=== PATIENT | female | born 1945 | race African-American/Black ===

== ENCOUNTER → 2016-10-11 | Outpatient (CLI) | payer MEDICARE, OTHER ==
[~2016-10-11] MED LIST: ADVA250A INH; ALBU17I INH; AMLO10TA2 PO; AMLO5TAB96 PO; ASPI1TAB91 PO; BENZ100 PO; BUME1TAB25 PO; BUPR150T3 PO; CEPH500C3 PO; DUONI; GLIP5TAB8 PO; IPRASOL INH; KLOR20TA6 PO; LASI20TA PO; LEVEMIR SC; LEVEMIR SQ; LISI30TA4 PO; MOBI15TA PO; MONT10TA2 PO; POTA10TA2 PO; PRAM0.5T PO; PRED10 PO; PRED20 PO; PRED5TAB PO; ROBA750T3 PO; ROSU10 PO; THEO300T11 PO; TYLE3 PO; VENTAER INH; WELLTAB39 PO; Z.0.OXYGEN INH; ZOCO40TA PO
[2016-10-11 11:59] LABS: HEMATOCRIT 39.6 % (35.0-46.0); MEAN CELL VOLUME 89.5 FL (80.0-100.0); MEAN CORPUSCULAR HEMOGLOBIN 29.7 PG (27.0-34.0); MEAN CORPUSCULAR HGB CONC 33.2 % (32.0-36.0); PLATELET COUNT 211 TH/MM3 (150-450); RED BLOOD COUNT 4.43 MIL/MM3 (4.00-5.30); RED CELL DISTRIBUTION WIDTH 14.8 % (11.6-17.2); REVIEW FLAG FINAL; WHITE BLOOD COUNT 7.9 TH/MM3 (4.0-11.0)
[2016-10-11 12:31] LABS: ALT (GPT) 17 U/L (10-53); ANION GAP 4 MEQ/L (5-15); AST (GOT) 6 U/L (15-37); BICARBONATE 35.5 MEQ/L (21.0-32.0); BLOOD UREA NITROGEN 24 MG/DL (7-18); CHLORIDE 104 MEQ/L (98-107); GLOMERULAR FILTRATION RATE 58 ML/MIN (>89); GLUCOSE,FASTING 127 MG/DL (74-99); POTASSIUM 4.1 MEQ/L (3.5-5.1); SODIUM (NA) 143 MEQ/L (136-145)
[2016-10-11 12:33] LABS: ALKALINE PHOSPHATASE 69 U/L (45-117); HDL CHOLESTEROL 107.1 MG/DL (40.0-60.0); LDL CHOLESTEROL 150 MG/DL (0-99); TOTAL BILIRUBIN ADULT 0.4 MG/DL (0.2-1.0)
[2016-10-11 17:42] LABS: HEMOGLOBIN A1a 1.2 %; HEMOGLOBIN A1b 0.9 %; HEMOGLOBIN F 0.8 %; HEMOGLOBIN LA1C 1.4 %; HEMOGLOBIN P3 2.8 %
== END ==
LOC: ELAB 09:35
PROVIDERS: ATTEND Specialist
DX: I10 Essential (primary) hypertension (principal); E11.9 Type 2 diabetes mellitus without complications; E78.1 Pure hyperglyceridemia
CPT/HCPCS: 36415; 80053; 80061; 83036; 85027

== ENCOUNTER 2016-11-08 17:09 | Inpatient (IN) | payer MEDICARE, OTHER ==
[2016-11-08] VITALS (12 sets, daily range): BP systolic 141–234; BP diastolic 93–133; PULSE 102–129; RESP 23–34; TEMP 99.2; O2SAT 48–100
[~2016-11-08] VITALS: Ht 160 cm; Wt 119.6 kg
[~2016-11-08 17:09] MED LIST changes: -AMLO10TA2 PO; -ASPI1TAB91 PO; -BUME1TAB25 PO; -GLIP5TAB8 PO; -IPRASOL INH; -LEVEMIR SQ; -LISI30TA4 PO; -MOBI15TA PO; -POTA10TA2 PO; -PRAM0.5T PO; -PRED10 PO; -PRED20 PO; -PRED5TAB PO; -VENTAER INH; -WELLTAB39 PO; -ZOCO40TA PO
[2016-11-08] MEDS ORDERED: methylPREDNISolone SOD SUCC 125 MG/2 ML VIAL IVP ONE (17:30)
[2016-11-08] MEDS: SODIUM CHLORIDE 0.9% FLUSH 10 ML FLUSH IVF PRN (17:38)
[2016-11-08] MEDS: RESP: ALBUTEROL 2.5 MG/IPRATROPIUM 0.5 MG NEB (SCH) INH (17:38)
--- NOTE | 2016-11-08 17:52 | RADRPT ---
EXAM DATE/TIME: 11/08/2016 17:17 [place] COMPARISON: No previous studies available for comparison. INDICATIONS : Shortness of breath MEDICAL HISTORY : Hypertension. Chronic obstructive pulmonary disease. Diabetes mellitus type II. GERD. Asthma. SURGICAL HISTORY : None. ENCOUNTER: Initial ACUITY: 1 day PAIN SCORE: 0/10 LOCATION: Bilateral chest FINDINGS: The heart is enlarged. There is moderate central vascular congestion and mild interstitial prominence . CONCLUSION: Mild cardiac decompensation Jose Nash MD on November 08, 2016 at 17:49 Board Certified Radiologist. This report was verified electronically.
[2016-11-08 17:54] LABS: BASOPHIL % 0.3 % (0.0-2.0); EOSINOPHIL % 0.1 % (0.0-4.0); HEMATOCRIT 43.4 % (35.0-46.0); HEMO FLAGS DIFF FINAL; LYMPHOCYTE # 1.9 TH/MM3 (1.0-4.8); MEAN CELL VOLUME 91.7 FL (80.0-100.0); MEAN CORPUSCULAR HEMOGLOBIN 29.1 PG (27.0-34.0); MEAN CORPUSCULAR HGB CONC 31.8 % (32.0-36.0); MONO % 10.8 % (0.0-8.0); NEUT % 69.8 % (16.0-70.0); PLATELET COUNT 245 TH/MM3 (150-450); RED BLOOD COUNT 4.74 MIL/MM3 (4.00-5.30); RED CELL DISTRIBUTION WIDTH 15.6 % (11.6-17.2)
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
[2016-11-08] MEDS ORDERED: FUROSEMIDE 100 MG/10 ML VIAL IV PUSH ONE (18:15)
[2016-11-08] MEDS ORDERED: NITROGLYCERIN 2% OINT 1 GM PACKET TOPICAL ONE (18:15)
[2016-11-08] MEDS ORDERED: ASPIRIN 81 MG CHEW TAB CHEW ONE (18:15)
[2016-11-08 18:17] LABS: ANION GAP 7 MEQ/L (5-15); AST (GOT) 26 U/L (15-37); BICARBONATE 35.2 MEQ/L (21.0-32.0); BLOOD UREA NITROGEN 28 MG/DL (7-18); CHLORIDE 101 MEQ/L (98-107); GLOMERULAR FILTRATION RATE 44 ML/MIN (>89); MAGNESIUM 2.4 MG/DL (1.5-2.5); SODIUM (NA) 143 MEQ/L (136-145)
[2016-11-08 18:20] LABS: POTASSIUM 4.7 MEQ/L (3.5-5.1)
[2016-11-08 18:22] LABS: ALKALINE PHOSPHATASE 84 U/L (45-117); ALT (GPT) 30 U/L (10-53); CREATINE KINASE 164 U/L (26-192); TOTAL BILIRUBIN ADULT 0.5 MG/DL (0.2-1.0)
[2016-11-08 18:35] LABS: CKMB 2.6 NG/ML (0.5-3.6)
[2016-11-08] MEDS ORDERED: BENZ100 PO (19:07)
[2016-11-08] MEDS ORDERED: WELLTAB39 PO (19:07)
[2016-11-08] MEDS ORDERED: BUME1TAB25 PO (19:07)
[2016-11-08] MEDS ORDERED: AMLO10TA2 PO (19:07)
[2016-11-08] MEDS ORDERED: ADVA250A INH (19:07)
[2016-11-08] MEDS ORDERED: POTA10TA2 PO (19:07)
[2016-11-08] MEDS ORDERED: IPRASOL INH (19:07)
[2016-11-08] MEDS ORDERED: VENTAER INH (19:07)
[2016-11-08] MEDS ORDERED: LISI30TA4 PO (19:07)
[2016-11-08] MEDS ORDERED: ZOCO40TA PO (19:07)
[2016-11-08] MEDS ORDERED: PRAM0.5T PO (19:07)
[2016-11-08] MEDS ORDERED: ASPI1TAB91 PO (19:07)
[2016-11-08] MEDS ORDERED: PRED5TAB PO (19:07)
[2016-11-08] MEDS ORDERED: MOBI15TA PO (19:07)
[2016-11-08] MEDS: BUDESONIDE-FORMOTEROL 160/4.5 MCG INHALER INH SCH (21:00)
[2016-11-08] MEDS: RESP: ALBUTEROL 2.5 MG/IPRATROPIUM 0.5 MG NEB (SCH) NEB (21:09)
--- NOTE | 2016-11-08 21:26 | HHI.HP ---
HPI Service [facility] Primary Care Physician Tin Ledesma MD Admission Diagnosis pulm edema Diagnoses: (1) Diastolic congestive heart failure (2) COPD exacerbation (3) Acute hypercapnic respiratory failure (4) Encephalopathy Chief Complaint: Progressively worsening shortness of breath Travel History International Travel<30 Days: No Contact w/Intl Traveler <30 Da: No Traveled to Known Affected Are: No History of Present Illness Unable to obtain history from patient due to lethargy/somnolence, therefore obtained from review of electronic medical record: Mrs. Turner is a 71-year-old female with a history of hypertension, hyperlipidemia, atrial fibrillation not on anticoagulation, COPD/asthma, obstructive sleep apnea, GERD, arthritis, and diabetes mellitus who presented to the emergency room for progressively worsening shortness of breath on 2016. According to her [id number] who is at the bedside, the patient has had difficulty breathing over the past 3-4 years but over the past few days has gotten significantly worse. Yesterday she was so concerned about her mother-in- law that she wanted to call an ambulance while she was visiting her because she was so short of breath. The patient refused. This morning, the patient's jyiywhgj-[id number] again went to see her and reported that she was significantly short of breath as well as experiencing generalized weakness without fever or complaint of chest pain.. The patient again refused to have EMS activated and the patient's [id number] brought her to the hospital. The patient has been having productive cough with phlegm. She is on home oxygen intermittently. The patient briefly wakes up but does not open her eyes during visit and states she's feeling like she is breathing better and not having any pain. Given her lethargy and somnolence, she is an unreliable historian. . Review of Systems Except as stated in HPI: all other systems reviewed are Neg Past Family Social History Past Medical History Unable to obtain from patient due to lethargy/somnolence, therefore obtained from review of electronic medical record: Hypertension Hyperlipidemia Atrial fibrillation COPD/asthma - on intermittent home oxygen Obstructive sleep apnea Gastroesophageal reflux Hiatal hernia Arthritis Diabetes mellitus Depression Anxiety . Past Surgical History Unable to obtain from patient due to lethargy/somnolence, therefore obtained from review of electronic medical record: Right foot surgery 1983- bunionectomy Hysterectomy . Reported Medications Reported Meds & Active Scripts Active Reported Tessalon Perles (Benzonatate) 100 Mg Cap 100 Mg PO TID PRN Duoneb (Ipratropium-Albuterol Neb) 0.5-2.5 Mg/3 Ml Neb 1 Nebule INH Q6HR PRN Ventolin Hfa 18 GM Inh (Albuterol Sulfate) 90 Mcg/Act Aer 1 Puff INH Q4H PRN Advair Diskus Inh (Fluticasone-Salmeterol Inh) 250-50 Mcg/Blist Aer 1 Puff INH BID Rinse mouth after use. Prednisone 5 Mg Tab 5 Mg PO BID Zocor (Simvastatin) 40 Mg Tab 40 Mg PO HS Pramipexole (Pramipexole Dihydrochloride) 0.5 Mg Tab 0.5 Mg PO HS Mobic (Meloxicam) 15 Mg Tab 15 Mg PO DAILY Wellbutrin Xl 24 HR (Bupropion HCl) 300 Mg Tab 300 Mg PO DAILY Potassium Chloride ER (Potassium Chloride) 10 Meq Tab 10 Meq PO BID Lisinopril 30 Mg Tab 30 Mg PO DAILY Bumex (Bumetanide) 0.5 Mg Tab 0.5 Mg PO DAILY Amlodipine (Amlodipine Besylate) 10 Mg Tab 10 Mg PO DAILY Aspirin Adult Low Strength (Aspirin) 81 Mg Tabdr 81 Mg PO DAILY . Allergies: Coded Allergies: Lactose (Verified Allergy, Intermediate, 11/08/16) Percodan (Verified Allergy, Intermediate, HALLICINATIONS, 11/08/16) Active Ordered Medications Current Medications Sodium Chloride (NS Flush) 2 ml UNSCH PRN IVF FLUSH AFTER USING IV ACCESS Last administered on 11/08/16 17:38; Start 11/08/16 at 17:30 Methylprednisolone Sodium Succinate (SoluMEDROL INJ) 125 mg ONCE ONCE IVP Last administered on 11/08/16 17:37; Start 11/08/16 at 17:30; Stop 11/08/16 at 17: 34; Status DC Albuterol/ Ipratropium (Duoneb Neb) 1 ampule Q15M INH Last administered on 17:38; Start 11/08/16 at 17:30; Stop 11/08/16 at 18:01; Status DC Furosemide (Lasix Inj) 100 mg ONCE ONCE IV PUSH Last administered on 11/08/16 18:40; Start 11/08/16 at 18:15; Stop 11/08/16 at 18:16; Status DC Nitroglycerin (Nitroglycerin 2% Oint) 1 inch ONCE ONCE TOPICAL Last administered on 11/08/16 18:40; Start 11/08/16 at 18:15; Stop 11/08/16 at 18:16; Status DC Aspirin (Aspirin Chew) 81 mg ONCE ONCE CHEW Last administered on 11/08/16 18: 39; Start 11/08/16 at 18:15; Stop 11/08/16 at 18:16; Status DC Furosemide (Lasix Inj) 20 mg DAILY IV PUSH ; Start 11/09/16 at 09:00 Methylprednisolone Sodium Succinate (SoluMEDROL INJ) 40 mg Q8HR IV PUSH ; Start 11/08/16 at 22:00 Albuterol/ Ipratropium (Duoneb Neb) 1 ampule Q4HR WHILE AWAKE NEB NEB Last administered on 11/08/16 21:09; Start 11/08/16 at 20:00 Budesonide/ Formoterol Fumarate (Symbicort 160-4.5 Inh) 2 puff Q12HR INH ; Start 11/08/16 at 21:00 Enoxaparin Sodium 40 mg 40 mg Q24H SQ ; Start 11/08/16 at 21:00 Ceftriaxone Sodium/Sodium Chloride (Rocephin Inj/NS Inj) 100 ml @ 200 mls/hr Q24H IV ; Start 11/08/16 at 21:00 Albuterol Sulfate (Albuterol Neb) 1.25 mg Q2HR NEB PRN NEB SHORTNESS OF BREATH ; Start 11/08/16 at 21:30; Status UNV Bupropion HCl (Wellbutrin Xl 24 Hr) 300 mg DAILY PO ; Start 11/09/16 at 09:00; Status UNV Non-Formulary Medication 30 mg DAILY PO BPM; Start 11/09/16 at 09:00; Status UNV Non-Formulary Medication 0.5 mg HS PO ; Start 11/09/16 at 21:00; Status UNV Non-Formulary Medication 40 mg HS PO CM; Start 11/09/16 at 21:00; Status UNV . Family History Unable to obtain due to patient's somnolence . Social History Per patient's [id number] at the bedside Tobacco: never Alcohol: does not drink . Physical Exam Vital Signs Vital Signs Date Time Temp Pulse Resp B/P Pulse Ox O2 Delivery O2 Flow Rate FiO2 11/08/16 21:09 96 Nasal Cannula 2.00 11/08/16 19:55 108 24 163/109 96 Nasal Cannula 2 11/08/16 18:30 112 23 141/93 93 Nasal Cannula 2.00 100 11/08/16 17:45 95 Nasal Cannula 2.00 11/08/16 17:40 121 188/104 91 Nasal Cannula 2 11/08/16 17:38 95 Nasal Cannula 2 11/08/16 17:29 129 234/133 100 Aerosol Mask 11/08/16 17:20 100 Aerosol Mask 100 11/08/16 17:16 115 218/115 11/08/16 17:13 92 Non-Rebreather 100 11/08/16 17:12 99.2 129 34 219/111 48 Room Air 11/08/16 17:12 48 Room Air 11/08/16 17:12 99.2 129 34 219/111 48 11/08/16 17:12 99.2 129 34 219/111 48 Room Air Physical Exam GENERAL: This is a lethargic, somnolent elderly female. SKIN: No rashes or lesions. Cool and dry. HEAD: Atraumatic. Normocephalic. EYES: No scleral icterus. No injection or drainage. ENT: Nose without bleeding, purulent drainage. NECK: Trachea midline. No lymphadenopathy. CARDIOVASCULAR: Regular rate and rhythm without murmurs, gallops, or rubs. 2+ to 3+ lower extremity pitting edema RESPIRATORY: Bilateral exp. wheezing; prolonged expiratory phase. Breath sounds equal bilaterally. No rales or rhonchi. GASTROINTESTINAL: Abdomen soft, non-tender, nondistended. No guarding. MUSCULOSKELETAL: Extremities without clubbing, cyanosis, or edema. No calf tenderness. NEUROLOGICAL: Lethargic/Somnolent, does not follow commands. Briefly opens eyes for respiratory therapist. . Laboratory Laboratory Tests Test 11/08/16 17:15 White Blood Count 10.0 Red Blood Count 4.74 Hemoglobin 13.8 Hematocrit 43.4 Mean Corpuscular Volume 91.7 Mean Corpuscular Hemoglobin 29.1 Mean Corpuscular Hemoglobin 31.8 Concent Red Cell Distribution Width 15.6 Platelet Count 245 Mean Platelet Volume 9.2 Neutrophils (%) (Auto) 69.8 Lymphocytes (%) (Auto) 19.0 Monocytes (%) (Auto) 10.8 Eosinophils (%) (Auto) 0.1 Basophils (%) (Auto) 0.3 Neutrophils # (Auto) 7.0 Lymphocytes # (Auto) 1.9 Monocytes # (Auto) 1.1 Eosinophils # (Auto) 0.0 Basophils # (Auto) 0.0 CBC Comment DIFF FINAL Differential Comment Sodium Level 143 Potassium Level 4.7 Chloride Level 101 Carbon Dioxide Level 35.2 Anion Gap 7 Blood Urea Nitrogen 28 Creatinine 1.43 Estimat Glomerular Filtration 44 Rate Random Glucose 133 Lactic Acid Level 1.6 Calcium Level 9.2 Magnesium Level 2.4 Total Bilirubin 0.5 Aspartate Amino Transf 26 (AST/SGOT) Alanine Aminotransferase 30 (ALT/SGPT) Alkaline Phosphatase 84 Total Creatine Kinase 164 Creatine Kinase MB 2.6 Troponin I 0.08 B-Type Natriuretic Peptide 440 Total Protein 7.8 Albumin 3.3 Theophylline Level LESS THAN 2.0 Result Diagram: 11/08/16 1715 11/08/161714 Imaging Last Impressions Chest X-Ray 11/08/161716 Signed Impressions: Service Date/Time: Tuesday, November 08, 2016 17:17 - CONCLUSION: Mild cardiac decompensation Jose Nash MD . Assessment and Plan Problem List: (1) Diastolic congestive heart failure ICD Code: I50.30 Status: Acute (2) Acute hypercapnic respiratory failure ICD Code: J96.02 Status: Acute (3) COPD exacerbation ICD Code: J44.1 Status: Acute (4) Encephalopathy ICD Code: G93.40 Status: Acute Assessment and Plan Acute on chronic diastolic congestive heart failure - Diuresed with Lasix in the ER - 2-D echocardiogram - Monitor I&O Acute hypercapnic respiratory failure COPD exacerbation Encephalopathy - Seen in consultation by Dr. Ledesma in ER - ordered duo nebs, Solu-Medrol, Lasix, and antibiotics - Stat ABG due to patient's lethargy/somnolence indicates acute hypercapnic respiratory failure - [facility] php mysql developer consult to assume care - discussed case with Dr. Sue - discussed with patient's son via telephone DVT prophylaxis - Lovenox 40 mg subq q24h Written by Jennifer Barth, acting as scribe for Dr. Sloan on 11/08/16 at 21:35. patient was seen and examined today. 71 y/o female with history of COPD-oxygen dependent and CHF was brought to ER with worsening sob. at the time of my evaluation she was very lethargic. ABG was ordered and reviewed; patient with respiratory acidosis/ hypercapnic respiratory failure. d/w the ER physician and ( php mysql developer inspection supervisor); patient will be upgraded to ICU with php mysql developer inspection supervisor. of note d/w the patient's son and the patient is a full code per my discussion with him. will ry BiPaP for now. critical care time 35 min. Code Status FULL CODE - per discussion via telephone with patient's son . Discussed Condition With ER physician, RN, respiratory therapist, Smoke Room Operator, patient's son, patient's [id number] Physician Certification 2 Midnight Certification Type: Admission for Inpatient Services Order for Inpatient Services The services are ordered in accordance with Medicare regulations or non- Medicare payer requirements, as applicable. In the case of services not specified as inpatient-only, they are appropriately provided as inpatient services in accordance with the 2-midnight benchmark. Estimated LOS (days): 5 days is the estimated time the patient will need to remain in the hospital, assuming treatment plan goals are met and no additional complications. Post-Hospital Plan: Not yet determined Jennifer Barth Nov 08, 2016 21:26 Evelia Sloan MD Nov 08, 2016 22:37
[2016-11-08] MEDS ORDERED: BENZONATATE 100 MG CAP PO PRN (21:30)
[2016-11-08 21:49] LABS: BLOOD GAS BASE EXCESS 10.3 mmol/L (-2-2); BLOOD GAS HCO3 40 mmol/L (22-26); BLOOD GAS METHEMOGLOBIN 0.9 % (0-2); BLOOD GAS O2 HGB SATURATION 91 % (90-100); BLOOD GAS PCO2 125 mmHg (38-42); BLOOD GAS PO2 80 mmHG (61-120); BLOOD GAS TOTAL HGB 14.1 G/DL (12.0-16.0); TEMP CORR TO 98.6
[2016-11-08 21:50] LABS: CRITICAL VALUE YES; FIO2 93 %; LITER FLOW 2 L/M; OXYGEN DEVICE NASAL CANNULA
[2016-11-08 21:51] LABS: DRAW SITE RT RADIAL; NUMBER OF ARTERIAL PUNCTURES 1; STAT YES; ULNAR PULSE PRESENT
--- NOTE | 2016-11-08 22:02 | PD ---
Data Data Last Documented VS Vital Signs Date Time Temp Pulse Resp B/P Pulse Ox O2 Delivery O2 Flow Rate FiO2 11/08/16 18:30 112 23 141/93 93 Nasal Cannula 2.00 100 11/08/16 17:12 99.2 Orders Complete Blood Count With Diff (11/08/16 17:17) Comprehensive Metabolic Panel (11/08/16 17:17) B-Type Natriuretic Peptide (11/08/16 17:17) Magnesium (Mg) (11/08/16 17:17) Ckmb (Isoenzyme) Profile (11/08/16 17:17) Troponin I (11/08/16 17:17) Iv Access Insert/Monitor (11/08/16 17:17) Electrocardiogram (11/08/16 17:17) Ecg Monitoring (11/08/16 17:17) Oximetry (11/08/16 17:17) Oxygen Administration (11/08/16 17:17) Chest, Single Ap (11/08/16 17:17) Sodium Chloride 0.9% Flush (Ns Flush) (11/08/16 17:30) Methylprednisolone So Succ Inj (Solumedr (11/08/16 17:30) Albuterol-Ipratropium Neb (Duoneb Neb) (11/08/16 17:30) Lactic Acid (11/08/16 17:26) Theophylline (Aminophylline) (11/08/16 17:54) Furosemide Inj (Lasix Inj) (11/08/16 18:15) Nitroglycerin 2% Oint (Nitroglycerin 2% (11/08/16 18:15) Aspirin Chew (Aspirin Chew) (11/08/16 18:15) CKMB (11/08/16 17:15) CKMB% (11/08/16 17:15) Admit Order (Ed Use Only) (11/08/16 18:55) Labs Laboratory Tests Test 11/08/16 17:15 White Blood Count 10.0 TH/MM3 Red Blood Count 4.74 MIL/MM3 Hemoglobin 13.8 GM/DL Hematocrit 43.4 % Mean Corpuscular Volume 91.7 FL Mean Corpuscular Hemoglobin 29.1 PG Mean Corpuscular Hemoglobin 31.8 % Concent Red Cell Distribution Width 15.6 % Platelet Count 245 TH/MM3 Mean Platelet Volume 9.2 FL Neutrophils (%) (Auto) 69.8 % Lymphocytes (%) (Auto) 19.0 % Monocytes (%) (Auto) 10.8 % Eosinophils (%) (Auto) 0.1 % Basophils (%) (Auto) 0.3 % Neutrophils # (Auto) 7.0 TH/MM3 Lymphocytes # (Auto) 1.9 TH/MM3 Monocytes # (Auto) 1.1 TH/MM3 Eosinophils # (Auto) 0.0 TH/MM3 Basophils # (Auto) 0.0 TH/MM3 CBC Comment DIFF FINAL Differential Comment Sodium Level 143 MEQ/L Potassium Level 4.7 MEQ/L Chloride Level 101 MEQ/L Carbon Dioxide Level 35.2 MEQ/L Anion Gap 7 MEQ/L Blood Urea Nitrogen 28 MG/DL Creatinine 1.43 MG/DL Estimat Glomerular Filtration 44 ML/MIN Rate Random Glucose 133 MG/DL Lactic Acid Level 1.6 mmol/L Calcium Level 9.2 MG/DL Magnesium Level 2.4 MG/DL Total Bilirubin 0.5 MG/DL Aspartate Amino Transf 26 U/L (AST/SGOT) Alanine Aminotransferase 30 U/L (ALT/SGPT) Alkaline Phosphatase 84 U/L Total Creatine Kinase 164 U/L Creatine Kinase MB 2.6 NG/ML Troponin I 0.08 NG/ML B-Type Natriuretic Peptide 440 PG/ML Total Protein 7.8 GM/DL Albumin 3.3 GM/DL Theophylline Level LESS THAN 2.0 MCG/ML MDM Supervised Visit with [facility]: No Narrative Course I was approached for respiratory therapy Dr. Sloan has ordered an ABG on this patient. Patient's ABG shows fairly severe respiratory acidosis acute on chronic. Her pH is 7.12 PCO2 of 125 and a bicarbonate of 39.5. Dr. Plascencia was paged and he is aware of the ABG results and he is calling ICU to upgrade the patient. Respiratory therapy is coming with a BiPAP machine to start. Patient is on my exam a GCS of 13 ([id number]) appears to be protecting her airway. Lung auscultation is limited by body habitus. Patient after starting on BiPAP is doing quite well and tolerating it very well. Dr. Sue arrives at bedside and I have discussed the patient with him and we are both quite impressed with her mental status given her level of hypercapnia. He will assume care at this point. Diagnosis Primary Impression: Acute hypercapnic respiratory failure Additional Impressions: Altered mental status Asthma Pulmonary edema Qualified Code: J81.0 - Acute pulmonary edema Admitting Information Admitting Physician Requests: Admit Condition: Stable Theodore Ashraf MD Nov 08, 2016 22:02
--- NOTE | 2016-11-08 22:35 | MB ---
cc: LinneaCARMENARTEIMO DATE OF CONSULTATION 11/08/16 REASON FOR CONSULTATION Respiratory distress and pneumonia. PRESENT ILLNESS This is a 71-year-old lady who has had a history for chronic bronchitis and asthma, has been treated with bronchodilators and oral prednisone on a regular basis. The patient over the past 2 months has had recurrent episodes of bronchitis and exacerbation of COPD and asthma and has been on three courses of antibiotics as well as tapered dose of steroids over a period of 6 weeks. This week she was getting worse and became more dyspneic, orthopneic, was coughing severely and also noticed some increased leg swelling and thus came to the emergency room. She was then on O2 at 2 liters. She denied chest pains. No hemoptysis and denies any abdominal pains, nausea, vomiting. PAST HISTORY The past history has included history for atrial fibrillation and ASHD. History of hypertension and history of hyperlipidemia. She has had a history of sleep apnea syndrome and she had a hysterectomy remotely. The surgery includes total hysterectomy and foot surgery. HABITS The patient does not smoke. No alcohol use. ALLERGIES PERCODAN, LACTULOSE. MEDICATIONS 1. Advair disk 250/50 one puff twice a day. 2. Nebulized DuoNeb solution t.i.d. 3. Prednisone 10 milligrams a day. 4. Recently completed a course of Levaquin 500 milligrams. FAMILY HISTORY Noncontributory. REVIEW OF SYSTEMS The patient is overweight. She has postnasal drip, sinus drainage, cough with hoarseness. She has wheezing, epigastric distress with urinary frequency and abdominal pains. Denies skin lesions. She has no anxiety or depression. PHYSICAL EXAMINATION GENERAL: This elderly -L[place] female who is alert and anxious. VITAL SIGNS: Blood pressure 140/95, pulse is 105, respirations 22, temperature 99.2. HEENT: Head normocephalic. Pupils reactive and equal. Throat clear. Tongue was moist. Ears no inflammation. NECK: Supple. No bruits or thyroid enlargement or lymphadenopathy. CHEST: Equal movements with expiratory wheezes throughout both lung vasquez. Prolonged expirations. ABDOMEN: Abdomen is soft, protuberant without masses or organomegaly. EXTREMITIES: 1+ edema with diminished peripheral pulses. There is no calf tenderness. Reflexes 1+ with no gross motor deficits. NEURO: Cranial nerves grossly intact. RECTAL: Exam is deferred. IMPRESSION 1. COPD with acute exacerbation. 2. Asthmatic bronchitis. 3. Hypertension. 4. Pulmonary edema with cardiomyopathy. 5. Obstructive sleep apnea syndrome. PLAN The patient has been started on IV antibiotic coverage including doxycycline 100 milligrams IV b.i.d. She will be placed on Solu-Medrol 40 milligrams IV q.8 hours, nebulized DuoNeb solution q. 4 hours, O2 at 2 liters nasal cannula, Lasix 20 milligrams IV daily and repeat chest x-ray and basic metabolic profile in a.m. Sputum sent for Gram stain and culture. Bedside PFT to be done. I will follow the case with you, Dr. Cartwright, thank you for this consultation. Artemio Ledesma MD JVD/OSMIN /8:02 PM /10:13 PM
[2016-11-08] MEDS: cefTRIAXone INJ 1,000 MG in SODIUM CHLORIDE 0.9% INJ 100 ML IV SCH (22:48)
--- NOTE | 2016-11-08 23:04 | PD.CONS ---
HPI Service Critical Care Medicine Consult Requested By Primary Care Physician Tin Ledesma MD History of Present Illness 71-year-old morbidly obese female with a history of hypertension, hyperlipidemia , atrial fibrillation not on anticoagulation, COPD/asthma, obstructive sleep apnea, GERD, arthritis, and diabetes mellitus who presented to the emergency room for progressively worsening shortness of breath on 11/08/2016. Per chart, the patient has had difficulty breathing over the past 3-4 years but over the past few days has gotten significantly worse. This morning, she was significantly short of breath as well as experiencing generalized weakness without fever or complaint of chest pain. She has been having productive cough with phlegm. She is on home oxygen intermittently. The patient responds to voice and opens her eyes briefly. She is on face mask BiPAP. Review of Systems ROS Unable to obtain patient face mask BiPAP Past Family Social History Allergies: Coded Allergies: Lactose (Verified Allergy, Intermediate, 11/08/16) Percodan (Verified Allergy, Intermediate, HALLICINATIONS, 11/08/16) Past Medical History Hypertension Hyperlipidemia Atrial fibrillation COPD/asthma - on intermittent home oxygen Obstructive sleep apnea Gastroesophageal reflux Hiatal hernia Arthritis Diabetes mellitus Depression Anxiety Past Surgical History Right foot surgery 1983- bunionectomy Hysterectomy Reported Medications Reported Meds & Active Scripts Active Reported Tessalon Perles (Benzonatate) 100 Mg Cap 100 Mg PO TID PRN Duoneb (Ipratropium-Albuterol Neb) 0.5-2.5 Mg/3 Ml Neb 1 Nebule INH Q6HR PRN Ventolin Hfa 18 GM Inh (Albuterol Sulfate) 90 Mcg/Act Aer 1 Puff INH Q4H PRN Advair Diskus Inh (Fluticasone-Salmeterol Inh) 250-50 Mcg/Blist Aer 1 Puff INH BID Rinse mouth after use. Prednisone 5 Mg Tab 5 Mg PO BID Zocor (Simvastatin) 40 Mg Tab 40 Mg PO HS Pramipexole (Pramipexole Dihydrochloride) 0.5 Mg Tab 0.5 Mg PO HS Mobic (Meloxicam) 15 Mg Tab 15 Mg PO DAILY Wellbutrin Xl 24 HR (Bupropion HCl) 300 Mg Tab 300 Mg PO DAILY Potassium Chloride ER (Potassium Chloride) 10 Meq Tab 10 Meq PO BID Lisinopril 30 Mg Tab 30 Mg PO DAILY Bumex (Bumetanide) 0.5 Mg Tab 0.5 Mg PO DAILY Amlodipine (Amlodipine Besylate) 10 Mg Tab 10 Mg PO DAILY Aspirin Adult Low Strength (Aspirin) 81 Mg Tabdr 81 Mg PO DAILY Active Ordered Medications Current Medications Medications (Trade) Dose Ordered Sig/[place] Route PRN Reason Start Time Stop Time Status Last Admin Dose Admin Sodium Chloride (NS Flush) 2 ml UNSCH PRN IVF FLUSH AFTER USING IV ACCESS 11/08/16 17:30 11/08/16 17:38 Furosemide (Lasix Inj) 20 mg DAILY IV PUSH 11/09/16 09:00 Methylprednisolone Sodium Succinate (SoluMEDROL INJ) 40 mg Q8HR IV PUSH 11/08/16 22:00 11/08/16 23:56 Budesonide/ Formoterol Fumarate (Symbicort 160-4.5 Inh) 2 puff Q12HR INH 11/08/16 21:00 Enoxaparin Sodium 40 mg 40 mg Q24H SQ 11/08/16 21:00 11/08/16 23:56 Ceftriaxone Sodium/Sodium Chloride (Rocephin Inj/NS Inj) 100 ml @ 200 mls/hr Q24H IV 11/08/16 21:00 11/08/16 22:48 Amlodipine Besylate (Norvasc) 10 mg DAILY PO 11/09/16 09:00 Aspirin (Ecotrin Ec) 81 mg DAILY PO 11/09/16 09:00 Benzonatate (Tessalon) 100 mg TID PRN PO COUGH 11/08/16 21:30 Bupropion HCl (Wellbutrin Sr) 150 mg BID PO 11/09/16 09:00 Potassium Chloride (KCl) 10 meq BID PO 11/09/16 09:00 Lisinopril (Prinivil) 30 mg DAILY PO 11/09/16 09:00 Pramipexole Dihydrochloride (Mirapex) 0.5 mg HS PO 11/09/16 21:00 Pravastatin Sodium (Pravachol) 80 mg HS PO 11/09/16 21:00 Family History Noncontributory Social History Negative 3 Physical Exam Vital Signs Vital Signs Date Time Temp Pulse Resp B/P Pulse Ox O2 Delivery O2 Flow Rate FiO2 11/08/16 22:15 95 40 11/08/16 22:14 102 165/101 95 BiPAP 11/08/16 22:11 96 BiPAP 11/08/16 21:09 96 Nasal Cannula 2.00 11/08/16 19:55 108 24 163/109 96 Nasal Cannula 2 11/08/16 18:30 112 23 141/93 93 Nasal Cannula 2.00 100 11/08/16 17:45 95 Nasal Cannula 2.00 11/08/16 17:40 121 188/104 91 Nasal Cannula 2 11/08/16 17:38 95 Nasal Cannula 2 11/08/16 17:29 129 234/133 100 Aerosol Mask 11/08/16 17:20 100 Aerosol Mask 100 11/08/16 17:16 115 218/115 11/08/16 17:13 92 Non-Rebreather 100 11/08/16 17:12 99.2 129 34 219/111 48 Room Air 11/08/16 17:12 48 Room Air 11/08/16 17:12 99.2 129 34 219/111 48 11/08/16 17:12 99.2 129 34 219/111 48 Room Air Physical Exam GENERAL: Morbidly obese female on the face mask my BiPAP, lethargic. SKIN: Warm and dry. HEAD: Normocephalic. EYES: No scleral icterus. No injection or drainage. NECK: Supple, trachea midline. No JVD or lymphadenopathy. CARDIOVASCULAR: Regular rate and rhythm without murmurs, gallops, or rubs. RESPIRATORY: Breath sounds equal bilaterally. No accessory muscle use. GASTROINTESTINAL: Abdomen soft, non-tender, nondistended. MUSCULOSKELETAL: No cyanosis, or edema. BACK: Nontender without obvious deformity. No CVA tenderness. EXTREMITIES: No clubbing cyanosis or edema Laboratory Laboratory Tests Test 11/08/16 11/08/16 17:15 21:38 White Blood Count 10.0 Red Blood Count 4.74 Hemoglobin 13.8 Hematocrit 43.4 Mean Corpuscular Volume 91.7 Mean Corpuscular Hemoglobin 29.1 Mean Corpuscular Hemoglobin 31.8 Concent Red Cell Distribution Width 15.6 Platelet Count 245 Mean Platelet Volume 9.2 Neutrophils (%) (Auto) 69.8 Lymphocytes (%) (Auto) 19.0 Monocytes (%) (Auto) 10.8 Eosinophils (%) (Auto) 0.1 Basophils (%) (Auto) 0.3 Neutrophils # (Auto) 7.0 Lymphocytes # (Auto) 1.9 Monocytes # (Auto) 1.1 Eosinophils # (Auto) 0.0 Basophils # (Auto) 0.0 CBC Comment DIFF FINAL Differential Comment Sodium Level 143 Potassium Level 4.7 Chloride Level 101 Carbon Dioxide Level 35.2 Anion Gap 7 Blood Urea Nitrogen 28 Creatinine 1.43 Estimat Glomerular Filtration 44 Rate Random Glucose 133 Lactic Acid Level 1.6 Calcium Level 9.2 Magnesium Level 2.4 Total Bilirubin 0.5 Aspartate Amino Transf 26 (AST/SGOT) Alanine Aminotransferase 30 (ALT/SGPT) Alkaline Phosphatase 84 Total Creatine Kinase 164 Creatine Kinase MB 2.6 Troponin I 0.08 B-Type Natriuretic Peptide 440 Total Protein 7.8 Albumin 3.3 Theophylline Level LESS THAN 2.0 Blood Gas Puncture Site RT RADIAL Blood Gas Patient Temperature 98.6 Blood Gas HCO3 40 Blood Gas Base Excess 10.3 Blood Gas Oxygen Saturation 91 Arterial Blood pH 7.13 Arterial Blood Partial 125 Pressure CO2 Arterial Blood Partial 80 Pressure O2 Arterial Blood Oxygen Content 18.0 Arterial Blood 1.0 Carboxyhemoglobin Arterial Blood Methemoglobin 0.9 Blood Gas Hemoglobin 14.1 Oxygen Delivery Device NASAL CANNULA Blood Gas Liter Flow 2 Blood Gas Inspired Oxygen 93 Result Diagram: 11/08/16 1715 11/08/161714 Imaging Last 24 hours Impressions Chest X-Ray 11/08/161716 Signed Impressions: Service Date/Time: Tuesday, November 08, 2016 17:17 - CONCLUSION: Mild cardiac decompensation Jose Nash MD Assessment and Plan Problem List: (1) Altered mental status ICD Code: R41.82 Status: Acute (2) Encephalopathy ICD Code: G93.40 Status: Acute (3) COPD exacerbation ICD Code: J44.1 Status: Acute (4) Acute hypercapnic respiratory failure ICD Code: J96.02 Status: Acute Assessment and Plan Respiratory failure - Severe hypercapnic respiratory acidosis - Untreated GLO - COPD exacerbation - Pulmonary consult appreciated - Continue BiPAP - Continue steroids antibiotics and DuoNeb Encephalopathy - Severe hypercapnic respiratory acidosis - Improving with treatment of underlying condition Obstructive sleep apnea - Continue BiPAP Diastolic congestive heart failure - No exacerbation - Lisinopril Norvasc and Lasix - Strict blood pressure control DVT GI prophylaxis - Lovenox and Pepcid Critical Care: The total critical care time was 35 minutes. Time to perform other separately billable procedures was not included in the critical care time. Problem Qualifiers (1) Altered mental status: Vo,Aug MD Nov 08, 2016 23:04
[2016-11-08] MEDS: ENOXAPARIN SODIUM 40 MG/0.4 ML SYRINGE SQ SCH (23:56)
[2016-11-08] MEDS: methylPREDNISolone SOD SUCC 40 MG/1 ML VIAL IV PUSH SCH (23:56)
[2016-11-09] VITALS (21 sets, daily range): BP systolic 104–150; BP diastolic 56–91; PULSE 86–106; RESP 19–40; TEMP 97.6–99; O2SAT 89–100
[2016-11-09 01:43] LABS: BLOOD GAS CARBOXYHEMOGLOBIN 1.2 % (0-4); BLOOD GAS HCO3 38 mmol/L (22-26); BLOOD GAS O2 HGB SATURATION 90 % (90-100); BLOOD GAS OXYGEN CONTENT 17.8 Vol % (12.0-20.0); BLOOD GAS PCO2 117 mmHg (38-42); BLOOD GAS PO2 78 mmHg (61-120); TEMP CORR TO 98.6
[2016-11-09 01:44] LABS: CRITICAL VALUE YES; DRAW SITE RT RADIAL; FIO2 40 %; NUMBER OF ARTERIAL PUNCTURES 1; OXYGEN DEVICE BiPAP; STAT NO; ULNAR PULSE PRESENT
[2016-11-09 04:51] LABS: BICARBONATE 39.4 MEQ/L (21.0-32.0); POTASSIUM 4.6 MEQ/L (3.5-5.1)
[2016-11-09] MEDS: methylPREDNISolone SOD SUCC 40 MG/1 ML VIAL IV PUSH SCH ×3 (06:13→21:27)
[2016-11-09] MEDS: RESP: ALBUTEROL 2.5 MG/IPRATROPIUM 0.5 MG NEB (SCH) NEB ×4 (07:56→20:41)
[2016-11-09 08:54] LABS: BLOOD GAS BASE EXCESS 11.3 mmol/L (-2-2); BLOOD GAS CARBOXYHEMOGLOBIN 1.4 % (0-4); BLOOD GAS HCO3 38 mmol/L (22-26); BLOOD GAS O2 HGB SATURATION 86 % (90-100); BLOOD GAS OXYGEN CONTENT 15.9 Vol % (12.0-20.0); BLOOD GAS PCO2 84 mmHg (38-42); BLOOD GAS PO2 56 mmHg (61-120); BLOOD GAS TOTAL HGB 13.2 G/DL (12.0-16.0); TEMP CORR TO 98.6
[2016-11-09 08:55] LABS: CRITICAL VALUE YES; DRAW SITE RT RADIAL; NUMBER OF ARTERIAL PUNCTURES 1; OXYGEN DEVICE BiPAP; STAT NO; ULNAR PULSE PRESENT; VENT SETTINGS IPAP18/EPAP8
[2016-11-09 08:56] LABS: FIO2 30 %
[2016-11-09] MEDS: POTASSIUM CHLORIDE 10 MEQ CONTROLLED RELEASE TAB PO SCH ×2 (09:00→21:26)
[2016-11-09] MEDS: LISINOPRIL 10 MG TAB PO SCH (09:00)
[2016-11-09] MEDS ORDERED: FUROSEMIDE 20 MG/2 ML VIAL IV PUSH SCH (09:00)
[2016-11-09] MEDS: ASPIRIN EC 81 MG TABEC PO SCH (09:00)
[2016-11-09] MEDS: buPROPion HCL 150 MG SUSTAINED RELEASE TAB PO SCH ×2 (09:00→21:25)
[2016-11-09] MEDS: BUDESONIDE-FORMOTEROL 160/4.5 MCG INHALER INH SCH ×2 (09:00→21:00)
--- NOTE | 2016-11-09 13:06 | EKG ---
Date Performed: 11/08/2016 Time Performed: 17:23:58 PTAGE: 71 years EKG: SINUS TACHYCARDIA WITH FREQUENT VENTRICULAR PREMATURE COMPLEXES WITH OCCASIONAL SUPRAVENTRI CULAR PREMATURE COMPLEXES POSSIBLE LEFT ATRIAL ENLARGEMENT LEFT VENTRICULAR HYPERTROPHY AND ST-T MERINO GE ABNORMAL ECG INTERPRETATION BASED ON A DEFAULT AGE OF 40 YEARS PREVIOUS TRACING : 04/03/2012 19.59 Compared to the previous tracing sinus tachycardia wi th pvc are new DOCTOR: Gabriel Shaikh Interpretating Date/Time 11/09/2016 13:06:21
--- NOTE | 2016-11-09 13:10 | HHI.PR ---
Subjective Remarks On Bipap and 30 % FIo2. Was hypercapnic. Output was good. Objective Vital Signs Date Time Temp Pulse Resp B/P Pulse Ox O2 Delivery O2 Flow Rate FiO2 11/09/16 12:00 94 11/09/16 11:00 98.0 100 40 150/91 89 11/09/16 10:00 86 11/09/16 09:10 92 30 11/09/16 08:00 86 11/09/16 07:59 92 BiPAP 11/09/16 07:00 97.7 86 25 137/84 98 11/09/16 07:00 98 Bi-Pap 40 11/09/16 06:00 88 11/09/16 04:00 90 11/09/16 04:00 97.6 90 24 128/69 97 11/09/16 03:27 94 40 11/09/16 02:00 96 Bi-Pap 40 11/09/16 02:00 92 11/09/16 01:50 99 40 11/09/16 00:48 100 40 11/09/16 00:45 98 11/09/16 00:45 98.2 98 19 147/80 96 11/09/16 00:45 96 Bi-Pap 40 11/08/16 22:15 95 40 11/08/16 22:14 102 165/101 95 BiPAP 11/08/16 22:11 96 BiPAP 11/08/16 21:09 96 Nasal Cannula 2.00 11/08/16 19:55 108 24 163/109 96 Nasal Cannula 2 11/08/16 18:30 112 23 141/93 93 Nasal Cannula 2.00 100 11/08/16 17:45 95 Nasal Cannula 2.00 11/08/16 17:40 121 188/104 91 Nasal Cannula 2 11/08/16 17:38 95 Nasal Cannula 2 11/08/16 17:29 129 234/133 100 Aerosol Mask 11/08/16 17:20 100 Aerosol Mask 100 11/08/16 17:16 115 218/115 11/08/16 17:13 92 Non-Rebreather 100 11/08/16 17:12 99.2 129 34 219/111 48 Room Air 11/08/16 17:12 48 Room Air 11/08/16 17:12 99.2 129 34 219/111 48 11/08/16 17:12 99.2 129 34 219/111 48 Room Air I/O 11/08/16 11/08/16 11/08/16 11/09/16 11/09/16 11/09/16 07:00 15:00 23:00 07:00 15:00 23:00 Output Total 600 ml Balance -600 ml Output Urine Total 600 ml # Voids 2 Result Diagram: 11/08/16 1715 11/09/16 0306 Objective Remarks PHYSICAL EXAMINATION GENERAL: This elderly -Y[place]i female who is alert and on bipap HEENT: Head normocephalic. Pupils reactive and equal. Throat clear. Tongue was moist. Ears no inflammation. NECK: Supple. No bruits or thyroid enlargement or lymphadenopathy. CHEST: Equal movements with expiratory wheezes throughout both lung vasquez. Prolonged expirations. ABDOMEN: Abdomen is soft, protuberant without masses or organomegaly. EXTREMITIES: 1+ edema with diminished peripheral pulses. There is no calf tenderness. Reflexes 1+ with no gross motor deficits. NEURO: Cranial nerves grossly intact. RECTAL: Exam is deferred. Assessment and Plan Assessment and Plan IMPRESSION 1. COPD with acute exacerbation. 2. Asthmatic bronchitis. 3. Hypertension. 4. Pulmonary edema with cardiomyopathy. 5. Obstructive sleep apnea syndrome. Plan : 1. Wean to N/C 4 L. 2. Bipap15/6 at HS, 30 % FIo2 3. Continue IV lasix 20 mg 4. CXR ,BMP in am 5. Solumedrol 40 mg IV q8h. Tin Ledesma MD Nov 09, 2016 13:10
[2016-11-09] MEDS ORDERED: INSULIN ASPART SUPPLEMENTAL SCALE SQ SCH ×2 (13:15→16:00)
[2016-11-09] MEDS ORDERED: GLUCAGON 1 MG/ML VIAL OTHER PRN ×2 (13:15→21:15)
[2016-11-09] MEDS ORDERED: DEXTROSE 50% IN WATER 50 ML VIAL(D50) IV PUSH PRN ×2 (13:15→21:15)
--- NOTE | 2016-11-09 13:25 | HHI.CCPN ---
Subjective Remarks/Hospital Course 71-year-old morbidly obese female with a history of hypertension, hyperlipidemia , atrial fibrillation not on anticoagulation, COPD/asthma, obstructive sleep apnea, GERD, arthritis, and diabetes mellitus who presented to the emergency room for progressively worsening shortness of breath on 11/08/2016. Per chart, the patient has had difficulty breathing over the past 3-4 years but over the past few days has gotten significantly worse. This morning, she was significantly short of breath as well as experiencing generalized weakness without fever or complaint of chest pain. She has been having productive cough with phlegm. She is on home oxygen intermittently. The patient responds to voice and opens her eyes briefly. She is on face mask BiPAP. 11/09: Clearly some element of fluid overload, but body habitus has a profound effect on air movement and airway. Appreciate input of Pulmonary Service. Objective Vital Signs Date Time Temp Pulse Resp B/P Pulse Ox O2 Delivery O2 Flow Rate FiO2 11/09/16 12:00 94 11/09/16 11:00 98.0 40 150/91 89 11/09/16 09:10 30 11/09/16 07:59 BiPAP 11/08/16 21:09 2.00 Result Diagram: 11/08/16 1715 11/09/16 0306 Other Results Laboratory Tests Test 11/08/16 11/09/16 11/09/16 21:38 01:33 08:40 Blood Gas Puncture Site RT RADIAL RT RADIAL RT RADIAL Blood Gas Patient Temperature 98.6 98.6 98.6 Blood Gas HCO3 40 mmol/L 38 mmol/L 38 mmol/L (22-26) (22-26) (22-26) Blood Gas Base Excess 10.3 mmol/L 9.0 mmol/L 11.3 mmol/L (-2-2) (-2-2) (-2-2) Blood Gas Oxygen Saturation 91 % (90-100) 90 % (90-100) 86 % (90-100) Arterial Blood pH 7.13 7.14 7.28 (7.380-7.420) (7.380-7.420) (7.380-7.420) Arterial Blood Partial 125 mmHg 117 mmHg 84 mmHg (38-42) Pressure CO2 (38-42) (38-42) Arterial Blood Partial 80 mmHG 78 mmHg 56 mmHg Pressure O2 (61-120) (61-120) (61-120) Arterial Blood Oxygen Content 18.0 Vol % 17.8 Vol % 15.9 Vol % (12.0-20.0) (12.0-20.0) (12.0-20.0) Arterial Blood 1.0 % (0-4) 1.2 % (0-4) 1.4 % (0-4) Carboxyhemoglobin Arterial Blood Methemoglobin 0.9 % (0-2) 1.0 % (0-2) 1.0 % (0-2) Blood Gas Hemoglobin 14.1 G/DL 14.0 G/DL 13.2 G/DL (12.0-16.0) (12.0-16.0) (12.0-16.0) Oxygen Delivery Device NASAL CANNULA BiPAP BiPAP Blood Gas Liter Flow 2 L/M Blood Gas Inspired Oxygen 93 % 40 % 30 % Blood Gas Ventilator Setting [id number] Imaging Last 24 hours Impressions Chest X-Ray 11/08/16 6571 Signed Impressions: Service Date/Time: Tuesday, November 08, 2016 17:17 - CONCLUSION: Mild cardiac decompensation Jose Nash MD Objective Remarks GENERAL: Morbidly obese female on the face mask my BiPAP, lethargic. SKIN: Warm and dry. HEAD: Normocephalic. EYES: No scleral icterus. No injection or drainage. NECK: Supple, trachea midline.No stridor. CARDIOVASCULAR: Regular rate and rhythm without murmurs, gallops, or rubs. No JVD. RESPIRATORY: Breath sounds equal bilaterally. Decreased in bases. GASTROINTESTINAL: Abdomen soft, non-tender, nondistended. BS active. MUSCULOSKELETAL: No cyanosis, or edema. BACK: Nontender without obvious deformity. No CVA tenderness. EXTREMITIES: No clubbing cyanosis or edema NEURO: Moves 4 limbs spontaneously. Interactive. A/P Problem List: (1) Altered mental status ICD Code: R41.82 Status: Acute (2) Encephalopathy ICD Code: G93.40 Status: Acute (3) COPD exacerbation ICD Code: J44.1 Status: Acute (4) Acute hypercapnic respiratory failure ICD Code: J96.02 Status: Acute Assessment and Plan Respiratory failure - Severe hypercapnic respiratory acidosis - Untreated GLO - COPD exacerbation - Pulmonary consult appreciated - Continue BiPAP - Continue steroids antibiotics and DuoNeb Encephalopathy - Severe hypercapnic respiratory acidosis - Improving with treatment of underlying condition Obstructive sleep apnea - Continue BiPAP Diastolic congestive heart failure - No exacerbation - Lisinopril Norvasc and Lasix - Strict blood pressure control - Additional diuretics today. DVT GI prophylaxis - Lovenox and Pepcid Overall impression: Critically ill with multifactorial respiratory failure. She may well need mechanical ventilation to correct. Critical care 36 mins Problem Qualifiers (1) Altered mental status: Mulugeta Hemphill MD Nov 09, 2016 13:25
[2016-11-09] MEDS: FUROSEMIDE 40 MG/4 ML VIAL IV PUSH SCH ×2 (14:22→18:09)
--- NOTE | 2016-11-09 16:56 | EC ---
Study Study Date:11/09/2016 STUDY CONCLUSIONS SUMMARY - Left ventricle: The cavity size was normal. Wall thickness was normal. Systolic function was normal. The estimated ejection fraction was in the range of 50% to 55%. Wall motion was normal; there were no regional wall motion abnormalities. - Mitral valve: Mild regurgitation. If LV function is below 40, please consider prescribing an ACEI or ARB or document rationale for non-use. PROCEDURE DATA STUDY STATUS: Elective. Procedure: Transthoracic echocardiography. Image quality was good. Scanning was performed from the parasternal, apical, and subcostal acoustic windows. Study completion: The patient tolerated the procedure well. Transthoracic echocardiography. M-mode, complete 2D, complete spectral Doppler, and color Doppler. Patient status: Inpatient. CARDIAC ANATOMY LEFT VENTRICLE: The cavity size was normal. Wall thickness was normal. Systolic function was normal. The estimated ejection fraction was in the range of 50% to 55%. Wall motion was normal; there were no regional wall motion abnormalities. AORTIC VALVE: Trileaflet; normal thickness leaflets. Doppler: Transvalvular velocity was within the normal range. There was no stenosis. No regurgitation. AORTA: Aortic root: The aortic root was normal in size. MITRAL VALVE: Structurally normal valve. Doppler: Transvalvular velocity was within the normal range. There was no evidence for stenosis. Mild regurgitation. LEFT ATRIUM: The atrium was normal in size. RIGHT VENTRICLE: The cavity size was normal. Wall thickness was normal. PULMONIC VALVE: Doppler: Transvalvular velocity was within the normal range. There was no evidence for stenosis. No regurgitation. TRICUSPID VALVE: Structurally normal valve. Doppler: Transvalvular velocity was within the normal range. No regurgitation. PULMONARY ARTERY: The main pulmonary artery was normal-sized. Systolic pressure was within the normal range. RIGHT ATRIUM: The atrium was normal in size. PERICARDIUM: There was no pericardial effusion. SYSTEMIC VEINS: Inferior vena cava: The vessel was normal in size. Prepared and signed by Camilo Velez [id number]
[2016-11-09] MEDS: PRAMIPEXOLE DIHYDROCHLORIDE 0.25 MG TAB PO SCH (21:26)
[2016-11-09] MEDS: PRAVASTATIN SOD 80 MG TAB PO SCH (21:26)
[2016-11-09] MEDS: ENOXAPARIN SODIUM 40 MG/0.4 ML SYRINGE SQ SCH (21:26)
[2016-11-09] MEDS: cefTRIAXone INJ 1,000 MG in SODIUM CHLORIDE 0.9% INJ 100 ML IV SCH (21:27)
[2016-11-09] MEDS: INSULIN ASPART SUPPLEMENTAL SCALE SQ SCH (21:28)
[2016-11-09] MEDS: RESP: ALBUTEROL 1.25 MG/3 ML NEB (PRN) NEB (23:38)
[2016-11-10] VITALS (18 sets, daily range): BP systolic 98–158; BP diastolic 56–93; PULSE 77–100; RESP 19–35; TEMP 96.4–98.1; O2SAT 91–96
--- NOTE | 2016-11-10 04:13 | RADRPT ---
EXAM DATE/TIME: 11/10/2016 03:25 [facility] COMPARISON: CHEST SINGLE AP, November 08, 2016, 17:17. INDICATIONS : Evaluate for infiltrate. MEDICAL HISTORY : Hypertension. Chronic obstructive pulmonary disease. Diabetes mellitus type II. GERD. Asthma. SURGICAL HISTORY : None. ENCOUNTER: Subsequent ACUITY: 3 days PAIN SCORE: 0/10 LOCATION: chest FINDINGS: Mild left lung base atelectasis and/or infiltrate is seen. Heart and mediastinum are unremarkable for technique. There are atherosclerotic calcifications of the aorta due to chronic atherosclerotic dise ase. CONCLUSION: Mild left lung base atelectasis and/or infiltrate is seen. Nikki Bailey MD on November 10, 2016 at 4:11 Board Certified Radiologist. This report was verified electronically.
[2016-11-10] MEDS: RESP: ALBUTEROL 1.25 MG/3 ML NEB (PRN) NEB ×2 (04:50→23:47)
[2016-11-10 04:57] LABS: POTASSIUM 5.1 MEQ/L (3.5-5.1)
[2016-11-10] MEDS: methylPREDNISolone SOD SUCC 40 MG/1 ML VIAL IV PUSH SCH ×2 (05:31→13:43)
[2016-11-10] MEDS: LISINOPRIL 10 MG TAB PO SCH (08:06)
[2016-11-10] MEDS: POTASSIUM CHLORIDE 10 MEQ CONTROLLED RELEASE TAB PO SCH ×2 (08:08→20:41)
[2016-11-10] MEDS: ASPIRIN EC 81 MG TABEC PO SCH (08:12)
[2016-11-10] MEDS: AZITHROMYCIN 250 MG TAB PO SCH (08:13)
[2016-11-10] MEDS: buPROPion HCL 150 MG SUSTAINED RELEASE TAB PO SCH ×2 (08:13→20:11)
[2016-11-10] MEDS: FUROSEMIDE 40 MG/4 ML VIAL IV PUSH SCH ×2 (08:13→18:14)
[2016-11-10] MEDS: RESP: ALBUTEROL 2.5 MG/IPRATROPIUM 0.5 MG NEB (SCH) NEB ×4 (08:19→20:39)
[2016-11-10] MEDS: BUDESONIDE-FORMOTEROL 160/4.5 MCG INHALER INH SCH ×2 (09:50→20:12)
[2016-11-10] MEDS: INSULIN ASPART SUPPLEMENTAL SCALE SQ SCH ×3 (11:00→20:41)
--- NOTE | 2016-11-10 19:19 | HHI.PR ---
Subjective Remarks denies cp/sob c/o insomnia stable vital signs - still slight tachycardia good o2 sat on 4 liters nasal canula - 94% Objective Vitals Vital Signs Date Time Temp Pulse Resp B/P Pulse Ox O2 Delivery O2 Flow Rate FiO2 11/10/16 18:00 100 11/10/16 16:00 97.7 90 22 127/90 11/10/16 16:00 90 11/10/16 14:00 90 11/10/16 12:00 98 11/10/16 12:00 98.1 98 23 130/63 96 11/10/16 10:00 96 11/10/16 08:19 94 Nasal Cannula 4.00 11/10/16 08:00 87 11/10/16 08:00 97.7 88 35 98/56 94 11/10/16 07:00 94 Nasal Cannula 4.00 11/10/16 06:00 86 11/10/16 04:00 97.8 92 19 158/83 94 11/10/16 04:00 92 11/10/16 02:00 87 11/10/16 00:00 92 11/10/16 00:00 98.1 92 24 142/93 94 11/09/16 22:00 93 Nasal Cannula 4.00 11/09/16 22:00 102 11/09/16 20:41 93 Nasal Cannula 4.00 11/09/16 20:00 104 11/09/16 20:00 98.1 104 30 104/56 92 I/O 11/09/16 11/09/16 11/09/16 11/10/16 11/10/16 11/10/16 07:00 15:00 23:00 07:00 15:00 23:00 Intake Total 343 ml 200 ml 310 ml Output Total 600 ml 300 ml Balance -600 ml -300 ml 343 ml 200 ml 310 ml Intake Oral 240 ml 200 ml 200 ml IV Total 103 ml 0 ml 110 ml Output Urine Total 600 ml 300 ml # Voids 2 1 2 3 4 # Bowel Movements 0 0 0 Result Diagram: 11/08/16 1715 11/10/16 0355 Imaging Last Impressions Chest X-Ray 11/10/16 0600 Signed Impressions: Service Date/Time: Thursday, November 10, 2016 03:25 - CONCLUSION: Mild left lung base atelectasis and/or infiltrate is seen. Nikki Bailey MD Objective Remarks GENERAL: AAOx3, NAD - morbidly obese SKIN: Warm and dry. HEAD: Atraumatic. Normocephalic. EYES: Pupils equal and round. No scleral icterus. No injection or drainage. ENT: No nasal bleeding or discharge. Mucous membranes pink and moist. NECK: Trachea midline. No JVD. CARDIOVASCULAR: Regular rate and rhythm. RESPIRATORY: Diffuse bilateral expiratory wheezing with decreased breath sounds. No crackles or rhonchi auscultated. GASTROINTESTINAL: Abdomen soft, non-tender, nondistended. Hepatic and splenic margins not palpable. MUSCULOSKELETAL: Extremities without clubbing, cyanosis, or edema. No obvious deformities. NEUROLOGICAL: Awake and alert. No obvious cranial nerve deficits. Motor grossly within normal limits. Five out of 5 muscle strength in the arms and legs. Normal speech. PSYCHIATRIC: Appropriate mood and affect; insight and judgment normal. Medications and IVs Current Medications Medications (Trade) Dose Ordered Sig/[place] Route Start Time Stop Time Status Last Admin (NS Flush) 2 ml UNSCH PRN IVF 11/08/16 17:30 11/08/16 17:38 (SoluMEDROL INJ) 40 mg Q8HR IV PUSH 11/08/16 22:00 11/10/16 13:43 (Symbicort 160-4.5 Inh) 2 puff Q12HR INH 11/08/16 21:00 11/10/16 09:50 Enoxaparin Sodium 40 mg 40 mg Q24H SQ 11/08/16 21:00 11/09/16 21:26 (Rocephin Inj/NS Inj) 100 ml @ 200 mls/hr Q24H IV 11/08/16 21:00 11/09/16 21:27 (Norvasc) 10 mg DAILY PO 11/09/16 09:00 (Ecotrin Ec) 81 mg DAILY PO 11/09/16 09:00 11/10/16 08:12 (Tessalon) 100 mg TID PRN PO 11/08/16 21:30 (Wellbutrin Sr) 150 mg BID PO 11/09/16 09:00 11/10/16 08:13 (KCl) 10 meq BID PO 11/09/16 09:00 11/09/16 21:26 (Prinivil) 30 mg DAILY PO 11/09/16 09:00 (Mirapex) 0.5 mg HS PO 11/09/16 21:00 11/09/16 21:26 (Pravachol) 80 mg HS PO 11/09/16 21:00 11/09/16 21:26 (Lasix Inj) 40 mg BID@,18 IV PUSH 11/09/16 14:00 11/10/16 18:14 (Zithromax) 500 mg DAILY PO 11/10/16 09:00 11/13/16 08:59 11/10/16 08:13 (D50w (Vial) Inj) 25 ml UNSCH PRN IV PUSH 11/09/16 21:15 (Glucagon Inj) 1 mg UNSCH PRN OTHER 11/09/16 21:15 A/P Problem List: (1) Acute hypercapnic respiratory failure ICD Code: J96.02 Status: Resolved Plan: Likely secondary to COPD exacerbation as well as pulmonary edema. Status post treatment with BiPAP. Patient also did well on nasal cannula. Now off BiPAP. CPAP at night. Continue supplemental oxygen to keep oxygen saturation between 88 and 92%. (2) COPD exacerbation ICD Code: J44.1 Status: Acute Plan: Continue IV steroids; bronchodilators. Pulmonary following. (3) Diastolic congestive heart failure ICD Code: I50.30 Status: Acute Plan: Chest x-ray on admission reviewed personally by me showed pulmonary vascular congestion. Continue furosemide foramina grams IV twice a day. (4) Encephalopathy ICD Code: G93.40 Status: Resolved Plan: Due to hypercapnic respiratory failure. Resolved after BiPAP treatment. Continue to monitor neurological status. (5) GLO (obstructive sleep apnea) ICD Code: G47.33 Status: Acute Plan: Morbid obesity likely is contributing to problem. BiPAP at night. (6) Insomnia ICD Code: G47.00 Status: Acute Plan: Will Rx Restoril 50 minutes by mouth at bedtime as needed for insomnia. Assessment and Plan GI prophylaxis: I will continue PPI. DVT prophylaxis: SCDs, continue Lovenox subcutaneous. Discharge Planning TRANSFERRED to the medical floor. DC in 1-2 days pending clinical improvement. We'll order PT eval. Lowell Herring MD Nov 10, 2016 19:19
--- NOTE | 2016-11-10 20:07 | HHI.PR ---
Subjective Remarks Off Bipap and on O2 3 L. On Solumedrol and Rocephin. Feels better Output was good. Objective Vital Signs Date Time Temp Pulse Resp B/P Pulse Ox O2 Delivery O2 Flow Rate FiO2 11/10/16 18:00 100 11/10/16 16:00 97.7 90 22 127/90 11/10/16 16:00 90 11/10/16 14:00 90 11/10/16 12:00 98 11/10/16 12:00 98.1 98 23 130/63 96 11/10/16 10:00 96 11/10/16 08:19 94 Nasal Cannula 4.00 11/10/16 08:00 87 11/10/16 08:00 97.7 88 35 98/56 94 11/10/16 07:00 94 Nasal Cannula 4.00 11/10/16 06:00 86 11/10/16 04:00 97.8 92 19 158/83 94 11/10/16 04:00 92 11/10/16 02:00 87 11/10/16 00:00 92 11/10/16 00:00 98.1 92 24 142/93 94 11/09/16 22:00 93 Nasal Cannula 4.00 11/09/16 22:00 102 11/09/16 20:41 93 Nasal Cannula 4.00 I/O 11/09/16 11/09/16 11/09/16 11/10/16 11/10/16 11/10/16 07:00 15:00 23:00 07:00 15:00 23:00 Intake Total 343 ml 200 ml 310 ml Output Total 600 ml 300 ml Balance -600 ml -300 ml 343 ml 200 ml 310 ml Intake Oral 240 ml 200 ml 200 ml IV Total 103 ml 0 ml 110 ml Output Urine Total 600 ml 300 ml # Voids 2 1 2 3 4 # Bowel Movements 0 0 0 Result Diagram: 11/08/16 1715 11/10/16 0355 Objective Remarks PHYSICAL EXAMINATION GENERAL: This elderly -[place] female who is alert and on O2 HEENT: Head normocephalic. Pupils reactive and equal. Throat clear. Tongue was moist. Ears no inflammation. NECK: Supple. No bruits or thyroid enlargement or lymphadenopathy. CHEST: Equal movements with expiratory wheezes throughout both lung vasquez. Prolonged expirations.Occ Basal crackles ABDOMEN: Abdomen is soft, protuberant without masses or organomegaly. EXTREMITIES: 1+ edema with diminished peripheral pulses. There is no calf tenderness. Reflexes 1+ with no gross motor deficits. NEURO: Cranial nerves grossly intact. RECTAL: Exam is deferred. Assessment and Plan Assessment and Plan IMPRESSION 1. COPD with acute exacerbation. 2. Asthmatic bronchitis. 3. Hypertension. 4. Pulmonary edema with cardiomyopathy. 5. Obstructive sleep apnea syndrome. Plan : 1. Wean O2 N/C 4 L. 2. Bipap12/6 at HS, 30 % FIo2 3. Continue IV lasix 20 mg 4. CBC ,BMP in am 5. Solumedrol 40 mg IV BID 6. Transfer to [facility] Tin Ledesma MD Nov 10, 2016 20:07
[2016-11-10] MEDS: PRAMIPEXOLE DIHYDROCHLORIDE 0.25 MG TAB PO SCH (20:11)
[2016-11-10] MEDS: PRAVASTATIN SOD 80 MG TAB PO SCH (20:11)
[2016-11-10] MEDS: ENOXAPARIN SODIUM 40 MG/0.4 ML SYRINGE SQ SCH (20:11)
[2016-11-10] MEDS: cefTRIAXone INJ 1,000 MG in SODIUM CHLORIDE 0.9% INJ 100 ML IV SCH (20:12)
[2016-11-10] MEDS: PANTOPRAZOLE SOD 40 MG DELAYED RELEASE TAB PO SCH (21:27)
[2016-11-11] VITALS (15 sets, daily range): BP systolic 101–144; BP diastolic 62–80; PULSE 77–93; RESP 19–26; TEMP 96.5–98.5; O2SAT 90–97
[2016-11-11] MEDS: TEMAZEPAM 15 MG CAP PO PRN (01:45)
[2016-11-11] MEDS: INSULIN ASPART SUPPLEMENTAL SCALE SQ SCH ×4 (06:32→21:00)
[2016-11-11] MEDS: RESP: ALBUTEROL 2.5 MG/IPRATROPIUM 0.5 MG NEB (SCH) NEB ×5 (08:22→23:15)
[2016-11-11] MEDS: LISINOPRIL 10 MG TAB PO SCH (09:00)
[2016-11-11] MEDS: BUDESONIDE-FORMOTEROL 160/4.5 MCG INHALER INH SCH ×2 (09:00→21:58)
[2016-11-11] MEDS: FUROSEMIDE 40 MG/4 ML VIAL IV PUSH SCH ×2 (09:32→18:05)
[2016-11-11] MEDS: PANTOPRAZOLE SOD 40 MG DELAYED RELEASE TAB PO SCH (09:33)
[2016-11-11] MEDS: methylPREDNISolone SOD SUCC 40 MG/1 ML VIAL IV PUSH SCH ×3 (09:33→21:04)
[2016-11-11] MEDS: AZITHROMYCIN 250 MG TAB PO SCH (09:34)
[2016-11-11] MEDS: buPROPion HCL 150 MG SUSTAINED RELEASE TAB PO SCH ×2 (09:34→21:05)
[2016-11-11] MEDS: ASPIRIN EC 81 MG TABEC PO SCH (09:34)
[2016-11-11] MEDS: POTASSIUM CHLORIDE 10 MEQ CONTROLLED RELEASE TAB PO SCH ×2 (09:34→21:05)
--- NOTE | 2016-11-11 09:40 | HHI.PR ---
Subjective Remarks 11/11 Patient was transferred from [facility] yesterday she is on 3-4L oxygen appears lethargic and drowsy. Afebrile. Objective Vital Signs Vital Signs Date Time Temp Pulse Resp B/P Pulse Ox O2 Delivery O2 Flow Rate FiO2 11/11/16 08:22 92 Nasal Cannula 4.00 11/11/16 07:42 96.6 83 19 101/62 93 11/11/16 05:20 92 Nasal Cannula 4.00 11/11/16 03:40 96.5 77 26 117/73 90 11/11/16 02:15 92 40 11/10/16 23:54 91 11/10/16 23:50 91 Nasal Cannula 3.00 11/10/16 23:00 94 Nasal Cannula 4.00 11/10/16 23:00 77 11/10/16 22:57 96.4 77 28 133/71 94 11/10/16 22:00 92 11/10/16 20:41 95 Nasal Cannula 4.00 11/10/16 20:00 99 11/10/16 20:00 97.9 99 24 157/88 94 11/10/16 19:00 92 Nasal Cannula 4.00 11/10/16 18:00 100 11/10/16 16:00 97.7 90 22 127/90 11/10/16 16:00 90 11/10/16 14:00 90 11/10/16 12:00 98 11/10/16 12:00 98.1 98 23 130/63 96 11/10/16 10:00 96 I/O 11/10/16 11/10/16 11/10/16 11/11/16 11/11/16 11/11/16 07:00 15:00 23:00 07:00 15:00 23:00 Intake Total 200 ml 310 ml 352 ml 240 ml Balance 200 ml 310 ml 352 ml 240 ml Intake Oral 200 ml 200 ml 240 ml 240 ml IV Total 0 ml 110 ml 112 ml # Voids 3 4 4 3 # Bowel Movements 0 0 0 0 Result Diagram: 11/08/16 1715 11/10/16 0355 Other Results Last Impressions Chest X-Ray 11/10/16 0600 Signed Impressions: Service Date/Time: Thursday, November 10, 2016 03:25 - CONCLUSION: Mild left lung base atelectasis and/or infiltrate is seen. Nikki Bailey MD Objective Remarks GENERAL: Patient is 71 yo lethargic and drowsy SKIN: Warm and dry. HEAD: Normocephalic. EYES: No scleral icterus. No injection or drainage. NECK: Supple, trachea midline. No JVD or lymphadenopathy. CARDIOVASCULAR: Regular rate and rhythm without murmurs, gallops, or rubs. RESPIRATORY: Breath sounds equal bilaterally. Coarse BS GASTROINTESTINAL: Abdomen soft, non-tender, nondistended. MUSCULOSKELETAL: No cyanosis, or edema. BACK: Nontender without obvious deformity. No CVA tenderness. Neuro: Awake but falls back to sleep, lethargic and drowsy A/P Assessment and Plan OS1)Acute hypercapnic and hypoxemic resp failure 2)COPD exac 3) GLO 4)Morbid obesity 5)Mild MAGALIE 6)HTN Plan -Continue with oxygen keep sat >92% Bronchodilators ( Duoneb), Symbicort. Check ABG and CXR STAT NIPPV PRN for resp distress if there is any worsening in clinical status and resp acidosis patient will likely need intubation and mechanical ventilation. Transfer to ICU Continue with diuretics- On Lasix 40mg BID Continue with abx ( Rocephin, Zithromax) monitor for signs of infections ( Fever, WBC) GI/DVT prophylaxis- on Lovenox 40mg daily Continue treatment plan. Discussed with patient's son and nursing staff Level 3 Jose Miguel Maddox MD Nov 11, 2016 09:40
[2016-11-11 09:47] LABS: BLOOD GAS CARBOXYHEMOGLOBIN 1.1 % (0-4); BLOOD GAS HCO3 41 mmol/L (22-26); BLOOD GAS O2 HGB SATURATION 93 % (90-100); BLOOD GAS OXYGEN CONTENT 17.6 Vol % (12.0-20.0); BLOOD GAS PCO2 100 mmHg (38-42); BLOOD GAS PO2 88 mmHg (61-120); BLOOD GAS TOTAL HGB 13.3 G/DL (12.0-16.0); TEMP CORR TO 98.6
[2016-11-11 09:49] LABS: OXYGEN DEVICE NASAL CANNULA
[2016-11-11 09:50] LABS: DRAW SITE RT RADIAL; LITER FLOW 4 L/M; NUMBER OF ARTERIAL PUNCTURES 1; STAT YES; ULNAR PULSE PRESENT
--- NOTE | 2016-11-11 10:02 | RADRPT ---
EXAM DATE/TIME: 11/11/2016 09:44 [facility] COMPARISON: CHEST SINGLE AP, November 10, 2016, 3:25. INDICATIONS : Cough, difficulty breathing. MEDICAL HISTORY : Hypertension. Chronic obstructive pulmonary disease. Diabetes mellitus II. GERD. Asthma SURGICAL HISTORY : None. ENCOUNTER: Subsequent ACUITY: 3 days PAIN SCORE: 4/10 LOCATION: Chest. FINDINGS: Single semiupright portable view of the chest demonstrates stable cardiomegaly, stable cephalization of pulmonary vasculature. The lungs are otherwise grossly clear. CONCLUSION: Stable radiographic findings consistent with congestive heart failure and pulmonary edema. Marcela Clark MD on November 11, 2016 at 9:59 Board Certified Radiologist. This report was verified electronically.
[2016-11-11] MEDS ORDERED: methylPREDNISolone SOD SUCC 125 MG/2 ML VIAL IV PUSH ONE (11:00)
[2016-11-11] MEDS ORDERED: BUMETANIDE INJ 1 MG/4 ML VIAL IV PUSH ONE (11:00)
[2016-11-11 11:08] LABS: AUTOMATED NEUTROPHIL # 5.4 TH/MM3 (1.8-7.7); BASOPHIL % 0.2 % (0.0-2.0); EOSINOPHIL % 0.1 % (0.0-4.0); HEMATOCRIT 45.6 % (35.0-46.0); HEMO FLAGS DIFF FINAL; LYMPHOCYTE # 2.5 TH/MM3 (1.0-4.8); MEAN CELL VOLUME 91.5 FL (80.0-100.0); MEAN CORPUSCULAR HEMOGLOBIN 29.5 PG (27.0-34.0); MEAN CORPUSCULAR HGB CONC 32.2 % (32.0-36.0); MONO % 9.7 % (0.0-8.0); PLATELET COUNT 198 TH/MM3 (150-450); RED BLOOD COUNT 4.99 MIL/MM3 (4.00-5.30); RED CELL DISTRIBUTION WIDTH 15.8 % (11.6-17.2); WHITE BLOOD COUNT 8.8 TH/MM3 (4.0-11.0)
[2016-11-11 11:23] LABS: ANION GAP 4 MEQ/L (5-15); AST (GOT) 7 U/L (15-37); BICARBONATE 40.1 MEQ/L (21.0-32.0); BLOOD UREA NITROGEN 38 MG/DL (7-18); CHLORIDE 96 MEQ/L (98-107); GLOMERULAR FILTRATION RATE 52 ML/MIN (>89); MAGNESIUM 2.8 MG/DL (1.5-2.5); SODIUM (NA) 140 MEQ/L (136-145)
[2016-11-11 11:29] LABS: ALKALINE PHOSPHATASE 79 U/L (45-117); ALT (GPT) 22 U/L (10-53); TOTAL BILIRUBIN ADULT 0.3 MG/DL (0.2-1.0)
[2016-11-11] MEDS ORDERED: methylPREDNISolone SOD SUCC 40 MG/1 ML VIAL IV PUSH ONE (11:30)
--- NOTE | 2016-11-11 11:42 | HHI.CCPN ---
Subjective Remarks/Hospital Course 71-year-old morbidly obese female with a history of hypertension, hyperlipidemia , atrial fibrillation not on anticoagulation, COPD/asthma, obstructive sleep apnea, GERD, arthritis, and diabetes mellitus who presented to the emergency room for progressively worsening shortness of breath on 11/08/2016. Per chart, the patient has had difficulty breathing over the past 3-4 years but over the past few days has gotten significantly worse. This morning, she was significantly short of breath as well as experiencing generalized weakness without fever or complaint of chest pain. She has been having productive cough with phlegm. She is on home oxygen intermittently. The patient responds to voice and opens her eyes briefly. She is on face mask BiPAP. 11/09: Clearly some element of fluid overload, but body habitus has a profound effect on air movement and airway. Appreciate input of Pulmonary Service. 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 Maddox noted today that patient was lethargic. A stat ABG showed 7.23/100/88. Patient was transferred to the ICU immediately and placed on BiPAP. Critical care medicine was consulted and I evaluated the patient. Currently on BiPAP1/, I reduce EPAP to 5 to improve ventilation. Repeat ABG pending. Chest x-ray shows evidence of fluid overload 1 mg of Bumex given. IV Solu-Medrol and DuoNeb started by Dr. Maddox Objective Vital Signs Date Time Temp Pulse Resp B/P Pulse Ox O2 Delivery O2 Flow Rate FiO2 11/11/16 09:30 4.00 11/11/16 08:22 92 Nasal Cannula 11/11/16 07:42 96.6 83 19 101/62 11/11/16 02:15 40 Intake and Output 11/10/16 11/10/16 11/11/16 08:00 16:00 00:00 Intake Total 200 ml 310 ml 352 ml Balance 200 ml 310 ml 352 ml Result Diagram: 11/11/16 1045 11/11/16 1045 Other Results Laboratory Tests Test 11/11/16 09:40 Blood Gas Puncture Site RT RADIAL Blood Gas Patient Temperature 98.6 Blood Gas HCO3 41 mmol/L (22-26) Blood Gas Base Excess 13.0 mmol/L (-2-2) Blood Gas Oxygen Saturation 93 % (90-100) Arterial Blood pH 7.23 (7.380-7.420) Arterial Blood Partial 100 mmHg Pressure CO2 (38-42) Arterial Blood Partial 88 mmHg Pressure O2 (61-120) Arterial Blood Oxygen Content 17.6 Vol % (12.0-20.0) Arterial Blood 1.1 % (0-4) Carboxyhemoglobin Arterial Blood Methemoglobin 1.0 % (0-2) Blood Gas Hemoglobin 13.3 G/DL (12.0-16.0) Oxygen Delivery Device NASAL CANNULA Blood Gas Liter Flow 4 L/M Imaging Last 24 hours Impressions Chest X-Ray 11/08/16 1717 Signed Impressions: Service Date/Time: Tuesday, November 08, 2016 17:17 - CONCLUSION: Mild cardiac decompensation Jose Nash MD Objective Remarks GENERAL: Morbidly obese female on BiPAP, lethargic. SKIN: Warm and dry. HEAD: Normocephalic. EYES: No scleral icterus. No injection or drainage. NECK: Supple, trachea midline.No stridor. CARDIOVASCULAR: Regular rate and rhythm without murmurs, gallops, or rubs. No JVD. RESPIRATORY: Breath sounds equal bilaterally. Bilateral expiratory wheezes heard. GASTROINTESTINAL: Abdomen soft, non-tender, nondistended. BS active. MUSCULOSKELETAL: No cyanosis, or edema. BACK: Nontender without obvious deformity. No CVA tenderness. EXTREMITIES: No clubbing cyanosis or edema NEURO: Lethargic but wakes up follows commands Urinary Catheter: Yes Assessment to: Continue A/P Problem List: (1) Altered mental status ICD Code: R41.82 Status: Acute (2) Encephalopathy ICD Code: G93.40 Status: Resolved (3) COPD exacerbation ICD Code: J44.1 Status: Acute (4) Acute hypercapnic respiratory failure ICD Code: J96.02 Status: Resolved Assessment and Plan Assessment/Plan: RESP: Severe hypercapnic respiratory acidosis Untreated GLO COPD exacerbation - BIPAP 15/5 with repeat ABG in 1 hour - Pulmonary followin - Restart Solu-Medrol 40 mg IV twice a day - DuoNeb every 4 hours scheduled and when necessary. Continue Pulmicort - Discontinue Rocephin. Start Zosyn 4.5 g every 6 hours, continue azithromycin NEURO: Encephalopathy/CO2 narcosis - Continue BiPAP and repeat ABG in 1 hour -Should improve with treatment of underlying condition CVS: Diastolic congestive heart failure - Chest x-ray shows evidence of CHF exacerbation - Continue Lisinopril Norvasc and IV Lasix. Bumex 1 mg IV x 1 given - Strict blood pressure control GI: -Nothing by mouth until mental status improves. Can take meds -Protonix for GI prophylaxis ID -Cannot rule out healthcare associated pneumonia -Discontinue Rocephin start Zosyn 4.5 g IV every 6 hours, continue azithromycin ENDO -electrolyte replacement per protocol DVT GI prophylaxis - Lovenox and Protonix Overall impression: Critically ill with multifactorial respiratory failure. She may well need mechanical ventilation to correct acidosis. Critical care 40 mins Problem Qualifiers (1) Altered mental status: Rosalino Garcia MD Nov 11, 2016 11:42
[2016-11-11 11:56] LABS: BLOOD GAS CARBOXYHEMOGLOBIN 1.7 % (0-4); BLOOD GAS HCO3 41 mmol/L (22-26); BLOOD GAS METHEMOGLOBIN 1.3 % (0-2); BLOOD GAS O2 HGB SATURATION 91 % (90-100); BLOOD GAS OXYGEN CONTENT 17.9 Vol % (12.0-20.0); BLOOD GAS PCO2 84 mmHg (38-42); BLOOD GAS PO2 74 mmHg (61-120); BLOOD GAS TOTAL HGB 13.9 G/DL (12.0-16.0); TEMP CORR TO 98.6
[2016-11-11 11:57] LABS: CRITICAL VALUE YES; DRAW SITE LT RADIAL; FIO2 40 %; NUMBER OF ARTERIAL PUNCTURES 1; OXYGEN DEVICE BiPAP; STAT NO; ULNAR PULSE PRESENT; VENT SETTINGS 15/5
[2016-11-11] MEDS: PIPERACIL-TAZO 4.5 GM PREMIX 100 ML IV SCH ×2 (12:36→18:05)
[2016-11-11] MEDS ORDERED: CHLORHEXIDINE GLUCONATE 2 % 1 PACK (2 CLOTHS)(extra cloths) TOPICAL PRN (12:45)
[2016-11-11 16:07] LABS: BLOOD GAS BASE EXCESS 13.8 mmol/L (-2-2); BLOOD GAS CARBOXYHEMOGLOBIN 1.8 % (0-4); BLOOD GAS HCO3 40 mmol/L (22-26); BLOOD GAS METHEMOGLOBIN 1.4 % (0-2); BLOOD GAS O2 HGB SATURATION 88 % (90-100); BLOOD GAS OXYGEN CONTENT 17.2 Vol % (12.0-20.0); BLOOD GAS PCO2 69 mmHg (38-42); BLOOD GAS PO2 61 mmHg (61-120); BLOOD GAS TOTAL HGB 13.9 G/DL (12.0-16.0); TEMP CORR TO 98.6
[2016-11-11 16:08] LABS: CRITICAL VALUE YES; FIO2 40 %; OXYGEN DEVICE BiPAP; VENT SETTINGS IPAP 15/EPAP 5
[2016-11-11 16:09] LABS: DRAW SITE LT RADIAL; NUMBER OF ARTERIAL PUNCTURES 1; STAT YES; ULNAR PULSE PRESENT
[2016-11-11] MEDS: PRAVASTATIN SOD 80 MG TAB PO SCH (21:04)
[2016-11-11] MEDS: ENOXAPARIN SODIUM 40 MG/0.4 ML SYRINGE SQ SCH (21:05)
[2016-11-11] MEDS: PRAMIPEXOLE DIHYDROCHLORIDE 0.25 MG TAB PO SCH (21:37)
[2016-11-12] VITALS (16 sets, daily range): BP systolic 90–131; BP diastolic 51–78; PULSE 79–96; RESP 18–24; TEMP 97.6–98.4; O2SAT 89–96
[2016-11-12] MEDS: PIPERACIL-TAZO 4.5 GM PREMIX 100 ML IV SCH ×4 (01:00→23:09)
[2016-11-12] MEDS: CHLORHEXIDINE GLUCONATE 2 % 1 PACK (2 CLOTHS)(taper/protocol) TOPICAL SCH (03:30)
[2016-11-12] MEDS: RESP: ALBUTEROL 2.5 MG/IPRATROPIUM 0.5 MG NEB (SCH) NEB ×5 (03:33→21:06)
[2016-11-12 05:19] LABS: AUTOMATED NEUTROPHIL # 6.7 TH/MM3 (1.8-7.7); BASOPHIL % 0.1 % (0.0-2.0); HEMATOCRIT 42.4 % (35.0-46.0); HEMO FLAGS DIFF FINAL; LYMPH % 11.5 % (9.0-44.0); LYMPHOCYTE # 0.9 TH/MM3 (1.0-4.8); MEAN CELL VOLUME 90.1 FL (80.0-100.0); MEAN CORPUSCULAR HEMOGLOBIN 29.4 PG (27.0-34.0); MEAN CORPUSCULAR HGB CONC 32.7 % (32.0-36.0); NEUT % 83.4 % (16.0-70.0); PLATELET COUNT 222 TH/MM3 (150-450); RED BLOOD COUNT 4.71 MIL/MM3 (4.00-5.30); RED CELL DISTRIBUTION WIDTH 15.3 % (11.6-17.2)
[2016-11-12 05:26] LABS: ALT (GPT) 21 U/L (10-53); ANION GAP 4 MEQ/L (5-15); AST (GOT) 8 U/L (15-37); BLOOD UREA NITROGEN 43 MG/DL (7-18); CHLORIDE 94 MEQ/L (98-107); GLOMERULAR FILTRATION RATE 47 ML/MIN (>89); MAGNESIUM 2.7 MG/DL (1.5-2.5); POTASSIUM 4.3 MEQ/L (3.5-5.1); SODIUM (NA) 140 MEQ/L (136-145)
[2016-11-12 05:28] LABS: ALKALINE PHOSPHATASE 67 U/L (45-117); TOTAL BILIRUBIN ADULT 0.5 MG/DL (0.2-1.0)
[2016-11-12] MEDS: INSULIN ASPART SUPPLEMENTAL SCALE SQ SCH ×4 (06:07→20:21)
--- NOTE | 2016-11-12 06:36 | RADRPT ---
EXAM DATE/TIME: 11/12/2016 05:20 [facility] COMPARISON: CHEST SINGLE AP, November 11, 2016, 9:44. INDICATIONS : Shortness of breath, possible pulmonary disease. MEDICAL HISTORY : Hypertension. Chronic obstructive pulmonary disease. Diabetes mellitus type II. GERD SURGICAL HISTORY : None. ENCOUNTER: Subsequent ACUITY: 4 - 6 days PAIN SCORE: Non-responsive. LOCATION: Bilateral chest FINDINGS: The heart size is mildly enlarged. There some linear suspected atelectasis or scarring in the left mi dlung. Lungs appear otherwise clear. CONCLUSION: Borderline cartilage. Jose Pucrell MD on November 12, 2016 at 6:34 Board Certified Radiologist. This report was verified electronically.
[2016-11-12] MEDS: FUROSEMIDE 40 MG/4 ML VIAL IV PUSH SCH (07:56)
[2016-11-12] MEDS: methylPREDNISolone SOD SUCC 40 MG/1 ML VIAL IV PUSH SCH ×2 (07:56→20:12)
[2016-11-12] MEDS: PANTOPRAZOLE SOD 40 MG DELAYED RELEASE TAB PO SCH (07:57)
[2016-11-12] MEDS: LISINOPRIL 10 MG TAB PO SCH (07:57)
[2016-11-12] MEDS: buPROPion HCL 150 MG SUSTAINED RELEASE TAB PO SCH ×2 (07:57→20:12)
[2016-11-12] MEDS: ASPIRIN EC 81 MG TABEC PO SCH (07:57)
[2016-11-12] MEDS: BUDESONIDE-FORMOTEROL 160/4.5 MCG INHALER INH SCH ×2 (07:58→20:13)
[2016-11-12] MEDS: POTASSIUM CHLORIDE 10 MEQ CONTROLLED RELEASE TAB PO SCH ×2 (07:58→20:12)
[2016-11-12] MEDS: AZITHROMYCIN 250 MG TAB PO SCH (07:58)
--- NOTE | 2016-11-12 09:44 | PD.TRANSFR ---
Transfer Summary Admission Date Nov 08, 2016 at 18:57 Admitting Diagnosis pulm edema Diagnoses: (1) Acute hypercapnic respiratory failure Diagnosis: Principal (2) Asthma exacerbation Diagnosis: Principal (3) Diastolic congestive heart failure Diagnosis: Principal (4) Encephalopathy Diagnosis: Principal (5) Pulmonary edema Diagnosis: Principal (6) Altered mental status Diagnosis: Principal (7) GLO (obstructive sleep apnea) Diagnosis: Secondary (8) Insomnia Diagnosis: Secondary Transfer Summary/Subjective 71-year-old morbidly obese female with a history of hypertension, hyperlipidemia , atrial fibrillation not on anticoagulation, COPD/asthma, obstructive sleep apnea, GERD, arthritis, and diabetes mellitus who presented to the emergency room for progressively worsening shortness of breath on 11/08/2016. Per chart, the patient has had difficulty breathing over the past 3-4 years but over the past few days has gotten significantly worse. This morning, she was significantly short of breath as well as experiencing generalized weakness without fever or complaint of chest pain. She has been having productive cough with phlegm. She is on home oxygen intermittently. The patient responds to voice and opens her eyes briefly. She is on face mask BiPAP. 11/09: Clearly some element of fluid overload, but body habitus has a profound effect on air movement and airway. 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 Maddox noted 11/11/16 that patient was lethargic. A stat ABG showed 7.23/100/88. Patient was transferred to the ICU immediately and placed on BiPAP. Critical care medicine was consulted and I evaluated the patient. Currently on BiPAP15/10, I reduce EPAP to 5 to improve ventilation. Repeat ABG pending. Chest x-ray shows evidence of fluid overload 1 mg of Bumex given. IV Solu-Medrol and DuoNeb started by Dr. Maddox 11/12: Significant clinical improvement. Alert awake oriented. Still has bilateral wheezing. Objective Vital Signs Date Time Temp Pulse Resp B/P Pulse Ox O2 Delivery O2 Flow Rate FiO2 11/12/16 07:34 93 Nasal Cannula 5.00 11/12/16 06:00 96 11/12/16 04:00 97.6 20 129/71 11/12/16 01:09 45 Intake and Output 11/11/16 11/11/16 11/12/16 08:00 16:00 00:00 Intake Total 240 ml 87 ml 380 ml Output Total 1100 ml 1800 ml Balance 240 ml -1013 ml -1420 ml Result Diagram: 11/12/16 0417 11/12/16 0417 Other Results Laboratory Tests Test 11/11/16 11/11/16 11:45 15:53 Blood Gas Puncture Site LT RADIAL LT RADIAL Blood Gas Patient Temperature 98.6 98.6 Blood Gas HCO3 41 mmol/L 40 mmol/L (22-26) (22-26) Blood Gas Base Excess 14.0 mmol/L 13.8 mmol/L (-2-2) (-2-2) Blood Gas Oxygen Saturation 91 % (90-100) 88 % (90-100) Arterial Blood pH 7.31 7.38 (7.380-7.420) (7.380-7.420) Arterial Blood Partial 84 mmHg (38-42) 69 mmHg (38-42) Pressure CO2 Arterial Blood Partial 74 mmHg 61 mmHg Pressure O2 (61-120) (61-120) Arterial Blood Oxygen Content 17.9 Vol % 17.2 Vol % (12.0-20.0) (12.0-20.0) Arterial Blood 1.7 % (0-4) 1.8 % (0-4) Carboxyhemoglobin Arterial Blood Methemoglobin 1.3 % (0-2) 1.4 % (0-2) Blood Gas Hemoglobin 13.9 G/DL 13.9 G/DL (12.0-16.0) (12.0-16.0) Oxygen Delivery Device BiPAP BiPAP Blood Gas Ventilator Setting 15/5 IPAP 15/EPAP 5 Blood Gas Inspired Oxygen 40 % 40 % Imaging Last 24 hours Impressions Chest X-Ray 11/08/16 1591 Signed Impressions: Service Date/Time: Tuesday, November 08, 2016 17:17 - CONCLUSION: Mild cardiac decompensation Jose Nash MD Objective Remarks GENERAL: Morbidly obese female on NC, AO x3 SKIN: Warm and dry. HEAD: Normocephalic. EYES: No scleral icterus. No injection or drainage. NECK: Supple, trachea midline.No stridor. CARDIOVASCULAR: Regular rate and rhythm without murmurs, gallops, or rubs. No JVD. RESPIRATORY: Breath sounds equal bilaterally. Bilateral expiratory wheezes heard. GASTROINTESTINAL: Abdomen soft, non-tender, nondistended. BS active. MUSCULOSKELETAL: No cyanosis, or edema. BACK: Nontender without obvious deformity. No CVA tenderness. EXTREMITIES: No clubbing cyanosis or edema NEURO: Alert awake oriented. No focal deficits A/P Problem List: (1) Altered mental status ICD Code: R41.82 Status: Acute (2) Encephalopathy ICD Code: G93.40 Status: Resolved (3) COPD exacerbation ICD Code: J44.1 Status: Acute (4) Acute hypercapnic respiratory failure ICD Code: J96.02 Status: Resolved Assessment and Plan Assessment/Plan: NEURO: Encephalopathy/CO2 narcosis -Significant improvement in mental status -Continue BiPAP PRN and strictly at night RESP: Severe hypercapnic respiratory acidosis Untreated GLO COPD exacerbation - BIPAP 15/5 PRN and strictly at night - Pulmonary following - Solu-Medrol 40 mg IV twice a day - DuoNeb every 4 hours scheduled and when necessary. Continue Pulmicort - EzPAP, Acapella, IS - Zosyn 4.5 g every 8 hours, continue azithromycin CVS: Diastolic congestive heart failure - Chest x-ray shows improvement in pulmonary edema today - Continue Lisinopril Norvasc and IV Lasix, but reduce lasix to 20 mg IV BID. Bumex 1 mg IV x 1 given yesterday - Strict blood pressure control GI: -Regular diet -Protonix for GI prophylaxis ID -Cannot rule out healthcare associated pneumonia -Continue Zosyn 4.5 g IV every 8 hours, continue azithromycin ENDO -electrolyte replacement per protocol DVT GI prophylaxis - Lovenox and Protonix Level2 [facility] consulted to assume care. If stable transfer to med surg in 24 hours Problem Qualifiers (1) Altered mental status: Rosalino Garcia MD Nov 12, 2016 09:44
[2016-11-12] MEDS: FUROSEMIDE 20 MG/2 ML VIAL IV PUSH SCH (18:04)
[2016-11-12] MEDS: ENOXAPARIN SODIUM 40 MG/0.4 ML SYRINGE SQ SCH (20:11)
[2016-11-12] MEDS: PRAMIPEXOLE DIHYDROCHLORIDE 0.25 MG TAB PO SCH (20:12)
[2016-11-12] MEDS: PRAVASTATIN SOD 80 MG TAB PO SCH (20:12)
[2016-11-13] VITALS (16 sets, daily range): BP systolic 90–119; BP diastolic 56–80; PULSE 78–90; RESP 20–29; TEMP 97.7–98.2; O2SAT 92–99
[2016-11-13] MEDS: RESP: ALBUTEROL 2.5 MG/IPRATROPIUM 0.5 MG NEB (SCH) NEB ×6 (00:47→22:54)
[2016-11-13] MEDS: TEMAZEPAM 15 MG CAP PO PRN (01:40)
[2016-11-13] MEDS: CHLORHEXIDINE GLUCONATE 2 % 1 PACK (2 CLOTHS)(taper/protocol) TOPICAL SCH (04:00)
[2016-11-13] MEDS: INSULIN ASPART SUPPLEMENTAL SCALE SQ SCH ×4 (06:19→21:00)
[2016-11-13] MEDS: PIPERACIL-TAZO 4.5 GM PREMIX 100 ML IV SCH ×3 (06:19→22:45)
[2016-11-13] MEDS: FUROSEMIDE 20 MG/2 ML VIAL IV PUSH SCH ×2 (08:36→17:16)
[2016-11-13] MEDS: methylPREDNISolone SOD SUCC 40 MG/1 ML VIAL IV PUSH SCH ×2 (08:38→22:44)
[2016-11-13] MEDS: ASPIRIN EC 81 MG TABEC PO SCH (08:39)
[2016-11-13] MEDS: POTASSIUM CHLORIDE 10 MEQ CONTROLLED RELEASE TAB PO SCH ×2 (08:39→22:44)
[2016-11-13] MEDS: LISINOPRIL 10 MG TAB PO SCH (08:40)
[2016-11-13] MEDS: PANTOPRAZOLE SOD 40 MG DELAYED RELEASE TAB PO SCH (08:41)
[2016-11-13] MEDS: buPROPion HCL 150 MG SUSTAINED RELEASE TAB PO SCH ×2 (08:41→22:45)
[2016-11-13] MEDS: BUDESONIDE-FORMOTEROL 160/4.5 MCG INHALER INH SCH ×2 (08:49→21:00)
--- NOTE | 2016-11-13 14:47 | HHI.PR ---
Subjective Remarks f/u for respiratory failure. patient found sleeping on cough during dialysis. I woke her up and she has no complaints. She stated her breathing has improved drastically but afraid move because SOB. + cough. Denied any CP or palpitations. Objective Vitals Vital Signs Date Time Temp Pulse Resp B/P Pulse Ox O2 Delivery O2 Flow Rate FiO2 11/13/16 12:00 97.7 80 23 111/66 97 11/13/16 12:00 80 11/13/16 10:00 90 11/13/16 08:24 96 Nasal Cannula 5.00 11/13/16 08:00 88 11/13/16 08:00 98.0 88 24 119/80 95 11/13/16 07:00 98 Nasal Cannula 6.00 11/13/16 06:00 86 11/13/16 04:00 98.2 81 23 110/70 94 11/13/16 04:00 81 11/13/16 02:00 84 11/13/16 00:47 93 45 11/13/16 00:00 98.0 78 23 90/56 93 11/13/16 00:00 78 11/12/16 22:26 95 45 11/12/16 22:00 79 11/12/16 21:07 94 Nasal Cannula 4.00 11/12/16 20:00 97.6 91 23 113/68 92 11/12/16 20:00 91 11/12/16 19:00 96 Nasal Cannula 6.00 11/12/16 18:00 91 11/12/16 16:00 79 11/12/16 16:00 98.3 79 24 90/51 94 I/O 11/12/16 11/12/16 11/12/16 11/13/16 11/13/16 11/13/16 07:00 15:00 23:00 07:00 15:00 23:00 Intake Total 200 ml 880 ml 720 ml 580 ml Output Total 700 ml 800 ml 1200 ml 400 ml Balance -500 ml 80 ml -480 ml 180 ml Intake Oral 200 ml 780 ml 720 ml 480 ml IV Total 100 ml 0 ml 100 ml Output Urine Total 700 ml 800 ml 1200 ml 400 ml # Bowel Movements 0 1 2 0 Result Diagram: 11/12/16 0417 11/12/16416 Objective Remarks GENERAL: in NAD CARDIOVASCULAR: Regular rate and rhythm without murmurs, gallops, or rubs. RESPIRATORY: diffuse rhonchi and wheezing. No accessory muscle use. GASTROINTESTINAL: Abdomen soft, non-tender, nondistended. MUSCULOSKELETAL: No cyanosis, or edema. BACK: Nontender without obvious deformity. No CVA tenderness. Medications and IVs Current Medications Sodium Chloride (NS Flush) 2 ml UNSCH PRN IVF FLUSH AFTER USING IV ACCESS Last administered on 11/08/16 17:38; Start 11/08/16 at 17:30 Methylprednisolone Sodium Succinate (SoluMEDROL INJ) 125 mg ONCE ONCE IVP Last administered on 11/08/16 17:37; Start 11/08/16 at 17:30; Stop 11/08/16 at 17: 34; Status DC Albuterol/ Ipratropium (Duoneb Neb) 1 ampule Q15M INH Last administered on 17:38; Start 11/08/16 at 17:30; Stop 11/08/16 at 18:01; Status DC Furosemide (Lasix Inj) 100 mg ONCE ONCE IV PUSH Last administered on 11/08/16 18:40; Start 11/08/16 at 18:15; Stop 11/08/16 at 18:16; Status DC Nitroglycerin (Nitroglycerin 2% Oint) 1 inch ONCE ONCE TOPICAL Last administered on 11/08/16 18:40; Start 11/08/16 at 18:15; Stop 11/08/16 at 18:16; Status DC Aspirin (Aspirin Chew) 81 mg ONCE ONCE CHEW Last administered on 11/08/16 18: 39; Start 11/08/16 at 18:15; Stop 11/08/16 at 18:16; Status DC Furosemide (Lasix Inj) 20 mg DAILY IV PUSH Last administered on 11/09/16 08:35 ; Start 11/09/16 at 09:00; Stop 11/09/16 at 13:27; Status DC Methylprednisolone Sodium Succinate (SoluMEDROL INJ) 40 mg Q8HR IV PUSH Last administered on 11/10/16 13:43; Start 11/08/16 at 22:00; Stop 11/10/16 at 20:05; Status DC Albuterol/ Ipratropium (Duoneb Neb) 1 ampule Q4HR WHILE AWAKE NEB NEB Last administered on 11/11/16 08:22; Start 11/08/16 at 20:00; Stop 11/11/16 at 10:05; Status DC Budesonide/ Formoterol Fumarate (Symbicort 160-4.5 Inh) 2 puff Q12HR INH Last administered on 11/13/16 08:49; Start 11/08/16 at 21:00 Enoxaparin Sodium 40 mg 40 mg Q24H SQ Last administered on 11/12/16 20:11; Start 11/08/16 at 21:00 Ceftriaxone Sodium/Sodium Chloride (Rocephin Inj/NS Inj) 100 ml @ 200 mls/hr Q24H IV Last administered on 11/10/16 20:12; Start 11/08/16 at 21:00; Stop at 11:34; Status DC Albuterol Sulfate (Albuterol Neb) 1.25 mg Q2HR NEB PRN NEB SHORTNESS OF BREATH Last administered on 11/10/16 23:47; Start 11/08/16 at 21:30; Stop 11/11/16 at 10: 10; Status DC Amlodipine Besylate (Norvasc) 10 mg DAILY PO Last administered on 11/13/16 08: 39; Start 11/09/16 at 09:00 Aspirin (Ecotrin Ec) 81 mg DAILY PO Last administered on 11/13/16 08:39; Start 11/09/16 at 09:00 Benzonatate (Tessalon) 100 mg TID PRN PO COUGH; Start 11/08/16 at 21:30 Bupropion HCl (Wellbutrin Sr) 150 mg BID PO Last administered on 11/13/16 08: 41; Start 11/09/16 at 09:00 Potassium Chloride (KCl) 10 meq BID PO Last administered on 11/13/16 08:39; Start 11/09/16 at 09:00 Lisinopril (Prinivil) 30 mg DAILY PO Last administered on 11/13/16 08:40; Start 11/09/16 at 09:00 Pramipexole Dihydrochloride (Mirapex) 0.5 mg HS PO Last administered on 20:12; Start 11/09/16 at 21:00 Pravastatin Sodium (Pravachol) 80 mg HS PO Last administered on 11/12/16 20:12 ; Start 11/09/16 at 21:00 Dextrose (D50w (Vial) Inj) 25 ml UNSCH PRN IV PUSH HYPOGLYCEMIA-SEE COMMENTS; Start 11/09/16 at 13:15; Stop 11/09/16 at 21:10; Status DC Glucagon (Glucagon Inj) 1 mg UNSCH PRN OTHER HYPOGLYCEMIA-SEE COMMENTS; Start 11/09/16 at 13:15; Stop 11/09/16 at 21:10; Status DC Insulin Aspart (NovoLOG SUPPLEMENTAL SCALE) 1 Q6HR SQ ; Start 11/09/16 at 13:15; Stop 11/09/16 at 14:03; Status DC Insulin Aspart (NovoLOG SUPPLEMENTAL SCALE) 1 ACHS SLIDING SCALE SQ ; Start 11/09/16 at 16:00; Stop 11/09/16 at 21:10; Status DC Furosemide (Lasix Inj) 40 mg BID@,18 IV PUSH Last administered on 11/12/16 07 :56; Start 11/09/16 at 14:00; Stop 11/12/16 at 09:43; Status DC Azithromycin (Zithromax) 500 mg DAILY PO Last administered on 11/12/16 07:58; Start 11/10/16 at 09:00; Stop 11/13/16 at 08:59; Status DC Dextrose (D50w (Vial) Inj) 25 ml UNSCH PRN IV PUSH HYPOGLYCEMIA-SEE COMMENTS; Start 11/09/16 at 21:15 Glucagon (Glucagon Inj) 1 mg UNSCH PRN OTHER HYPOGLYCEMIA-SEE COMMENTS; Start 11/09/16 at 21:15 Insulin Aspart (NovoLOG SUPPLEMENTAL SCALE) 1 ACHS SLIDING SCALE SQ Last administered on 11/13/16 11:10; Start 11/10/16 at 07:00 Acetazolamide Sodium (Diamox Inj) 500 mg ONCE ONCE IV PUSH Last administered on 11/10/16 09:49; Start 11/10/16 at 09:15; Stop 11/10/16 at 09:16; Status DC Pantoprazole Sodium (Protonix) 40 mg DAILY PO Last administered on 11/13/16 08 :41; Start 11/10/16 at 20:00 Temazepam (Restoril) 15 mg HS PRN PO INSOMNIA Last administered on 11/13/16 01 :40; Start 11/10/16 at 19:45 Methylprednisolone Sodium Succinate (SoluMEDROL INJ) 40 mg BID IV PUSH Last administered on 11/13/16 08:38; Start 11/11/16 at 09:00 Albuterol/ Ipratropium (Duoneb Neb) 1 ampule Q4HR NEB NEB Last administered on 11/13/16 13:12; Start 11/11/16 at 12:00 Albuterol/ Ipratropium (Duoneb Neb) 1 ampule Q2HR NEB PRN NEB SHORTNESS OF BREATH; Start 11/11/16 at 09:45 Methylprednisolone Sodium Succinate (SoluMEDROL INJ) 60 mg ONCE ONCE IV PUSH ; Start 11/11/16 at 11:00; Stop 11/11/16 at 11:00; Status DC Bumetanide (Bumex Inj) 1 mg ONCE ONCE IV PUSH Last administered on 11/11/16 10 :54; Start 11/11/16 at 11:00; Stop 11/11/16 at 11:01; Status DC Methylprednisolone Sodium Succinate 40 mg 40 mg ONCE ONCE IV PUSH ; Start at 11:30; Stop 11/11/16 at 11:31; Status DC Piperacillin Sod/ Tazobactam Sod (Zosyn 4.5 Gm Premix) 100 ml @ 200 mls/hr Q6H IV Last administered on 11/12/16 06:07; Start 11/11/16 at 12:00; Stop 11/12/16 at 09:43; Status DC Miscellaneous Information Patient in critical care unit? Ass... Q361D .XX ; Start 11/11/16 at 13:00 Chlorhexidine Gluconate (Chlorhexidine 2% Cloth) 3 pack DAILY@04 TOPICAL Last administered on 11/13/16 04:00; Start 11/12/16 at 04:00; Stop 11/16/16 at 04:01 Chlorhexidine Gluconate 3 pack 3 pack UNSCH PRN TOPICAL HYGIENIC CARE; Start at 12:45; Stop 11/16/16 at 12:40 Piperacillin Sod/ Tazobactam Sod (Zosyn 4.5 Gm Premix) 100 ml @ 200 mls/hr Q8H IV Last administered on 11/13/16 13:06; Start 11/12/16 at 14:00 Furosemide (Lasix Inj) 20 mg BID@09,18 IV PUSH Last administered on 11/13/16t 08:36; Start 11/12/16 at 18:00 A/P Problem List: (1) Acute hypercapnic respiratory failure ICD Code: J96.02 Status: Resolved (2) Asthma exacerbation ICD Code: J45.901 Status: Acute (3) Diastolic congestive heart failure ICD Code: I50.30 Status: Acute (4) Encephalopathy ICD Code: G93.40 Status: Resolved (5) Pulmonary edema ICD Code: J81.1 Status: Acute (6) Altered mental status ICD Code: R41.82 Status: Acute (7) GLO (obstructive sleep apnea) ICD Code: G47.33 Status: Acute (8) Insomnia ICD Code: G47.00 Status: Acute Assessment and Plan Encephalopathy/CO2 narcosis -Significant improvement in mental status -Continue BiPAP PRN and strictly at night -due to respiratory failure. Acute Respiratory Failure Untreated GLO COPD exacerbation - BIPAP 15/5 PRN and strictly at night - Pulmonary following - Solu-Medrol 40 mg IV twice a day - DuoNeb every 4 hours scheduled and when necessary. Continue Pulmicort - EzPAP, Acapella, IS - Zosyn 4.5 g every 8 hours, continue azithromycin being treated empirically for HCAP Diastolic congestive heart failure - Chest x-ray shows improvement in pulmonary edema - Continue Lisinopril Norvasc and IV Lasix, but reduce lasix to 20 mg IV BID. Bumex 1 mg IV x 1 given yesterday - Strict blood pressure control -breathing improving. DVT GI prophylaxis - Lovenox and Protonix Problem Qualifiers (1) Pulmonary edema: Qualified Code: J81.0 - Acute pulmonary edema (2) Altered mental status: Lorena Maher MD Nov 13, 2016 14:47
[2016-11-13] MEDS: SODIUM CHLORIDE 0.9% FLUSH 10 ML FLUSH IVF PRN (17:16)
[2016-11-13 20:48] LABS: BICARBONATE 40.1 MEQ/L (21.0-32.0); POTASSIUM 3.9 MEQ/L (3.5-5.1)
[2016-11-13] MEDS: ENOXAPARIN SODIUM 40 MG/0.4 ML SYRINGE SQ SCH (22:45)
[2016-11-13] MEDS: PRAMIPEXOLE DIHYDROCHLORIDE 0.25 MG TAB PO SCH (22:45)
[2016-11-13] MEDS: PRAVASTATIN SOD 80 MG TAB PO SCH (22:46)
[2016-11-14] VITALS (11 sets, daily range): BP systolic 82–100; BP diastolic 52–68; PULSE 63–102; RESP 18–20; TEMP 96.3–98.3; O2SAT 91–98
[2016-11-14] MEDS: CHLORHEXIDINE GLUCONATE 2 % 1 PACK (2 CLOTHS)(taper/protocol) TOPICAL SCH (03:37)
[2016-11-14] MEDS: RESP: ALBUTEROL 2.5 MG/IPRATROPIUM 0.5 MG NEB (SCH) NEB ×5 (04:42→20:00)
[2016-11-14] MEDS: PIPERACIL-TAZO 4.5 GM PREMIX 100 ML IV SCH ×3 (05:54→21:39)
[2016-11-14] MEDS: INSULIN ASPART SUPPLEMENTAL SCALE SQ SCH ×4 (06:07→21:00)
[2016-11-14] MEDS: LISINOPRIL 10 MG TAB PO SCH (09:00)
[2016-11-14] MEDS: FUROSEMIDE 20 MG/2 ML VIAL IV PUSH SCH ×2 (09:00→17:14)
[2016-11-14] MEDS: SODIUM CHLORIDE 0.9% FLUSH 10 ML FLUSH IVF PRN ×2 (09:28→21:39)
[2016-11-14] MEDS: methylPREDNISolone SOD SUCC 40 MG/1 ML VIAL IV PUSH SCH ×2 (09:29→21:40)
[2016-11-14] MEDS: ASPIRIN EC 81 MG TABEC PO SCH (09:29)
[2016-11-14] MEDS: PANTOPRAZOLE SOD 40 MG DELAYED RELEASE TAB PO SCH (09:30)
[2016-11-14] MEDS: buPROPion HCL 150 MG SUSTAINED RELEASE TAB PO SCH ×2 (09:30→21:40)
[2016-11-14] MEDS: POTASSIUM CHLORIDE 10 MEQ CONTROLLED RELEASE TAB PO SCH ×2 (09:30→21:40)
[2016-11-14] MEDS: BUDESONIDE-FORMOTEROL 160/4.5 MCG INHALER INH SCH ×2 (09:34→21:00)
[2016-11-14 09:55] LABS: HEMATOCRIT 39.9 % (35.0-46.0); MEAN CELL VOLUME 90.3 FL (80.0-100.0); MEAN CORPUSCULAR HEMOGLOBIN 29.5 PG (27.0-34.0); MEAN CORPUSCULAR HGB CONC 32.7 % (32.0-36.0); PLATELET COUNT 196 TH/MM3 (150-450); RED BLOOD COUNT 4.42 MIL/MM3 (4.00-5.30); RED CELL DISTRIBUTION WIDTH 15.4 % (11.6-17.2); REVIEW FLAG FINAL; WHITE BLOOD COUNT 9.5 TH/MM3 (4.0-11.0)
--- NOTE | 2016-11-14 10:58 | HHI.PR ---
Subjective Remarks Follow-up for respiratory failure secondary COPD exacerbation and pulmonary edema. Patient stated that she feels short of breath but she said that has improved. Positive productive sputum described greenish in color. Patient asking to be on a solid diet. Patient also complaining about sinus congestion. Objective Vitals Vital Signs Date Time Temp Pulse Resp B/P Pulse Ox O2 Delivery O2 Flow Rate FiO2 11/14/16 10:30 Nasal Cannula 3.00 11/14/16 10:30 79 11/14/16 08:25 97.0 63 20 82/53 98 11/14/16 07:43 92 Nasal Cannula 3.00 11/14/16 07:10 Bi-Pap 11/14/16 06:15 99 Bi-Pap 11/14/16 05:14 96.9 78 20 96/53 97 11/14/16 04:52 93 40 11/14/16 03:07 99 Bi-Pap 11/14/16 00:47 97.7 86 18 100/58 93 11/14/16 00:40 94 35 11/14/16 00:40 94 BiPAP 35 11/13/16 22:50 98 35 11/13/16 22:00 85 11/13/16 20:00 90 11/13/16 20:00 97.7 90 20 118/74 99 11/13/16 19:45 92 Nasal Cannula 3.00 11/13/16 19:00 99 Nasal Cannula 6.00 11/13/16 18:00 86 11/13/16 16:00 97.9 85 29 95/60 95 11/13/16 16:00 85 11/13/16 14:00 85 11/13/16 12:00 97.7 80 23 111/66 97 11/13/16 12:00 80 I/O 11/13/16 11/13/16 11/13/16 11/14/16 11/14/16 11/14/16 07:00 15:00 23:00 07:00 15:00 23:00 Intake Total 580 ml 820 ml 100 ml Output Total 400 ml 450 ml 400 ml 200 ml Balance 180 ml 370 ml -300 ml -200 ml Intake Oral 480 ml 720 ml IV Total 100 ml 100 ml 100 ml Output Urine Total 400 ml 450 ml 400 ml 200 ml # Bowel Movements 0 1 0 2 Result Diagram: 11/14/16 0853 11/13/162000 Objective Remarks GENERAL: in NAD CARDIOVASCULAR: Regular rate and rhythm without murmurs, gallops, or rubs. RESPIRATORY: diffuse rhonchi and wheezing that wheezing has improved. No accessory muscle use. GASTROINTESTINAL: Abdomen soft, non-tender, nondistended. MUSCULOSKELETAL: No cyanosis, or edema. BACK: Nontender without obvious deformity. No CVA tenderness. Medications and IVs Current Medications Sodium Chloride (NS Flush) 2 ml UNSCH PRN IVF FLUSH AFTER USING IV ACCESS Last administered on 11/14/16 09:28; Start 11/08/16 at 17:30 Methylprednisolone Sodium Succinate (SoluMEDROL INJ) 125 mg ONCE ONCE IVP Last administered on 11/08/16 17:37; Start 11/08/16 at 17:30; Stop 11/08/16 at 17: 34; Status DC Albuterol/ Ipratropium (Duoneb Neb) 1 ampule Q15M INH Last administered on 17:38; Start 11/08/16 at 17:30; Stop 11/08/16 at 18:01; Status DC Furosemide (Lasix Inj) 100 mg ONCE ONCE IV PUSH Last administered on 11/08/16 18:40; Start 11/08/16 at 18:15; Stop 11/08/16 at 18:16; Status DC Nitroglycerin (Nitroglycerin 2% Oint) 1 inch ONCE ONCE TOPICAL Last administered on 11/08/16 18:40; Start 11/08/16 at 18:15; Stop 11/08/16 at 18:16; Status DC Aspirin (Aspirin Chew) 81 mg ONCE ONCE CHEW Last administered on 11/08/16 18: 39; Start 11/08/16 at 18:15; Stop 11/08/16 at 18:16; Status DC Furosemide (Lasix Inj) 20 mg DAILY IV PUSH Last administered on 11/09/16 08:35 ; Start 11/09/16 at 09:00; Stop 11/09/16 at 13:27; Status DC Methylprednisolone Sodium Succinate (SoluMEDROL INJ) 40 mg Q8HR IV PUSH Last administered on 11/10/16 13:43; Start 11/08/16 at 22:00; Stop 11/10/16 at 20:05; Status DC Albuterol/ Ipratropium (Duoneb Neb) 1 ampule Q4HR WHILE AWAKE NEB NEB Last administered on 11/11/16 08:22; Start 11/08/16 at 20:00; Stop 11/11/16 at 10:05; Status DC Budesonide/ Formoterol Fumarate (Symbicort 160-4.5 Inh) 2 puff Q12HR INH Last administered on 11/14/16 09:34; Start 11/08/16 at 21:00 Enoxaparin Sodium 40 mg 40 mg Q24H SQ Last administered on 11/13/16 22:45; Start 11/08/16 at 21:00 Ceftriaxone Sodium/Sodium Chloride (Rocephin Inj/NS Inj) 100 ml @ 200 mls/hr Q24H IV Last administered on 11/10/16 20:12; Start 11/08/16 at 21:00; Stop at 11:34; Status DC Albuterol Sulfate (Albuterol Neb) 1.25 mg Q2HR NEB PRN NEB SHORTNESS OF BREATH Last administered on 11/10/16 23:47; Start 11/08/16 at 21:30; Stop 11/11/16 at 10: 10; Status DC Amlodipine Besylate (Norvasc) 10 mg DAILY PO Last administered on 11/13/16 08: 39; Start 11/09/16 at 09:00 Aspirin (Ecotrin Ec) 81 mg DAILY PO Last administered on 11/14/16 09:29; Start 11/09/16 at 09:00 Benzonatate (Tessalon) 100 mg TID PRN PO COUGH; Start 11/08/16 at 21:30 Bupropion HCl (Wellbutrin Sr) 150 mg BID PO Last administered on 11/14/16 09: 30; Start 11/09/16 at 09:00 Potassium Chloride (KCl) 10 meq BID PO Last administered on 11/14/16 09:30; Start 11/09/16 at 09:00 Lisinopril (Prinivil) 30 mg DAILY PO Last administered on 11/13/16 08:40; Start 11/09/16 at 09:00 Pramipexole Dihydrochloride (Mirapex) 0.5 mg HS PO Last administered on 22:45; Start 11/09/16 at 21:00 Pravastatin Sodium (Pravachol) 80 mg HS PO Last administered on 11/13/16 22:46 ; Start 11/09/16 at 21:00 Dextrose (D50w (Vial) Inj) 25 ml UNSCH PRN IV PUSH HYPOGLYCEMIA-SEE COMMENTS; Start 11/09/16 at 13:15; Stop 11/09/16 at 21:10; Status DC Glucagon (Glucagon Inj) 1 mg UNSCH PRN OTHER HYPOGLYCEMIA-SEE COMMENTS; Start 11/09/16 at 13:15; Stop 11/09/16 at 21:10; Status DC Insulin Aspart (NovoLOG SUPPLEMENTAL SCALE) 1 Q6HR SQ ; Start 11/09/16 at 13:15; Stop 11/09/16 at 14:03; Status DC Insulin Aspart (NovoLOG SUPPLEMENTAL SCALE) 1 ACHS SLIDING SCALE SQ ; Start 11/09/16 at 16:00; Stop 11/09/16 at 21:10; Status DC Furosemide (Lasix Inj) 40 mg BID@,18 IV PUSH Last administered on 11/12/16 07 :56; Start 11/09/16 at 14:00; Stop 11/12/16 at 09:43; Status DC Azithromycin (Zithromax) 500 mg DAILY PO Last administered on 11/12/16 07:58; Start 11/10/16 at 09:00; Stop 11/13/16 at 08:59; Status DC Dextrose (D50w (Vial) Inj) 25 ml UNSCH PRN IV PUSH HYPOGLYCEMIA-SEE COMMENTS; Start 11/09/16 at 21:15 Glucagon (Glucagon Inj) 1 mg UNSCH PRN OTHER HYPOGLYCEMIA-SEE COMMENTS; Start 11/09/16 at 21:15 Insulin Aspart (NovoLOG SUPPLEMENTAL SCALE) 1 ACHS SLIDING SCALE SQ Last administered on 11/13/16 15:54; Start 11/10/16 at 07:00 Acetazolamide Sodium (Diamox Inj) 500 mg ONCE ONCE IV PUSH Last administered on 11/10/16 09:49; Start 11/10/16 at 09:15; Stop 11/10/16 at 09:16; Status DC Pantoprazole Sodium (Protonix) 40 mg DAILY PO Last administered on 11/14/16 09 :30; Start 11/10/16 at 20:00 Temazepam (Restoril) 15 mg HS PRN PO INSOMNIA Last administered on 11/13/16 01 :40; Start 11/10/16 at 19:45 Methylprednisolone Sodium Succinate (SoluMEDROL INJ) 40 mg BID IV PUSH Last administered on 11/14/16 09:29; Start 11/11/16 at 09:00 Albuterol/ Ipratropium (Duoneb Neb) 1 ampule Q4HR NEB NEB Last administered on 11/14/16 07:36; Start 11/11/16 at 12:00 Albuterol/ Ipratropium (Duoneb Neb) 1 ampule Q2HR NEB PRN NEB SHORTNESS OF BREATH; Start 11/11/16 at 09:45 Methylprednisolone Sodium Succinate (SoluMEDROL INJ) 60 mg ONCE ONCE IV PUSH ; Start 11/11/16 at 11:00; Stop 11/11/16 at 11:00; Status DC Bumetanide (Bumex Inj) 1 mg ONCE ONCE IV PUSH Last administered on 11/11/16 10 :54; Start 11/11/16 at 11:00; Stop 11/11/16 at 11:01; Status DC Methylprednisolone Sodium Succinate 40 mg 40 mg ONCE ONCE IV PUSH ; Start at 11:30; Stop 11/11/16 at 11:31; Status DC Piperacillin Sod/ Tazobactam Sod (Zosyn 4.5 Gm Premix) 100 ml @ 200 mls/hr Q6H IV Last administered on 11/12/16 06:07; Start 11/11/16 at 12:00; Stop 11/12/16 at 09:43; Status DC Miscellaneous Information Patient in critical care unit? Ass... Q361D .XX ; Start 11/11/16 at 13:00 Chlorhexidine Gluconate (Chlorhexidine 2% Cloth) 3 pack DAILY@04 TOPICAL Last administered on 11/13/16 04:00; Start 11/12/16 at 04:00; Stop 11/16/16 at 04:01 Chlorhexidine Gluconate 3 pack 3 pack UNSCH PRN TOPICAL HYGIENIC CARE; Start at 12:45; Stop 11/16/16 at 12:40 Piperacillin Sod/ Tazobactam Sod (Zosyn 4.5 Gm Premix) 100 ml @ 200 mls/hr Q8H IV Last administered on 11/14/16 05:54; Start 11/12/16 at 14:00 Furosemide (Lasix Inj) 20 mg BID@09,18 IV PUSH Last administered on 11/13/16 17:16; Start 11/12/16 at 18:00 A/P Problem List: (1) Acute hypercapnic respiratory failure ICD Code: J96.02 Status: Resolved (2) Asthma exacerbation ICD Code: J45.901 Status: Acute (3) Diastolic congestive heart failure ICD Code: I50.30 Status: Acute (4) Encephalopathy ICD Code: G93.40 Status: Resolved (5) Pulmonary edema ICD Code: J81.1 Status: Acute (6) Altered mental status ICD Code: R41.82 Status: Acute (7) GLO (obstructive sleep apnea) ICD Code: G47.33 Status: Acute (8) Insomnia ICD Code: G47.00 Status: Acute Assessment and Plan Encephalopathy/CO2 narcosis -Significant improvement in mental status -Continue BiPAP PRN and strictly at night -due to respiratory failure. Acute Respiratory Failure Untreated GLO COPD exacerbation - BIPAP 15/5 PRN and strictly at night - Pulmonary following - Solu-Medrol 40 mg IV twice a day - DuoNeb every 4 hours scheduled and when necessary. Continue Pulmicort - EzPAP, Acapella, IS - Zosyn 4.5 g every 8 hours, continue azithromycin being treated empirically for HCAP Allergic rhinitis -Will start Flonase nasal spray and Claritin. -Patient is on the nasal saline rinses. Continue with nasal saline rinses. Diastolic congestive heart failure - Chest x-ray shows improvement in pulmonary edema - Continue Lisinopril Norvasc and IV Lasix, but reduce lasix to 20 mg IV BID. Bumex 1 mg IV x 1 given yesterday - Strict blood pressure control -breathing improving. DVT GI prophylaxis - Lovenox and Protonix Discharge Planning Patient COPD exacerbation with severe most likely will need a few more days of hospitalization. Problem Qualifiers (1) Pulmonary edema: Qualified Code: J81.0 - Acute pulmonary edema (2) Altered mental status: Lorena Maher MD Nov 14, 2016 10:58
[2016-11-14] MEDS: FLUTICASONE PROPIONATE 50 MCG/ACT 16 GM NASAL SPRAY NASAL SCH ×2 (11:00→21:40)
[2016-11-14] MEDS: LORATADINE 10 MG TAB PO SCH (12:04)
[2016-11-14] MEDS: ENOXAPARIN SODIUM 40 MG/0.4 ML SYRINGE SQ SCH (21:39)
[2016-11-14] MEDS: PRAMIPEXOLE DIHYDROCHLORIDE 0.25 MG TAB PO SCH (21:40)
[2016-11-14] MEDS: PRAVASTATIN SOD 80 MG TAB PO SCH (21:40)
[2016-11-15] VITALS (9 sets, daily range): BP systolic 99–130; BP diastolic 58–74; PULSE 76–92; RESP 19–22; TEMP 96.9–97.7; O2SAT 91–94
[2016-11-15] MEDS: RESP: ALBUTEROL 2.5 MG/IPRATROPIUM 0.5 MG NEB (SCH) NEB ×4 (00:23→11:46)
[2016-11-15] MEDS: CHLORHEXIDINE GLUCONATE 2 % 1 PACK (2 CLOTHS)(taper/protocol) TOPICAL SCH (04:00)
[2016-11-15] MEDS: PIPERACIL-TAZO 4.5 GM PREMIX 100 ML IV SCH (06:18)
[2016-11-15] MEDS: INSULIN ASPART SUPPLEMENTAL SCALE SQ SCH ×4 (06:23→21:36)
[2016-11-15] MEDS: PANTOPRAZOLE SOD 40 MG DELAYED RELEASE TAB PO SCH (09:21)
[2016-11-15] MEDS: LORATADINE 10 MG TAB PO SCH (09:21)
[2016-11-15] MEDS: LISINOPRIL 10 MG TAB PO SCH (09:21)
[2016-11-15] MEDS: methylPREDNISolone SOD SUCC 40 MG/1 ML VIAL IV PUSH SCH ×2 (09:21→21:28)
[2016-11-15] MEDS: POTASSIUM CHLORIDE 10 MEQ CONTROLLED RELEASE TAB PO SCH ×2 (09:21→21:26)
[2016-11-15] MEDS: FUROSEMIDE 20 MG/2 ML VIAL IV PUSH SCH ×2 (09:21→17:36)
[2016-11-15] MEDS: ASPIRIN EC 81 MG TABEC PO SCH (09:21)
[2016-11-15] MEDS: buPROPion HCL 150 MG SUSTAINED RELEASE TAB PO SCH ×2 (09:22→21:45)
[2016-11-15] MEDS: FLUTICASONE PROPIONATE 50 MCG/ACT 16 GM NASAL SPRAY NASAL SCH ×2 (09:22→21:30)
[2016-11-15] MEDS: BUDESONIDE-FORMOTEROL 160/4.5 MCG INHALER INH SCH ×2 (09:22→21:00)
[2016-11-15 10:07] LABS: HEMATOCRIT 41.3 % (35.0-46.0); MEAN CELL VOLUME 90.4 FL (80.0-100.0); MEAN CORPUSCULAR HEMOGLOBIN 28.4 PG (27.0-34.0); MEAN CORPUSCULAR HGB CONC 31.4 % (32.0-36.0); PLATELET COUNT 181 TH/MM3 (150-450); RED BLOOD COUNT 4.57 MIL/MM3 (4.00-5.30); RED CELL DISTRIBUTION WIDTH 15.7 % (11.6-17.2); REVIEW FLAG FINAL; WHITE BLOOD COUNT 10.7 TH/MM3 (4.0-11.0)
[2016-11-15 10:31] LABS: BICARBONATE 37.4 MEQ/L (21.0-32.0); POTASSIUM 4.4 MEQ/L (3.5-5.1)
--- NOTE | 2016-11-15 10:42 | HHI.PR ---
Subjective Remarks Follow-up for respiratory failure secondary to COPD exacerbation and pulmonary edema Patient stated that breathing is sustained. Per physical therapist patient able to walk about 5 steps before feeling short of breath. Otherwise she has no complaints. Acute events since she was last seen. Objective Vitals Vital Signs Date Time Temp Pulse Resp B/P Pulse Ox O2 Delivery O2 Flow Rate FiO2 11/15/16 07:40 96.9 84 22 112/60 92 11/15/16 07:30 94 Nasal Cannula 3.00 11/15/16 04:27 97.5 82 20 99/61 92 11/15/16 04:04 91 40 11/15/16 04:04 91 BiPAP 40 11/15/16 00:38 91 40 11/15/16 00:38 91 BiPAP 40 11/15/16 00:09 Bi-Pap 11/14/16 23:47 98.3 93 18 99/68 91 11/14/16 23:00 102 11/14/16 20:44 97.5 93 18 100/58 95 11/14/16 16:05 97.7 94 18 89/52 I/O 11/14/16 11/14/16 11/14/16 11/15/16 11/15/16 11/15/16 07:00 15:00 23:00 07:00 15:00 23:00 Intake Total 98 ml Output Total 200 ml 1600 ml Balance -200 ml 98 ml -1600 ml Intake Oral 98 ml Output Urine Total 200 ml 1600 ml # Bowel Movements 2 1 1 Result Diagram: 11/15/1604 11/15/16 0904 Objective Remarks GENERAL: in NAD CARDIOVASCULAR: Regular rate and rhythm without murmurs, gallops, or rubs. RESPIRATORY: diffuse rhonchi and expiratory wheezing that has improved. No accessory muscle use. GASTROINTESTINAL: Abdomen soft, non-tender, nondistended. MUSCULOSKELETAL: No cyanosis, or edema. BACK: Nontender without obvious deformity. No CVA tenderness. Medications and IVs Current Medications Sodium Chloride (NS Flush) 2 ml UNSCH PRN IVF FLUSH AFTER USING IV ACCESS Last administered on 11/14/16 21:39; Start 11/08/16 at 17:30 Methylprednisolone Sodium Succinate (SoluMEDROL INJ) 125 mg ONCE ONCE IVP Last administered on 11/08/16 17:37; Start 11/08/16 at 17:30; Stop 11/08/16 at 17: 34; Status DC Albuterol/ Ipratropium (Duoneb Neb) 1 ampule Q15M INH Last administered on 17:38; Start 11/08/16 at 17:30; Stop 11/08/16 at 18:01; Status DC Furosemide (Lasix Inj) 100 mg ONCE ONCE IV PUSH Last administered on 11/08/16 18:40; Start 11/08/16 at 18:15; Stop 11/08/16 at 18:16; Status DC Nitroglycerin (Nitroglycerin 2% Oint) 1 inch ONCE ONCE TOPICAL Last administered on 11/08/16 18:40; Start 11/08/16 at 18:15; Stop 11/08/16 at 18:16; Status DC Aspirin (Aspirin Chew) 81 mg ONCE ONCE CHEW Last administered on 11/08/16 18: 39; Start 11/08/16 at 18:15; Stop 11/08/16 at 18:16; Status DC Furosemide (Lasix Inj) 20 mg DAILY IV PUSH Last administered on 11/09/16 08:35 ; Start 11/09/16 at 09:00; Stop 11/09/16 at 13:27; Status DC Methylprednisolone Sodium Succinate (SoluMEDROL INJ) 40 mg Q8HR IV PUSH Last administered on 11/10/16 13:43; Start 11/08/16 at 22:00; Stop 11/10/16 at 20:05; Status DC Albuterol/ Ipratropium (Duoneb Neb) 1 ampule Q4HR WHILE AWAKE NEB NEB Last administered on 11/11/16 08:22; Start 11/08/16 at 20:00; Stop 11/11/16 at 10:05; Status DC Budesonide/ Formoterol Fumarate (Symbicort 160-4.5 Inh) 2 puff Q12HR INH Last administered on 11/15/16 09:22; Start 11/08/16 at 21:00 Enoxaparin Sodium 40 mg 40 mg Q24H SQ Last administered on 11/14/16 21:39; Start 11/08/16 at 21:00 Ceftriaxone Sodium/Sodium Chloride (Rocephin Inj/NS Inj) 100 ml @ 200 mls/hr Q24H IV Last administered on 11/10/16 20:12; Start 11/08/16 at 21:00; Stop at 11:34; Status DC Albuterol Sulfate (Albuterol Neb) 1.25 mg Q2HR NEB PRN NEB SHORTNESS OF BREATH Last administered on 11/10/16 23:47; Start 11/08/16 at 21:30; Stop 11/11/16 at 10: 10; Status DC Amlodipine Besylate (Norvasc) 10 mg DAILY PO Last administered on 11/15/16 09: 21; Start 11/09/16 at 09:00 Aspirin (Ecotrin Ec) 81 mg DAILY PO Last administered on 11/15/16 09:21; Start 11/09/16 at 09:00 Benzonatate (Tessalon) 100 mg TID PRN PO COUGH; Start 11/08/16 at 21:30 Bupropion HCl (Wellbutrin Sr) 150 mg BID PO Last administered on 11/15/16 09: 22; Start 11/09/16 at 09:00 Potassium Chloride (KCl) 10 meq BID PO Last administered on 11/15/16 09:21; Start 11/09/16 at 09:00 Lisinopril (Prinivil) 30 mg DAILY PO Last administered on 11/15/16 09:21; Start 11/09/16 at 09:00 Pramipexole Dihydrochloride (Mirapex) 0.5 mg HS PO Last administered on 21:40; Start 11/09/16 at 21:00 Pravastatin Sodium (Pravachol) 80 mg HS PO Last administered on 11/14/16 21:40 ; Start 11/09/16 at 21:00 Dextrose (D50w (Vial) Inj) 25 ml UNSCH PRN IV PUSH HYPOGLYCEMIA-SEE COMMENTS; Start 11/09/16 at 13:15; Stop 11/09/16 at 21:10; Status DC Glucagon (Glucagon Inj) 1 mg UNSCH PRN OTHER HYPOGLYCEMIA-SEE COMMENTS; Start 11/09/16 at 13:15; Stop 11/09/16 at 21:10; Status DC Insulin Aspart (NovoLOG SUPPLEMENTAL SCALE) 1 Q6HR SQ ; Start 11/09/16 at 13:15; Stop 11/09/16 at 14:03; Status DC Insulin Aspart (NovoLOG SUPPLEMENTAL SCALE) 1 ACHS SLIDING SCALE SQ ; Start 11/09/16 at 16:00; Stop 11/09/16 at 21:10; Status DC Furosemide (Lasix Inj) 40 mg BID@09,18 IV PUSH Last administered on 11/12/16 07 :56; Start 11/09/16 at 14:00; Stop 11/12/16 at 09:43; Status DC Azithromycin (Zithromax) 500 mg DAILY PO Last administered on 11/12/16 07:58; Start 11/10/16 at 09:00; Stop 11/13/16 at 08:59; Status DC Dextrose (D50w (Vial) Inj) 25 ml UNSCH PRN IV PUSH HYPOGLYCEMIA-SEE COMMENTS; Start 11/09/16 at 21:15 Glucagon (Glucagon Inj) 1 mg UNSCH PRN OTHER HYPOGLYCEMIA-SEE COMMENTS; Start 11/09/16 at 21:15 Insulin Aspart (NovoLOG SUPPLEMENTAL SCALE) 1 ACHS SLIDING SCALE SQ Last administered on 11/15/16 06:23; Start 11/10/16 at 07:00 Acetazolamide Sodium (Diamox Inj) 500 mg ONCE ONCE IV PUSH Last administered on 11/10/16 09:49; Start 11/10/16 at 09:15; Stop 11/10/16 at 09:16; Status DC Pantoprazole Sodium (Protonix) 40 mg DAILY PO Last administered on 11/15/16 09 :21; Start 11/10/16 at 20:00 Temazepam (Restoril) 15 mg HS PRN PO INSOMNIA Last administered on 11/13/16 01 :40; Start 11/10/16 at 19:45 Methylprednisolone Sodium Succinate (SoluMEDROL INJ) 40 mg BID IV PUSH Last administered on 11/15/16 09:21; Start 11/11/16 at 09:00 Albuterol/ Ipratropium (Duoneb Neb) 1 ampule Q4HR NEB NEB Last administered on 11/15/16 04:00; Start 11/11/16 at 12:00 Albuterol/ Ipratropium (Duoneb Neb) 1 ampule Q2HR NEB PRN NEB SHORTNESS OF BREATH; Start 11/11/16 at 09:45 Methylprednisolone Sodium Succinate (SoluMEDROL INJ) 60 mg ONCE ONCE IV PUSH ; Start 11/11/16 at 11:00; Stop 11/11/16 at 11:00; Status DC Bumetanide (Bumex Inj) 1 mg ONCE ONCE IV PUSH Last administered on 11/11/16 10 :54; Start 11/11/16 at 11:00; Stop 11/11/16 at 11:01; Status DC Methylprednisolone Sodium Succinate 40 mg 40 mg ONCE ONCE IV PUSH ; Start at 11:30; Stop 11/11/16 at 11:31; Status DC Piperacillin Sod/ Tazobactam Sod (Zosyn 4.5 Gm Premix) 100 ml @ 200 mls/hr Q6H IV Last administered on 11/12/16 06:07; Start 11/11/16 at 12:00; Stop 11/12/16 at 09:43; Status DC Miscellaneous Information Patient in critical care unit? Ass... Q361D .XX ; Start 11/11/16 at 13:00 Chlorhexidine Gluconate (Chlorhexidine 2% Cloth) 3 pack DAILY@04 TOPICAL Last administered on 11/13/16 04:00; Start 11/12/16 at 04:00; Stop 11/16/16 at 04:01 Chlorhexidine Gluconate 3 pack 3 pack UNSCH PRN TOPICAL HYGIENIC CARE; Start at 12:45; Stop 11/16/16 at 12:40 Piperacillin Sod/ Tazobactam Sod (Zosyn 4.5 Gm Premix) 100 ml @ 200 mls/hr Q8H IV Last administered on 11/15/16 06:18; Start 11/12/16 at 14:00 Furosemide (Lasix Inj) 20 mg BID@09,18 IV PUSH Last administered on 11/15/16 09:21; Start 11/12/16 at 18:00 Loratadine (Claritin) 10 mg DAILY PO Last administered on 11/15/16 09:21; Start 11/14/16 at 11:00 Fluticasone Propionate (Flonase Justen Spr) 1 spray BID NASAL Last administered on 11/15/16 09:22; Start 11/14/16 at 11:00 A/P Problem List: (1) Acute hypercapnic respiratory failure ICD Code: J96.02 Status: Resolved (2) Asthma exacerbation ICD Code: J45.901 Status: Acute (3) Diastolic congestive heart failure ICD Code: I50.30 Status: Acute (4) Encephalopathy ICD Code: G93.40 Status: Resolved (5) Pulmonary edema ICD Code: J81.1 Status: Acute (6) Altered mental status ICD Code: R41.82 Status: Acute (7) GLO (obstructive sleep apnea) ICD Code: G47.33 Status: Acute (8) Insomnia ICD Code: G47.00 Status: Acute Assessment and Plan Encephalopathy/CO2 narcosis -Significant improvement in mental status -Continue BiPAP PRN and strictly at night -due to respiratory failure. Acute Respiratory Failure Untreated GLO COPD exacerbation - BIPAP 15/5 PRN and strictly at night - Pulmonary following - Solu-Medrol 40 mg IV twice a day - DuoNeb every 4 hours scheduled and when necessary. Continue Pulmicort - EzPAP, Acapella, IS - on Zosyn 4.5 g every 8 hours and azithromycin being treated empirically for HCAP will transition to Levaquin by mouth. Allergic rhinitis -on Flonase nasal spray and Claritin. -Patient is on the nasal saline rinses. Continue with nasal saline rinses. Diastolic congestive heart failure - Chest x-ray shows improvement in pulmonary edema - Continue Lisinopril Norvasc and IV Lasix. - Strict blood pressure control -breathing improving. DVT GI prophylaxis - Lovenox and Protonix Discharge Planning Patient COPD exacerbation was severe most likely will need a few more days of hospitalization. Problem Qualifiers (1) Pulmonary edema: Qualified Code: J81.0 - Acute pulmonary edema (2) Altered mental status: Lorena Maher MD Nov 15, 2016 10:42
[2016-11-15] MEDS: LEVOFLOXACIN 750 MG TAB PO SCH (12:02)
[2016-11-15] MEDS: PRAVASTATIN SOD 80 MG TAB PO SCH (21:28)
[2016-11-15] MEDS: PRAMIPEXOLE DIHYDROCHLORIDE 0.25 MG TAB PO SCH (21:28)
[2016-11-15] MEDS: ENOXAPARIN SODIUM 40 MG/0.4 ML SYRINGE SQ SCH (21:28)
[2016-11-15] MEDS: RESP: ALBUTEROL 2.5 MG/IPRATROPIUM 0.5 MG NEB (PRN) NEB (21:38)
[2016-11-16] VITALS (12 sets, daily range): BP systolic 100–115; BP diastolic 56–64; PULSE 75–96; RESP 19–20; TEMP 97–98.6; O2SAT 91–98
[2016-11-16] MEDS: CHLORHEXIDINE GLUCONATE 2 % 1 PACK (2 CLOTHS)(taper/protocol) TOPICAL SCH (04:00)
[2016-11-16] MEDS: INSULIN ASPART SUPPLEMENTAL SCALE SQ SCH ×4 (05:58→21:00)
[2016-11-16 07:32] LABS: HEMATOCRIT 40.9 % (35.0-46.0); MEAN CELL VOLUME 89.6 FL (80.0-100.0); MEAN CORPUSCULAR HEMOGLOBIN 28.3 PG (27.0-34.0); MEAN CORPUSCULAR HGB CONC 31.6 % (32.0-36.0); PLATELET COUNT 167 TH/MM3 (150-450); RED BLOOD COUNT 4.56 MIL/MM3 (4.00-5.30); RED CELL DISTRIBUTION WIDTH 15.5 % (11.6-17.2); REVIEW FLAG FINAL; WHITE BLOOD COUNT 11.3 TH/MM3 (4.0-11.0)
[2016-11-16 07:53] LABS: BICARBONATE 36.4 MEQ/L (21.0-32.0); POTASSIUM 4.5 MEQ/L (3.5-5.1)
[2016-11-16] MEDS: RESP: ALBUTEROL 2.5 MG/IPRATROPIUM 0.5 MG NEB (PRN) NEB ×3 (10:05→19:49)
[2016-11-16] MEDS: FUROSEMIDE 20 MG/2 ML VIAL IV PUSH SCH (10:27)
[2016-11-16] MEDS: methylPREDNISolone SOD SUCC 40 MG/1 ML VIAL IV PUSH SCH ×3 (10:27→23:30)
[2016-11-16] MEDS: buPROPion HCL 150 MG SUSTAINED RELEASE TAB PO SCH ×2 (10:28→21:43)
[2016-11-16] MEDS: LISINOPRIL 10 MG TAB PO SCH (10:28)
[2016-11-16] MEDS: PANTOPRAZOLE SOD 40 MG DELAYED RELEASE TAB PO SCH (10:29)
[2016-11-16] MEDS: ASPIRIN EC 81 MG TABEC PO SCH (10:29)
[2016-11-16] MEDS: LORATADINE 10 MG TAB PO SCH (10:30)
[2016-11-16] MEDS: POTASSIUM CHLORIDE 10 MEQ CONTROLLED RELEASE TAB PO SCH ×2 (10:30→21:44)
[2016-11-16] MEDS: FLUTICASONE PROPIONATE 50 MCG/ACT 16 GM NASAL SPRAY NASAL SCH ×2 (10:31→21:00)
[2016-11-16] MEDS: BUDESONIDE-FORMOTEROL 160/4.5 MCG INHALER INH SCH ×2 (10:32→21:00)
--- NOTE | 2016-11-16 11:47 | HHI.PR ---
Subjective Remarks fu for copd exacerbation Patient states breathing and cough are improving still is bringing out phlegm States got very dyspneic upon walking denies cp denies fevers/chills Objective Vitals Vital Signs Date Time Temp Pulse Resp B/P Pulse Ox O2 Delivery O2 Flow Rate FiO2 11/16/16 10:06 94 Nasal Cannula 2.00 11/16/16 07:52 97.3 83 20 110/62 91 11/16/16 04:44 94 Nasal Cannula 2.00 11/16/16 04:15 97.0 76 20 114/58 94 11/16/16 01:02 98 35 11/16/16 00:00 97.9 75 19 115/60 92 11/15/16 23:20 Nasal Cannula 3.00 11/15/16 23:00 91 11/15/16 20:00 97.1 76 19 110/58 91 11/15/16 18:07 Nasal Cannula 2.00 11/15/16 15:45 97.4 88 22 101/66 91 11/15/16 11:50 97.7 92 22 130/74 91 11/15/16 11:49 94 Nasal Cannula 2.00 I/O 11/15/16 11/15/16 11/15/16 11/16/16 11/16/16 11/16/16 07:00 15:00 23:00 07:00 15:00 23:00 Intake Total 480 ml 400 ml 700 ml Output Total 1600 ml 900 ml 200 ml 800 ml Balance -1600 ml -420 ml 200 ml -100 ml Intake Oral 480 ml 400 ml 700 ml Output Urine Total 1600 ml 900 ml 200 ml 800 ml # Bowel Movements 1 2 0 0 Result Diagram: 11/16/1614 11/16/16 0714 Imaging Last Impressions Chest X-Ray 11/12/16 0600 Signed Impressions: Service Date/Time: Saturday, November 12, 2016 05:20 - CONCLUSION: Borderline cartilage. Jose Purcell MD Objective Remarks GENERAL: AAOx3, NAD - morbidly obese SKIN: Warm and dry. HEAD: Atraumatic. Normocephalic. EYES: Pupils equal and round. No scleral icterus. No injection or drainage. ENT: No nasal bleeding or discharge. Mucous membranes pink and moist. NECK: Trachea midline. No JVD. CARDIOVASCULAR: Regular rate and rhythm. RESPIRATORY: Diffuse bilateral expiratory wheezing . No crackles or rhonchi auscultated. GASTROINTESTINAL: Abdomen soft, non-tender, nondistended. Hepatic and splenic margins not palpable. MUSCULOSKELETAL: Extremities without clubbing, cyanosis, or edema. No obvious deformities. NEUROLOGICAL: Awake and alert. No obvious cranial nerve deficits. Motor grossly within normal limits. Five out of 5 muscle strength in the arms and legs. Normal speech. PSYCHIATRIC: Appropriate mood and affect; insight and judgment normal. Medications and IVs Current Medications Medications (Trade) Dose Ordered Sig/[place] Route Start Time Stop Time Status Last Admin (NS Flush) 2 ml UNSCH PRN IVF 11/08/16 17:30 11/14/16 21:39 (Symbicort 160-4.5 Inh) 2 puff Q12HR INH 11/08/16 21:00 11/16/16 10:32 (Lovenox Inj) 40 mg Q24H SQ 11/08/16 21:00 11/15/16 21:28 (Norvasc) 10 mg DAILY PO 11/09/16 09:00 11/16/16 10:28 (Ecotrin Ec) 81 mg DAILY PO 11/09/16 09:00 11/16/16 10:29 (Tessalon) 100 mg TID PRN PO 11/08/16 21:30 (Wellbutrin Sr) 150 mg BID PO 11/09/16 09:00 11/16/16 10:28 (KCl) 10 meq BID PO 11/09/16 09:00 11/16/16 10:30 (Prinivil) 30 mg DAILY PO 11/09/16 09:00 11/16/16 10:28 (Mirapex) 0.5 mg HS PO 11/09/16 21:00 11/15/16 21:28 (Pravachol) 80 mg HS PO 11/09/16 21:00 11/15/16 21:28 (D50w (Vial) Inj) 25 ml UNSCH PRN IV PUSH 11/09/16 21:15 (Glucagon Inj) 1 mg UNSCH PRN OTHER 11/09/16 21:15 (Protonix) 40 mg DAILY PO 11/10/16 20:00 11/16/16 10:29 (Restoril) 15 mg HS PRN PO 11/10/16 19:45 11/13/16 01:40 (SoluMEDROL INJ) 40 mg BID IV PUSH 11/11/16 09:00 11/16/16 10:27 Miscellaneous Information Patient in critical care unit? Ass... Q361D .XX 11/11/16 13:00 (Chlorhexidine 2% Cloth) 3 pack UNSCH PRN TOPICAL 11/11/16 12:45 11/16/16 12:40 (Lasix Inj) 20 mg BID@09,18 IV PUSH 11/12/16 18:00 11/16/16 10:27 (Claritin) 10 mg DAILY PO 11/14/16 11:00 11/16/16 10:30 (Flonase Justen Spr) 1 spray BID NASAL 11/14/16 11:00 11/16/16 10:31 (Levaquin) 750 mg Q2D PO 11/15/16 11:00 11/15/16 12:02 Urinary Catheter: Yes Assessment to: Continue Hurst insert reason: Measure Accurate Output A/P Problem List: (1) Acute hypercapnic respiratory failure ICD Code: J96.02 Status: Resolved (2) Asthma exacerbation ICD Code: J45.901 Status: Acute (3) Diastolic congestive heart failure ICD Code: I50.30 Status: Acute (4) Encephalopathy ICD Code: G93.40 Status: Resolved (5) Pulmonary edema ICD Code: J81.1 Status: Acute (6) Altered mental status ICD Code: R41.82 Status: Acute (7) GLO (obstructive sleep apnea) ICD Code: G47.33 Status: Acute (8) Insomnia ICD Code: G47.00 Status: Acute Assessment and Plan Encephalopathy/CO2 narcosis -Resolved. Mental status now at baseline. Encephalopathy likely caused by hypercapnic respiratory failure. -Continue BiPAP PRN and strictly at night Acute Respiratory Failure Untreated GLO COPD exacerbation - BIPAP 15/5 PRN and strictly at night - Pulmonary following - DuoNeb every 4 hours scheduled and when necessary. Continue Pulmicort - EzPAP, Acapella, IS - Sp Zosyn IV and azithromycin, being treated empirically for HCAP. - Continue Levaquin by mouth. - Patient still with significant wheezing - Will Increase solumedrol to 40 mg IV Q 6 hrs. Allergic rhinitis -on Flonase nasal spray and Claritin. -Patient is on the nasal saline rinses. Continue with nasal saline rinses. Diastolic congestive heart failure - Chest x-ray shows improvement in pulmonary edema - Continue Lisinopril Norvasc - Strict blood pressure control -breathing improving. - Hold IV lasix due to rise and worsening creatinine. MAGALIE Worsening MAGALIE from 1.5 to 1.64. Hold IV Lasix due to worsening creatinine. Consult nephrology. I will start on gentle IV fluids. Also Hold Alex inhibitor. Check urine eosinophils to r/o AIN. DVT GI prophylaxis - Lovenox and Protonix GI prophylaxis: I will continue PPI. DVT prophylaxis: SCDs, continue Lovenox subcutaneous. Discharge Planning Continue to monitor in the medical floor. DC Pending clinical improvement of COPD and improvement of creatinine. Problem Qualifiers (1) Pulmonary edema: Qualified Code: J81.0 - Acute pulmonary edema (2) Altered mental status: Lowell Herring MD Nov 16, 2016 11:47
[2016-11-16] MEDS ORDERED: SODIUM CHLOR 0.9% 1000 ML INJ 1,000 ML IV SCH (12:00)
--- NOTE | 2016-11-16 12:49 | PD.CONS ---
HPI Service Nephrology Consult Requested By Reason for Consult Worsening renal function Primary Care Physician Tin Ledesma MD History of Present Illness This is a very pleasant 71 y/o obese AAF. She was admitted on 11/09 for increasing shortness of breath and fatigue. PMH listed below and includes HTN, Asthma, drug induced DM, paroxysmal A fib. Her creatinine was 1.4 on arrival, initially improved to 1.2, but has again risen and is 1.64 today. Looking back in Mar 2016 creatinine was 1.09, in December of 2015 it was 0.97. She was admitted for CHF and COPD exacerbation, placed initially on Lasix and antibiotics, but recently the diuretics were held and she was ordered IVF. She is on oxygen. We were consulted for management. She has no recollection of personal renal dysfunction. Of note she was in hypertensive urgency on arrival, later relatively hypotensive. She was not exposed to IV contrast this admission. ( Jillian Loo) Review of Systems Constitutional: COMPLAINS OF: Fatigue, DENIES: Fever Respiratory: COMPLAINS OF: Cough, Shortness of breath Cardiovascular: COMPLAINS OF: Dyspnea on Exertion, DENIES: Chest pain, Lower Extremity Edema Gastrointestinal: DENIES: Abdominal pain (Jillian Loo) Past Family Social History Allergies: Coded Allergies: Lactose (Verified Allergy, Intermediate, 11/08/16) Percodan (Verified Allergy, Intermediate, HALLICINATIONS, 11/08/16) Past Medical History Hypertension Hyperlipidemia Atrial fibrillation, paroxysmal COPD/asthma - on intermittent home oxygen, on chronic steriod therapy Obstructive sleep apnea Gastroesophageal reflux Hiatal hernia Arthritis Diabetes mellitus, medication induced Depression Anxiety Past Surgical History Right foot surgery 1983- bunionectomy Hysterectomy Reported Medications Tessalon Perles (Benzonatate) 100 Mg Cap 100 Mg PO TID PRN Duoneb (Ipratropium-Albuterol Neb) 0.5-2.5 Mg/3 Ml Neb 1 Nebule INH Q6HR PRN Ventolin Hfa 18 GM Inh (Albuterol Sulfate) 90 Mcg/Act Aer 1 Puff INH Q4H PRN Advair Diskus Inh (Fluticasone-Salmeterol Inh) 250-50 Mcg/Blist Aer 1 Puff INH BID Rinse mouth after use. Prednisone 5 Mg Tab 5 Mg PO BID Zocor (Simvastatin) 40 Mg Tab 40 Mg PO HS Pramipexole (Pramipexole Dihydrochloride) 0.5 Mg Tab 0.5 Mg PO HS Mobic (Meloxicam) 15 Mg Tab 15 Mg PO DAILY Wellbutrin Xl 24 HR (Bupropion HCl) 300 Mg Tab 300 Mg PO DAILY Potassium Chloride ER (Potassium Chloride) 10 Meq Tab 10 Meq PO BID Lisinopril 30 Mg Tab 30 Mg PO DAILY Bumex (Bumetanide) 0.5 Mg Tab 0.5 Mg PO DAILY Amlodipine (Amlodipine Besylate) 10 Mg Tab 10 Mg PO DAILY Aspirin Adult Low Strength (Aspirin) 81 Mg Tabdr 81 Mg PO DAILY Active Ordered Medications Current Medications Medications (Trade) Dose Ordered Sig/[place] Route Start Time Stop Time Status Last Admin (NS Flush) 2 ml UNSCH PRN IVF 11/08/16 17:30 11/14/16 21:39 (Symbicort 160-4.5 Inh) 2 puff Q12HR INH 11/08/16 21:00 11/16/16 10:32 (Lovenox Inj) 40 mg Q24H SQ 11/08/16 21:00 11/15/16 21:28 (Norvasc) 10 mg DAILY PO 11/09/16 09:00 11/16/16 10:28 (Ecotrin Ec) 81 mg DAILY PO 11/09/16 09:00 11/16/16 10:29 (Tessalon) 100 mg TID PRN PO 11/08/16 21:30 (Wellbutrin Sr) 150 mg BID PO 11/09/16 09:00 11/16/16 10:28 (KCl) 10 meq BID PO 11/09/16 09:00 11/16/16 10:30 (Prinivil) 30 mg DAILY PO 11/09/16 09:00 Hold 11/16/16 10:28 (Mirapex) 0.5 mg HS PO 11/09/16 21:00 11/15/16 21:28 (Pravachol) 80 mg HS PO 11/09/16 21:00 11/15/16 21:28 (D50w (Vial) Inj) 25 ml UNSCH PRN IV PUSH 11/09/16 21:15 (Glucagon Inj) 1 mg UNSCH PRN OTHER 11/09/16 21:15 (Protonix) 40 mg DAILY PO 11/10/16 20:00 11/16/16 10:29 (Restoril) 15 mg HS PRN PO 11/10/16 19:45 11/13/16 01:40 Miscellaneous Information Patient in critical care unit? Ass... Q361D .XX 11/11/16 13:00 (Chlorhexidine 2% Cloth) 3 pack UNSCH PRN TOPICAL 11/11/16 12:45 11/16/16 12:40 (Lasix Inj) 20 mg BID@09,18 IV PUSH 11/12/16 18:00 Hold 11/16/16 10:27 (Claritin) 10 mg DAILY PO 11/14/16 11:00 11/16/16 10:30 (Flonase Justen Spr) 1 spray BID NASAL 11/14/16 11:00 11/16/16 10:31 (Levaquin) 750 mg Q2D PO 11/15/16 11:00 11/15/16 12:02 Methylprednisolone Sodium Succinate 40 mg 40 mg Q6HR IV PUSH 11/16/16 18:00 (NS 1000 ml Inj) 1,000 ml @ 42 mls/hr [id number] IV 11/16/16 12:00 Family History No hx of renal disorders Social History lives with drandson no smoking or ETOH uses walker to ambulate 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, 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) Physical Exam Vital Signs Vital Signs Date Time Temp Pulse Resp B/P Pulse Ox O2 Delivery O2 Flow Rate FiO2 11/16/16 12:06 98.6 90 20 108/64 94 11/16/16 10:06 94 Nasal Cannula 2.00 11/16/16 07:52 97.3 83 20 110/62 91 11/16/16 04:44 94 Nasal Cannula 2.00 11/16/16 04:15 97.0 76 20 114/58 94 11/16/16 01:02 98 35 11/16/16 00:00 97.9 75 19 115/60 92 11/15/16 23:20 Nasal Cannula 3.00 11/15/16 23:00 91 11/15/16 20:00 97.1 76 19 110/58 91 11/15/16 18:07 Nasal Cannula 2.00 11/15/16 15:45 97.4 88 22 101/66 91 Physical Exam obese AAF sitting up eating lunch awake/oriented without neuro deficit CV: S1/S2 regular, II/ systolic murmur LUngs: wheezing, scattered rales Abd: obese, soft : camilo Ext: no edema Laboratory Laboratory Tests Test 11/16/16 07:14 White Blood Count 11.3 Red Blood Count 4.56 Hemoglobin 12.9 Hematocrit 40.9 Mean Corpuscular Volume 89.6 Mean Corpuscular Hemoglobin 28.3 Mean Corpuscular Hemoglobin 31.6 Concent Red Cell Distribution Width 15.5 Platelet Count 167 Mean Platelet Volume 9.2 Sodium Level 138 Potassium Level 4.5 Chloride Level 96 Carbon Dioxide Level 36.4 Anion Gap 6 Blood Urea Nitrogen 46 Creatinine 1.64 Estimat Glomerular Filtration 37 Rate Random Glucose 138 Calcium Level 9.2 Date/Time Procedure Status Source Growth 11/11/16 18:40 Gram Stain - Final Complete Sputum Expectorated Sputum 11/11/16 18:40 Sputum Culture - Final Complete Sputum Expectorated Sputum HEAVY GROWTH NORMAL RESPIRATORY TERRENCE (Jillian Loo) Result Diagram: 11/16/1614 11/16/16 0714 Imaging Last Impressions Chest X-Ray 11/12/16 0600 Signed Impressions: Service Date/Time: Saturday, November 12, 2016 05:20 - CONCLUSION: Borderline cartilage. Jose Purcell MD (Jillian Loo) Assessment and Plan Problem List: (1) MAGALIE (acute kidney injury) Plan: in a pt with normal renal function at baseline she came in hypertensive (200s systolic) on arrival, later had BP with 90/50, may have suffered ATN from renal hypoperfusion she does not appears fluid overloaded recheck chest Xray no electrolyte concerns at this time she is drinking adequate fluids, I will hold off on IVF, Lasix is also on hold monitor renal function, check renal US she is non oliguric, check UA for analysis of protein labs in am (2) Acute hypercapnic respiratory failure Plan: she is on oxygen prednisone also on solumedrol and Levaquin to cover for pneumonia monitor clinically pulmonary following (3) Diastolic congestive heart failure Plan: EF 50-55% monitor fluid volume status (Jillian Loo) Problem List: (1) MAGALIE (acute kidney injury) Plan: in a pt with normal renal function at baseline she came in hypertensive (200s systolic) on arrival, later had BP with 90/50, may have suffered ATN from renal hypoperfusion she does not appears fluid overloaded recheck chest Xray no electrolyte concerns at this time she is drinking adequate fluids, I will hold off on IVF, Lasix is also on hold monitor renal function, check renal US she is non oliguric, check UA for analysis of protein labs in am (2) Acute hypercapnic respiratory failure Plan: she is on oxygen prednisone also on solumedrol and Levaquin to cover for pneumonia monitor clinically pulmonary following (3) Diastolic congestive heart failure Plan: EF 50-55% monitor fluid volume status Assessment and Plan patient was seen and examined. MAGALIE could be due to rapid drop in BP, resulting in renal hypoperfusion. She is incontinent, but non oliguric. Monitor renal function. Supportive care. Avoid nephrotoxic agents. Obtain bladder scan to rule out urinary retention. (Carlito Espinoza MD) Jillian Loo Nov 16, 2016 12:49 Carlito Espinoza MD Nov 16, 2016 17:18
--- NOTE | 2016-11-16 16:18 | RADRPT ---
EXAM DATE/TIME: 11/16/2016 14:38 [facility] COMPARISON: No previous studies available for comparison. INDICATIONS : Increased lab values. MEDICAL HISTORY : Hypercholesterolemia. Chronic obstructive pulmonary disease. Gastroesophageal reflux disease. Hyperte nsion. A-fib. Hiatal hernia. SURGICAL HISTORY : Hysterectomy. ENCOUNTER: Initial ACUITY: 4-6 days PAIN SCORE: 3/10 LOCATION: Bilateral flank MEASUREMENTS: RIGHT KIDNEY: 10.0 x 4.1 x 4.2 cm LEFT KIDNEY: 9.2 x 5.6 x 4.2 cm FINDINGS: RIGHT KIDNEY: Renal cortex is normal in thickness and echotexture. No hydronephrosis, stone, or mass. LEFT KIDNEY: Renal cortex is normal in thickness and echotexture. No hydronephrosis, stone, or mass. BLADDER: Not visualized. It is decompressed with a Hurst catheter in place. CONCLUSION: Normal ultrasound appearance of the kidneys. There is no hydronephrosis. Jose Barney MD on November 16, 2016 at 16:15 Board Certified Radiologist. This report was verified electronically.
--- NOTE | 2016-11-16 18:38 | RADRPT ---
EXAM DATE/TIME: 11/16/2016 17:45 [place] COMPARISON: CHEST SINGLE AP, November 12, 2016, 5:20. INDICATIONS : Short of breath. MEDICAL HISTORY : None. SURGICAL HISTORY : None. ENCOUNTER: Initial ACUITY: 1 week PAIN SCORE: 0/10 LOCATION: Bilateral chest FINDINGS: There is mild vascular congestion and bilateral basilar probable atelectasis. No significant effusion . Heart size and mediastinal contours are grossly stable For technique and projection. There is moder ate accentuation of thoracic kyphosis. CONCLUSION: Vascular congestion and mild bilateral probable atelectasis Jose Nash MD on November 16, 2016 at 18:35 Board Certified Radiologist. This report was verified electronically.
[2016-11-16] MEDS: PRAVASTATIN SOD 80 MG TAB PO SCH (21:44)
[2016-11-16] MEDS: PRAMIPEXOLE DIHYDROCHLORIDE 0.25 MG TAB PO SCH (21:44)
[2016-11-16] MEDS: ENOXAPARIN SODIUM 40 MG/0.4 ML SYRINGE SQ SCH (21:44)
[2016-11-16] MEDS: TEMAZEPAM 15 MG CAP PO PRN (22:01)
[2016-11-17] VITALS (9 sets, daily range): BP systolic 115–167; BP diastolic 57–83; PULSE 78–86; RESP 18–20; TEMP 97–98.6; O2SAT 92–96
[2016-11-17] MEDS: RESP: ALBUTEROL 2.5 MG/IPRATROPIUM 0.5 MG NEB (PRN) NEB ×3 (00:13→15:52)
[2016-11-17 03:43] LABS: BACTERIA, URINE RARE /hpf; BLOOD, URINE MOD (NEG); COMMENT (UR) CATH-CULTURE IND; CULTURE IF INDICATED CATH CULTURE IND; GLUCOSE,URINE NEG (NEG); HYALINE CAST, URINE 1 /lpf (RARE); KETONE, URINE NEG (NEG); MUCUS URINE FEW /lpf (OCC); NITRITE,URINE NEG (NEG); SQUAMOUS EPITHELIAL CELL URINE <1 /hpf (0-5); URINE COLOR LIGHT-YELLOW (YELLW/STRAW)
[2016-11-17] MEDS: methylPREDNISolone SOD SUCC 40 MG/1 ML VIAL IV PUSH SCH ×3 (05:17→17:06)
[2016-11-17] MEDS: INSULIN ASPART SUPPLEMENTAL SCALE SQ SCH ×4 (06:57→21:00)
[2016-11-17 08:36] LABS: AUTOMATED NEUTROPHIL # 9.6 TH/MM3 (1.8-7.7); HEMO FLAGS DIFF FINAL; LYMPHOCYTE # 0.6 TH/MM3 (1.0-4.8); MEAN CELL VOLUME 88.7 FL (80.0-100.0); MEAN CORPUSCULAR HEMOGLOBIN 29.3 PG (27.0-34.0); MEAN CORPUSCULAR HGB CONC 33.1 % (32.0-36.0); MONO % 0.8 % (0.0-8.0); NEUT % 93.2 % (16.0-70.0); PLATELET COUNT 179 TH/MM3 (150-450); RED BLOOD COUNT 4.62 MIL/MM3 (4.00-5.30); RED CELL DISTRIBUTION WIDTH 15.4 % (11.6-17.2); WHITE BLOOD COUNT 10.3 TH/MM3 (4.0-11.0)
[2016-11-17 09:06] LABS: ALKALINE PHOSPHATASE 61 U/L (45-117); ALT (GPT) 34 U/L (10-53); ANION GAP 6 MEQ/L (5-15); AST (GOT) 11 U/L (15-37); BICARBONATE 35.1 MEQ/L (21.0-32.0); BLOOD UREA NITROGEN 47 MG/DL (7-18); CHLORIDE 97 MEQ/L (98-107); GLOMERULAR FILTRATION RATE 37 ML/MIN (>89); MAGNESIUM 3.2 MG/DL (1.5-2.5); POTASSIUM 4.2 MEQ/L (3.5-5.1); SODIUM (NA) 138 MEQ/L (136-145); TOTAL BILIRUBIN ADULT 0.5 MG/DL (0.2-1.0)
[2016-11-17] MEDS: FLUTICASONE PROPIONATE 50 MCG/ACT 16 GM NASAL SPRAY NASAL SCH ×2 (09:26→21:00)
[2016-11-17] MEDS: ASPIRIN EC 81 MG TABEC PO SCH (09:27)
[2016-11-17] MEDS: POTASSIUM CHLORIDE 10 MEQ CONTROLLED RELEASE TAB PO SCH ×2 (09:27→21:29)
[2016-11-17] MEDS: PANTOPRAZOLE SOD 40 MG DELAYED RELEASE TAB PO SCH (09:27)
[2016-11-17] MEDS: LORATADINE 10 MG TAB PO SCH (09:27)
[2016-11-17] MEDS: buPROPion HCL 150 MG SUSTAINED RELEASE TAB PO SCH ×2 (09:27→21:29)
[2016-11-17] MEDS: BUDESONIDE-FORMOTEROL 160/4.5 MCG INHALER INH SCH ×2 (09:29→21:00)
--- NOTE | 2016-11-17 10:20 | HHI.NPPN ---
Subjective Complaints: Shortness of Breath Renal Failure: Acute Interval History Ambulating in room with therapy. Renal function is stable. (Jillian Loo) Review of Systems General Constitutional: Fatigue (Jillian Loo) Respiratory Lungs: SOB (Jillian Loo) Objective Data Data 11/16/16 11/17/16 19:00 07:00 Intake Total 480 ml 1600 ml Output Total 650 ml 1000 ml Balance -170 ml 600 ml Intake Oral 480 ml 1600 ml Output Urine Total 650 ml 1000 ml # Bowel Movements 1 0 Vital Signs Date Time Temp Pulse Resp B/P Pulse Ox O2 Delivery O2 Flow Rate FiO2 11/17/16 08:51 97.1 86 20 138/72 94 11/17/16 06:07 80 11/17/16 06:00 97.8 81 19 121/74 93 11/17/16 04:29 96 40 11/17/16 00:18 95 40 11/17/16 00:18 95 BiPAP 40 11/17/16 00:00 97.7 80 20 115/57 93 11/16/16 21:40 Nasal Cannula 3.00 11/16/16 20:45 97.4 86 19 100/56 92 11/16/16 19:00 96 11/16/16 16:30 98.1 85 20 108/62 93 11/16/16 15:32 92 Nasal Cannula 2.00 11/16/16 12:06 98.6 90 20 108/64 94 (Jillian Loo) -: 11/17/16 0726 11/17/16 0726 Microbiology 11/17/16 Urine Culture, Received Pending Imaging Last Impressions Chest X-Ray 11/16/16 1704 Signed Impressions: Service Date/Time: November 17:45 - CONCLUSION: Vascular congestion and mild bilateral probable atelectasis Jose Nash MD Renal Ultrasound 11/16/16 0000 Signed Impressions: Service Date/Time: November 14:38 - CONCLUSION: Normal ultrasound appearance of the kidneys. There is no hydronephrosis. Jose Barney MD (Jillian Loo) Physical Exam General Appearance: Well Developed, Well Nourished, No Acute Distress, Obese (Jillian Loo) Throat Throat Exam: Oral Mucosa [place] & Moist (Jillian Loo) Pulmonary Resp Exam: Breath Sounds Equal, No Distress, Decreased Bases, Diminished Breath Sounds (Jillian Loo) Cardiology CV Exam: Regular, Normal Sinus Rhythm (Jillian Loo) Gastrointestinal/Abdomen GI Exam: Soft, Non-Tender, Bowel Sounds Present (Jillian Loo) Musculoskeletal MS Exam: Joints Intact, Normal Gait, Good Strength (Jillian Loo) Integumentary Skin Exam: Warm, Dry, Intact (Jillian Loo) Extremeties Extremities Exam: No Edema, Pedal Pulses Palpable (Jillian Loo) Neurologic Neuro Exam: Alert, Awake, Oriented, Speech Clear, Moving All Extremities ( Jillian Loo) Psychiatric Psych Exam: Appropriate Responses (Jillian Loo) Assessment/Plan Discussed Condition With: Patient Problem List: (1) MAGALIE (acute kidney injury) Plan: in a pt with normal renal function at baseline MAGALIE felt to be ATN from renal hypoperfusion renal function is stable renal US negative good urine output, no protein on UA but may have UTI, culture in progress at this time monitor renal function no electrolyte concerns at this time she is drinking adequate fluids, I will hold off on IVF, Lasix is also on hold labs in am (2) Acute hypercapnic respiratory failure Plan: she is on oxygen prednisone also on solumedrol and Levaquin to cover for pneumonia monitor clinically pulmonary following (3) Diastolic congestive heart failure Plan: EF 50-55% monitor fluid volume status (Jillian Loo) Problem List: (1) MAGALIE (acute kidney injury) Plan: in a pt with normal renal function at baseline MAGALIE felt to be ATN from renal hypoperfusion renal function is stable renal US negative good urine output, no protein on UA but may have UTI, culture in progress at this time monitor renal function no electrolyte concerns at this time she is drinking adequate fluids, I will hold off on IVF, Lasix is also on hold labs in am (2) Acute hypercapnic respiratory failure Plan: she is on oxygen prednisone also on solumedrol and Levaquin to cover for pneumonia monitor clinically pulmonary following (3) Diastolic congestive heart failure Plan: EF 50-55% monitor fluid volume status Plan patient was seen and examined. Agree with above assessment and plan. Monitor off of IVF and diuretics. May need to restart diuretics soon. Renal function is stable. (Carlito Espinoza MD) Jillian Loo [facility] Nov 17, 2016 10:20 Carlito Espinoza MD Nov 17, 2016 15:19
[2016-11-17] MEDS: LEVOFLOXACIN 750 MG TAB PO SCH (11:21)
[2016-11-17 13:11] LABS: CRITICAL VALUE YES
--- NOTE | 2016-11-17 17:39 | HHI.PR ---
Subjective Remarks Patient denies cp states sob is slightly improved still coughing but with less phlegm denies fevers/chills Bp noted to be elevated Objective Vitals Vital Signs Date Time Temp Pulse Resp B/P Pulse Ox O2 Delivery O2 Flow Rate FiO2 11/17/16 16:07 97.0 85 20 167/80 92 11/17/16 12:31 97.5 86 20 142/83 96 11/17/16 09:30 91 3.00 11/17/16 08:51 97.1 86 20 138/72 94 11/17/16 06:07 80 11/17/16 06:00 97.8 81 19 121/74 93 11/17/16 04:29 96 40 11/17/16 00:18 95 40 11/17/16 00:18 95 BiPAP 40 11/17/16 00:00 97.7 80 20 115/57 93 11/16/16 21:40 Nasal Cannula 3.00 11/16/16 20:45 97.4 86 19 100/56 92 11/16/16 19:00 96 I/O 11/16/16 11/16/16 11/16/16 11/17/16 11/17/16 11/17/16 07:00 15:00 23:00 07:00 15:00 23:00 Intake Total 700 ml 480 ml 900 ml 700 ml 480 ml Output Total 800 ml 650 ml 200 ml 800 ml 350 ml Balance -100 ml -170 ml 700 ml -100 ml 130 ml Intake Oral 700 ml 480 ml 900 ml 700 ml 480 ml Output Urine Total 800 ml 650 ml 200 ml 800 ml 350 ml # Bowel Movements 0 1 0 0 1 Result Diagram: 11/17/1626 11/17/16 07 Imaging Last Impressions Chest X-Ray 11/16/16 170 Signed Impressions: Service Date/Time: November 17:45 - CONCLUSION: Vascular congestion and mild bilateral probable atelectasis Jose Nash MD Renal Ultrasound 11/16/16 0000 Signed Impressions: Service Date/Time: November 14:38 - CONCLUSION: Normal ultrasound appearance of the kidneys. There is no hydronephrosis. Jose Barney MD Objective Remarks GENERAL: AAOx3, NAD - morbidly obese SKIN: Warm and dry. HEAD: Atraumatic. Normocephalic. EYES: Pupils equal and round. No scleral icterus. No injection or drainage. ENT: No nasal bleeding or discharge. Mucous membranes pink and moist. NECK: Trachea midline. No JVD. CARDIOVASCULAR: Regular rate and rhythm. RESPIRATORY: Diffuse bilateral expiratory wheezing . No crackles or rhonchi auscultated. GASTROINTESTINAL: Abdomen soft, non-tender, nondistended. Hepatic and splenic margins not palpable. MUSCULOSKELETAL: Extremities without clubbing, cyanosis, or edema. No obvious deformities. NEUROLOGICAL: Awake and alert. No obvious cranial nerve deficits. Motor grossly within normal limits. Five out of 5 muscle strength in the arms and legs. Normal speech. PSYCHIATRIC: Appropriate mood and affect; insight and judgment normal. Medications and IVs Current Medications Medications (Trade) Dose Ordered Sig/[place] Route Start Time Stop Time Status Last Admin (NS Flush) 2 ml UNSCH PRN IVF 11/08/16 17:30 11/14/16 21:39 (Symbicort 160-4.5 Inh) 2 puff Q12HR INH 11/08/16 21:00 11/17/16 09:29 (Lovenox Inj) 40 mg Q24H SQ 11/08/16 21:00 11/16/16 21:44 (Norvasc) 10 mg DAILY PO 11/09/16 09:00 11/17/16 09:27 (Ecotrin Ec) 81 mg DAILY PO 11/09/16 09:00 11/17/16 09:27 (Tessalon) 100 mg TID PRN PO 11/08/16 21:30 (Wellbutrin Sr) 150 mg BID PO 11/09/16 09:00 11/17/16 09:27 (KCl) 10 meq BID PO 11/09/16 09:00 11/17/16 09:27 (Prinivil) 30 mg DAILY PO 11/09/16 09:00 Hold 11/16/16 10:28 (Mirapex) 0.5 mg HS PO 11/09/16 21:00 11/16/16 21:44 (Pravachol) 80 mg HS PO 11/09/16 21:00 11/16/16 21:44 (D50w (Vial) Inj) 25 ml UNSCH PRN IV PUSH 11/09/16 21:15 (Glucagon Inj) 1 mg UNSCH PRN OTHER 11/09/16 21:15 (Protonix) 40 mg DAILY PO 11/10/16 20:00 11/17/16 09:27 (Restoril) 15 mg HS PRN PO 11/10/16 19:45 11/16/16 22:01 Miscellaneous Information Patient in critical care unit? Ass... Q361D .XX 11/11/16 13:00 (Lasix Inj) 20 mg BID@09,18 IV PUSH 11/12/16 18:00 Hold 11/16/16 10:27 (Claritin) 10 mg DAILY PO 11/14/16 11:00 11/17/16 09:27 (Flonase Justen Spr) 1 spray BID NASAL 11/14/16 11:00 11/17/16 09:26 (Levaquin) 750 mg Q2D PO 11/15/16 11:00 11/17/16 11:21 (SoluMEDROL INJ) 40 mg Q6HR IV PUSH 11/16/16 18:00 11/17/16 17:06 Urinary Catheter: No Vascular Central Line Catheter: No A/P Problem List: (1) Acute hypercapnic respiratory failure ICD Code: J96.02 Status: Resolved (2) Asthma exacerbation ICD Code: J45.901 Status: Acute (3) Diastolic congestive heart failure ICD Code: I50.30 Status: Acute (4) Encephalopathy ICD Code: G93.40 Status: Resolved (5) Pulmonary edema ICD Code: J81.1 Status: Acute (6) Altered mental status ICD Code: R41.82 Status: Acute (7) GLO (obstructive sleep apnea) ICD Code: G47.33 Status: Acute (8) Insomnia ICD Code: G47.00 Status: Acute Assessment and Plan Encephalopathy/CO2 narcosis -Resolved. Mental status now at baseline. Encephalopathy likely caused by hypercapnic respiratory failure. -Continue BiPAP PRN and strictly at night Acute Respiratory Failure Untreated GLO COPD exacerbation - BIPAP 15/5 PRN and strictly at night - Pulmonary following - DuoNeb every 4 hours scheduled and when necessary. Continue Pulmicort - EzPAP, Acapella, IS - Sp Zosyn IV and azithromycin, being treated empirically for HCAP. - COPD seems to be slightly improved. - Continue IV Solumedrol. - Continue antibiotics - duoneb Allergic rhinitis -on Flonase nasal spray and Claritin. -Patient is on the nasal saline rinses. Continue with nasal saline rinses. Diastolic congestive heart failure - Chest x-ray shows improvement in pulmonary edema - Continue Lisinopril Norvasc - Strict blood pressure control -breathing improving. - Hold IV lasix due to rise and worsening creatinine. MAGALIE Patient with worsening renal function. IV Lasix held due to worsening creatinine. Nephrology consulted. Patient was started on IV fluids which was helped by nephrology since patient is drinking fluids adequately. ÁLVARO inhibitor also held. Appreciate neurology recommendations. [place] likely secondary to ATN secondary to hypoperfusion due to hemodynamic instability since a shunt had an episode of hypotension with systolic blood pressure in the 80s systolic. Renal ultrasound is normal. UA showed positive leukocyte esterase but only 5 WBCs, there is the presence of budding yeasts which is rare. I will start the patient on fluconazole. Follow-up urine cultures. Check urine eosinophils as well. Diabetes mellitus hyperglycemia. Diabetes is uncontrolled with a hemoglobin A1c of 7.5 obtained on 10/11/16. Hyperglycemia likely worsened by posterior use. I will add insulin Levemir and continue SSI with insulin NovoLog and continue to monitor Accu-Cheks. Hypertension. Lisinopril held given worsening renal function. I will place the patient on clonidine as needed. DVT GI prophylaxis - Lovenox and Protonix GI prophylaxis: I will continue PPI. DVT prophylaxis: SCDs, continue Lovenox subcutaneous. Discharge Planning Continue to monitor in the medical floor. DC Pending clinical improvement of COPD and improvement of creatinine. Problem Qualifiers (1) Pulmonary edema: Qualified Code: J81.0 - Acute pulmonary edema (2) Altered mental status: Lowell Herring MD Nov 17, 2016 17:39
[2016-11-17] MEDS: INSULIN DETEMIR 100 UNITS/ML VIAL SQ SCH (21:00)
[2016-11-17] MEDS: ENOXAPARIN SODIUM 40 MG/0.4 ML SYRINGE SQ SCH (21:00)
[2016-11-17] MEDS: PRAVASTATIN SOD 80 MG TAB PO SCH (21:29)
[2016-11-17] MEDS: PRAMIPEXOLE DIHYDROCHLORIDE 0.25 MG TAB PO SCH (21:29)
[2016-11-18] VITALS (11 sets, daily range): BP systolic 109–128; BP diastolic 55–84; PULSE 76–96; RESP 18–20; TEMP 97–98.1; O2SAT 90–98
[2016-11-18] MEDS: RESP: ALBUTEROL 2.5 MG/IPRATROPIUM 0.5 MG NEB (PRN) NEB ×3 (00:12→19:39)
[2016-11-18] MEDS: methylPREDNISolone SOD SUCC 40 MG/1 ML VIAL IV PUSH SCH ×4 (05:11→16:57)
[2016-11-18] MEDS: INSULIN ASPART SUPPLEMENTAL SCALE SQ SCH ×4 (06:42→22:24)
[2016-11-18] MEDS: ASPIRIN EC 81 MG TABEC PO SCH (08:23)
[2016-11-18] MEDS: POTASSIUM CHLORIDE 10 MEQ CONTROLLED RELEASE TAB PO SCH ×2 (08:23→22:23)
[2016-11-18] MEDS: LORATADINE 10 MG TAB PO SCH (08:24)
[2016-11-18] MEDS: buPROPion HCL 150 MG SUSTAINED RELEASE TAB PO SCH ×2 (08:24→22:23)
[2016-11-18] MEDS: PANTOPRAZOLE SOD 40 MG DELAYED RELEASE TAB PO SCH (08:24)
[2016-11-18] MEDS: FLUTICASONE PROPIONATE 50 MCG/ACT 16 GM NASAL SPRAY NASAL SCH ×2 (08:26→22:34)
[2016-11-18] MEDS: BUDESONIDE-FORMOTEROL 160/4.5 MCG INHALER INH SCH ×2 (08:26→21:00)
[2016-11-18] MEDS: INSULIN DETEMIR 100 UNITS/ML VIAL SQ SCH ×2 (08:31→22:24)
--- NOTE | 2016-11-18 17:00 | HHI.NPPN ---
Subjective Complaints: Shortness of Breath Renal Failure: Acute Review of Systems General Constitutional: Fatigue Respiratory Lungs: SOB Objective Data Data 11/17/16 11/18/16 19:00 07:00 Intake Total 480 ml 600 ml Output Total 350 ml 600 ml Balance 130 ml 0 ml Intake Oral 480 ml 600 ml Output Urine Total 350 ml 600 ml # Bowel Movements 1 0 Vital Signs Date Time Temp Pulse Resp B/P Pulse Ox O2 Delivery O2 Flow Rate FiO2 11/18/16 16:05 98 Nasal Cannula 2.00 11/18/16 13:22 97.7 87 20 117/73 94 11/18/16 11:29 90 Nasal Cannula 2.00 11/18/16 08:30 94 Nasal Cannula 2.00 11/18/16 08:13 97.0 84 20 109/55 94 11/18/16 05:43 90 11/18/16 04:00 97.2 76 20 120/59 98 11/18/16 00:12 94 40 11/18/16 00:12 94 BiPAP 40 11/18/16 00:00 97.9 95 20 120/65 94 11/17/16 20:00 98.6 85 18 125/60 94 11/17/16 20:00 Nasal Cannula 3.00 11/17/16 20:00 78 -: 11/17/16 0726 11/17/16 0726 Physical Exam General Appearance: Well Developed, Well Nourished, No Acute Distress, Obese Throat Throat Exam: Oral Mucosa [place] & Moist Pulmonary Resp Exam: Breath Sounds Equal, No Distress, Decreased Bases, Diminished Breath Sounds Cardiology CV Exam: Regular, Normal Sinus Rhythm Gastrointestinal/Abdomen GI Exam: Soft, Non-Tender, Bowel Sounds Present Musculoskeletal MS Exam: Joints Intact, Normal Gait, Good Strength Integumentary Skin Exam: Warm, Dry, Intact Extremeties Extremities Exam: No Edema, Pedal Pulses Palpable Neurologic Neuro Exam: Alert, Awake, Oriented, Speech Clear, Moving All Extremities Psychiatric Psych Exam: Appropriate Responses Assessment/Plan Discussed Condition With: Patient Problem List: (1) MAGALIE (acute kidney injury) Plan: in a pt with normal renal function at baseline MAGALIE felt to be ATN from renal hypoperfusion renal function is stable renal US negative good urine output, Cr stable 1.66 it will get better next few day urine clear Dr. Espinoza to follow on Sunday (2) Acute hypercapnic respiratory failure Plan: she is on oxygen prednisone also on solumedrol and Levaquin to cover for pneumonia monitor clinically pulmonary following (3) Diastolic congestive heart failure Plan: EF 50-55% monitor fluid volume status Grisel Davis MD Nov 18, 2016 17:00
--- NOTE | 2016-11-18 18:11 | HHI.PR ---
Subjective Remarks Stress of breath and cough much improved. Stable vital signs Denies chest pain Objective Vitals Vital Signs Date Time Temp Pulse Resp B/P Pulse Ox O2 Delivery O2 Flow Rate FiO2 11/18/16 17:02 98.1 96 20 128/84 93 11/18/16 16:05 98 Nasal Cannula 2.00 11/18/16 13:22 97.7 87 20 117/73 94 11/18/16 11:29 90 Nasal Cannula 2.00 11/18/16 08:30 94 Nasal Cannula 2.00 11/18/16 08:13 97.0 84 20 109/55 94 11/18/16 05:43 90 11/18/16 04:00 97.2 76 20 120/59 98 11/18/16 00:12 94 40 11/18/16 00:12 94 BiPAP 40 11/18/16 00:00 97.9 95 20 120/65 94 11/17/16 20:00 98.6 85 18 125/60 94 11/17/16 20:00 Nasal Cannula 3.00 11/17/16 20:00 78 I/O 11/17/16 11/17/16 11/17/16 11/18/16 11/18/16 11/18/16 07:00 15:00 23:00 07:00 15:00 23:00 Intake Total 700 ml 720 ml 360 ml 960 ml Output Total 800 ml 500 ml 450 ml 1100 ml Balance -100 ml 220 ml -90 ml -140 ml Intake Oral 700 ml 720 ml 360 ml 960 ml Output Urine Total 800 ml 500 ml 450 ml 1100 ml # Bowel Movements 0 1 0 Result Diagram: 11/17/16 0726 11/17/16 0726 Imaging Last Impressions Chest X-Ray 11/16/16 1704 Signed Impressions: Service Date/Time: November 17:45 - CONCLUSION: Vascular congestion and mild bilateral probable atelectasis Jose Nash MD Renal Ultrasound 11/16/16 0000 Signed Impressions: Service Date/Time: November 14:38 - CONCLUSION: Normal ultrasound appearance of the kidneys. There is no hydronephrosis. Jose Barney MD Objective Remarks GENERAL: AAOx3, NAD - morbidly obese SKIN: Warm and dry. HEAD: Atraumatic. Normocephalic. EYES: Pupils equal and round. No scleral icterus. No injection or drainage. ENT: No nasal bleeding or discharge. Mucous membranes pink and moist. NECK: Trachea midline. No JVD. CARDIOVASCULAR: Regular rate and rhythm. RESPIRATORY: Diffuse bilateral expiratory wheezing . No crackles or rhonchi auscultated. GASTROINTESTINAL: Abdomen soft, non-tender, nondistended. Hepatic and splenic margins not palpable. MUSCULOSKELETAL: Extremities without clubbing, cyanosis, or edema. No obvious deformities. NEUROLOGICAL: Awake and alert. No obvious cranial nerve deficits. Motor grossly within normal limits. Five out of 5 muscle strength in the arms and legs. Normal speech. PSYCHIATRIC: Appropriate mood and affect; insight and judgment normal. Medications and IVs Current Medications Medications (Trade) Dose Ordered Sig/[place] Route Start Time Stop Time Status Last Admin (NS Flush) 2 ml UNSCH PRN IVF 11/08/16 17:30 11/14/16 21:39 (Symbicort 160-4.5 Inh) 2 puff Q12HR INH 11/08/16 21:00 11/18/16 08:26 (Lovenox Inj) 40 mg Q24H SQ 11/08/16 21:00 11/17/16 21:00 (Norvasc) 10 mg DAILY PO 11/09/16 09:00 11/17/16 09:27 (Ecotrin Ec) 81 mg DAILY PO 11/09/16 09:00 11/18/16 08:23 (Tessalon) 100 mg TID PRN PO 11/08/16 21:30 (Wellbutrin Sr) 150 mg BID PO 11/09/16 09:00 11/18/16 08:24 (KCl) 10 meq BID PO 11/09/16 09:00 11/18/16 08:23 (Prinivil) 30 mg DAILY PO 11/09/16 09:00 Hold 11/16/16 10:28 (Mirapex) 0.5 mg HS PO 11/09/16 21:00 11/17/16 21:29 (Pravachol) 80 mg HS PO 11/09/16 21:00 11/17/16 21:29 (D50w (Vial) Inj) 25 ml UNSCH PRN IV PUSH 11/09/16 21:15 (Glucagon Inj) 1 mg UNSCH PRN OTHER 11/09/16 21:15 (Protonix) 40 mg DAILY PO 11/10/16 20:00 11/18/16 08:24 (Restoril) 15 mg HS PRN PO 11/10/16 19:45 11/16/16 22:01 Miscellaneous Information Patient in critical care unit? Ass... Q361D .XX 11/11/16 13:00 (Lasix Inj) 20 mg BID@09,18 IV PUSH 11/12/16 18:00 Hold 11/16/16 10:27 (Claritin) 10 mg DAILY PO 11/14/16 11:00 11/18/16 08:24 (Flonase Justen Spr) 1 spray BID NASAL 11/14/16 11:00 11/18/16 08:26 (Levaquin) 750 mg Q2D PO 11/15/16 11:00 11/17/16 11:21 (SoluMEDROL INJ) 40 mg Q6HR IV PUSH 11/16/16 18:00 11/18/16 16:57 (Levemir Inj) 10 units Q12HR SQ 11/17/16 21:00 11/18/16 08:31 Urinary Catheter: Yes Assessment to: Continue [place] insert reason: Measure Accurate Output Vascular Central Line Catheter: No A/P Problem List: (1) Acute hypercapnic respiratory failure ICD Code: J96.02 Status: Resolved (2) Asthma exacerbation ICD Code: J45.901 Status: Acute (3) Diastolic congestive heart failure ICD Code: I50.30 Status: Acute (4) Encephalopathy ICD Code: G93.40 Status: Resolved (5) Pulmonary edema ICD Code: J81.1 Status: Acute (6) Altered mental status ICD Code: R41.82 Status: Acute (7) GLO (obstructive sleep apnea) ICD Code: G47.33 Status: Acute (8) Insomnia ICD Code: G47.00 Status: Acute Assessment and Plan Encephalopathy/CO2 narcosis -Resolved. Mental status now at baseline. Encephalopathy likely caused by hypercapnic respiratory failure. -Continue BiPAP PRN and strictly at night Acute Respiratory Failure Untreated GLO COPD exacerbation - BIPAP 15/5 PRN and strictly at night - Pulmonary following - DuoNeb every 4 hours scheduled and when necessary. Continue Pulmicort - EzPAP, Acapella, IS - Sp Zosyn IV and azithromycin, being treated empirically for HCAP. - COPD improving. -Discontinue IVs of mitral and start oral prednisone. - Continue antibiotics - duoneb Allergic rhinitis -on Flonase nasal spray and Claritin. -Patient is on the nasal saline rinses. Continue with nasal saline rinses. Diastolic congestive heart failure - Chest x-ray shows improvement in pulmonary edema - Continue Lisinopril Norvasc - Strict blood pressure control -breathing improving. - Hold IV lasix due to rise and worsening creatinine. MAGALIE IV Lasix held due to worsening creatinine. Nephrology consulted. Patient was started on IV fluids which was helped by nephrology since patient is drinking fluids adequately. ÁLVARO inhibitor also held. Appreciate nephrology recommendations. MAGALIE likely secondary to ATN secondary to hypoperfusion due to hemodynamic instability since a shunt had an episode of hypotension with systolic blood pressure in the 80s systolic. Renal ultrasound is normal. UA showed positive leukocyte esterase but only 5 WBCs, there is the presence of budding yeasts which is rare. I will start the patient on fluconazole. Urine cultures no growth in 24 hours. 11/18 creatinine stable, will likely get better in the next few days.. Continue to monitor BUN/creatinine, avoid nephrotoxins, monitor strict I's and O's, follow-up nephrology recommendations. Diabetes mellitus hyperglycemia. Diabetes is uncontrolled with a hemoglobin A1c of 7.5 obtained on 10/11/16. Hyperglycemia worsened by steroid use. Levemir insulin added to SSI with insulin NovoLog. Continue to monitor Accu-Cheks / blood sugars improving. Continue management as above. Hypertension. Lisinopril held given worsening renal function. I will place the patient on clonidine as needed. 11/18 Bp stable. DVT GI prophylaxis - Lovenox and Protonix GI prophylaxis: I will continue PPI. DVT prophylaxis: SCDs, continue Lovenox subcutaneous. Discharge Planning Continue to monitor in the medical floor. Possible DC in a.m. Patient will need rehabilitation placement. Problem Qualifiers (1) Pulmonary edema: Qualified Code: J81.0 - Acute pulmonary edema (2) Altered mental status: Lowell Herring MD Nov 18, 2016 18:11
[2016-11-18 19:20] LABS: BICARBONATE 36.7 MEQ/L (21.0-32.0); POTASSIUM 4.8 MEQ/L (3.5-5.1)
[2016-11-18] MEDS: ENOXAPARIN SODIUM 40 MG/0.4 ML SYRINGE SQ SCH (22:23)
[2016-11-18] MEDS: PRAMIPEXOLE DIHYDROCHLORIDE 0.25 MG TAB PO SCH (22:23)
[2016-11-18] MEDS: PRAVASTATIN SOD 80 MG TAB PO SCH (22:23)
[2016-11-19] VITALS (9 sets, daily range): BP systolic 111–138; BP diastolic 51–99; PULSE 82–99; RESP 18–20; TEMP 97.1–98.6; O2SAT 92–97
[2016-11-19] MEDS: RESP: ALBUTEROL 2.5 MG/IPRATROPIUM 0.5 MG NEB (PRN) NEB ×2 (02:14→12:17)
[2016-11-19] MEDS: INSULIN ASPART SUPPLEMENTAL SCALE SQ SCH ×4 (05:22→22:03)
[2016-11-19 07:58] LABS: AUTOMATED NEUTROPHIL # 10.6 TH/MM3 (1.8-7.7); BASOPHIL % 0.1 % (0.0-2.0); HEMATOCRIT 40.7 % (35.0-46.0); HEMO FLAGS DIFF FINAL; LYMPH % 10.3 % (9.0-44.0); LYMPHOCYTE # 1.3 TH/MM3 (1.0-4.8); MEAN CELL VOLUME 89.7 FL (80.0-100.0); MEAN CORPUSCULAR HEMOGLOBIN 28.1 PG (27.0-34.0); MEAN CORPUSCULAR HGB CONC 31.3 % (32.0-36.0); MONO % 4.9 % (0.0-8.0); NEUT % 84.7 % (16.0-70.0); PLATELET COUNT 166 TH/MM3 (150-450); RED BLOOD COUNT 4.54 MIL/MM3 (4.00-5.30); RED CELL DISTRIBUTION WIDTH 15.4 % (11.6-17.2); WHITE BLOOD COUNT 12.5 TH/MM3 (4.0-11.0)
[2016-11-19] MEDS: POTASSIUM CHLORIDE 10 MEQ CONTROLLED RELEASE TAB PO SCH ×2 (08:13→22:00)
[2016-11-19] MEDS: buPROPion HCL 150 MG SUSTAINED RELEASE TAB PO SCH ×2 (08:13→22:01)
[2016-11-19] MEDS: PANTOPRAZOLE SOD 40 MG DELAYED RELEASE TAB PO SCH (08:17)
[2016-11-19] MEDS: predniSONE 20 MG TAB PO SCH ×3 (08:17→17:47)
[2016-11-19] MEDS: ASPIRIN EC 81 MG TABEC PO SCH (08:18)
[2016-11-19] MEDS: INSULIN DETEMIR 100 UNITS/ML VIAL SQ SCH ×2 (08:18→22:01)
[2016-11-19] MEDS: LORATADINE 10 MG TAB PO SCH (08:18)
[2016-11-19] MEDS: BUDESONIDE-FORMOTEROL 160/4.5 MCG INHALER INH SCH ×2 (08:19→21:00)
[2016-11-19] MEDS: FLUTICASONE PROPIONATE 50 MCG/ACT 16 GM NASAL SPRAY NASAL SCH ×2 (08:19→21:00)
[2016-11-19 08:22] LABS: ALKALINE PHOSPHATASE 56 U/L (45-117); ALT (GPT) 27 U/L (10-53); ANION GAP 6 MEQ/L (5-15); AST (GOT) 9 U/L (15-37); BICARBONATE 34.4 MEQ/L (21.0-32.0); BLOOD UREA NITROGEN 46 MG/DL (7-18); CHLORIDE 100 MEQ/L (98-107); GLOMERULAR FILTRATION RATE 33 ML/MIN (>89); MAGNESIUM 3.1 MG/DL (1.5-2.5); POTASSIUM 4.4 MEQ/L (3.5-5.1); SODIUM (NA) 140 MEQ/L (136-145); TOTAL BILIRUBIN ADULT 0.4 MG/DL (0.2-1.0)
[2016-11-19] MEDS: LEVOFLOXACIN 750 MG TAB PO SCH (12:13)
--- NOTE | 2016-11-19 13:08 | HHI.NPPN ---
Subjective Complaints: Shortness of Breath Renal Failure: Acute Review of Systems General Constitutional: Fatigue Respiratory Lungs: SOB Objective Data Data 11/18/16 11/19/16 19:00 07:00 Intake Total 960 ml 240 ml Output Total 1100 ml 950 ml Balance -140 ml -710 ml Intake Oral 960 ml 240 ml Output Urine Total 1100 ml 950 ml # Bowel Movements 1 Vital Signs Date Time Temp Pulse Resp B/P Pulse Ox O2 Delivery O2 Flow Rate FiO2 11/19/16 12:40 98.0 88 20 117/75 92 11/19/16 10:50 93 High Flow Nasal Cannula 2.00 11/19/16 04:49 97.7 90 18 138/99 96 11/19/16 04:21 95 40 11/19/16 02:16 96 40 11/19/16 02:16 96 BiPAP 40 11/19/16 00:40 97.1 96 20 111/51 93 11/18/16 23:00 Nasal Cannula 2.00 11/18/16 23:00 91 11/18/16 21:06 97.9 91 18 123/63 95 11/18/16 17:02 98.1 96 20 128/84 93 11/18/16 16:05 98 Nasal Cannula 2.00 11/18/16 13:22 97.7 87 20 117/73 94 -: 11/19/16 0720 11/19/16 0720 Physical Exam General Appearance: Well Developed, Well Nourished, No Acute Distress, Obese Throat Throat Exam: Oral Mucosa [place] & Moist Pulmonary Resp Exam: Breath Sounds Equal, No Distress, Decreased Bases, Diminished Breath Sounds Cardiology CV Exam: Regular, Normal Sinus Rhythm Gastrointestinal/Abdomen GI Exam: Soft, Non-Tender, Bowel Sounds Present Musculoskeletal MS Exam: Joints Intact, Normal Gait, Good Strength Integumentary Skin Exam: Warm, Dry, Intact Extremeties Extremities Exam: No Edema, Pedal Pulses Palpable Neurologic Neuro Exam: Alert, Awake, Oriented, Speech Clear, Moving All Extremities Psychiatric Psych Exam: Appropriate Responses Assessment/Plan Discussed Condition With: Patient Problem List: (1) MAGALIE (acute kidney injury) Plan: in a pt with normal renal function at baseline MAGALIE felt to be ATN from renal hypoperfusion renal function is stable renal US negative good urine output, Cr 1.66 -->1.9-->1.8 it will get better next few day urine clear Dr. Espinoza to follow on Sunday (2) Acute hypercapnic respiratory failure Plan: she is on oxygen prednisone also on solumedrol and Levaquin to cover for pneumonia monitor clinically pulmonary following (3) Diastolic congestive heart failure Plan: EF 50-55% monitor fluid volume status Grisel Davis MD Nov 19, 2016 13:08
[2016-11-19] MEDS: FLUCONAZOLE 100 MG TAB PO SCH (14:26)
--- NOTE | 2016-11-19 15:18 | HHI.PR ---
Subjective Remarks sob and cough better denies cp/sob still feels weak Objective Vitals Vital Signs Date Time Temp Pulse Resp B/P Pulse Ox O2 Delivery O2 Flow Rate FiO2 11/19/16 12:40 98.0 88 20 117/75 92 11/19/16 10:50 93 High Flow Nasal Cannula 2.00 11/19/16 04:49 97.7 90 18 138/99 96 11/19/16 04:21 95 40 11/19/16 02:16 96 40 11/19/16 02:16 96 BiPAP 40 11/19/16 00:40 97.1 96 20 111/51 93 11/18/16 23:00 Nasal Cannula 2.00 11/18/16 23:00 91 11/18/16 21:06 97.9 91 18 123/63 95 11/18/16 17:02 98.1 96 20 128/84 93 11/18/16 16:05 98 Nasal Cannula 2.00 I/O 11/18/16 11/18/16 11/18/16 11/19/16 11/19/16 11/19/16 07:00 15:00 23:00 07:00 15:00 23:00 Intake Total 360 ml 960 ml 240 ml Output Total 450 ml 1100 ml 950 ml Balance -90 ml -140 ml -710 ml Intake Oral 360 ml 960 ml 240 ml Output Urine Total 450 ml 1100 ml 950 ml # Bowel Movements 0 1 Result Diagram: 11/19/16 0720 11/19/16 0720 Imaging Last Impressions Chest X-Ray 11/16/16 1704 Signed Impressions: Service Date/Time: November 17:45 - CONCLUSION: Vascular congestion and mild bilateral probable atelectasis Jose Nash MD Renal Ultrasound 11/16/16 0000 Signed Impressions: Service Date/Time: November 14:38 - CONCLUSION: Normal ultrasound appearance of the kidneys. There is no hydronephrosis. Jose Barney MD Objective Remarks GENERAL: AAOx3, NAD - morbidly obese SKIN: Warm and dry. HEAD: Atraumatic. Normocephalic. EYES: Pupils equal and round. No scleral icterus. No injection or drainage. ENT: No nasal bleeding or discharge. Mucous membranes pink and moist. NECK: Trachea midline. No JVD. CARDIOVASCULAR: Regular rate and rhythm. RESPIRATORY: Decreased breath sounds bilaterally. No wheezing, rhonchi or crackles auscultated. GASTROINTESTINAL: Abdomen soft, non-tender, nondistended. Hepatic and splenic margins not palpable. MUSCULOSKELETAL: Extremities without clubbing, cyanosis, or edema. No obvious deformities. NEUROLOGICAL: Awake and alert. No obvious cranial nerve deficits. Motor grossly within normal limits. Five out of 5 muscle strength in the arms and legs. Normal speech. PSYCHIATRIC: Appropriate mood and affect; insight and judgment normal. Procedures none Medications and IVs Current Medications Medications (Trade) Dose Ordered Sig/[place] Route Start Time Stop Time Status Last Admin (NS Flush) 2 ml UNSCH PRN IVF 11/08/16 17:30 11/14/16 21:39 (Symbicort 160-4.5 Inh) 2 puff Q12HR INH 11/08/16 21:00 11/19/16 08:19 (Lovenox Inj) 40 mg Q24H SQ 11/08/16 21:00 11/18/16 22:23 (Norvasc) 10 mg DAILY PO 11/09/16 09:00 11/19/16 08:15 (Ecotrin Ec) 81 mg DAILY PO 11/09/16 09:00 11/19/16 08:18 (Tessalon) 100 mg TID PRN PO 11/08/16 21:30 (Wellbutrin Sr) 150 mg BID PO 11/09/16 09:00 11/19/16 08:13 (KCl) 10 meq BID PO 11/09/16 09:00 11/19/16 08:13 (Prinivil) 30 mg DAILY PO 11/09/16 09:00 Hold 11/16/16 10:28 (Mirapex) 0.5 mg HS PO 11/09/16 21:00 11/18/16 22:23 (Pravachol) 80 mg HS PO 11/09/16 21:00 11/18/16 22:23 (D50w (Vial) Inj) 25 ml UNSCH PRN IV PUSH 11/09/16 21:15 (Glucagon Inj) 1 mg UNSCH PRN OTHER 11/09/16 21:15 (Protonix) 40 mg DAILY PO 11/10/16 20:00 11/19/16 08:17 (Restoril) 15 mg HS PRN PO 11/10/16 19:45 11/16/16 22:01 Miscellaneous Information Patient in critical care unit? Ass... Q361D .XX 11/11/16 13:00 (Lasix Inj) 20 mg BID@09,18 IV PUSH 11/12/16 18:00 Hold 11/16/16 10:27 (Claritin) 10 mg DAILY PO 11/14/16 11:00 11/19/16 08:18 (Flonase Justen Spr) 1 spray BID NASAL 11/14/16 11:00 11/19/16 08:19 (Levaquin) 750 mg Q2D PO 11/15/16 11:00 11/19/16 12:13 (Levemir Inj) 10 units Q12HR SQ 11/17/16 21:00 11/19/16 08:18 (Deltasone) 20 mg TID PO 11/19/16 09:00 11/19/16 12:13 (Diflucan) 100 mg DAILY PO 11/19/16 13:30 11/19/16 14:26 Urinary Catheter: No Vascular Central Line Catheter: No A/P Problem List: (1) Acute hypercapnic respiratory failure ICD Code: J96.02 Status: Resolved (2) Asthma exacerbation ICD Code: J45.901 Status: Acute (3) Diastolic congestive heart failure ICD Code: I50.30 Status: Acute (4) Encephalopathy ICD Code: G93.40 Status: Resolved (5) Pulmonary edema ICD Code: J81.1 Status: Acute (6) Altered mental status ICD Code: R41.82 Status: Acute (7) GLO (obstructive sleep apnea) ICD Code: G47.33 Status: Acute (8) Insomnia ICD Code: G47.00 Status: Acute Assessment and Plan Encephalopathy/CO2 narcosis -Resolved. Mental status now at baseline. Encephalopathy likely caused by hypercapnic respiratory failure. -Continue BiPAP PRN and strictly at night Acute Respiratory Failure Untreated GLO COPD exacerbation - BIPAP 15/5 PRN and strictly at night - Pulmonary following - DuoNeb every 4 hours scheduled and when necessary. Continue Pulmicort - EzPAP, Acapella, IS - Sp Zosyn IV and azithromycin, being treated empirically for HCAP. - COPD improving. - sp IV steroids - continue oral prednisone. - Continue antibiotics - duoneb Allergic rhinitis -on Flonase nasal spray and Claritin. -Patient is on the nasal saline rinses. Continue with nasal saline rinses. Diastolic congestive heart failure - Chest x-ray shows improvement in pulmonary edema - Continue Lisinopril Norvasc - Strict blood pressure control -breathing improving. - Hold IV lasix due to rise and worsening creatinine. MAGALIE IV Lasix held due to worsening creatinine. Nephrology consulted. Patient was started on IV fluids which was helped by nephrology since patient is drinking fluids adequately. ÁLVARO inhibitor also held. Appreciate nephrology recommendations. MAGALIE likely secondary to ATN secondary to hypoperfusion due to hemodynamic instability since a shunt had an episode of hypotension with systolic blood pressure in the 80s systolic. Renal ultrasound is normal. UA showed positive leukocyte esterase but only 5 WBCs, there is the presence of budding yeasts which is rare. I will start the patient on fluconazole. Urine cultures no growth in 24 hours. 11/19 creatinine trending down. Continue to monitor BUN/creatinine, avoid nephrotoxins, monitor urine output. Diabetes mellitus hyperglycemia. Diabetes is uncontrolled with a hemoglobin A1c of 7.5 obtained on 10/11/16. Hyperglycemia worsened by steroid use. Levemir insulin added to SSI with insulin NovoLog. Continue to monitor Accu-Cheks 11/18 blood sugars improving. Continue management as above. Hypertension. Lisinopril held given worsening renal function. I will place the patient on clonidine as needed. 11/18 Bp stable. DVT GI prophylaxis - Lovenox and Protonix GI prophylaxis: I will continue PPI. DVT prophylaxis: SCDs, continue Lovenox subcutaneous. Discharge Planning Continue to monitor in the medical floor. Possible DC in a.m. Patient will need rehabilitation placement. Problem Qualifiers (1) Pulmonary edema: Qualified Code: J81.0 - Acute pulmonary edema (2) Altered mental status: Lowell Herring MD Nov 19, 2016 15:18
[2016-11-19] MEDS: PRAVASTATIN SOD 80 MG TAB PO SCH (21:58)
[2016-11-19] MEDS: PRAMIPEXOLE DIHYDROCHLORIDE 0.25 MG TAB PO SCH (22:01)
[2016-11-19] MEDS: ENOXAPARIN SODIUM 40 MG/0.4 ML SYRINGE SQ SCH (22:01)
[2016-11-20] VITALS (10 sets, daily range): BP systolic 107–132; BP diastolic 65–91; PULSE 80–105; RESP 16–20; TEMP 96.6–97.8; O2SAT 92–99
[2016-11-20] MEDS: INSULIN ASPART SUPPLEMENTAL SCALE SQ SCH ×4 (06:19→22:11)
[2016-11-20 08:34] LABS: HEMATOCRIT 41.6 % (35.0-46.0); MEAN CELL VOLUME 88.9 FL (80.0-100.0); MEAN CORPUSCULAR HEMOGLOBIN 28.1 PG (27.0-34.0); MEAN CORPUSCULAR HGB CONC 31.7 % (32.0-36.0); PLATELET COUNT 158 TH/MM3 (150-450); RED BLOOD COUNT 4.68 MIL/MM3 (4.00-5.30); RED CELL DISTRIBUTION WIDTH 15.5 % (11.6-17.2); REVIEW FLAG FINAL; WHITE BLOOD COUNT 12.2 TH/MM3 (4.0-11.0)
[2016-11-20] MEDS: BUDESONIDE-FORMOTEROL 160/4.5 MCG INHALER INH SCH ×2 (09:00→21:00)
[2016-11-20] MEDS: INSULIN DETEMIR 100 UNITS/ML VIAL SQ SCH ×2 (09:00→22:11)
[2016-11-20 09:09] LABS: BICARBONATE 32.9 MEQ/L (21.0-32.0); POTASSIUM 4.6 MEQ/L (3.5-5.1)
[2016-11-20] MEDS: ASPIRIN EC 81 MG TABEC PO SCH (09:19)
[2016-11-20] MEDS: LORATADINE 10 MG TAB PO SCH (09:19)
[2016-11-20] MEDS: predniSONE 20 MG TAB PO SCH ×2 (09:19→11:57)
[2016-11-20] MEDS: PANTOPRAZOLE SOD 40 MG DELAYED RELEASE TAB PO SCH (09:20)
[2016-11-20] MEDS: POTASSIUM CHLORIDE 10 MEQ CONTROLLED RELEASE TAB PO SCH ×2 (09:20→22:10)
[2016-11-20] MEDS: buPROPion HCL 150 MG SUSTAINED RELEASE TAB PO SCH ×2 (09:20→22:10)
[2016-11-20] MEDS: FLUCONAZOLE 100 MG TAB PO SCH (09:30)
[2016-11-20] MEDS: FLUTICASONE PROPIONATE 50 MCG/ACT 16 GM NASAL SPRAY NASAL SCH ×2 (09:31→22:09)
--- NOTE | 2016-11-20 10:49 | HHI.NPPN ---
Subjective Complaints: Shortness of Breath Renal Failure: Acute Interval History Sitting up in bed. Renal function is slightly better but not improved since the past week. (Jillian Loo) Review of Systems General Constitutional: Fatigue (Jillian Loo) Respiratory Lungs: SOB (Jillian Loo) Objective Data Data 11/19/16 11/20/16 19:00 07:00 Intake Total 660 ml Output Total 1000 ml Balance 660 ml -1000 ml Intake Oral 660 ml Output Urine Total 1000 ml # Voids 2 # Bowel Movements 0 Vital Signs Date Time Temp Pulse Resp B/P Pulse Ox O2 Delivery O2 Flow Rate FiO2 11/20/16 08:31 96.6 88 20 120/74 95 11/20/16 07:00 Nasal Cannula 2.00 11/20/16 05:37 97 40 11/20/16 05:36 97.3 80 18 118/65 99 11/20/16 01:20 97 40 11/20/16 00:55 97.5 93 18 114/91 95 11/20/16 00:30 Nasal Cannula 2.00 11/19/16 20:00 97.5 99 18 118/75 97 11/19/16 17:44 98.6 90 20 122/61 97 11/19/16 12:40 98.0 88 20 117/75 92 11/19/16 10:50 93 High Flow Nasal Cannula 2.00 (Jillian Loo) -: 11/20/16 0730 11/20/16 0750 Physical Exam General Appearance: Well Developed, Well Nourished, No Acute Distress, Obese (Jillian Loo) Throat Throat Exam: Oral Mucosa [place] & Moist (Jillian Loo) Pulmonary Resp Exam: Breath Sounds Equal, No Distress, Decreased Bases, Diminished Breath Sounds (Jillian Loo) Cardiology CV Exam: Regular, Normal Sinus Rhythm (Jillian Loo) Gastrointestinal/Abdomen GI Exam: Soft, Non-Tender, Bowel Sounds Present (Jillian Loo) Musculoskeletal MS Exam: Joints Intact, Normal Gait, Good Strength (iJllian Loo) Integumentary Skin Exam: Warm, Dry, Intact (Jillian Loo) Extremeties Extremities Exam: No Edema, Pedal Pulses Palpable (Jillian Loo) Neurologic Neuro Exam: Alert, Awake, Oriented, Speech Clear, Moving All Extremities ( Jillian Loo) Psychiatric Psych Exam: Appropriate Responses (Jillian Loo) Assessment/Plan Discussed Condition With: Patient Problem List: (1) MAGALIE (acute kidney injury) Plan: in a pt with normal renal function at baseline MAGALIE felt to be ATN from renal hypoperfusion renal function improved slightly but overall stable good urine output, will remove camilo at this time she is tolerating diet, off IVF avoid nephrotoxins we will see her as needed (2) Acute hypercapnic respiratory failure Plan: she is on oxygen prednisone also on solumedrol and Levaquin to cover for pneumonia monitor clinically pulmonary following (3) Diastolic congestive heart failure Plan: EF 50-55% monitor fluid volume status (Jillian Loo) Plan patient was seen and examined. Agree with above assessment and plan. We will sign off at this time. (Carlito Espinoza MD) Jillian Loo Nov 20, 2016 10:49 Carlito Espinoza MD Nov 21, 2016 11:13
[2016-11-20] MEDS ORDERED: BENZONATATE 100 MG CAP PO PRN (17:00)
--- NOTE | 2016-11-20 17:11 | HHI.PR ---
Subjective Remarks Patient c/o cough and some upper chest burning and pain when she coughs. denies fevers or chills no dysuria states gets sob with exertion denies fevers/chills good oxygen saturation on o2 patient states she feels lightheaded c/o tremors Objective Vitals Vital Signs Date Time Temp Pulse Resp B/P Pulse Ox O2 Delivery O2 Flow Rate FiO2 11/20/16 16:43 97.7 105 20 107/72 92 11/20/16 14:42 Nasal Cannula 3.00 11/20/16 12:05 97.8 90 20 121/74 94 11/20/16 08:31 96.6 88 20 120/74 95 11/20/16 07:00 Nasal Cannula 2.00 11/20/16 05:37 97 40 11/20/16 05:36 97.3 80 18 118/65 99 11/20/16 01:20 97 40 11/20/16 00:55 97.5 93 18 114/91 95 11/20/16 00:30 Nasal Cannula 2.00 11/19/16 20:00 97.5 99 18 118/75 97 11/19/16 17:44 98.6 90 20 122/61 97 I/O 11/19/16 11/19/16 11/19/16 11/20/16 11/20/16 11/20/16 07:00 15:00 23:00 07:00 15:00 23:00 Intake Total 240 ml 660 ml Output Total 950 ml 1000 ml 500 ml Balance -710 ml 660 ml -1000 ml -500 ml Intake Oral 240 ml 660 ml Output Urine Total 950 ml 1000 ml 500 ml # Voids 2 1 # Bowel Movements 1 0 Result Diagram: 11/20/16 0730 11/20/16 0750 Imaging Last Impressions Chest X-Ray 11/16/16 1704 Signed Impressions: Service Date/Time: November 17:45 - CONCLUSION: Vascular congestion and mild bilateral probable atelectasis Jose Nash MD Renal Ultrasound 11/16/16 0000 Signed Impressions: Service Date/Time: November 14:38 - CONCLUSION: Normal ultrasound appearance of the kidneys. There is no hydronephrosis. Jose Barney MD Objective Remarks GENERAL: AAOx3, NAD - morbidly obese SKIN: Warm and dry. HEAD: Atraumatic. Normocephalic. EYES: Pupils equal and round. No scleral icterus. No injection or drainage. ENT: No nasal bleeding or discharge. Mucous membranes pink and moist. NECK: Trachea midline. No JVD. CARDIOVASCULAR: Regular rate and rhythm. RESPIRATORY: Decreased breath sounds bilaterally. No wheezing, rhonchi or crackles auscultated. GASTROINTESTINAL: Abdomen soft, non-tender, nondistended. Hepatic and splenic margins not palpable. MUSCULOSKELETAL: Extremities without clubbing, cyanosis, or edema. No obvious deformities. NEUROLOGICAL: Awake and alert. No obvious cranial nerve deficits. Motor grossly within normal limits. Five out of 5 muscle strength in the arms and legs. Normal speech. PSYCHIATRIC: Appropriate mood and affect; insight and judgment normal. Procedures none Medications and IVs Current Medications Medications (Trade) Dose Ordered Sig/[place] Route Start Time Stop Time Status Last Admin (NS Flush) 2 ml UNSCH PRN IVF 11/08/16 17:30 11/14/16 21:39 (Symbicort 160-4.5 Inh) 2 puff Q12HR INH 11/08/16 21:00 11/20/16 09:00 (Lovenox Inj) 40 mg Q24H SQ 11/08/16 21:00 11/19/16 22:01 (Norvasc) 10 mg DAILY PO 11/09/16 09:00 11/20/16 09:19 (Ecotrin Ec) 81 mg DAILY PO 11/09/16 09:00 11/20/16 09:19 (Tessalon) 100 mg TID PRN PO 11/08/16 21:30 (Wellbutrin Sr) 150 mg BID PO 11/09/16 09:00 11/20/16 09:20 (KCl) 10 meq BID PO 11/09/16 09:00 11/20/16 09:20 (Prinivil) 30 mg DAILY PO 11/09/16 09:00 Hold 11/16/16 10:28 (Mirapex) 0.5 mg HS PO 11/09/16 21:00 11/19/16 22:01 (Pravachol) 80 mg HS PO 11/09/16 21:00 11/19/16 21:58 (D50w (Vial) Inj) 25 ml UNSCH PRN IV PUSH 11/09/16 21:15 (Glucagon Inj) 1 mg UNSCH PRN OTHER 11/09/16 21:15 (Protonix) 40 mg DAILY PO 11/10/16 20:00 11/20/16 09:20 (Restoril) 15 mg HS PRN PO 11/10/16 19:45 11/16/16 22:01 Miscellaneous Information Patient in critical care unit? Ass... Q361D .XX 11/11/16 13:00 (Lasix Inj) 20 mg BID@,18 IV PUSH 11/12/16 18:00 Hold 11/16/16 10:27 (Claritin) 10 mg DAILY PO 11/14/16 11:00 11/20/16 09:19 (Flonase Justen Spr) 1 spray BID NASAL 11/14/16 11:00 11/20/16 09:31 (Levaquin) 750 mg Q2D PO 11/15/16 11:00 11/19/16 12:13 (Levemir Inj) 10 units Q12HR SQ 11/17/16 21:00 11/20/16 09:00 (Deltasone) 20 mg TID PO 11/19/16 09:00 11/20/16 11:57 (Diflucan) 100 mg DAILY PO 11/19/16 13:30 11/20/16 09:30 (Tessalon) 200 mg TID PRN PO 11/20/16 17:00 UNV Urinary Catheter: No Vascular Central Line Catheter: No A/P Problem List: (1) Acute hypercapnic respiratory failure ICD Code: J96.02 Status: Resolved (2) Asthma exacerbation ICD Code: J45.901 Status: Acute (3) Diastolic congestive heart failure ICD Code: I50.30 Status: Acute (4) Encephalopathy ICD Code: G93.40 Status: Resolved (5) Pulmonary edema ICD Code: J81.1 Status: Acute (6) Altered mental status ICD Code: R41.82 Status: Acute (7) GLO (obstructive sleep apnea) ICD Code: G47.33 Status: Acute (8) Insomnia ICD Code: G47.00 Status: Acute (9) MAGALIE (acute kidney injury) ICD Code: N17.9 Status: Acute (10) Tremor observed on examination ICD Code: R25.1 Status: Acute Plan: Patient has some baseline tremor in both hands now worst. Tremor likely worsened by steroid use. Will decrease steroid dose. Assessment and Plan Encephalopathy/CO2 narcosis -Resolved. Mental status now at baseline. Encephalopathy likely caused by hypercapnic respiratory failure. -Continue BiPAP PRN and strictly at night Acute Respiratory Failure Untreated GLO COPD exacerbation - BIPAP 15/5 PRN and strictly at night - Pulmonary following - DuoNeb every 4 hours scheduled and when necessary. Continue Pulmicort - EzPAP, Acapella, IS - Sp Zosyn IV and azithromycin, being treated empirically for HCAP. - COPD improving. - sp IV steroids - continue oral prednisone - taper dose to 20 mg po BID - Continue antibiotics - duoneb Allergic rhinitis -on Flonase nasal spray and Claritin. -Patient is on the nasal saline rinses. Continue with nasal saline rinses. Diastolic congestive heart failure - Chest x-ray shows improvement in pulmonary edema - Continue Lisinopril Norvasc - Strict blood pressure control -breathing improving. - Hold IV lasix due to rise and worsening creatinine. MAGALIE IV Lasix held due to worsening creatinine. Nephrology consulted. Patient was started on IV fluids which was helped by nephrology since patient is drinking fluids adequately. ÁLVARO inhibitor also held. Appreciate nephrology recommendations. MAGALIE likely secondary to ATN secondary to hypoperfusion due to hemodynamic instability since a shunt had an episode of hypotension with systolic blood pressure in the 80s systolic. Renal ultrasound is normal. UA showed positive leukocyte esterase but only 5 WBCs, there is the presence of budding yeasts which is rare. I will start the patient on fluconazole. Urine cultures no growth in 24 hours. 11/19 creatinine trending down. Continue to monitor BUN/creatinine, avoid nephrotoxins, monitor urine output. 11/20 Creatinine down to 1.6. Nephrology signed off. Diabetes mellitus hyperglycemia. Diabetes is uncontrolled with a hemoglobin A1c of 7.5 obtained on 10/11/16. Hyperglycemia worsened by steroid use. Levemir insulin added to SSI with insulin NovoLog. Continue to monitor Accu-Cheks 11/18 blood sugars improving. Continue management as above. Hypertension. Lisinopril held given worsening renal function. I will place the patient on clonidine as needed. 11/18 Bp stable. GI prophylaxis: I will continue PPI. DVT prophylaxis: SCDs, continue Lovenox subcutaneous. Discharge Planning Dc in am. Problem Qualifiers (1) Pulmonary edema: Qualified Code: J81.0 - Acute pulmonary edema (2) Altered mental status: Lowell Herring MD Nov 20, 2016 17:11
--- NOTE | 2016-11-20 17:23 | HHI.DCPOC ---
Discharge Care Plan Diagnosis: (1) Encephalopathy (2) GLO (obstructive sleep apnea) (3) Acute hypercapnic respiratory failure (4) Pulmonary edema (5) Asthma exacerbation (6) MAGALIE (acute kidney injury) (7) Tremor observed on examination (8) Diabetes (9) COPD exacerbation (10) Diastolic congestive heart failure Goals to Promote Your Health * To prevent worsening of your condition and complications * To maintain your health at the optimal level Directions to Meet Your Goals Take your medications as prescribed Follow your dietary instruction Follow activity as directed Keep your appointments as scheduled Take your immunizations and boosters as scheduled If your symptoms worsen call your PCP, if no PCP go to Urgent Care Center or Emergency Room Smoking is Dangerous to Your Health. Avoid second hand smoke Call the 24-hour hour crisis hotline for domestic abuse at Lowell Herring MD Nov 20, 2016 17:23
[2016-11-20] MEDS ORDERED: PRED20 PO (17:32)
[2016-11-20] MEDS ORDERED: GLIP5TAB8 PO (17:33)
--- NOTE | 2016-11-20 17:37 | HHI.FF ---
Face to Face Verification Diagnosis: (1) Pulmonary edema (2) Encephalopathy (3) Altered mental status (4) COPD exacerbation (5) MAGALIE (acute kidney injury) (6) Diastolic congestive heart failure (7) Acute hypercapnic respiratory failure (8) Tremor observed on examination Physical Therapy Order: Improve ambulation, Strength and gait training Home Health Nursing Order: Medical education Diabetic education CHF education Medication education-adverse effect Nursing assessment with vital signs I have seen patient Nano Turner on 11/20/16. My clinical findings support the need for the requested home health care services because: Patient has SOB Deconditioned w/ increased weakness Limited ability to care for self Impaired cognition/judgement High risk of falls I certify that my clinical findings support that this patient is homebound because: Hx COPD- exertion dyspnea/weakness Unsafe to leave home unassisted Need for psychosocial assistance Unable to use public transportation Lowell Herring MD Nov 20, 2016 17:37
[2016-11-20] MEDS ORDERED: predniSONE 20 MG TAB PO SCH (21:00)
[2016-11-20] MEDS: PRAMIPEXOLE DIHYDROCHLORIDE 0.25 MG TAB PO SCH (22:10)
[2016-11-20] MEDS: PRAVASTATIN SOD 80 MG TAB PO SCH (22:10)
[2016-11-20] MEDS: ENOXAPARIN SODIUM 40 MG/0.4 ML SYRINGE SQ SCH (22:11)
[2016-11-21] VITALS (11 sets, daily range): BP systolic 86–135; BP diastolic 48–80; PULSE 63–127; RESP 16–22; TEMP 97.3–99.3; O2SAT 90–99
[2016-11-21] MEDS: INSULIN ASPART SUPPLEMENTAL SCALE SQ SCH ×3 (07:02→16:00)
[2016-11-21] MEDS: FLUCONAZOLE 100 MG TAB PO SCH (09:45)
[2016-11-21] MEDS: LORATADINE 10 MG TAB PO SCH (09:45)
[2016-11-21] MEDS: LEVOFLOXACIN 750 MG TAB PO SCH (09:46)
[2016-11-21] MEDS: buPROPion HCL 150 MG SUSTAINED RELEASE TAB PO SCH (09:46)
[2016-11-21] MEDS: ASPIRIN EC 81 MG TABEC PO SCH (09:46)
[2016-11-21] MEDS: PANTOPRAZOLE SOD 40 MG DELAYED RELEASE TAB PO SCH (09:46)
[2016-11-21] MEDS: POTASSIUM CHLORIDE 10 MEQ CONTROLLED RELEASE TAB PO SCH (09:47)
[2016-11-21] MEDS: FLUTICASONE PROPIONATE 50 MCG/ACT 16 GM NASAL SPRAY NASAL SCH (09:52)
[2016-11-21] MEDS: BUDESONIDE-FORMOTEROL 160/4.5 MCG INHALER INH SCH (09:52)
[2016-11-21] MEDS: INSULIN DETEMIR 100 UNITS/ML VIAL SQ SCH (10:01)
[2016-11-21] MEDS: RESP: ALBUTEROL 2.5 MG/IPRATROPIUM 0.5 MG NEB (PRN) NEB ×3 (10:21→19:06)
--- NOTE | 2016-11-21 11:04 | HHI.PR ---
Subjective Remarks Follow-up pulmonary edema/CO2 narcosis and now acute onset of hallucination 11/21/16-patient seen and examined, currently per nurse report patient has been hallucinating all night long however during my exam she appears alert and oriented 3 chronic complaints of itchy eyes or as if she has some sands in her eyes. Patient was on the phone and talking about the fact that the staff at [facility] was forcefully shutting on her eyes Objective Vitals Vital Signs Date Time Temp Pulse Resp B/P Pulse Ox O2 Delivery O2 Flow Rate FiO2 11/21/16 10:23 93 Nasal Cannula 3.00 11/21/16 08:10 97.6 127 22 135/80 90 11/21/16 05:55 97.4 89 22 116/69 93 11/21/16 05:00 92 50 11/21/16 00:11 99 40 11/21/16 00:00 97.3 82 16 117/63 96 11/20/16 23:21 Nasal Cannula 2.00 11/20/16 23:00 89 11/20/16 20:00 97.8 104 16 132/82 93 11/20/16 19:51 94 Nasal Cannula 3.00 11/20/16 16:43 97.7 105 20 107/72 92 11/20/16 14:42 Nasal Cannula 3.00 11/20/16 12:05 97.8 90 20 121/74 94 I/O 11/20/16 11/20/16 11/20/16 11/21/16 11/21/16 11/21/16 07:00 15:00 23:00 07:00 15:00 23:00 Intake Total 480 ml Output Total 1000 ml 500 ml Balance -1000 ml -500 ml 480 ml Intake Oral 480 ml Output Urine Total 1000 ml 500 ml # Voids 2 1 2 2 # Bowel Movements 0 0 0 Result Diagram: 11/20/16 0730 11/20/16 0750 Imaging Last Impressions Chest X-Ray 11/16/16 1704 Signed Impressions: Service Date/Time: November 17:45 - CONCLUSION: Vascular congestion and mild bilateral probable atelectasis Jose Nash MD Renal Ultrasound 11/16/16 0000 Signed Impressions: Service Date/Time: November 14:38 - CONCLUSION: Normal ultrasound appearance of the kidneys. There is no hydronephrosis. Jose Barney MD Objective Remarks GENERAL: NAD SKIN: Warm and dry. HEAD: Normocephalic. EYES: No scleral icterus. No injection or drainage. NECK: Supple, trachea midline. No JVD or lymphadenopathy. CARDIOVASCULAR: Regular rate and rhythm without murmurs, gallops, or rubs. RESPIRATORY: Breath sounds equal bilaterally. No accessory muscle use. GASTROINTESTINAL: Abdomen soft, non-tender, nondistended. MUSCULOSKELETAL: No cyanosis, or edema. BACK: Nontender without obvious deformity. No CVA tenderness. Procedures none A/P Problem List: (1) Acute hypercapnic respiratory failure ICD Code: J96.02 Status: Resolved (2) Asthma exacerbation ICD Code: J45.901 Status: Acute (3) Diastolic congestive heart failure ICD Code: I50.30 Status: Acute (4) Encephalopathy ICD Code: G93.40 Status: Resolved (5) Pulmonary edema ICD Code: J81.1 Status: Acute (6) Altered mental status ICD Code: R41.82 Status: Acute (7) GLO (obstructive sleep apnea) ICD Code: G47.33 Status: Acute (8) Insomnia ICD Code: G47.00 Status: Acute (9) MAGALIE (acute kidney injury) ICD Code: N17.9 Status: Acute (10) Tremor observed on examination ICD Code: R25.1 Status: Acute (11) Diabetes ICD Code: E11.9 Status: Acute (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 -Continue BiPAP PRN and strictly at night Steroid induced psychosis with hallucination: Hold steroid; will eventually taper down Acute Respiratory Failure Untreated GLO COPD exacerbation-resolving - Continue BIPAP 15/5 PRN and strictly at night, DuoNeb every 4 hours scheduled and when necessary, Pulmicort, Levaquin Allergic rhinitis: Continue with Flonase nasal spray and Claritin. Diastolic congestive heart failure: No exacerbation and continue with lisinopril , Norvasc. Secondary to worsening renal indices continue to hold Lasix MAGALIE: likely secondary to ATN secondary to hypoperfusion. Appreciate input from nephrology who sign off Diabetes mellitus: Currently on Lantus, insulin sliding scale with fingerstick blood glucose monitoring. A1c of 7.5 obtained on 10/11/16. Hypertension: Normotensive on Norvasc, lisinopril GI prophylaxis: PPI. DVT prophylaxis: SCDs, continue Lovenox subcutaneous. Discharge Planning Not medically stable for discharge Problem Qualifiers (1) Pulmonary edema: Qualified Code: J81.0 - Acute pulmonary edema (2) Altered mental status: Adolfo Webster MD Nov 21, 2016 11:04
[2016-11-21] MEDS: predniSONE 10 MG TAB PO SCH (12:22)
[2016-11-22] MEDS: ENOXAPARIN SODIUM 40 MG/0.4 ML SYRINGE SQ SCH (00:24)
[2016-11-22] MEDS: buPROPion HCL 150 MG SUSTAINED RELEASE TAB PO SCH ×2 (00:24→09:16)
[2016-11-22] MEDS: POTASSIUM CHLORIDE 10 MEQ CONTROLLED RELEASE TAB PO SCH ×2 (00:25→09:16)
[2016-11-22] MEDS: PRAVASTATIN SOD 80 MG TAB PO SCH (00:26)
[2016-11-22] MEDS: PRAMIPEXOLE DIHYDROCHLORIDE 0.25 MG TAB PO SCH (00:26)
[2016-11-22] MEDS: INSULIN DETEMIR 100 UNITS/ML VIAL SQ SCH ×2 (00:29→09:17)
[2016-11-22] MEDS: BUDESONIDE-FORMOTEROL 160/4.5 MCG INHALER INH SCH ×2 (00:32→09:17)
[2016-11-22] MEDS: FLUTICASONE PROPIONATE 50 MCG/ACT 16 GM NASAL SPRAY NASAL SCH ×2 (00:32→09:18)
[2016-11-22] MEDS: INSULIN ASPART SUPPLEMENTAL SCALE SQ SCH ×3 (00:34→11:00)
[2016-11-22 01:06] VITALS: BP 95/51; PULSE 82; RESP 22; TEMP 97.8; O2SAT 95
[2016-11-22 01:45] VITALS: O2SAT 95
[2016-11-22 04:13] VITALS: BP 100/66; PULSE 87; RESP 20; TEMP 98; O2SAT 98
[2016-11-22 08:28] VITALS: BP 97/68; PULSE 95; RESP 20; TEMP 96.7; O2SAT 97
[2016-11-22] MEDS: FLUCONAZOLE 100 MG TAB PO SCH (09:14)
[2016-11-22] MEDS: PANTOPRAZOLE SOD 40 MG DELAYED RELEASE TAB PO SCH (09:14)
[2016-11-22] MEDS: predniSONE 10 MG TAB PO SCH (09:16)
[2016-11-22] MEDS: LORATADINE 10 MG TAB PO SCH (09:16)
[2016-11-22] MEDS: ASPIRIN EC 81 MG TABEC PO SCH (09:16)
[2016-11-22 10:35] VITALS: PULSE 98
--- NOTE | 2016-11-22 11:26 | HHI.PR ---
Subjective Remarks Follow-up pulmonary edema/CO2 narcosis and now acute onset of hallucination 11/21/16-patient seen and examined, currently per nurse report patient has been hallucinating all night long however during my exam she appears alert and oriented 3 chronic complaints of itchy eyes or as if she has some sands in her eyes. Patient was on the phone and talking about the fact that the staff at [facility] was forcefully shutting on her eyes 11/22/16-7 examined, denies any chest pain or shortness of breath. Patient is now agreeable to discharge to [facility] Objective Vitals Vital Signs Date Time Temp Pulse Resp B/P Pulse Ox O2 Delivery O2 Flow Rate FiO2 11/22/16 10:35 98 11/22/16 08:28 96.7 95 20 97/68 97 11/22/16 04:13 98.0 87 20 100/66 98 11/22/16 01:45 95 50 11/22/16 01:06 97.8 82 22 95/51 95 11/21/16 20:00 97.9 63 18 99/52 99 11/21/16 16:19 97.6 102 22 106/63 90 11/21/16 15:30 92 Nasal Cannula 3.00 11/21/16 12:19 99.3 102 22 86/48 92 I/O 11/21/16 11/21/16 11/21/16 11/22/16 11/22/16 11/22/16 07:00 15:00 23:00 07:00 15:00 23:00 Intake Total 1230 ml 650 ml Output Total 300 ml Balance 1230 ml 350 ml Intake Oral 1230 ml 650 ml Output Urine Total 300 ml # Voids 2 4 3 # Bowel Movements 0 0 0 Result Diagram: 11/20/16 0730 11/20/16 0750 Imaging Last Impressions Chest X-Ray 11/16/16 1704 Signed Impressions: Service Date/Time: November 17:45 - CONCLUSION: Vascular congestion and mild bilateral probable atelectasis Jose Nash MD Renal Ultrasound 11/16/16 0000 Signed Impressions: Service Date/Time: November 14:38 - CONCLUSION: Normal ultrasound appearance of the kidneys. There is no hydronephrosis. Jose Barney MD Objective Remarks GENERAL: NAD SKIN: Warm and dry. HEAD: Normocephalic. EYES: No scleral icterus. No injection or drainage. NECK: Supple, trachea midline. No JVD or lymphadenopathy. CARDIOVASCULAR: Regular rate and rhythm without murmurs, gallops, or rubs. RESPIRATORY: Breath sounds equal bilaterally. No accessory muscle use. GASTROINTESTINAL: Abdomen soft, non-tender, nondistended. MUSCULOSKELETAL: No cyanosis, or edema. BACK: Nontender without obvious deformity. No CVA tenderness. Procedures none A/P Problem List: (1) Acute hypercapnic respiratory failure ICD Code: J96.02 Status: Resolved (2) Asthma exacerbation ICD Code: J45.901 Status: Resolved (3) Diastolic congestive heart failure ICD Code: I50.30 Status: Chronic (4) Encephalopathy ICD Code: G93.40 Status: Resolved (5) Pulmonary edema ICD Code: J81.1 Status: Resolved (6) Altered mental status ICD Code: R41.82 Status: Resolved (7) GLO (obstructive sleep apnea) ICD Code: G47.33 Status: Chronic (8) Insomnia ICD Code: G47.00 Status: Chronic (9) MAGALIE (acute kidney injury) ICD Code: N17.9 Status: Resolved (10) Tremor observed on examination ICD Code: R25.1 Status: Resolved (11) Diabetes ICD Code: E11.9 Status: Chronic (12) Steroid-induced psychosis, 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 -Continue BiPAP PRN and strictly at night Steroid induced psychosis with hallucination: Resolved Acute Respiratory Failure Untreated GLO COPD exacerbation-resolved - Continue BIPAP 15/5 PRN and strictly at night, DuoNeb every 4 hours scheduled and when necessary, Pulmicort, Levaquin Allergic rhinitis: Continue with Flonase nasal spray and Claritin. Diastolic congestive heart failure: No exacerbation and continue with lisinopril , Norvasc. Secondary to worsening renal indices continue to hold Lasix MAGALIE: likely secondary to ATN secondary to hypoperfusion. Appreciate input from nephrology who sign off Diabetes mellitus: Currently on Lantus, insulin sliding scale with fingerstick blood glucose monitoring. A1c of 7.5 obtained on 10/11/16. Hypertension: Normotensive on Norvasc, lisinopril GI prophylaxis: PPI. DVT prophylaxis: SCDs, continue Lovenox subcutaneous. Discharge Planning Discharge to SNF Problem Qualifiers (1) Pulmonary edema: Qualified Code: J81.0 - Acute pulmonary edema (2) Altered mental status: Adolfo Webster MD Nov 22, 2016 11:26 Adolfo Webster MD Nov 22, 2016 11:26
[2016-11-22] MEDS ORDERED: LEVEMIR SQ (11:27)
--- NOTE | 2016-11-22 11:31 | HHI.DS ---
Discharge Summary Admission Date Nov 08, 2016 at 18:57 Discharge Date: Nov 22, 2016 Admitting Diagnosis pulm edema (1) Acute hypercapnic respiratory failure ICD Code: J96.02 (2) Asthma exacerbation ICD Code: J45.901 (3) Diastolic congestive heart failure ICD Code: I50.30 (4) Encephalopathy ICD Code: G93.40 (5) Pulmonary edema ICD Code: J81.1 (6) Altered mental status ICD Code: R41.82 (7) GLO (obstructive sleep apnea) ICD Code: G47.33 (8) Insomnia ICD Code: G47.00 (9) MAGALIE (acute kidney injury) ICD Code: N17.9 (10) Tremor observed on examination ICD Code: R25.1 (11) Diabetes ICD Code: E11.9 (12) Steroid-induced psychosis, 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 Turner is a 71-year-old female with a history of hypertension, hyperlipidemia, atrial fibrillation not on anticoagulation, COPD/asthma, obstructive sleep apnea, GERD, arthritis, and diabetes mellitus who presented to the emergency room for progressively worsening shortness of breath on 2016. According to her [id number] who is at the bedside, the patient has had difficulty breathing over the past 3-4 years but over the past few days has gotten significantly worse. Yesterday she was so concerned about her mother-in- law that she wanted to call an ambulance while she was visiting her because she was so short of breath. The patient refused. This morning, the patient's [id number] again went to see her and reported that she was significantly short of breath as well as experiencing generalized weakness without fever or complaint of chest pain.. The patient again refused to have EMS activated and the patient's [id number] brought her to the hospital. The patient has been having productive cough with phlegm. She is on home oxygen intermittently. The patient briefly wakes up but does not open her eyes during visit and states she's feeling like she is breathing better and not having any pain. Given her lethargy and somnolence, she is an unreliable historian. . CBC/BMP: 11/20/16 0730 11/20/16 0750 Significant Findings Laboratory Tests Test 11/20/16 11/20/16 07:30 07:50 White Blood Count 12.2 TH/MM3 (4.0-11.0) Mean Corpuscular Hemoglobin 31.7 % Concent (32.0-36.0) Carbon Dioxide Level 32.9 MEQ/L (21.0-32.0) Anion Gap 4 MEQ/L (5-15) Blood Urea Nitrogen 40 MG/DL (7-18) Creatinine 1.60 MG/DL (0.50-1.00) Estimat Glomerular Filtration 38 ML/MIN (>89) Rate Random Glucose 113 MG/DL (74-106) Imaging Last Impressions Chest X-Ray 11/16/16 1704 Signed Impressions: Service Date/Time: November 17:45 - CONCLUSION: Vascular congestion and mild bilateral probable atelectasis Jose Nash MD Renal Ultrasound 11/16/16 0000 Signed Impressions: Service Date/Time: November 14:38 - CONCLUSION: Normal ultrasound appearance of the kidneys. There is no hydronephrosis. Jose Barney MD PE at Discharge GENERAL: NAD SKIN: Warm and dry. HEAD: Normocephalic. EYES: No scleral icterus. No injection or drainage. NECK: Supple, trachea midline. No JVD or lymphadenopathy. CARDIOVASCULAR: Regular rate and rhythm without murmurs, gallops, or rubs. RESPIRATORY: Breath sounds equal bilaterally. No accessory muscle use. GASTROINTESTINAL: Abdomen soft, non-tender, nondistended. MUSCULOSKELETAL: No cyanosis, or edema. BACK: Nontender without obvious deformity. No CVA tenderness. Transfer Summary 71-year-old morbidly obese female with a history of hypertension, hyperlipidemia , atrial fibrillation not on anticoagulation, COPD/asthma, obstructive sleep apnea, GERD, arthritis, and diabetes mellitus who presented to the emergency room for progressively worsening shortness of breath on 11/08/2016. Per chart, the patient has had difficulty breathing over the past 3-4 years but over the past few days has gotten significantly worse. This morning, she was significantly short of breath as well as experiencing generalized weakness without fever or complaint of chest pain. She has been having productive cough with phlegm. She is on home oxygen intermittently. The patient responds to voice and opens her eyes briefly. She is on face mask BiPAP. 11/09: Clearly some element of fluid overload, but body habitus has a profound effect on air movement and airway. Patient was transferred to hospitalist service 11/11: Critical care reconsult note Rounding demographer Dr. Maddox noted 11/11/16 that patient was lethargic. A stat ABG showed 7.23/100/88. Patient was transferred to the ICU immediately and placed on BiPAP. Critical care medicine was consulted and I evaluated the patient. Currently on BiPAP1/, I reduce EPAP to 5 to improve ventilation. Repeat ABG pending. Chest x-ray shows evidence of fluid overload 1 mg of Bumex given. IV Solu-Medrol and DuoNeb started by Dr. Maddox 11/12: Significant clinical improvement. Alert awake oriented. Still has bilateral wheezing. Hospital Course She was admitted with acute respiratory failure secondary to COPD exacerbation and CO2 narcosis for which she was under the care of critical care medicine and placed on a BiPAP as well as steroid, DuoNeb when necessary and antibiotics. Patient condition improved he was also treated for diastolic CHF exacerbation however secondary to worsening renal functions or antihypertensive medications were held. Secondary to uncontrolled blood glucose, patient was started on Lantus twice a day and placed on a sliding scale insulin. PT was consulted, DVT and GI prophylaxis were provided. Treatment for other chronic medical conditions were continued. Patient condition improved prior to discharge. Patient eventually will need outpatient sleep study for BiPAP Pt Condition on Discharge: Stable Discharge Disposition: Disch w/ Home Health Serv Discharge Time: > 30 minutes Discharge Instructions DIET: Follow Instructions for: Diabetic Diet Activities you can perform: Regular-No Restrictions Follow up Referrals: PCP Follow-up - 1 Week PCP Follow-up - 2-3 Days New Medications: Glipizide (Glipizide) 5 Mg Tab 5 MG PO DAILY Take 30 minutes before a meal Blood Sugar Management #30 Ref 0 TAB Prednisone (Prednisone) 20 Mg Tab 20 MG PO DIRECTED 40 MG twice a day x 3 days, then 20 MG daily x 3 days, then 10 MG daily x 3 days Inflammation #11 Ref 0 TAB Insulin Detemir Inj (Levemir Inj) 1,000 unit/ 10 ML Vial 10 UNITS SQ Q12HR Blood Sugar Management #60 INJECTION Continued Medications: Albuterol 18 GM Inh (Ventolin Hfa 18 GM Inh) 90 Mcg/Act Aer 1 PUFF INH Q4H PRN SHORTNESS OF BREATH #1 Ref 0 INHALER Amlodipine (Amlodipine) 10 Mg Tab 10 MG PO DAILY Blood Pressure Management #[address] (Aspirin Adult Low Strength) 81 Mg Tabdr 81 MG PO DAILY TAB Benzonatate (Tessalon Perles) 100 Mg Cap 100 MG PO TID PRN COUGH Ref 0 CAP Bumetanide (Bumex) 0.5 Mg Tab 0.5 MG PO DAILY Ref 0 TAB Bupropion HCl ER 24 HR (Wellbutrin Xl 24 HR) 300 Mg Tab 300 MG PO DAILY Control Depression Ref 0 TAB Fluticasone-Salmeterol Inh (Advair Diskus Inh) 250-50 Mcg/Blist Aer 1 PUFF INH BID Rinse mouth after use. #1 Ref 0 INHALER Ipratropium-Albuterol Neb (Duoneb) 0.5-2.5 Mg/3 Ml Neb 1 NEBULE INH Q6HR PRN SHORTNESS OF BREATH #120 Ref 0 NEBULE Pramipexole (Pramipexole) 0.5 Mg Tab 0.5 MG PO HS Parkinson Disease Mgmt #30 Ref 0 TAB Simvastatin (Zocor) 40 Mg Tab 40 MG PO HS Cholesterol Management #30 Ref 0 TAB Discontinued Medications: Lisinopril (Lisinopril) 30 Mg Tab 30 MG PO DAILY Blood Pressure Management #30 Ref 0 TAB Meloxicam (Mobic) 15 Mg Tab 15 MG PO DAILY Arthritis pain Ref 0 TAB Potassium Chloride ER (Potassium Chloride ER) 10 Meq Tab 10 MEQ PO BID Electrolyte Replacement #60 Ref 0 TAB Prednisone (Prednisone) 5 Mg Tab 5 MG PO BID Ref 0 TAB Adolfo Webster MD Nov 22, 2016 11:31
[2016-11-22 12:32] VITALS: O2SAT 97
[2016-11-22] MEDS ORDERED: MAGNESIUM CITRATE SOLN 300 ML BTL PO ONE (14:00)
== END 2016-11-22 16:25 | DRG 291 ==
LOC: NEPC 17:09 → NEDA 18:57 → N03A 11-09 00:41 → N06B 11-10 22:37 → HIME 11-11 10:30 → N05A 11-14 00:19
PROVIDERS: ADMIT Hospitalist; ATTEND Hospitalist
PROC: 5A09457 Assistance with Respiratory Ventilation, 24-96 Consecutive Hours, Continuous Positive Airway Pressure (ICD-10-PCS; principal; 2016-11-08)
DX: I50.33 Acute on chronic diastolic (congestive) heart failure (principal); J96.02 Acute respiratory failure with hypercapnia; N17.0 Acute kidney failure with tubular necrosis; G93.40 Encephalopathy, unspecified; J44.1 Chronic obstructive pulmonary disease with (acute) exacerbation; E87.2 Acidosis; J45.901 Unspecified asthma with (acute) exacerbation; E11.65 Type 2 diabetes mellitus with hyperglycemia; I42.9 Cardiomyopathy, unspecified; R44.2 Other hallucinations; Z99.81 Dependence on supplemental oxygen; I73.9 Peripheral vascular disease, unspecified; E66.01 Morbid (severe) obesity due to excess calories; F32.9 Major depressive disorder, single episode, unspecified; F41.9 Anxiety disorder, unspecified; M19.90 Unspecified osteoarthritis, unspecified site; Z79.52 Long term (current) use of systemic steroids; E78.00 Pure hypercholesterolemia, unspecified; K21.9 Gastro-esophageal reflux disease without esophagitis; K44.9 Diaphragmatic hernia without obstruction or gangrene; Z88.5 Allergy status to narcotic agent; Z91.011 Allergy to milk products; G47.33 Obstructive sleep apnea (adult) (pediatric); I10 Essential (primary) hypertension; E78.5 Hyperlipidemia, unspecified; I48.0 Paroxysmal atrial fibrillation; I25.10 Atherosclerotic heart disease of native coronary artery without angina pectoris; R09.82 Postnasal drip; Z79.4 Long term (current) use of insulin; I16.0 Hypertensive urgency; R32 Unspecified urinary incontinence; G47.00 Insomnia, unspecified; T38.0X5A Adverse effect of glucocorticoids and synthetic analogues, initial encounter; Y92.239 Unspecified place in hospital as the place of occurrence of the external cause
CPT/HCPCS: 36600; 71010; 71020; 76775; 80048; 80053; 80198; 81001; 82550; 82552; 82805; 82948; 83605; 83735; 83880; 84100; 84484; 85025; 85027; 87070; 87086; 87205; 87641; 93005; 93306; 94002; 94003; 94150; 94640; 94664; 94667; 94668; 96374; J0696; J1120; J1650; J1815; J1940; J2543; J2920; J2930; J7512; J7613

== ENCOUNTER 2016-12-18 00:40 | Observation (INO) | payer MEDICARE, OTHER ==
[2016-12-18] VITALS (8 sets, daily range): BP systolic 94–144; BP diastolic 60–92; PULSE 71–99; RESP 17–20; TEMP 97.9–98.2; O2SAT 92–96
[~2016-12-18] VITALS: Ht 160 cm; Wt 88.0 kg
[~2016-12-18 00:40] MED LIST changes: -ALBU17I INH; +AMLO10TA2 PO; -AMLO5TAB96 PO; +ASPI1TAB91 PO; +BUME1TAB25 PO; -BUPR150T3 PO; -CEPH500C3 PO; -DUONI; +GLIP5TAB8 PO; +IPRASOL INH; -KLOR20TA6 PO; -LASI20TA PO; -LEVEMIR SC; +LEVEMIR SQ; -MONT10TA2 PO; +PRAM0.5T PO; +PRED20 PO; -ROBA750T3 PO; -ROSU10 PO; -THEO300T11 PO; -TYLE3 PO; +VENTAER INH; +WELLTAB39 PO; -Z.0.OXYGEN INH; +ZOCO40TA PO
[2016-12-18] MEDS ORDERED: ASPIRIN 81 MG CHEW TAB PO ONE (01:00)
[2016-12-18] MEDS ORDERED: SODIUM CHLORIDE 0.9% FLUSH 10 ML FLUSH IVF PRN (01:00)
--- NOTE | 2016-12-18 01:32 | RADRPT ---
EXAM DATE/TIME: 12/18/2016 01:04 [facility] COMPARISON: CHEST SINGLE AP, November 12, 2016, 5:20. INDICATIONS : Chest pain. MEDICAL HISTORY : Hypertension. Chronic obstructive pulmonary disease. SURGICAL HISTORY : None. ENCOUNTER: Initial ACUITY: 1 day PAIN SCORE: 3/10 LOCATION: Bilateral chest FINDINGS: A single view of the chest demonstrates the lungs to be symmetrically aerated without evidence of mas s, infiltrate or effusion. The cardiomediastinal contours are unremarkable. Osseous structures are intact. CONCLUSION: No acute disease. Pritesh Jose MD on December 18, 2016 at 1:31 Board Certified Radiologist. This report was verified electronically.
[2016-12-18 01:33] LABS: AUTOMATED NEUTROPHIL # 4.1 TH/MM3 (1.8-7.7); BASOPHIL % 0.5 % (0.0-2.0); EOSINOPHIL # 0.1 TH/MM3 (0-0.4); EOSINOPHIL % 0.9 % (0.0-4.0); HEMATOCRIT 39.1 % (35.0-46.0); HEMO FLAGS DIFF FINAL; LYMPH % 38.6 % (9.0-44.0); MEAN CELL VOLUME 89.8 FL (80.0-100.0); MEAN CORPUSCULAR HEMOGLOBIN 29.7 PG (27.0-34.0); MEAN CORPUSCULAR HGB CONC 33.1 % (32.0-36.0); MONO % 8.1 % (0.0-8.0); NEUT % 51.9 % (16.0-70.0); PLATELET COUNT 277 TH/MM3 (150-450); RED BLOOD COUNT 4.36 MIL/MM3 (4.00-5.30); RED CELL DISTRIBUTION WIDTH 15.9 % (11.6-17.2); WHITE BLOOD COUNT 7.9 TH/MM3 (4.0-11.0)
[2016-12-18 01:42] LABS: APTT (PATIENT) 23.3 SEC (24.3-30.1); INTERNATIONAL NORMALIZED RATIO 0.9 RATIO; PROTHROMBIN TIME - PATIENT 10.4 SEC (9.8-11.6)
[2016-12-18 01:52] LABS: CREATINE KINASE 116 U/L (26-192)
[2016-12-18 01:53] LABS: ANION GAP 5 MEQ/L (5-15); BLOOD UREA NITROGEN 10 MG/DL (7-18); CHLORIDE 103 MEQ/L (98-107); GLOMERULAR FILTRATION RATE 50 ML/MIN (>89); MAGNESIUM 1.8 MG/DL (1.5-2.5); POTASSIUM 3.7 MEQ/L (3.5-5.1); SODIUM (NA) 143 MEQ/L (136-145)
[2016-12-18] MEDS: RESP: ALBUTEROL 2.5 MG/IPRATROPIUM 0.5 MG NEB (SCH) INH (02:00)
[2016-12-18 02:04] LABS: CKMB 1.3 NG/ML (0.5-3.6)
--- NOTE | 2016-12-18 02:09 | PD ---
HPI Chief Complaint: Chest Pain Time Seen by Provider: 00:53 Travel History International Travel<30 days: No Contact w/Intl Traveler<30days: No Traveled to known affect area: No History of Present Illness HPI Patient is a 71-year-old female with history of HTN, HLD, A. fib, COPD/asthma and diastolic heart failure, last EF 50-55% who presents the emergency department with complaint of chest pain. For the last day patient has had substernal chest pressure. This does not radiate. Pressure is mild. Associated shortness of breath, worse when she lays down. She has had increasing wheezing, but no cough. She has bilateral lower extremity edema but states overall that this is improved from her recent hospital stay. Patient was admitted from 11/08 through 11/22 for pulmonary edema. She required BiPAP. Her Lasix was causing some renal insufficiency and she was changed to Bumex which she states she has been compliant with. PFSH Past Medical History Hx Anticoagulant Therapy: No Arthritis: Yes Asthma: Yes Atrial Fibrillation: Yes Blood Disorders: No Anxiety: Yes Depression: Yes Heart Rhythm Problems: No Cancer: No Cardiovascular Problems: Yes (HTN ) High Cholesterol: Yes Chest Pain: Yes Congestive Heart Failure: No COPD: Yes Cerebrovascular Accident: No Diabetes: Yes Patient Takes Glucophage: No (glipizide) Diminished Hearing: No Endocrine: Yes Gastrointestinal Disorders: Yes GERD: Yes Genitourinary: No Headaches: No Hepatitis: No Hiatal Hernia: Yes Heparin Induced Thrombocytopen: No Hypertension: Yes Immune Disorder: No Implanted Vascular Access Dvce: Yes Musculoskeletal: No Neurologic: Yes Psychiatric: Yes Reproductive: Yes (hysterectomy) Respiratory: Yes (COPD , ASTHMA) Immunizations Current: Yes Migraines: Yes Myocardial Infarction: No Seizures: No Sickle Cell Disease: No Sleep Apnea: Yes Ulcer: No Tetanus Vaccination: > 5 Years Menopausal: Yes Past Surgical History Abdominal Surgery: No Appendectomy: No Body Medical Devices: plate rt foot Cardiac Surgery: No Cholecystectomy: No Ear Surgery: No Endocrine Surgery: No Eye Surgery: No Genitourinary Surgery: No Gynecologic Surgery: Yes (TOTAL HYSTERTOMY) Hysterectomy: Yes Neurologic Surgery: No Oral Surgery: No Thoracic Surgery: No Other Surgery: Yes (CALLOUS REMOVAL RIGHT MEDIAL FOOT) Social History Alcohol Use: No Tobacco Use: No Substance Use: No (pt denies use) Allergies-Medications (Allergen,Severity, Reaction): Coded Allergies: Lactose (Verified Allergy, Intermediate, 12/18/16) Percodan (Verified Allergy, Intermediate, HALLICINATIONS, 12/18/16) Reported Meds & Prescriptions Reported Meds & Active Scripts Active Levemir Inj (Insulin Detemir) 1,000 unit/ 10 ML Vial 10 Units SQ Q12HR Glipizide 5 Mg Tab 5 Mg PO DAILY Take 30 minutes before a meal Prednisone 20 Mg Tab 20 Mg PO DIRECTED 40 MG twice a day x 3 days, then 20 MG daily x 3 days, then 10 MG daily x 3 days Reported Tessalon Perles (Benzonatate) 100 Mg Cap 100 Mg PO TID PRN Duoneb (Ipratropium-Albuterol Neb) 0.5-2.5 Mg/3 Ml Neb 1 Nebule INH Q6HR PRN Ventolin Hfa 18 GM Inh (Albuterol Sulfate) 90 Mcg/Act Aer 1 Puff INH Q4H PRN Advair Diskus Inh (Fluticasone-Salmeterol Inh) 250-50 Mcg/Blist Aer 1 Puff INH BID Rinse mouth after use. Zocor (Simvastatin) 40 Mg Tab 40 Mg PO HS Pramipexole (Pramipexole Dihydrochloride) 0.5 Mg Tab 0.5 Mg PO HS Wellbutrin Xl 24 HR (Bupropion HCl) 300 Mg Tab 300 Mg PO DAILY Bumex (Bumetanide) 0.5 Mg Tab 0.5 Mg PO DAILY Amlodipine (Amlodipine Besylate) 10 Mg Tab 10 Mg PO DAILY Aspirin Adult Low Strength (Aspirin) 81 Mg Tabdr 81 Mg PO DAILY Review of Systems Except as stated in HPI: all other systems reviewed are Neg Physical Exam Narrative GENERAL: Elderly female in mild respiratory distress SKIN: Focused skin assessment warm/dry. HEAD: Normocephalic. EYES: No scleral icterus. No injection or drainage. ENT: Mucous membranes pink and moist. NECK: Supple CARDIOVASCULAR: Regular rate and rhythm. No murmur appreciated. RESPIRATORY: No accessory muscle use. Decreased throughout particularly in the bases with occasional wheeze GASTROINTESTINAL: Abdomen soft, non-tender, nondistended obese MUSCULOSKELETAL: 1-2+ BLE edema with chronic venous stasis skin changes NEUROLOGICAL: Awake and alert. Motor grossly within normal limits. Normal speech. PSYCHIATRIC: Appropriate mood and affect; insight and judgment normal. Data Data Last Documented VS Vital Signs Date Time Temp Pulse Resp B/P Pulse Ox O2 Delivery O2 Flow Rate FiO2 12/18/16 01:00 125/74 12/18/16 01:00 96 Room Air 12/18/16 00:44 98.0 99 20 Orders Electrocardiogram (12/18/16 00:53) Basic Metabolic Panel (Bmp) (12/18/16 00:53) B-Type Natriuretic Peptide (12/18/16 00:53) Ckmb (Isoenzyme) Profile (12/18/16 00:53) Complete Blood Count With Diff (12/18/16 00:53) Magnesium (Mg) (12/18/16 00:53) Prothrombin Time / Inr (Pt) (12/18/16 00:53) Act Partial Throm Time (Ptt) (12/18/16 00:53) Troponin I (12/18/16 00:53) Chest, Single Ap (12/18/16 00:53) Ecg Monitoring (12/18/16 00:53) Bilateral Bp Monitoring (12/18/16 00:53) Iv Access Insert/Monitor (12/18/16 00:53) Oximetry (12/18/16 00:53) Aspirin Chew (Aspirin Chew) (12/18/16 01:00) Sodium Chloride 0.9% Flush (Ns Flush) (12/18/16 01:00) Albuterol-Ipratropium Neb (Duoneb Neb) (12/18/16 01:00) CKMB (12/18/16 01:15) CKMB% (12/18/16 01:15) Labs Laboratory Tests Test 12/18/16 01:15 White Blood Count 7.9 TH/MM3 Red Blood Count 4.36 MIL/MM3 Hemoglobin 12.9 GM/DL Hematocrit 39.1 % Mean Corpuscular Volume 89.8 FL Mean Corpuscular Hemoglobin 29.7 PG Mean Corpuscular Hemoglobin 33.1 % Concent Red Cell Distribution Width 15.9 % Platelet Count 277 TH/MM3 Mean Platelet Volume 9.0 FL Neutrophils (%) (Auto) 51.9 % Lymphocytes (%) (Auto) 38.6 % Monocytes (%) (Auto) 8.1 % Eosinophils (%) (Auto) 0.9 % Basophils (%) (Auto) 0.5 % Neutrophils # (Auto) 4.1 TH/MM3 Lymphocytes # (Auto) 3.0 TH/MM3 Monocytes # (Auto) 0.6 TH/MM3 Eosinophils # (Auto) 0.1 TH/MM3 Basophils # (Auto) 0.0 TH/MM3 CBC Comment DIFF FINAL Differential Comment Prothrombin Time 10.4 SEC Prothromb Time International 0.9 RATIO Ratio Activated Partial 23.3 SEC Thromboplast Time Sodium Level 143 MEQ/L Potassium Level 3.7 MEQ/L Chloride Level 103 MEQ/L Carbon Dioxide Level 35.0 MEQ/L Anion Gap 5 MEQ/L Blood Urea Nitrogen 10 MG/DL Creatinine 1.27 MG/DL Estimat Glomerular Filtration 50 ML/MIN Rate Random Glucose 164 MG/DL Calcium Level 8.9 MG/DL Magnesium Level 1.8 MG/DL Total Creatine Kinase 116 U/L Troponin I 0.02 NG/ML B-Type Natriuretic Peptide 116 PG/ML MDM Medical Decision Making Medical Screen Exam Complete: Yes Emergency Medical Condition: Yes Medical Record Reviewed: Yes Differential Diagnosis 71-year-old female with history of HTN, HLD, A. fib, COPD/asthma and diastolic heart failure, last EF 50-55% who presents the emergency department with complaint of chest pain, dyspnea particularly when lying flat and wheezing. Differential includes ACS, atypical chest pain, asthma/COPD exacerbation, CHF exacerbation, pulmonary edema, symptomatic anemia, arrhythmia, electrolyte abnormality. Narrative Course Patient was placed on monitor, IV established and blood obtained. Given aspirin and DuoNeb 3. Twelve-lead EKG shows sinus rhythm with frequent PVCs but no notable ST abnormalities, normal intervals. Portable chest x-ray was obtained that by my read shows no acute abnormalities. Specifically no evidence of pulmonary edema especially when compared to her previous chest x- rays from November. CBC, BMP, magnesium, BNP, CK-MB, troponin, coags were obtained and notable for creatinine 1.29 which is improved from her baseline. BNP 116. Patient does not have a cardiac stress test on file. Will admit for serial cardiac enzymes and potential provocative testing. Diagnosis Primary Impression: Chest pain Qualified Code: R07.2 - Precordial pain Additional Impression: Dyspnea Qualified Code: R06.00 - Dyspnea, unspecified type Admitting Information Admitting Physician Requests: Danielle Kim MD December 18, 2016 02:09
[2016-12-18] MEDS ORDERED: SODIUM CHLORIDE 0.9% FLUSH 10 ML FLUSH IV FLUSH PRN (02:15)
[2016-12-18] MEDS ORDERED: NITROGLYCERIN 0.4 MG SL 25 TABS/BTL SL PRN (02:15)
[2016-12-18 06:12] LABS: CREATINE KINASE 125 U/L (26-192)
[2016-12-18 06:25] LABS: CKMB 1.5 NG/ML (0.5-3.6)
[2016-12-18] MEDS ORDERED: ONDANSETRON HCL 4 MG/2 ML VIAL IV PRN (07:30)
[2016-12-18] MEDS ORDERED: ACETAMINOPHEN 500 MG CPLT PO PRN (07:30)
--- NOTE | 2016-12-18 08:54 | HHI.HP ---
HPI Primary Care Physician Tomy Velazquez MD Chief Complaint Chest pain History of Present Illness 71-year-old female with known hypertension, hyperlipidemia, diabetes, congestive heart failure, and COPD presents to the emergency room for further evaluation of chest tightness. Onset yesterday. Location substernal. No radiation. States she could not get comfortable in any position yesterday. Chest tightness worsened throughout the day. No known precipitating or relieving factors. No associated symptoms. Denies chest tightness in the past. She was concerned she was recently discharged last month with congestive heart failure therefore wanted to be "safe and be checked out." Review of Systems General: No fatigue,weakness, fever, chills,. Has been in her general state of health. Admitted last month for pulmonary edema and congestive heart failure discharged to [facility] before going home. HEENT: No HAY, no vision changes, no nasal congestion or drainage, no dysphasia CV: As stated above. No current CP or pressure. No palpitations, intermittent leg pain, dizziness. RESP: No SOB, cough, wheeze, or recent URI. History of COPD and asthma. States both have been stable does not require frequent use of rescue inhaler. GI: No nausea, vomiting, bowel changes, diarrhea, constipation, pain, distention. No unintentional weight gain or weight loss : No dysuria, urgency, frequency. EXT: No lower leg edema, no paraesthesias MS: No discomfort or change in ROM NEURO: No change in memory, dizziness, difficulty with balance, LOC, motor/ sensory deficits PSYCH: No anxiety or depression SKIN: No rashes, no concerning lesions Past Family Social History Allergies: Coded Allergies: Lactose (Verified Allergy, Intermediate, 12/18/16) Percodan (Verified Allergy, Intermediate, HALLICINATIONS, 12/18/16) Past Medical History Hypertension, hyperlipidemia, diabetes, A. fib, COPD, asthma, diastolic heart failure Past Surgical History Hysterectomy Reported Medications Active Levemir Inj (Insulin Detemir) 1,000 unit/ 10 ML Vial 10 Units SQ Q12HR Glipizide 5 Mg Tab 5 Mg PO DAILY Take 30 minutes before a meal Prednisone 10mg daily Tessalon Perles (Benzonatate) 100 Mg Cap 100 Mg PO TID PRN Duoneb (Ipratropium-Albuterol Neb) 0.5-2.5 Mg/3 Ml Neb 1 Nebule INH Q6HR PRN Ventolin Hfa 18 GM Inh (Albuterol Sulfate) 90 Mcg/Act Aer 1 Puff INH Q4H PRN Advair Diskus Inh (Fluticasone-Salmeterol Inh) 250-50 Mcg/Blist Aer 1 Puff INH BID Rinse mouth after use. Zocor (Simvastatin) 40 Mg Tab 40 Mg PO HS Pramipexole (Pramipexole Dihydrochloride) 0.5 Mg Tab 0.5 Mg PO HS Wellbutrin Xl 24 HR (Bupropion HCl) 300 Mg Tab 300 Mg PO DAILY Bumex (Bumetanide) 0.5 Mg Tab 0.5 Mg PO DAILY Amlodipine (Amlodipine Besylate) 10 Mg Tab 10 Mg PO DAILY Aspirin Adult Low Strength (Aspirin) 81 Mg Tabdr 81 Mg PO DAILY Novolog SSI coverage Active Ordered Medications Current Medications Medications (Trade) Dose Ordered Sig/[place] Route Start Time Stop Time Status Last Admin (Nitrostat Sl) 0.4 mg Q5M PRN SL 12/18/16 02:15 (Tylenol) 500 mg Q4H PRN PO 12/18/16 07:30 (Zofran Inj) 4 mg Q6H PRN IV 12/18/16 07:30 (Aspirin) 325 mg DAILY PO 12/18/16 09:00 Family History Noncontributory for early onset cardiovascular disease. Social History Known diabetes, hypertension, and hyperlipidemia. Lifelong nonsmoker. Denies any alcohol or illegal drug use. Endorses sedentary lifestyle. Past cardiac testing Endorses cardiac catheterization completed approximately year and a half ago no intervention required. Personally does not have any cardiac stents or history of myocardial infarction. Personal history diastolic heart failure. Physical Exam Vital Signs Vital Signs Date Time Temp Pulse Resp B/P Pulse Ox O2 Delivery O2 Flow Rate FiO2 12/18/16 07:37 92 Nasal Cannula 2.00 12/18/16 07:23 98.0 87 17 94/60 92 12/18/16 04:51 96 12/18/16 04:51 97.9 90 20 127/73 95 12/18/16 04:51 97.9 71 20 127/73 95 12/18/16 02:25 96 12/18/16 01:00 125/74 12/18/16 01:00 96 Room Air 12/18/16 00:44 98.0 99 20 144/92 96 Room Air Physical Exam GENERAL: Alert WN, WD, NAD, pleasant, obese, female HEAD: NC, AT EYES: Sclera clear, conjunctiva without injection, pupils equal and round NECK: Supple, no masses, trachea midline CV: RRR, 2/6 systolic murmur, without rub, gallop, no JVD, S1-S2 no S3-S4. RESP: Clear lungs throughout bilateral, no crackles, wheeze, rhonchi, symmetrical chest rise, nonlabored, able to speak in full sentences ABD: Soft, NT, ND, no masses, positive bowel tones EXT: Pulses +24, no dependent edema MS: Normal tone 4 extremities, nontender, no obvious deformities, full range of motion NEURO: CN II through CN XII grossly intact, motor strength 5/5, gait WNL PSYCH: A+O 3, pleasant affect, appropriate speech, appropriate mood and affect , insight and judgment SKIN: Normal turgor, normal texture Laboratory Laboratory Tests Test 12/18/16 12/18/16 01:15 04:15 White Blood Count 7.9 Red Blood Count 4.36 Hemoglobin 12.9 Hematocrit 39.1 Mean Corpuscular Volume 89.8 Mean Corpuscular Hemoglobin 29.7 Mean Corpuscular Hemoglobin 33.1 Concent Red Cell Distribution Width 15.9 Platelet Count 277 Mean Platelet Volume 9.0 Neutrophils (%) (Auto) 51.9 Lymphocytes (%) (Auto) 38.6 Monocytes (%) (Auto) 8.1 Eosinophils (%) (Auto) 0.9 Basophils (%) (Auto) 0.5 Neutrophils # (Auto) 4.1 Lymphocytes # (Auto) 3.0 Monocytes # (Auto) 0.6 Eosinophils # (Auto) 0.1 Basophils # (Auto) 0.0 CBC Comment DIFF FINAL Differential Comment Prothrombin Time 10.4 Prothromb Time International 0.9 Ratio Activated Partial 23.3 Thromboplast Time Sodium Level 143 Potassium Level 3.7 Chloride Level 103 Carbon Dioxide Level 35.0 Anion Gap 5 Blood Urea Nitrogen 10 Creatinine 1.27 Estimat Glomerular Filtration 50 Rate Random Glucose 164 Calcium Level 8.9 Magnesium Level 1.8 Total Creatine Kinase 116 125 Creatine Kinase MB 1.3 1.5 Troponin I 0.02 0.02 B-Type Natriuretic Peptide 116 Result Diagram: 12/18/16 0115 12/18/16 0115 Imaging Last Impressions Chest X-Ray 12/18/16 0053 Signed Impressions: Service Date/Time: Sunday, December 18, 2016 01:04 - CONCLUSION: No acute disease. Pritesh Jose MD Course EKGs First EKG normal sinus rhythm, no ST segment changes, nonspecific T-wave changes , with PVCs Second and third EKG normal sinus rhythm with nonspecific T-wave changes Assessment and Plan Assessment and Plan #1 Chest pain chest pain center. Ruled out with 3 sets of cardiac enzymes, EKGs, and monitored overnight. Seen and evaluated by Dr. Johnny Hameed discussed with patient next step would to complete a chemical stress test as cardiac catheterization records are not readily available. Patient is agreeable to plan of care. If stress test unremarkable will discharge this afternoon and follow-up with decorator consultant this week. #2 Hypertensioncontinue amlodipine #3 Hyperlipidemiacontinue simvastatin #4 Diabeteshold glipizide and Levemir, SSI coverage #5 COPDcontinue Advair and daily prednisone. Albuterol every 2 when necessary as needed for shortness of breath and wheezing. #6 History of heart failure-continue Arabella Funez December 18, 2016 08:54
[2016-12-18 08:58] LABS: CREATINE KINASE 103 U/L (26-192)
[2016-12-18] MEDS ORDERED: ASPIRIN 325 MG TAB PO SCH (09:00)
[2016-12-18] MEDS ORDERED: SODIUM CHLORIDE 0.9% FLUSH 10 ML FLUSH IV FLUSH SCH (09:00)
[2016-12-18] MEDS ORDERED: RESP: ALBUTEROL 2.5 MG/3 ML NEB (PRN) NEB (09:00)
[2016-12-18 09:10] LABS: CKMB 1.4 NG/ML (0.5-3.6)
[2016-12-18] MEDS ORDERED: REGADENOSON INJ 0.4 MG/5 ML SYR ONE (10:11)
[2016-12-18] MEDS ORDERED: predniSONE 10 MG TAB PO SCH (11:00)
[2016-12-18] MEDS ORDERED: DEXTROSE 50% IN WATER 50 ML VIAL(D50) IV PUSH PRN (11:00)
[2016-12-18] MEDS ORDERED: BUDESONIDE-FORMOTEROL 160/4.5 MCG INHALER INH SCH (11:00)
[2016-12-18] MEDS ORDERED: GLUCAGON 1 MG/ML VIAL OTHER PRN (11:00)
[2016-12-18] MEDS ORDERED: INSULIN ASPART SUPPLEMENTAL SCALE SQ SCH (11:00)
[2016-12-18] MEDS ORDERED: BUMETANIDE 1 MG TAB PO SCH (11:00)
[2016-12-18] MEDS ORDERED: PILL SPLITTER OTHER PRN (11:30)
[2016-12-18] MEDS ORDERED: buPROPion HCL 150 MG SUSTAINED RELEASE TAB PO SCH (11:30)
--- NOTE | 2016-12-18 11:46 | RADRPT ---
EXAM DATE/TIME: 12/18/2016 09:13 [facility] COMPARISON: No previous studies available for comparison. INDICATIONS : Substernal chest pain with dyspnea. Angina. Atrial fibrillation. DOSE: 27.1 mCi Tc99m Myoview at stress. 8.5 mCi Tc99m Myoview at rest. 0.4 mg Lexiscan STRESS SYMPTOMS: Chest pain. EJECTION FRACTION: 34% MEDICAL HISTORY : Hypertension. Diabetes mellitus type 2. Chronic obstructive pulmonary disease. Asthma. SURGICAL HISTORY : Hysterectomy. ENCOUNTER: Initial ACUITY: 1 day PAIN SCALE: 6/10 LOCATION: Substernal chest TECHNIQUE: The patient underwent pharmacologic stress with infusion of prescribed dose. Continuous ECG tracing was monitored during stress. Gated SPECT imaging was performed after stress and conventional SPECT i maging was performed at rest. The examination was performed on a SPECT/CT scanner, both attenuation and non-corrected datasets were reviewed. FINDINGS: DISTRIBUTION: The maximum perfused segment at stress is in the septal wall. PERFUSION STUDY: The pattern of perfusion at stress is within normal limits. GATED STUDY: There is diffuse global hypokinesis of the left ventricle.. CONCLUSION: 1. Diffuse global hypokinesis of the left ventricle. 2. Diminished cardiac ejection fraction 34%. 3. No definite focal ischemic myocardial changes. RISK CATEGORY: low Ko Oh MD on December 18, 2016 at 11:42 Board Certified Radiologist. This report was verified electronically.
[2016-12-18] MEDS ORDERED: PRED10 PO (11:59)
--- NOTE | 2016-12-18 12:18 | HHI.DCPOC ---
Discharge Care Plan Diagnosis: (1) Atypical chest pain (2) History of diastolic dysfunction (3) Type 2 diabetes mellitus (4) Hypertension Goals to Promote Your Health * To prevent worsening of your condition and complications * To maintain your health at the optimal level Directions to Meet Your Goals Take your medications as prescribed Follow your dietary instruction Follow activity as directed Keep your appointments as scheduled Take your immunizations and boosters as scheduled If your symptoms worsen call your PCP, if no PCP go to Urgent Care Center or Emergency Room Smoking is Dangerous to Your Health. Avoid second hand smoke Call the 24-hour hour crisis hotline for domestic abuse at Arabella Schmitt December 18, 2016 12:18
--- NOTE | 2016-12-18 13:48 | EKG ---
Date Performed: 12/18/2016 Time Performed: 04:45:57 PTAGE: 71 years EKG: Sinus rhythm WITH OCCASIONAL SUPRAVENTRICULAR PREMATURE COMPLEXES VOLTAGE CRITERIA FOR LVH NONSPECIFIC T-WAVE ABN ORMALITY ABNORMAL ECG PREVIOUS TRACING : 12/18/2016 00.53 Since previous tracing, no significant change noted DOCTOR: Johnny Hameed Interpretating Date/Time 12/18/2016 13:46:43
--- NOTE | 2016-12-18 13:48 | EKG ---
Date Performed: 12/18/2016 Time Performed: 00:53:39 PTAGE: 71 years EKG: Sinus rhythm WITH FREQUENT VENTRICULAR PREMATURE COMPLEXES POSSIBLE LEFT ATRIAL ENLARGEMENT POSSIBLE LEFT VENTRIC ULAR HYPERTROPHY NONSPECIFIC T-WAVE ABNORMALITY ABNORMAL ECG PREVIOUS TRACING : 11/08/2016 17.23 Since previous tracing, no significant change noted DOCTOR: Johnny Hameed Interpretating Date/Time 12/18/2016 13:46:54
--- NOTE | 2016-12-18 13:50 | EKG ---
Date Performed: 12/18/2016 Time Performed: 08:25:24 PTAGE: 71 years EKG: Sinus rhythm WITH OCCASIONAL VENTRICULAR PREMATURE COMPLEXES WITH OCCASIONAL SUPRAVENTRICULAR PREMATURE COMPLEXES VOLTAGE CRITERIA FOR LVH NONSPECIFIC T-WAVE ABNORMALITY ABNORMAL ECG PREVIOUS TRACING : 12/18/2016 04.45 Since previous tracing, no significant change noted DOCTOR: Johnny Hameed Interpretating Date/Time 12/18/2016 13:49:17
--- NOTE | 2016-12-18 13:51 | TR ---
Date Performed: 12/18/2016 Time Performed: 10:01:40 DOCTOR: Johnny Hameed DRUG LIST: CLINICAL HISTORY: REASON FOR TEST: Angina REASON FOR ENDING: OBSERVATION: CONCLUSION: Lexiscan stress test was performed under standard four minute protocol. Radionuclid e was injected one minute prior to ending the test. No electrocardiographic abormalities were present to suggest ischemia. Nuclear imaging and interpretation are pending. COMMENTS:
[2016-12-18] MEDS ORDERED: PRAMIPEXOLE DIHYDROCHLORIDE 1 MG TAB PO SCH (21:00)
[2016-12-18] MEDS ORDERED: PRAVASTATIN SOD 80 MG TAB PO SCH (21:00)
== END 2016-12-18 14:21 | disposition home or self-care (01) ==
LOC: NEPE 00:40 → NEDA 02:11 → NEPFCDU 04:08
PROVIDERS: ADMIT Family Medicine; ATTEND Family Medicine
DX: R07.89 Other chest pain (principal); I48.91 Unspecified atrial fibrillation; I11.0 Hypertensive heart disease with heart failure; I50.32 Chronic diastolic (congestive) heart failure; E11.9 Type 2 diabetes mellitus without complications; E78.5 Hyperlipidemia, unspecified; J44.9 Chronic obstructive pulmonary disease, unspecified; M19.90 Unspecified osteoarthritis, unspecified site; E78.00 Pure hypercholesterolemia, unspecified; K21.9 Gastro-esophageal reflux disease without esophagitis; Z88.8 Allergy status to other drugs, medicaments and biological substances; Z79.82 Long term (current) use of aspirin; Z79.4 Long term (current) use of insulin
CPT/HCPCS: 71010; 78452; 80048; 82550; 82552; 82948; 83735; 83880; 84484; 85025; 85610; 85730; 93005; 93017; 94640; 94664; 99285; A9502; G0378; J2785; J7512

== ENCOUNTER 2017-06-23 04:48 | Inpatient (IN) | payer MEDICARE, OTHER ==
[~2017-06-23] VITALS: Ht 160 cm; Wt 123.3 kg
[2017-06-23] VITALS (13 sets, daily range): BP systolic 116–184; BP diastolic 67–97; PULSE 62–100; RESP 15–26; TEMP 97.7–98.1; O2SAT 85–94
[~2017-06-23 04:48] MED LIST changes: -ASPI1TAB91 PO; +ASPI81TA16 PO; +PRED10 PO; -PRED20 PO
[2017-06-23] MEDS ORDERED: SODIUM CHLORIDE 0.9% FLUSH 10 ML FLUSH IVF PRN (05:15)
[2017-06-23] MEDS ORDERED: methylPREDNISolone SOD SUCC 125 MG/2 ML VIAL IV PUSH ONE (05:15)
[2017-06-23] MEDS ORDERED: MELO15TA20 PO (05:22)
[2017-06-23] MEDS ORDERED: MONT10TA2 PO (05:22)
[2017-06-23] MEDS ORDERED: BUME2TAB PO (05:22)
[2017-06-23] MEDS ORDERED: ADVA500A INH (05:22)
--- NOTE | 2017-06-23 05:23 | PD ---
HPI Chief Complaint: Respiratory Symptoms Time Seen by Provider: 05:15 Travel History International Travel<30 days: No Contact w/Intl Traveler<30days: No Traveled to known affect area: No History of Present Illness HPI 71-year-old female patient with history of CHF, COPD, [place], hypertension, multiple medical issues, presents to the ER today because she had several weeks ' history of worsening dyspnea on exertion, shortness of breath, worse with laying down but can be bad in any position. She denies any fevers, vomiting, chest pains, or other symptoms. She has been trying her nebulizers without significant improvement. Modifying Factors: Worse with movement, positional, laying down Associated Signs & Symptoms: Dyspnea on exertion, shortness of breath for several weeks Risk Factors: COPD, CHF PFSH Past Medical History Hx Anticoagulant Therapy: No Arthritis: Yes Asthma: Yes Atrial Fibrillation: Yes Blood Disorders: No Anxiety: Yes Depression: Yes Heart Rhythm Problems: No Cancer: No Cardiac Catheterization: Yes Cardiovascular Problems: Yes High Cholesterol: Yes Chest Pain: Yes Congestive Heart Failure: Yes COPD: Yes Cerebrovascular Accident: No Diabetes: Yes Patient Takes Glucophage: No Diminished Hearing: No Endocrine: Yes Gastrointestinal Disorders: Yes GERD: Yes Genitourinary: No Headaches: No Hepatitis: No Hiatal Hernia: Yes Heparin Induced Thrombocytopen: No Hypertension: Yes Immune Disorder: No Implanted Vascular Access Dvce: Yes Musculoskeletal: No Neurologic: Yes Psychiatric: Yes Reproductive: Yes (hysterectomy) Respiratory: Yes (COPD , ASTHMA) Immunizations Current: Yes Migraines: Yes Myocardial Infarction: No Seizures: No Sickle Cell Disease: No Sleep Apnea: Yes Ulcer: No Tetanus Vaccination: Unknown ?: Not Menopausal: Yes Past Surgical History Abdominal Surgery: No Appendectomy: No Body Medical Devices: plate rt foot Cardiac Surgery: No Cholecystectomy: No Coronary Artery Bypass Graft: No Ear Surgery: No Endocrine Surgery: No Eye Surgery: No Genitourinary Surgery: No Gynecologic Surgery: Yes (TOTAL HYSTERTOMY) Hysterectomy: Yes Neurologic Surgery: No Oral Surgery: No Thoracic Surgery: No Other Surgery: Yes (CALLOUS REMOVAL RIGHT MEDIAL FOOT) Family History Family Myocardial Infarction: Yes (mom) Social History Alcohol Use: No Tobacco Use: No Substance Use: No (pt denies use) Allergies-Medications (Allergen,Severity, Reaction): Coded Allergies: aspirin (Unverified Allergy, Intermediate, HALLICINATIONS, 06/23/17) lactose (Unverified Allergy, Intermediate, 06/23/17) oxycodone (Unverified Allergy, Intermediate, HALLICINATIONS, 06/23/17) Reported Meds & Prescriptions Reported Meds & Active Scripts Active Reported Advair Diskus Inh (Fluticasone-Salmeterol Inh) 500-50 Mcg/Blist Aer 1 Puff INH BID Rinse mouth after use. Singulair (Montelukast Sodium) 10 Mg Tab 10 Mg PO HS Meloxicam 15 Mg Tab 15 Mg PO DAILY Bumetanide 2 Mg Tab 2 Mg PO DAILY Prednisone 10 Mg Tab 10 Mg PO DAILY Tessalon Perles (Benzonatate) 100 Mg Cap 100 Mg PO TID PRN Duoneb (Ipratropium-Albuterol Neb) 0.5-2.5 Mg/3 Ml Neb 1 Nebule INH Q6HR PRN Ventolin Hfa 18 GM Inh (Albuterol Sulfate) 90 Mcg/Act Aer 1 Puff INH Q4H PRN Zocor (Simvastatin) 40 Mg Tab 40 Mg PO HS Pramipexole (Pramipexole Dihydrochloride) 0.5 Mg Tab 0.5 Mg PO HS Wellbutrin Xl 24 HR (Bupropion HCl) 300 Mg Tab 300 Mg PO DAILY Amlodipine (Amlodipine Besylate) 10 Mg Tab 10 Mg PO DAILY Aspirin Adult Low Strength (Aspirin) 81 Mg Tabdr 81 Mg PO DAILY Review of Systems Except as stated in HPI: all other systems reviewed are Neg Physical Exam Narrative GENERAL: Well-developed elderly after Iranian female patient currently in mild respiratory distress per awake and oriented 3. SKIN: Focused skin assessment warm/dry. HEAD: Atraumatic. Normocephalic. EYES: Pupils equal and round. No scleral icterus. No injection or drainage. ENT: No nasal bleeding or discharge. Mucous membranes pink and moist. NECK: Trachea midline. No JVD. CARDIOVASCULAR: Regular rate and rhythm. No murmur appreciated. RESPIRATORY: No accessory muscle use. Decreased throughout especially the bases. Breath sounds equal bilaterally. GASTROINTESTINAL: Abdomen soft, non-tender, nondistended. Hepatic and splenic margins not palpable. MUSCULOSKELETAL: No obvious deformities. No clubbing. No cyanosis. +1 pitting edema both legs.. NEUROLOGICAL: Awake and alert. No obvious cranial nerve deficits. Motor grossly within normal limits. Normal speech. PSYCHIATRIC: Appropriate mood and affect; insight and judgment normal. Data Data Last Documented VS Vital Signs Date Time Temp Pulse Resp B/P (MAP) Pulse Ox O2 Delivery O2 Flow Rate FiO2 06/23/17 07:06 85 Room Air 06/23/17 06:59 95 15 2.00 06/23/17 04:50 97.9 Orders Orders Complete Blood Count With Diff (06/23/17 05:10) Comprehensive Metabolic Panel (06/23/17 05:10) B-Type Natriuretic Peptide (06/23/17 05:10) Ckmb (Isoenzyme) Profile (06/23/17 05:10) Troponin I (06/23/17 05:10) Iv Access Insert/Monitor (06/23/17 05:10) Electrocardiogram (06/23/17 05:10) Ecg Monitoring (06/23/17 05:10) Oximetry (06/23/17 05:10) Oxygen Administration (06/23/17 05:10) Chest, Single Ap (06/23/17 05:10) Sodium Chloride 0.9% Flush (Ns Flush) (06/23/17 05:15) Methylprednisolone So Succ Inj (Solumedr (06/23/17 05:15) Albuterol-Ipratropium Neb (Duoneb Neb) (06/23/17 05:15) CKMB (06/23/17 05:15) CKMB% (06/23/17 05:15) Albuterol-Ipratropium Neb (Duoneb Neb) (06/23/17 06:30) Admit Order (Ed Use Only) (06/23/17 07:27) Labs Laboratory Tests Test 06/23/17 05:15 White Blood Count 7.9 TH/MM3 Red Blood Count 4.57 MIL/MM3 Hemoglobin 13.4 GM/DL Hematocrit 41.1 % Mean Corpuscular Volume 90.0 FL Mean Corpuscular Hemoglobin 29.3 PG Mean Corpuscular Hemoglobin Concent 32.6 % Red Cell Distribution Width 15.4 % Platelet Count 197 TH/MM3 Mean Platelet Volume 9.7 FL Neutrophils (%) (Auto) 56.7 % Lymphocytes (%) (Auto) 32.6 % Monocytes (%) (Auto) 8.6 % Eosinophils (%) (Auto) 1.7 % Basophils (%) (Auto) 0.4 % Neutrophils # (Auto) 4.5 TH/MM3 Lymphocytes # (Auto) 2.6 TH/MM3 Monocytes # (Auto) 0.7 TH/MM3 Eosinophils # (Auto) 0.1 TH/MM3 Basophils # (Auto) 0.0 TH/MM3 CBC Comment DIFF FINAL Differential Comment Blood Urea Nitrogen 17 MG/DL Creatinine 1.08 MG/DL Random Glucose 128 MG/DL Total Protein 8.0 GM/DL Albumin 3.4 GM/DL Calcium Level 9.1 MG/DL Alkaline Phosphatase 103 U/L Aspartate Amino Transf (AST/SGOT) 15 U/L Alanine Aminotransferase (ALT/SGPT) 19 U/L Total Bilirubin 0.4 MG/DL Sodium Level 139 MEQ/L Potassium Level 4.0 MEQ/L Chloride Level 97 MEQ/L Carbon Dioxide Level 36.1 MEQ/L Anion Gap 6 MEQ/L Estimat Glomerular Filtration Rate 60 ML/MIN Total Creatine Kinase 110 U/L Creatine Kinase MB 1.4 NG/ML Troponin I 0.03 NG/ML B-Type Natriuretic Peptide 276 PG/ML MDM Medical Decision Making Medical Screen Exam Complete: Yes Emergency Medical Condition: Yes Medical Record Reviewed: Yes Interpretation(s) EKG shows normal sinus rhythm at a rate of 90 bpm with frequent PVCs. No signs of acute ST-T changes. Laboratory Tests Test 06/23/17 05:15 Monocytes (%) (Auto) 8.6 % (0.0-8.0) Creatinine 1.08 MG/DL (0.50-1.00) Random Glucose 128 MG/DL (74-106) Chloride Level 97 MEQ/L (98-107) Carbon Dioxide Level 36.1 MEQ/L (21.0-32.0) Estimat Glomerular Filtration Rate 60 ML/MIN (>89) B-Type Natriuretic Peptide 276 PG/ML (0-100) Last 24 hours Impressions Chest X-Ray 06/23/17 0510 Signed Impressions: Service Date/Time: Sunday, June 23, 2017 05:14 - CONCLUSION: No infiltrate seen. Pablo Lofton MD Differential Diagnosis Shortness of breath, dyspnea on exertion: CHF exacerbation versus COPD exacerbation versus pneumonia Narrative Course Chest x-ray did not show any signs of acute infiltrates. BNP is unremarkable. Patient was given Solu-Medrol and nebulizers in the ER with some improvement symptoms. However, since the patient starts moving or walking, she becomes fairly winded and saturations dropped to 85% when she walked to the bathroom. My plan would be to admit her for further treatment. Case was discussed with Dr. Maher for admission. Diagnosis Primary Impression: COPD exacerbation Admitting Information Admitting Physician Requests: it Angelika Alvarez MD Jun 23, 2017 05:23
[2017-06-23] MEDS: RESP: ALBUTEROL 2.5 MG/IPRATROPIUM 0.5 MG NEB (SCH) INH ×7 (05:25→19:24)
[2017-06-23 05:36] LABS: AUTOMATED NEUTROPHIL # 4.5 TH/MM3 (1.8-7.7); BASOPHIL % 0.4 % (0.0-2.0); EOSINOPHIL # 0.1 TH/MM3 (0-0.4); EOSINOPHIL % 1.7 % (0.0-4.0); HEMATOCRIT 41.1 % (35.0-46.0); HEMO FLAGS DIFF FINAL; LYMPH % 32.6 % (9.0-44.0); LYMPHOCYTE # 2.6 TH/MM3 (1.0-4.8); MEAN CORPUSCULAR HEMOGLOBIN 29.3 PG (27.0-34.0); MEAN CORPUSCULAR HGB CONC 32.6 % (32.0-36.0); MONO % 8.6 % (0.0-8.0); NEUT % 56.7 % (16.0-70.0); PLATELET COUNT 197 TH/MM3 (150-450); RED BLOOD COUNT 4.57 MIL/MM3 (4.00-5.30); RED CELL DISTRIBUTION WIDTH 15.4 % (11.6-17.2); WHITE BLOOD COUNT 7.9 TH/MM3 (4.0-11.0)
--- NOTE | 2017-06-23 06:00 | RADRPT ---
EXAM DATE/TIME: 06/23/2017 05:14 [facility] COMPARISON: CHEST SINGLE AP, December 18, 2016, 1:04. INDICATIONS : Increasing shortness of breath x 1 month MEDICAL HISTORY : Hiatal hernia. Hypercholesterolemia. Diabetes mellitus type II. COPD, GERD, A-fib, CHF, HTN, Asth ma SURGICAL HISTORY : None. ENCOUNTER: Initial ACUITY: 1 month PAIN SCORE: 7/10 LOCATION: Bilateral chest FINDINGS: Large body habitus. A single view of the chest demonstrates the lungs to be symmetrically aerated wi thout evidence of mass, infiltrate or effusion. The cardiomediastinal contours are stable with mild tortuosity descending thoracic aorta and normal heart size. Osseous structures are intact. CONCLUSION: No infiltrate seen. Pablo Lofton MD on June 23, 2017 at 5:58 Board Certified Radiologist. This report was verified electronically.
[2017-06-23 06:02] LABS: ALKALINE PHOSPHATASE 103 U/L (45-117); CREATINE KINASE 110 U/L (26-192); TOTAL BILIRUBIN ADULT 0.4 MG/DL (0.2-1.0)
[2017-06-23 06:14] LABS: CKMB 1.4 NG/ML (0.5-3.6)
[2017-06-23 06:30] LABS: ALT (GPT) 19 U/L (10-53); ANION GAP 6 MEQ/L (5-15); AST (GOT) 15 U/L (15-37); BICARBONATE 36.1 MEQ/L (21.0-32.0); BLOOD UREA NITROGEN 17 MG/DL (7-18); CHLORIDE 97 MEQ/L (98-107); GLOMERULAR FILTRATION RATE 60 ML/MIN (>89); SODIUM (NA) 139 MEQ/L (136-145)
[2017-06-23] MEDS ORDERED: SODIUM CHLORIDE 0.9% FLUSH 10 ML FLUSH IV FLUSH PRN (07:30)
[2017-06-23] MEDS ORDERED: RESP: ALBUTEROL 2.5 MG/3 ML NEB (PRN) INH (07:30)
[2017-06-23] MEDS: cefTRIAXone INJ 1,000 MG in SODIUM CHLORIDE 0.9% INJ 100 ML IV SCH (08:16)
[2017-06-23] MEDS: SODIUM CHLORIDE 0.9% FLUSH 10 ML FLUSH IV FLUSH SCH ×2 (08:16→22:24)
[2017-06-23] MEDS ORDERED: buPROPion HCL 150 MG EXTENDED RELEASE TAB PO SCH (09:00)
[2017-06-23] MEDS: buPROPion HCL 150 MG SUSTAINED RELEASE TAB PO SCH ×2 (10:00→22:26)
[2017-06-23] MEDS: AZITHROMYCIN 250 MG TAB PO SCH (10:01)
[2017-06-23] MEDS: BUMETANIDE 1 MG TAB PO SCH (10:01)
[2017-06-23] MEDS: methylPREDNISolone SOD SUCC 125 MG/2 ML VIAL IV PUSH SCH ×3 (10:02→22:25)
--- NOTE | 2017-06-23 11:33 | HHI.HP ---
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 Patient stated that the past week shortness of breathing started and worsen over the past week. She stated that she gets home health with a nurse and physical therapist and that her nurse told her to come to the emergency department due to her breathing. Patient does admit to having a dry cough. Denied any lower extremity edema. She stated that she does not feel congested. She is afebrile. Patient stated that she took home nebulizer but that did not improve her symptoms. She stated that when she gets emergency department she got DuoNeb's and steroids that her breathing has improved drastically. Patient stated that home oxygen use she uses about 2 L only at night. But now she feels like she has to use it with exertion. She stated that minimal movements cause her to be short of breath. Patient stated that her doctor was working on trying to get her portable oxygen take. Patient also stated that she sees Dr. Barahona and that due to her "erratic" heart rate he is trying to get her a heart monitor. Patient has no history of smoking tobacco. In fact she stated that she thinks her COPD is due to secondhand smoking. 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 Kiara Strong. All other review of system reviewed and negative. Past Family Social History Past Medical History Hypertension Hyperlipidemia Atrial fibrillation COPD/asthma - on intermittent home oxygen Obstructive sleep apnea Gastroesophageal reflux Hiatal hernia Arthritis Diabetes mellitus due to chronic steroid use Depression Anxiety Heart murmur Past Surgical History Right foot surgery 1983- bunionectomy Hysterectomy Reported Medications Reported Meds & Active Scripts Active Reported Advair Diskus Inh (Fluticasone-Salmeterol Inh) 500-50 Mcg/Blist Aer 1 Puff INH BID Rinse mouth after use. Singulair (Montelukast Sodium) 10 Mg Tab 10 Mg PO HS Meloxicam 15 Mg Tab 15 Mg PO DAILY Bumetanide 2 Mg Tab 2 Mg PO DAILY Prednisone 10 Mg Tab 10 Mg PO DAILY Tessalon Perles (Benzonatate) 100 Mg Cap 100 Mg PO TID PRN Duoneb (Ipratropium-Albuterol Neb) 0.5-2.5 Mg/3 Ml Neb 1 Nebule INH Q6HR PRN Ventolin Hfa 18 GM Inh (Albuterol Sulfate) 90 Mcg/Act Aer 1 Puff INH Q4H PRN Zocor (Simvastatin) 40 Mg Tab 40 Mg PO HS Pramipexole (Pramipexole Dihydrochloride) 0.5 Mg Tab 0.5 Mg PO HS Wellbutrin Xl 24 HR (Bupropion HCl) 300 Mg Tab 300 Mg PO DAILY Amlodipine (Amlodipine Besylate) 10 Mg Tab 10 Mg PO DAILY Aspirin Adult Low Strength (Aspirin) 81 Mg Tabdr 81 Mg PO DAILY Allergies: Coded Allergies: aspirin (Verified Allergy, Intermediate, HALLICINATIONS, 06/23/17) lactose (Verified Allergy, Intermediate, 06/23/17) oxycodone (Verified Allergy, Intermediate, HALLICINATIONS, 06/23/17) Active Ordered Medications Current Medications Sodium Chloride (NS Flush) 2 ml UNSCH PRN IVF FLUSH AFTER USING IV ACCESS; Start 06/23/17 at 05:15; Stop 06/23/17 at 07:52; Status DC Methylprednisolone Sodium Succinate (SoluMEDROL INJ) 125 mg ONCE ONCE IV PUSH Last administered on 06/23/17 05:32; Start 06/23/17 at 05:15; Stop 06/23/17 at 05:17; Status DC Albuterol/ Ipratropium (Duoneb Neb) 1 ampule Q15M INH Last administered on 05:26; Start 06/23/17 at 05:15; Stop 06/23/17 at 05:31; Status DC Albuterol/ Ipratropium (Duoneb Neb) 1 ampule Q15M INH Last administered on 06:27; Start 06/23/17 at 06:30; Stop 06/23/17 at 06:46; Status DC Sodium Chloride (NS Flush) 2 ml BID IV FLUSH Last administered on 06/23/17 08 :16; Start 06/23/17 at 09:00 Sodium Chloride (NS Flush) 2 ml UNSCH PRN IV FLUSH FLUSH AFTER USING IV ACCESS ; Start 06/23/17 at 07:30 Albuterol/ Ipratropium (Duoneb Neb) 1 ampule Q4HR NEB INH Last administered on 06/23/17 08:00; Start 06/23/17 at 08:00 Albuterol Sulfate (Albuterol Neb) 2.5 mg Q2HR NEB PRN INH SHORTNESS OF BREATH; Start 06/23/17 at 07:30 Methylprednisolone Sodium Succinate (SoluMEDROL INJ) 60 mg Q6H IV PUSH Last administered on 06/23/17 10:02; Start 06/23/17 at 09:00 Azithromycin (Zithromax) 500 mg Taper DAILY PO Last administered on 06/23/17 10:01; Start 06/23/17 at 09:00; Stop 06/28/17 at 08:59 Ceftriaxone Sodium 1000 mg/ Sodium Chloride 100 ml @ 200 mls/hr Q24H IV Last administered on 06/23/17 08:16; Start 06/23/17 at 08:00 Amlodipine Besylate (Norvasc) 10 mg DAILY PO Last administered on 06/23/17 10 :00; Start 06/23/17 at 09:00 Bumetanide (Bumetanide) 2 mg DAILY PO Last administered on 06/23/17 10:01; Start 06/23/17 at 09:00 Bupropion HCl (Wellbutrin Xl 24 Hr) 300 mg DAILY PO ; Start 06/23/17 at 09:00; Stop 06/23/17 at 09:43; Status DC Montelukast Sodium (Singulair) 10 mg HS PO ; Start 06/23/17 at 21:00 Pramipexole Dihydrochloride (Mirapex) 0.5 mg HS PO ; Start 06/23/17 at 21:00 Pravastatin Sodium (Pravachol) 80 mg HS PO ; Start 06/23/17 at 21:00 Bupropion HCl (Wellbutrin Sr) 150 mg BID PO Last administered on 06/23/17 10: 00; Start 06/23/17 at 10:00 Family History A sister had pancreatic cancer. Another sister had lung cancer. Mother had a history of cardiovascular disease and diabetes. Social History Patient lives at home. She denies any alcohol, tobacco, or illicit drug use. Physical Exam Vital Signs Vital Signs Date Time Temp Pulse Resp B/P (MAP) Pulse Ox O2 Delivery O2 Flow Rate FiO2 06/23/17 08:51 97.7 89 20 116/72 (87) 91 06/23/17 08:24 06/23/17 08:01 92 Nasal Cannula 2.00 06/23/17 08:00 100 21 178/67 (104) 94 Nasal Cannula 2.00 06/23/17 07:06 85 Room Air 06/23/17 06:59 95 15 152/83 (106) 94 Nasal Cannula 2.00 06/23/17 05:38 98 Nasal Cannula 2.00 06/23/17 05:03 93 Room Air 06/23/17 05:03 82 24 176/97 (123) 92 Room Air 06/23/17 04:53 26 06/23/17 04:50 97.9 62 20 184/93 (123) 91 Room Air Physical Exam GENERAL: This is a well-nourished, well-developed patient, in no apparent distress. SKIN: No rashes, ecchymoses or lesions. Cool and dry. HEAD: Atraumatic. Normocephalic. No temporal or scalp tenderness. EYES: Pupils equal round and reactive. Extraocular motions intact. No scleral icterus. No injection or drainage. ENT: Nose without bleeding, purulent drainage or septal hematoma. Throat without erythema, tonsillar hypertrophy or exudate. Uvula midline. Airway patent. NECK: Trachea midline. No JVD or lymphadenopathy. Supple, nontender, no meningeal signs. CARDIOVASCULAR: Regular rate and rhythm without murmurs, gallops, or rubs. RESPIRATORY: Clear to auscultation. Breath sounds equal bilaterally. No wheezes , rales, or rhonchi. GASTROINTESTINAL: Abdomen soft, non-tender, nondistended. No hepato-splenomegaly , or palpable masses. No guarding. MUSCULOSKELETAL: Extremities without clubbing, cyanosis, or edema. No joint tenderness, effusion, or edema noted. No calf tenderness. Negative Homans sign bilaterally. NEUROLOGICAL: Awake and alert. Cranial nerves II through XII intact. Motor and sensory grossly within normal limits. Five out of 5 muscle strength in all muscle groups. Normal speech. Laboratory Laboratory Tests Test 06/23/17 05:15 White Blood Count 7.9 Red Blood Count 4.57 Hemoglobin 13.4 Hematocrit 41.1 Mean Corpuscular Volume 90.0 Mean Corpuscular Hemoglobin 29.3 Mean Corpuscular Hemoglobin Concent 32.6 Red Cell Distribution Width 15.4 Platelet Count 197 Mean Platelet Volume 9.7 Neutrophils (%) (Auto) 56.7 Lymphocytes (%) (Auto) 32.6 Monocytes (%) (Auto) 8.6 Eosinophils (%) (Auto) 1.7 Basophils (%) (Auto) 0.4 Neutrophils # (Auto) 4.5 Lymphocytes # (Auto) 2.6 Monocytes # (Auto) 0.7 Eosinophils # (Auto) 0.1 Basophils # (Auto) 0.0 CBC Comment DIFF FINAL Differential Comment Blood Urea Nitrogen 17 Creatinine 1.08 Random Glucose 128 Total Protein 8.0 Albumin 3.4 Calcium Level 9.1 Alkaline Phosphatase 103 Aspartate Amino Transf (AST/SGOT) 15 Alanine Aminotransferase (ALT/SGPT) 19 Total Bilirubin 0.4 Sodium Level 139 Potassium Level 4.0 Chloride Level 97 Carbon Dioxide Level 36.1 Anion Gap 6 Estimat Glomerular Filtration Rate 60 Total Creatine Kinase 110 Creatine Kinase MB 1.4 Troponin I 0.03 B-Type Natriuretic Peptide 276 Result Diagram: 06/23/1715 06/23/1715 Caprini VTE Risk Assessment Caprini VTE Risk Assessment: Mod/High Risk (score >= 2) Caprini Risk Assessment Model Point Value = 1 Point Value = 2 Point Value = 3 Point Value = 5 Age 41-60 Minor surgery BMI > 25 kg/m2 Swollen legs Varicose veins or History of unexplained or recurrent spontaneous Oral contraceptives or hormone replacement Sepsis (< 1 month) Serious lung disease, including pneumonia (< 1 month) Abnormal pulmonary function Acute myocardial infarction Congestive heart failure (< 1 month) History of inflammatory bowel disease Medical patient at bed rest Age 61-74 Arthroscopic surgery Major open surgery (> 45 min) Laparoscopic surgery (> 45 min) Malignancy Confined to bed (> 72 hours) Immobilizing plaster cast Central venous access Age >= 75 History of VTE Family history of VTE Factor V Leiden Prothrombin [id number] Lupus anticoagulant Anticardiolipin antibodies Elevated serum homocysteine Heparin-induced thrombocytopenia Other congenital or acquired thrombophilia Stroke (< 1 month) Elective arthroplasty Hip, pelvis, or leg fracture Acute spinal cord injury (< 1 month) Prophylaxis Regimen Total Risk Factor Score Risk Level Prophylaxis Regimen 0-1 Low Early ambulation 2 Moderate Order ONE of the following: *Sequential Compression Device (SCD) *Heparin 5000 units SQ BID 3-4 Higher Order ONE of the following medications: *Heparin 5000 units SQ TID *Enoxaparin/Lovenox 40 mg SQ daily (WT < 150 kg, CrCl > 30 mL/min) *Enoxaparin/Lovenox 30 mg SQ daily (WT < 150 kg, CrCl > 10-29 mL/min) *Enoxaparin/Lovenox 30 mg SQ BID (WT < 150 kg, CrCl > 30 mL/min) AND/OR *Sequential Compression Device (SCD) 5 or more Highest Order ONE of the following medications: *Heparin 5000 units SQ TID (Preferred with Epidurals) *Enoxaparin/Lovenox 40 mg SQ daily (WT < 150 kg, CrCl > 30 mL/min) *Enoxaparin/Lovenox 30 mg SQ daily (WT < 150 kg, CrCl > 10-29 mL/min) *Enoxaparin/Lovenox 30 mg SQ BID (WT < 150 kg, CrCl > 30 mL/min) AND *Sequential Compression Device (SCD) Assessment and Plan Assessment and Plan 71-year-old male past medical history of COPD, hypertension, CHF who presented with shortness of breathing Acute on chronic Respiratory failure with hypoxia -Chest x-ray negative. Labs relatively stable. Most likely secondary to COPD exacerbation. See treatment as below. COPD exacerbation -Chest x-ray negative. Labs review relatively stable. In emergency department patient has some wheezing in which she was given DuoNeb and solumedrol with great improvement in her symptoms. -Will schedule DuoNeb's, when necessary albuterol, Cipro and Medrol, Rocephin and azithromycin. Continue supplemental oxygen to keep oxygen saturation above 80%. -Will need to do a walk test. Patient's new baseline she may require oxygen at all time. -Consult case management to see patient Can get a portable oxygen tank. -Continue to monitor clinically. Chronic hypoxia dependent and oxygen at night -See treatment as above. Hypertension, type 2 diabetes secondary to steroid use, history of CHF, hyperlipidemia, anxiety, depression -Resume home medication. DVT prophylaxis -Lovenox. Discussed Condition With patient Physician Certification 2 Midnight Certification Type: Admission for Inpatient Services Order for Inpatient Services The services are ordered in accordance with Medicare regulations or non- Medicare payer requirements, as applicable. In the case of services not specified as inpatient-only, they are appropriately provided as inpatient services in accordance with the 2-midnight benchmark. Estimated LOS (days): 2 2 days is the estimated time the patient will need to remain in the hospital, assuming treatment plan goals are met and no additional complications. Post-Hospital Plan: Home Health Lorena Maher MD Jun 23, 2017 11:33
[2017-06-23] MEDS ORDERED: OXYGENDME NAS.CANULA (12:00)
[2017-06-23] MEDS: ACETAMINOPHEN 500 MG CPLT PO PRN ×2 (12:37→18:41)
[2017-06-23] MEDS: ENOXAPARIN SODIUM 40 MG/0.4 ML SYRINGE SQ SCH (12:37)
--- NOTE | 2017-06-23 13:02 | RADRPT ---
EXAM DATE/TIME: 06/23/2017 12:24 [place] COMPARISON: No previous studies available for comparison. INDICATIONS : Left leg pain. MEDICAL HISTORY : Hypercholesterolemia. Chronic obstructive pulmonary disease. Gastroesophageal reflux disease. Hype rtension. A-fib. Hiatal hernia. SURGICAL HISTORY : Hysterectomy. ENCOUNTER: Initial ACUITY: 1 day PAIN SCORE: 5/10 LOCATION: Left leg. TECHNIQUE: Venous ultrasound of the leg was performed from the inguinal ligament to the proximal calf. Real-hector e, color Doppler and spectral tracing, compression and augmentation techniques were used. FINDINGS: There is normal compressibility of the deep venous system from the inguinal region to the proximal ca lf. No echogenic clot is seen in the lumen of the common femoral, femoral, popliteal, and posterior tibial veins. There is a normal response of the venous system to proximal and distal augmentation an d respiration. CONCLUSION: Normal examination. Pete Foster MD on June 23, 2017 at 13:00 Board Certified Radiologist. This report was verified electronically.
--- NOTE | 2017-06-23 16:02 | EKG ---
Date Performed: 06/23/2017 Time Performed: 05:08:20 PTAGE: 71 years EKG: Sinus rhythm WITH FREQUENT VENTRICULAR PREMATURE COMPLEXES POSSIBLE LEFT ATRIAL ENLARGEMENT POSSIBLE LEFT VENTRIC ULAR HYPERTROPHY NONSPECIFIC T-WAVE ABNORMALITY Compared to prior tracing no significant change ABNOR MAL ECG PREVIOUS TRACING : 12/18/2016 08.25 DOCTOR: Johnny Hameed Interpretating Date/Time 06/23/2017 16:01:07
[2017-06-23] MEDS: PRAVASTATIN SOD 80 MG TAB PO SCH (22:25)
[2017-06-23] MEDS: PRAMIPEXOLE DIHYDROCHLORIDE 0.25 MG TAB PO SCH (22:25)
[2017-06-23] MEDS: MONTELUKAST SODIUM 10 MG TAB PO SCH (22:26)
[2017-06-24] VITALS (9 sets, daily range): BP systolic 110–137; BP diastolic 65–92; PULSE 80–96; RESP 18–23; TEMP 97.4–98.3; O2SAT 91–95
[2017-06-24] MEDS: RESP: ALBUTEROL 2.5 MG/IPRATROPIUM 0.5 MG NEB (SCH) INH ×5 (00:38→19:46)
[2017-06-24] MEDS: methylPREDNISolone SOD SUCC 125 MG/2 ML VIAL IV PUSH SCH ×3 (03:00→17:15)
[2017-06-24] MEDS: cefTRIAXone INJ 1,000 MG in SODIUM CHLORIDE 0.9% INJ 100 ML IV SCH (08:56)
[2017-06-24] MEDS: SODIUM CHLORIDE 0.9% FLUSH 10 ML FLUSH IV FLUSH SCH ×2 (08:56→21:00)
[2017-06-24] MEDS: BUMETANIDE 1 MG TAB PO SCH (08:58)
[2017-06-24] MEDS: AZITHROMYCIN 250 MG TAB PO SCH (08:58)
[2017-06-24] MEDS: buPROPion HCL 150 MG SUSTAINED RELEASE TAB PO SCH ×2 (08:59→21:00)
--- NOTE | 2017-06-24 10:41 | HHI.PR ---
Subjective Remarks At the margin of the bed. She is short of breath and feels tired. Says the wheezing however she received red nebulizers. No nausea or vomiting no diarrhea or constipation. Patient says her blood sugar goes up while on steroids and requiring insulin at times. Denies any chest pain or fevers, no cough at this time. Follows with Dr. Hernández as outpatient pulmonary. No lower extremity edema at this time however says she has a history of CHF and follows with Dr. Barahona per cardiology's. Objective Vitals Vital Signs Date Time Temp Pulse Resp B/P (MAP) Pulse Ox O2 Delivery O2 Flow Rate FiO2 06/24/17 08:12 97.5 90 18 126/72 (90) 93 06/24/17 07:45 92 Nasal Cannula 3.00 06/24/17 00:30 98.0 80 23 125/69 (87) 93 06/24/17 00:00 97.9 89 20 120/65 (83) 94 06/24/17 00:00 98.1 80 23 125/69 (87) 93 06/23/17 21:00 96 06/23/17 20:45 98.1 90 19 119/68 (85) 94 06/23/17 19:26 92 Nasal Cannula 3.00 06/23/17 16:00 98.0 96 20 118/68 (85) 91 06/23/17 13:47 3.00 06/23/17 12:00 97.8 91 20 137/90 (106) 93 I/O 06/23/17 06/23/17 06/23/17 06/24/17 06/24/17 06/24/17 07:00 15:00 23:00 07:00 15:00 23:00 Intake Total 1380 ml 600 ml Balance 1380 ml 600 ml Intake Oral 1380 ml 600 ml # Voids 3 2 # Bowel Movements 0 0 Result Diagram: 06/23/1715 06/23/1715 Imaging Last Impressions Chest X-Ray 06/23/17 05 Signed Impressions: Service Date/Time: Friday, June 23, 2017 05:14 - CONCLUSION: No infiltrate seen. Pablo Lofton MD Lower Extremity Ultrasound 06/23/17 0000 Signed Impressions: Service Date/Time: Friday, June 23, 2017 12:24 - CONCLUSION: Normal examination. Pete oFster MD Objective Remarks GENERAL: This is a well-nourished, well-developed patient, in no apparent distress. CARDIOVASCULAR: Regular rate and rhythm without murmurs, gallops, or rubs. RESPIRATORY: Clear to auscultation. Breath sounds equal bilaterally. No wheezes , rales, or rhonchi. GASTROINTESTINAL: Abdomen soft, non-tender, nondistended. No hepato-splenomegaly , or palpable masses. No guarding. MUSCULOSKELETAL: Extremities without clubbing, cyanosis, or edema. No joint tenderness, effusion, or edema noted. No calf tenderness. Negative Homans sign bilaterally. NEUROLOGICAL: Awake and alert. Cranial nerves II through XII intact. Motor and sensory grossly within normal limits. Five out of 5 muscle strength in all muscle groups. Normal speech. A/P Assessment and Plan 71-year-old male past medical history of COPD, hypertension, CHF who presented with shortness of breathing Acute on chronic Respiratory failure with hypoxia -Chest x-ray negative. Labs relatively stable. Most likely secondary to COPD exacerbation. See treatment as below. COPD exacerbation Chronic hypoxia dependent and oxygen at night -Chest x-ray negative. Labs review relatively stable. In emergency department patient has some wheezing in which she was given DuoNeb and solumedrol with great improvement in her symptoms. Taper steroids. Add ISS and accuchecks while on steroids. -Will schedule DuoNeb's, when necessary albuterol, Cipro and Medrol, Rocephin and azithromycin. Continue supplemental oxygen to keep oxygen saturation above 80%. -Will need to do a walk test. Patient's new baseline she may require oxygen at all time. -Consult case management to see patient Can get a portable oxygen tank. -Continue to monitor clinically. -Follows with Dr. Hernández as outpatient pulmonary. -See treatment as above. 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 Barahona per cardiology's. -Resume home medication. DVT prophylaxis -Lovenox. Discussed Condition With patient, nurse Discharge plan. Possible discharge in 1 or 2 days pending improvement Jossie Berrios MD Jun 24, 2017 10:41
[2017-06-24] MEDS: ENOXAPARIN SODIUM 40 MG/0.4 ML SYRINGE SQ SCH (12:18)
[2017-06-24] MEDS: ACETAMINOPHEN 500 MG CPLT PO PRN ×2 (12:30→21:01)
[2017-06-24] MEDS ORDERED: GLUCAGON 1 MG/ML VIAL OTHER PRN (13:00)
[2017-06-24] MEDS ORDERED: DEXTROSE 50% IN WATER 50 ML VIAL(D50) IV PUSH PRN (13:00)
[2017-06-24] MEDS: INSULIN ASPART SUPPLEMENTAL SCALE SQ SCH ×2 (17:00→21:00)
[2017-06-24] MEDS: MONTELUKAST SODIUM 10 MG TAB PO SCH (21:00)
[2017-06-24] MEDS: PRAVASTATIN SOD 80 MG TAB PO SCH (21:00)
[2017-06-24] MEDS: PRAMIPEXOLE DIHYDROCHLORIDE 0.25 MG TAB PO SCH (21:00)
[2017-06-25] VITALS (8 sets, daily range): BP systolic 115–157; BP diastolic 65–91; PULSE 76–96; RESP 19–22; TEMP 97.4–98.8; O2SAT 93–97
[2017-06-25] MEDS: methylPREDNISolone SOD SUCC 125 MG/2 ML VIAL IV PUSH SCH ×3 (00:58→20:48)
[2017-06-25] MEDS: RESP: ALBUTEROL 2.5 MG/IPRATROPIUM 0.5 MG NEB (SCH) INH ×6 (04:00→20:55)
[2017-06-25] MEDS: ACETAMINOPHEN 500 MG CPLT PO PRN ×2 (05:16→17:55)
[2017-06-25] MEDS: INSULIN ASPART SUPPLEMENTAL SCALE SQ SCH ×4 (09:15→21:00)
[2017-06-25] MEDS: cefTRIAXone INJ 1,000 MG in SODIUM CHLORIDE 0.9% INJ 100 ML IV SCH (09:15)
[2017-06-25] MEDS: SODIUM CHLORIDE 0.9% FLUSH 10 ML FLUSH IV FLUSH SCH ×2 (09:16→20:48)
[2017-06-25] MEDS: buPROPion HCL 150 MG SUSTAINED RELEASE TAB PO SCH ×2 (09:21→20:47)
[2017-06-25] MEDS: BUMETANIDE 1 MG TAB PO SCH (09:22)
[2017-06-25] MEDS: AZITHROMYCIN 250 MG TAB PO SCH (09:22)
--- NOTE | 2017-06-25 10:43 | PD.PN.STU ---
Subjective Remarks 71 y/o -[place] with h/o CHF, IA, HTN, hyperlipidemia, and who initially presented with shortness of breath. She reports that she is breathing much better, no longer wheezing. Denies chest pain or cough. She complains of a sinus headache, reports she uses saline and Flonase at home. Denies blurry vision. Denies fever, chills, nausea, vomiting, constipatio or diarrhea. Objective Vitals Vital Signs Date Time Temp Pulse Resp B/P (MAP) Pulse Ox O2 Delivery O2 Flow Rate FiO2 06/25/17 08:30 98.0 96 20 157/91 (113) 95 06/25/17 08:26 97 Nasal Cannula 3.00 06/25/17 04:15 98.0 80 20 116/75 (89) 95 06/25/17 00:00 98.8 89 19 115/80 (92) 95 06/24/17 23:00 96 06/24/17 20:50 98.1 94 19 110/79 (89) 95 06/24/17 19:48 92 Nasal Cannula 4.00 06/24/17 16:00 97.4 96 18 133/70 (91) 94 06/24/17 12:00 98.3 90 18 137/92 (107) 91 I/O 06/24/17 06/24/17 06/24/17 06/25/17 06/25/17 06/25/17 07:00 15:00 23:00 07:00 15:00 23:00 Intake Total 600 ml 850 ml 600 ml Balance 600 ml 850 ml 600 ml Intake Oral 600 ml 850 ml 600 ml # Voids 2 1 3 # Bowel Movements 0 0 0 Result Diagram: 06/23/1751406/23/1715 Objective Remarks GENERAL: This is a well-nourished, well-developed, obese -[place] female , in no apparent distress. Pleasant and cooperative. CARDIOVASCULAR: Regular rate and rhythm without murmurs, gallops, or rubs. RESPIRATORY: Decreased breath sounds at all levels bilaterally. No wheezes, rales, or rhonchi. GASTROINTESTINAL: Abdomen soft, non-tender, nondistended. No hepato-splenomegaly , or palpable masses. No guarding. MUSCULOSKELETAL: Extremities without clubbing, cyanosis, or edema. No joint tenderness, effusion, or edema noted. No calf tenderness. Negative Homans sign bilaterally. NEUROLOGICAL: Awake and alert. Cranial nerves II through XII intact. Motor and sensory grossly within normal limits. Five out of 5 muscle strength in all muscle groups. Normal speech. A/P Assessment and Plan 71-year-old female with past medical history of COPD, hypertension, CHF who presented with shortness of breathing Acute on chronic Respiratory failure with hypoxia -Chest x-ray negative. Labs relatively stable. Most likely secondary to COPD exacerbation. See treatment as below. COPD exacerbation Chronic hypoxia dependent and oxygen at night -Chest x-ray negative. Labs review relatively stable. In emergency department patient has some wheezing in which she was given DuoNeb and solumedrol with great improvement in her symptoms. Taper steroids. Add ISS and accuchecks while on steroids. -Will schedule DuoNeb's, when necessary albuterol, Cipro and Medrol, Rocephin and azithromycin. Continue supplemental oxygen to keep oxygen saturation above 80%. -Will need to do a walk test. Patient's new baseline she may require oxygen at all time. -Consult case management to see patient Can get a portable oxygen tank. -Continue to monitor clinically. -Follows with Dr. Amaya as outpatient pulmonary. -See treatment as above. 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 Barahona per cardiology's. -Resume home medication. Sinus headache -Resume home medication DVT prophylaxis -Lovenox. Seen and examined. Case was discussed at length with the Kayla FINNI. Agree with the above note. Kayla Varghese Jun 25, 2017 10:43 Jossie Berrios MD Jun 27, 2017 15:55
[2017-06-25] MEDS ORDERED: BISACODYL 10 MG SUPP RECTAL PRN (11:45)
[2017-06-25] MEDS ORDERED: LACTULOSE SYRUP 20 GM/30 ML CUP PO PRN (11:45)
[2017-06-25] MEDS ORDERED: MAGNESIUM HYDROXIDE SUSP 30 ML CUP PO PRN (11:45)
[2017-06-25] MEDS ORDERED: SENNOSIDES 8.6 MG TAB PO PRN (11:45)
[2017-06-25] MEDS ORDERED: NALOXONE HCL 0.4 MG/ML AMP IV PUSH PRN (11:45)
--- NOTE | 2017-06-25 11:52 | HHI.PR ---
Subjective Remarks In bed, says she gets tired with efort wheezing but not at this time. received nebs. SOB improved but not much. Feels tired. No fever or chills. No n/v/d/c. Denies cough. Objective Vitals Vital Signs Date Time Temp Pulse Resp B/P (MAP) Pulse Ox O2 Delivery O2 Flow Rate FiO2 06/25/17 08:30 98.0 96 20 157/91 (113) 95 06/25/17 08:26 97 Nasal Cannula 3.00 06/25/17 04:15 98.0 80 20 116/75 (89) 95 06/25/17 00:00 98.8 89 19 115/80 (92) 95 06/24/17 23:00 96 06/24/17 20:50 98.1 94 19 110/79 (89) 95 06/24/17 19:48 92 Nasal Cannula 4.00 06/24/17 16:00 97.4 96 18 133/70 (91) 94 06/24/17 12:00 98.3 90 18 137/92 (107) 91 I/O 06/24/17 06/24/17 06/24/17 06/25/17 06/25/17 06/25/17 07:00 15:00 23:00 07:00 15:00 23:00 Intake Total 600 ml 850 ml 600 ml 100 ml Balance 600 ml 850 ml 600 ml 100 ml Intake Oral 600 ml 850 ml 600 ml IV Total 100 ml # Voids 2 1 3 # Bowel Movements 0 0 0 Result Diagram: 06/23/17 0515 06/23/17 0515 Imaging Last Impressions Chest X-Ray 06/23/17 0510 Signed Impressions: Service Date/Time: Friday, June 23, 2017 05:14 - CONCLUSION: No infiltrate seen. Pablo Lofton MD Lower Extremity Ultrasound 06/23/17 0000 Signed Impressions: Service Date/Time: Friday, June 23, 2017 12:24 - CONCLUSION: Normal examination. Pete Foster MD Objective Remarks GENERAL: This is a 71 yo pleasant AA female, obese, well-nourished, well- developed patient, in no apparent distress. CARDIOVASCULAR: Regular rate and rhythm without murmurs, gallops, or rubs. RESPIRATORY: Clear to auscultation. No accessory muscle use. Breath sounds are decreased. No wheezes, rales, or rhonchi. GASTROINTESTINAL: Abdomen soft, obese, ventral hernia, non-tender, nondistended. No guarding. MUSCULOSKELETAL: Extremities without clubbing, cyanosis, or edema. No joint tenderness, effusion, or edema noted. No calf tenderness. Negative Homans sign bilaterally. NEUROLOGICAL: Awake and alert. Cranial nerves II through XII intact. Motor and sensory grossly within normal limits. Five out of 5 muscle strength in all muscle groups. Normal speech. A/P Assessment and Plan 71-year-old female past medical history of COPD, hypertension, CHF who presented with shortness of breathing Acute on chronic Respiratory failure with hypoxia, now requiring continuous O2 at home. -Chest x-ray negative. Labs relatively stable. Most likely secondary to COPD exacerbation. See treatment as below. COPD exacerbation Chronic hypoxia dependent and oxygen at night, now requiring O2 during the day continuously -Chest x-ray negative. Labs review relatively stable. In emergency department patient has some wheezing in which she was given DuoNeb and solumedrol with great improvement in her symptoms. Taper steroids. Add ISS and accuchecks while on steroids. Will schedule DuoNeb's, when necessary albuterol. On soluMedrol, Rocephin and azithromycin. Continue supplemental oxygen to keep oxygen saturation above 80% . Continue to taper steroids as tolerated. Failed walk test, ordered portable O2 at home, CM ff. -Consult case management to see patient Can get a portable oxygen tank. -Continue to monitor clinically. -Follows with Dr. Amaya as outpatient pulmonary. - Added ISS and accuchecks as patient might require coverage while on steroids. Monitor BS - To f/u as OP with pulm, might need sleep study as patient with morbid obesity BMI of 44. -See treatment as above. 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 Barahona per cardiology's. -Resume home medication. Monitor. Constipation . Add bowel regimen. Morbid obesity BMI of 44.1. Diet and exercise. 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 DVT prophylaxis -Lovenox. Discussed Condition With patient, nurse Discharge plan. Possible discharge tomorrow if improves. Case management ff for DC plan. Patient needs portable O2 at home, CM ff. Cosma,Jossie MD Jun 25, 2017 11:52
[2017-06-25] MEDS ORDERED: SODIUM CHLORIDE 0.65% NASAL SPRAY 45 ML BTL EACH NARE PRN (12:00)
[2017-06-25] MEDS: ENOXAPARIN SODIUM 40 MG/0.4 ML SYRINGE SQ SCH (12:13)
[2017-06-25] MEDS: DOCUSATE SODIUM 50 MG/SENNA 8.6 MG TAB PO SCH (20:47)
[2017-06-25] MEDS: PRAVASTATIN SOD 80 MG TAB PO SCH (20:47)
[2017-06-25] MEDS: PRAMIPEXOLE DIHYDROCHLORIDE 0.25 MG TAB PO SCH (20:47)
[2017-06-25] MEDS: MONTELUKAST SODIUM 10 MG TAB PO SCH (20:47)
[2017-06-26] VITALS (7 sets, daily range): BP systolic 118–147; BP diastolic 67–87; PULSE 89–110; RESP 20–24; TEMP 97.5–98.8; O2SAT 90–96
[2017-06-26] MEDS: RESP: ALBUTEROL 2.5 MG/IPRATROPIUM 0.5 MG NEB (SCH) INH ×6 (01:56→19:51)
[2017-06-26] MEDS: ACETAMINOPHEN 500 MG CPLT PO PRN ×2 (03:24→08:32)
[2017-06-26 06:29] LABS: BASOPHIL % 0.1 % (0.0-2.0); HEMO FLAGS DIFF FINAL; LYMPH % 4.5 % (9.0-44.0); LYMPHOCYTE # 0.5 TH/MM3 (1.0-4.8); MEAN CELL VOLUME 89.4 FL (80.0-100.0); MEAN CORPUSCULAR HEMOGLOBIN 28.9 PG (27.0-34.0); MEAN CORPUSCULAR HGB CONC 32.3 % (32.0-36.0); NEUT % 92.4 % (16.0-70.0); PLATELET COUNT 187 TH/MM3 (150-450); RED BLOOD COUNT 4.36 MIL/MM3 (4.00-5.30); RED CELL DISTRIBUTION WIDTH 15.8 % (11.6-17.2); WHITE BLOOD COUNT 10.9 TH/MM3 (4.0-11.0)
[2017-06-26 06:54] LABS: BICARBONATE 32.1 MEQ/L (21.0-32.0)
--- NOTE | 2017-06-26 08:18 | PD.PN.STU ---
Subjective Remarks Patient reports that her breathing has improved. She was able to get OOB and take her first shower this morning without assistance. She reports that usually the walk from the bed to the restroom would have her completely "winded and out of breath". No chest pain. Reports BM last night with help of laxative. Denies constipation, diarrhea, nausea and vomiting. Still complains of a sinus headache , nasal congestion, and rhinorrhea. She also complains of tremors in in her lower extremities bilaterally. She reports that she takes pramipexole at home for restless leg syndromes but has not received it since she's been hospitalized. Objective Vitals Vital Signs Date Time Temp Pulse Resp B/P (MAP) Pulse Ox O2 Delivery O2 Flow Rate FiO2 06/26/17 07:52 98.1 110 20 147/83 (104) 90 06/26/17 04:03 97.7 97 24 95 06/26/17 00:00 97.8 92 22 118/67 (84) 94 06/25/17 20:57 94 Nasal Cannula 3.00 06/25/17 20:00 98.1 83 22 141/87 (105) 93 06/25/17 16:49 97.9 76 20 122/65 (84) 95 06/25/17 12:12 97.4 91 20 127/88 (101) 97 06/25/17 08:30 98.0 96 20 157/91 (113) 95 06/25/17 08:26 97 Nasal Cannula 3.00 I/O 06/25/17 06/25/17 06/25/17 06/26/17 06/26/17 06/26/17 07:00 15:00 23:00 07:00 15:00 23:00 Intake Total 600 ml 820 ml Balance 600 ml 820 ml Intake Oral 600 ml 720 ml IV Total 100 ml # Voids 3 2 3 2 # Bowel Movements 0 0 3 0 Result Diagram: 06/26/17 0552 06/26/17 0552 Objective Remarks GENERAL: This is a 71 yo pleasant AA female, obese, well-nourished, well- developed patient, in no apparent distress. CARDIOVASCULAR: Regular rate and rhythm without murmurs, gallops, or rubs. RESPIRATORY: Clear to auscultation. No accessory muscle use. Breath sounds are decreased. Scattered wheezes heard throughout all lung levels bilaterally. No crackles, rales, or rhonchi. GASTROINTESTINAL: Abdomen soft, obese, ventral hernia, non-tender, nondistended. No guarding. MUSCULOSKELETAL: Extremities without clubbing, cyanosis, or edema. No joint tenderness, effusion, or edema noted. No calf tenderness. Negative Homans sign bilaterally. NEUROLOGICAL: Awake and alert. Cranial nerves II through XII intact. Motor and sensory grossly within normal limits. Five out of 5 muscle strength in all muscle groups. Normal speech. A/P Assessment and Plan 71-year-old female with past medical history of COPD, hypertension, CHF who presented with shortness of breathing Acute on chronic Respiratory failure with hypoxia -Chest x-ray negative. Labs relatively stable. Most likely secondary to COPD exacerbation. See treatment as below. COPD exacerbation Chronic hypoxia dependent and oxygen at night -Chest x-ray negative. Labs review relatively stable. In emergency department patient has some wheezing in which she was given DuoNeb and solumedrol with great improvement in her symptoms. Taper steroids. Add ISS and accuchecks while on steroids. -Will schedule DuoNeb's, when necessary albuterol, Cipro and Medrol, Rocephin and azithromycin. Continue supplemental oxygen to keep oxygen saturation above 80%. -Will need to do a walk test. Patient's new baseline she may require oxygen at all time. -Consult case management to see patient Can get a portable oxygen tank. -Continue to monitor clinically. -Follows with Dr. Amaya as outpatient pulmonary. -See treatment as above. 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 Barahona per cardiology's. -Resume home medication. Sinus headache -Resume home medication DVT prophylaxis -Lovenox. Seen and examined. Case was discussed at length with the Kayla Varghese MSII. Agree with the above note. Kayla Varghese Jun 26, 2017 08:18 Jossie Berrios MD Jun 27, 2017 15:55
[2017-06-26] MEDS: cefTRIAXone INJ 1,000 MG in SODIUM CHLORIDE 0.9% INJ 100 ML IV SCH (08:31)
[2017-06-26] MEDS: DOCUSATE SODIUM 50 MG/SENNA 8.6 MG TAB PO SCH ×2 (08:32→21:23)
[2017-06-26] MEDS: buPROPion HCL 150 MG SUSTAINED RELEASE TAB PO SCH ×2 (08:32→21:23)
[2017-06-26] MEDS: BUMETANIDE 1 MG TAB PO SCH (08:32)
[2017-06-26] MEDS: AZITHROMYCIN 250 MG TAB PO SCH (08:32)
[2017-06-26] MEDS: methylPREDNISolone SOD SUCC 125 MG/2 ML VIAL IV PUSH SCH ×2 (08:33→21:24)
[2017-06-26] MEDS: SODIUM CHLORIDE 0.9% FLUSH 10 ML FLUSH IV FLUSH SCH ×2 (08:33→21:00)
[2017-06-26] MEDS: FLUTICASONE PROPIONATE 50 MCG/ACT 16 GM NASAL SPRAY NASAL SCH (08:33)
[2017-06-26] MEDS: INSULIN ASPART SUPPLEMENTAL SCALE SQ SCH ×4 (09:26→21:00)
--- NOTE | 2017-06-26 09:42 | HHI.PR ---
Subjective Remarks In bed not much wheezing. Feels sob with exertion. No cough. No fever or chills. Denies chest pain. No n/v/d/c. However her kidney function is deteriorating at this time. Not ready for discharge. Objective Vitals Vital Signs Date Time Temp Pulse Resp B/P (MAP) Pulse Ox O2 Delivery O2 Flow Rate FiO2 06/26/17 07:52 98.1 110 20 147/83 (104) 90 06/26/17 04:03 97.7 97 24 95 06/26/17 00:00 97.8 92 22 118/67 (84) 94 06/25/17 20:57 94 Nasal Cannula 3.00 06/25/17 20:00 98.1 83 22 141/87 (105) 93 06/25/17 16:49 97.9 76 20 122/65 (84) 95 06/25/17 12:12 97.4 91 20 127/88 (101) 97 I/O 06/25/17 06/25/17 06/25/17 06/26/17 06/26/17 06/26/17 07:00 15:00 23:00 07:00 15:00 23:00 Intake Total 600 ml 820 ml Balance 600 ml 820 ml Intake Oral 600 ml 720 ml IV Total 100 ml # Voids 3 2 3 2 # Bowel Movements 0 0 3 0 Result Diagram: 06/26/17 0552 06/26/17 0552 Imaging Last Impressions Chest X-Ray 06/23/17 0510 Signed Impressions: Service Date/Time: Friday, June 23, 2017 05:14 - CONCLUSION: No infiltrate seen. Pablo Lofton MD Lower Extremity Ultrasound 06/23/17 0000 Signed Impressions: Service Date/Time: Friday, June 23, 2017 12:24 - CONCLUSION: Normal examination. Pete Foster MD Objective Remarks GENERAL: This is a 71 yo pleasant AA female, obese, well-nourished, well- developed patient, in no apparent distress. CARDIOVASCULAR: Regular rate and rhythm without murmurs, gallops, or rubs. RESPIRATORY: Clear to auscultation. No accessory muscle use. Breath sounds are decreased. No wheezes, rales, or rhonchi. GASTROINTESTINAL: Abdomen soft, obese, ventral hernia, non-tender, nondistended. No guarding. MUSCULOSKELETAL: Extremities without clubbing, cyanosis, or edema. No joint tenderness, effusion, or edema noted. No calf tenderness. Negative Homans sign bilaterally. NEUROLOGICAL: Awake and alert. Cranial nerves II through XII intact. Motor and sensory grossly within normal limits. Five out of 5 muscle strength in all muscle groups. Normal speech. A/P Assessment and Plan 71-year-old female past medical history of COPD, hypertension, CHF who presented with shortness of breathing Acute on chronic Respiratory failure with hypoxia, now requiring continuous O2 at home. -Chest x-ray negative. Labs relatively stable. Most likely secondary to COPD exacerbation. See treatment as below. COPD exacerbation Chronic hypoxia dependent and oxygen at night, now requiring O2 during the day continuously -Chest x-ray negative. Labs review relatively stable. In emergency department patient has some wheezing in which she was given DuoNeb and solumedrol with great improvement in her symptoms. Taper steroids. Add ISS and accuchecks while on steroids. Will schedule DuoNeb's, when necessary albuterol. On soluMedrol, Rocephin and azithromycin. Continue supplemental oxygen to keep oxygen saturation above 80% . Continue to taper steroids as tolerated. Failed walk test, ordered portable O2 at home, CM ff. -Consult case management to see patient Can get a portable oxygen tank. -Continue to monitor clinically. -Follows with Dr. Amaya as outpatient pulmonary. - Added ISS and accuchecks as patient might require coverage while on steroids. Monitor BS - To f/u as OP with pulm, might need sleep study as patient with morbid obesity BMI of 44. -See treatment as above. MAGALIE: hold bumex start gentle hydration ns at42 cc. 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 Barahona per cardiology's. -Resume home medication. Monitor. Constipation . Add bowel regimen. Morbid obesity BMI of 44.1. Diet and exercise. 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 DVT prophylaxis -Lovenox. Discussed Condition With patient, nurse Discharge plan. Possible discharge tomorrow if improves. Case management ff for DC plan. Patient needs portable O2 at home, CM ff. Kidney function is worsening today, full. Start gentle IV fluids, monitor kidney indices, possible discharge tomorrow if improves Cosma,Jossie MD Jun 26, 2017 09:42
[2017-06-26] MEDS ORDERED: SODIUM CHLOR 0.9% 1000 ML INJ 1,000 ML IV SCH (09:45)
[2017-06-26] MEDS: ENOXAPARIN SODIUM 40 MG/0.4 ML SYRINGE SQ SCH (11:43)
[2017-06-26] MEDS: MONTELUKAST SODIUM 10 MG TAB PO SCH (21:23)
[2017-06-26] MEDS: PRAVASTATIN SOD 80 MG TAB PO SCH (21:23)
[2017-06-26] MEDS: PRAMIPEXOLE DIHYDROCHLORIDE 0.25 MG TAB PO SCH (21:23)
[2017-06-27] VITALS (9 sets, daily range): BP systolic 133–155; BP diastolic 77–97; PULSE 53–110; RESP 18–20; TEMP 97.2–98.8; O2SAT 91–98
[2017-06-27] MEDS: RESP: ALBUTEROL 2.5 MG/IPRATROPIUM 0.5 MG NEB (SCH) INH ×2 (00:25→04:00)
[2017-06-27] MEDS: ACETAMINOPHEN 500 MG CPLT PO PRN (05:19)
[2017-06-27 07:55] LABS: AUTOMATED NEUTROPHIL # 7.8 TH/MM3 (1.8-7.7); HEMATOCRIT 37.6 % (35.0-46.0); HEMO FLAGS DIFF FINAL; LYMPH % 6.4 % (9.0-44.0); LYMPHOCYTE # 0.6 TH/MM3 (1.0-4.8); MEAN CELL VOLUME 89.9 FL (80.0-100.0); MEAN CORPUSCULAR HEMOGLOBIN 29.4 PG (27.0-34.0); MEAN CORPUSCULAR HGB CONC 32.7 % (32.0-36.0); MONO % 3.6 % (0.0-8.0); PLATELET COUNT 173 TH/MM3 (150-450); RED BLOOD COUNT 4.19 MIL/MM3 (4.00-5.30); RED CELL DISTRIBUTION WIDTH 15.5 % (11.6-17.2); WHITE BLOOD COUNT 8.6 TH/MM3 (4.0-11.0)
[2017-06-27] MEDS: cefTRIAXone INJ 1,000 MG in SODIUM CHLORIDE 0.9% INJ 100 ML IV SCH (08:00)
[2017-06-27] MEDS: INSULIN ASPART SUPPLEMENTAL SCALE SQ SCH ×3 (08:00→21:00)
[2017-06-27 08:27] LABS: BICARBONATE 32.3 MEQ/L (21.0-32.0); POTASSIUM 4.3 MEQ/L (3.5-5.1)
--- NOTE | 2017-06-27 08:53 | PD.PN.STU ---
Subjective Remarks Still complains of SOB with exertion, however feels like she's at her baseline. She continues to get OOB to restroom without assistance. No fever, chills, or chest pain. Denies nausea, vomiting, diarrhea or constipation. Last BM was yesterday. She reports that she is ready to go home. Objective Vitals Vital Signs Date Time Temp Pulse Resp B/P (MAP) Pulse Ox O2 Delivery O2 Flow Rate FiO2 06/27/17 08:00 98.1 90 18 135/77 (96) 91 06/27/17 04:10 97 Nasal Cannula 3.00 06/27/17 04:00 97.5 53 20 135/79 (97) 97 06/27/17 00:26 98 Nasal Cannula 2.00 06/27/17 00:00 98.8 110 20 133/78 (96) 96 06/26/17 20:00 98.3 89 20 139/85 (103) 93 06/26/17 16:11 98.3 95 20 138/81 (100) 94 06/26/17 12:14 97.5 110 22 138/87 (104) 94 I/O 06/26/17 06/26/17 06/26/17 06/27/17 06/27/17 06/27/17 07:00 15:00 23:00 07:00 15:00 23:00 # Voids 2 2 4 # Bowel Movements 0 Result Diagram: 06/27/1759 06/27/1759 Objective Remarks GENERAL: This is a 71 yo pleasant AA female, obese, well-nourished, well- developed patient, in no apparent distress. CARDIOVASCULAR: Regular rate and rhythm without murmurs, gallops, or rubs. RESPIRATORY: Clear to auscultation. No accessory muscle use. Breath sounds are decreased. No wheezes, rales, or rhonchi. GASTROINTESTINAL: Abdomen soft, obese, ventral hernia, non-tender, nondistended. No guarding. MUSCULOSKELETAL: Extremities without clubbing, cyanosis, or edema. No joint tenderness, effusion, or edema noted. No calf tenderness. Negative Homans sign bilaterally. NEUROLOGICAL: Awake and alert. Cranial nerves II through XII intact. Motor and sensory grossly within normal limits. Five out of 5 muscle strength in all muscle groups. Normal speech. A/P Assessment and Plan 71-year-old female with past medical history of COPD, hypertension, CHF who presented with shortness of breathing Acute on chronic Respiratory failure with hypoxia -Chest x-ray negative. Labs relatively stable. Most likely secondary to COPD exacerbation. See treatment as below. COPD exacerbation Chronic hypoxia dependent and oxygen at night -Chest x-ray negative. Labs review relatively stable. In emergency department patient has some wheezing in which she was given DuoNeb and solumedrol with great improvement in her symptoms. Taper steroids. Add ISS and accuchecks while on steroids. -Will schedule DuoNeb's, when necessary albuterol, Cipro and Medrol, Rocephin and azithromycin. Continue supplemental oxygen to keep oxygen saturation above 80%. -Will need to do a walk test. Patient's new baseline she may require oxygen at all time. -Consult case management to see patient Can get a portable oxygen tank. -Continue to monitor clinically. -Follows with Dr. Amaya as outpatient pulmonary. -See treatment as above. 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 Barahona per cardiology's. -Resume home medication. Sinus headache -Resume home medication DVT prophylaxis -Lovenox. Seen and examined. Case was discussed at length with the Kayla FINNI. Agree with the above note. Kayla Varghese Jun 27, 2017 08:53 Jossie Berrios MD Jun 27, 2017 15:55
[2017-06-27] MEDS: DOCUSATE SODIUM 50 MG/SENNA 8.6 MG TAB PO SCH ×2 (08:54→21:31)
[2017-06-27] MEDS: AZITHROMYCIN 250 MG TAB PO SCH (08:54)
[2017-06-27] MEDS: buPROPion HCL 150 MG SUSTAINED RELEASE TAB PO SCH ×2 (08:54→21:31)
[2017-06-27] MEDS: methylPREDNISolone SOD SUCC 125 MG/2 ML VIAL IV PUSH SCH (08:55)
[2017-06-27] MEDS: SODIUM CHLORIDE 0.9% FLUSH 10 ML FLUSH IV FLUSH SCH ×2 (09:00→21:32)
[2017-06-27] MEDS: FLUTICASONE PROPIONATE 50 MCG/ACT 16 GM NASAL SPRAY NASAL SCH (09:03)
[2017-06-27] MEDS ORDERED: PRED10PA PO (09:13)
[2017-06-27] MEDS ORDERED: CEFU1TAB18 PO (09:15)
[2017-06-27] MEDS ORDERED: LACTCHW3 CHEW (09:15)
[2017-06-27] MEDS ORDERED: NOVOLOGP2 SQ (09:15)
--- NOTE | 2017-06-27 09:16 | HHI.FF ---
Face to Face Verification Diagnosis: (1) COPD exacerbation (2) Chronic respiratory failure (3) History of diastolic dysfunction (4) Type 2 diabetes mellitus (5) Dyspnea (6) GLO (obstructive sleep apnea) Physical Therapy Order: Evaluate and Treat Occupational Therapy Order: Evaluate and Treat Home Health Nursing Order: Medical education Signs/symptoms of disease process Diabetic education CHF education Oxygen administration education Medication education-adverse effect Nursing assessment with vital signs I have seen patient Nano Turnre on 06/27/17. My clinical findings support the need for the requested home health care services because: Ltd mobility - disease progression Patient has SOB I certify that my clinical findings support that this patient is homebound because: Post-op weakness Hx COPD- exertion dyspnea/weakness Jossie Berrios MD Jun 27, 2017 09:16
--- NOTE | 2017-06-27 09:16 | HHI.DS ---
Discharge Summary Admission Date Jun 23, 2017 at 07:29 Discharge Date: Jun 30, 2017 Admitting Diagnosis COPD exacerbation (1) COPD exacerbation ICD Code: J44.1 - Chronic obstructive pulmonary disease with (acute) exacerbation Status: Acute (2) Type 2 diabetes mellitus ICD Code: E11.9 - Type 2 diabetes mellitus without complications Status: Acute (3) GLO (obstructive sleep apnea) ICD Code: G47.33 - Obstructive sleep apnea (adult) (pediatric) Status: Chronic (4) MAGALIE (acute kidney injury) ICD Code: N17.9 - Acute kidney failure, unspecified Status: Resolved (5) Hypertension ICD Code: I10 - Essential (primary) hypertension Status: Acute (6) Chronic respiratory failure ICD Code: J96.10 - Chronic respiratory failure, unspecified whether with hypoxia or hypercapnia Procedures none Brief History - From Admission This is a 71-year-old female past medical history COPD, on chronic oxygen at night, history of CHF, hypertension, type 2 diabetes induced by chronic steroid use who presented with shortness of breathing. Patient stated that the past week shortness of breathing started and worsen over the past week. She stated that she gets home health with a nurse and physical therapist and that her nurse told her to come to the emergency department due to her breathing. Patient does admit to having a dry cough. Denied any lower extremity edema. She stated that she does not feel congested. She is afebrile. Patient stated that she took home nebulizer but that did not improve her symptoms. She stated that when she gets emergency department she got DuoNeb's and steroids that her breathing has improved drastically. Patient stated that home oxygen use she uses about 2 L only at night. But now she feels like she has to use it with exertion. She stated that minimal movements cause her to be short of breath. Patient stated that her doctor was working on trying to get her portable oxygen take. Patient also stated that she sees Dr. Barahona and that due to her "erratic" heart rate he is trying to get her a heart monitor. Patient has no history of smoking tobacco. In fact she stated that she thinks her COPD is due to secondhand smoking. Patient seen vortex operator Dr. Kiara Strong. All other review of system reviewed and negative. CBC/BMP: 06/27/17 0659 06/27/17 0659 Significant Findings Laboratory Tests Test 06/26/17 05:52 06/27/17 06:59 Neutrophils (%) (Auto) 92.4 % (16.0-70.0) 90.0 % (16.0-70.0) Lymphocytes (%) (Auto) 4.5 % (9.0-44.0) 6.4 % (9.0-44.0) Neutrophils # (Auto) 10.0 TH/MM3 (1.8-7.7) 7.8 TH/MM3 (1.8-7.7) Lymphocytes # (Auto) 0.5 TH/MM3 (1.0-4.8) 0.6 TH/MM3 (1.0-4.8) Blood Urea Nitrogen 50 MG/DL (7-18) 38 MG/DL (7-18) Creatinine 1.76 MG/DL (0.50-1.00) 1.42 MG/DL (0.50-1.00) Random Glucose 171 MG/DL (74-106) 218 MG/DL (74-106) Chloride Level 95 MEQ/L (98-107) Carbon Dioxide Level 32.1 MEQ/L (21.0-32.0) 32.3 MEQ/L (21.0-32.0) Estimat Glomerular Filtration Rate 34 ML/MIN (>89) 44 ML/MIN (>89) Imaging Last Impressions Renal Ultrasound 06/29/17 0000 Signed Impressions: Service Date/Time: Thursday, June 29, 2017 11:31 - CONCLUSION: Normal examination. Camilo Sims MD Chest X-Ray 06/23/17 0510 Signed Impressions: Service Date/Time: Friday, June 23, 2017 05:14 - CONCLUSION: No infiltrate seen. Pablo Lofton MD Lower Extremity Ultrasound 06/23/17 0000 Signed Impressions: Service Date/Time: Friday, June 23, 2017 12:24 - CONCLUSION: Normal examination. Pete Foster MD PE at Discharge GENERAL: This is a 71 yo pleasant AA female, obese, well-nourished, well- developed patient, in no apparent distress. CARDIOVASCULAR: Regular rate and rhythm without murmurs, gallops, or rubs. RESPIRATORY: Clear to auscultation. No accessory muscle use. Breath sounds are decreased. No wheezes, rales, or rhonchi. GASTROINTESTINAL: Abdomen soft, obese, ventral hernia, non-tender, nondistended. No guarding. MUSCULOSKELETAL: Extremities without clubbing, cyanosis, or edema. No joint tenderness, effusion, or edema noted. No calf tenderness. Negative Homans sign bilaterally. NEUROLOGICAL: Awake and alert. Cranial nerves II through XII intact. Motor and sensory grossly within normal limits. Five out of 5 muscle strength in all muscle groups. Normal speech. Hospital Course 71-year-old female past medical history of COPD, hypertension, CHF who presented with shortness of breathing Acute on chronic Respiratory failure with hypoxia, now requiring continuous O2 at home. -Chest x-ray negative. Labs relatively stable. Most likely secondary to COPD exacerbation. See treatment as below. COPD exacerbation Chronic hypoxia dependent and oxygen at night, now requiring O2 during the day continuously -Chest x-ray negative. Labs review relatively stable. In emergency department patient has some wheezing in which she was given DuoNeb and solumedrol with great improvement in her symptoms. Taper steroids. Add ISS and accuchecks while on steroids. Will schedule DuoNeb's, when necessary albuterol. On soluMedrol, Rocephin and azithromycin. Continue supplemental oxygen to keep oxygen saturation above 80% . Continue to taper steroids as tolerated. Failed walk test, ordered portable O2 at home, CM ff. -Consult case management to see patient Can get a portable oxygen tank. -Continue to monitor clinically. -Follows with Dr. Amaya as outpatient pulmonary. - Added ISS and accuchecks as patient might require coverage while on steroids. Monitor BS - To f/u as OP with pulm, might need sleep study as patient with morbid obesity BMI of 44. -See treatment as above. Hypertension is not controlled at this time. Continue home meds. Add losartan . Add hydralazine and clonidine PRN for pain. No beta rolando as patient with severe COPD. MAGALIE on CKD2: bumex 2 mg held, briefly received gentle hydration ns at42 cc- DCd. Kidney function improving, restart bumex at 1 mg daily.Monitor kidney function. Do kidney US. 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 More anxious will aff prn xanax CHF stable and follows with Dr. Barahona per cardiology's. -Resume home medication. Monitor. Constipation . Add bowel regimen. Morbid obesity BMI of 44.1. Diet and exercise. 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 DVT prophylaxis -Lovenox. Discussed Condition With patient, nurse Discharge plan. Possible discharge tomorrow if kidney function improves. Case management ff for DC plan. Patient needs portable O2 at home, CM ff and is arranged per case management. Patient has O2 at night at home already. Kidney US normal. Discharge home with home health to follow up as OP with PCP and consultants. Pt Condition on Discharge: Stable Discharge Disposition: Disch w/ Home Health Serv Discharge Time: > 30 minutes Discharge Instructions DIET: Follow Instructions for: Heart Healthy Diet, Diabetic Diet Activities you can perform: Regular-No Restrictions Follow up Referrals: Nephrology - 1 Week PCP Follow-up - 2-3 Days PCP Follow-up Pulmonology - 1 Week Pulmonology New Medications: Bumetanide (Bumetanide) 1 Mg Tab 1 MG PO DAILY, #30 TAB 0 Refills Insulin Aspart Inj (Novolog Inj) 1,000 Unit/10 Ml Vial 1-9 UNITS SQ ACHS for Blood Sugar Management, #10 ML 0 Refills Max dose at bedtime:( )units; sugars less than 70,(0)units; sugars 150-199,(1) unit; sugars 200-249,(3) units; sugars 250-299,(5) units; sugars 300-349,(7) units; sugars greater than 349,(9) units Lactobacillus Acidophilus (Lactinex) 1 Chew 1 TAB CHEW DAILY for Nutritional Supplement, #30 TAB 0 Refills Losartan (Losartan) 25 Mg Tab 25 MG PO DAILY for Blood Pressure Management, #30 TAB 0 Refills Oxygen (O2) (Oxygen (O2)) Device LITER LACIE.CANULA CONTINUOUS for Prevent Hypoxemia, #2 Oxygen Concentrator Portable Gaseous 2 L/min via Nasal Canula Continuous For 99 months Prednisone (21) 10 mg tab Dose Pack (Prednisone (21) 10 mg tab Dose Pack) 10 Mg Pack 10 MG PO DIRECTED for Inflammation, #1 DSPK 0 Refills Continued Medications: Albuterol 18 GM Inh (Ventolin Hfa 18 GM Inh) 90 Mcg/Act Aer 1 PUFF INH Q4H PRN for SHORTNESS OF BREATH, #1 INHALER 0 Refills Amlodipine (Amlodipine) 10 Mg Tab 10 MG PO DAILY for Blood Pressure Management, #30 TAB [address] (Aspirin Adult Low Strength) 81 Mg Tabdr 81 MG PO DAILY, TAB Bupropion HCl ER 24 HR (Wellbutrin Xl 24 HR) 300 Mg Tab 300 MG PO DAILY for Control Depression, TAB 0 Refills Fluticasone-Salmeterol Inh (Advair Diskus Inh) 500-50 Mcg/Blist Aer 1 PUFF INH BID, #1 INHALER 0 Refills Rinse mouth after use. Ipratropium-Albuterol Neb (Duoneb) 0.5-2.5 Mg/3 Ml Neb 1 NEBULE INH Q6HR PRN for SHORTNESS OF BREATH, #120 NEBULE 0 Refills Meloxicam (Meloxicam) 15 Mg Tab 15 MG PO DAILY for Arthritis Pain, #30 TAB 0 Refills Montelukast (Singulair) 10 Mg Tab 10 MG PO HS, #30 TAB 0 Refills Pramipexole (Pramipexole) 0.5 Mg Tab 0.5 MG PO HS for Parkinson Disease Mgmt, #30 TAB 0 Refills Prednisone (Prednisone) 10 Mg Tab 10 MG PO DAILY, TAB 0 Refills Simvastatin (Zocor) 40 Mg Tab 40 MG PO HS for Cholesterol Management, #30 TAB 0 Refills Discontinued Medications: Benzonatate (Tessalon Perles) 100 Mg Cap 100 MG PO TID PRN for COUGH, CAP 0 Refills Bumetanide (Bumetanide) 2 Mg Tab 2 MG PO DAILY, TAB 0 Refills Jossie Berrios MD Jun 27, 2017 09:16
--- NOTE | 2017-06-27 10:46 | HHI.PR ---
Subjective Remarks Still with shortness of breath. She is not comfortable to go home today. Denies chest pain. No no nausea, vomiting or diarrhea. Denies fever or chills. Objective Vitals Vital Signs Date Time Temp Pulse Resp B/P (MAP) Pulse Ox O2 Delivery O2 Flow Rate FiO2 06/27/17 09:01 94 Nasal Cannula 2.00 06/27/17 08:00 98.1 90 18 135/77 (96) 91 06/27/17 04:10 97 Nasal Cannula 3.00 06/27/17 04:00 97.5 53 20 135/79 (97) 97 06/27/17 00:26 98 Nasal Cannula 2.00 06/27/17 00:00 98.8 110 20 133/78 (96) 96 06/26/17 20:00 98.3 89 20 139/85 (103) 93 06/26/17 16:11 98.3 95 20 138/81 (100) 94 06/26/17 12:14 97.5 110 22 138/87 (104) 94 I/O 06/26/17 06/26/17 06/26/17 06/27/17 06/27/17 06/27/17 07:00 15:00 23:00 07:00 15:00 23:00 # Voids 2 2 4 # Bowel Movements 0 Result Diagram: 06/27/17 0659 06/27/17 0659 Imaging Last Impressions Chest X-Ray 06/23/17 0510 Signed Impressions: Service Date/Time: Friday, June 23, 2017 05:14 - CONCLUSION: No infiltrate seen. Pablo Lofton MD Lower Extremity Ultrasound 06/23/17 0000 Signed Impressions: Service Date/Time: Friday, June 23, 2017 12:24 - CONCLUSION: Normal examination. Pete Foster MD Objective Remarks GENERAL: This is a 71 yo pleasant AA female, obese, well-nourished, well- developed patient, in no apparent distress. CARDIOVASCULAR: Regular rate and rhythm without murmurs, gallops, or rubs. RESPIRATORY: Clear to auscultation. No accessory muscle use. Breath sounds are decreased. No wheezes, rales, or rhonchi. GASTROINTESTINAL: Abdomen soft, obese, ventral hernia, non-tender, nondistended. No guarding. MUSCULOSKELETAL: Extremities without clubbing, cyanosis, or edema. No joint tenderness, effusion, or edema noted. No calf tenderness. Negative Homans sign bilaterally. NEUROLOGICAL: Awake and alert. Cranial nerves II through XII intact. Motor and sensory grossly within normal limits. Five out of 5 muscle strength in all muscle groups. Normal speech. A/P Assessment and Plan 71-year-old female past medical history of COPD, hypertension, CHF who presented with shortness of breathing Acute on chronic Respiratory failure with hypoxia, now requiring continuous O2 at home. -Chest x-ray negative. Labs relatively stable. Most likely secondary to COPD exacerbation. See treatment as below. COPD exacerbation Chronic hypoxia dependent and oxygen at night, now requiring O2 during the day continuously -Chest x-ray negative. Labs review relatively stable. In emergency department patient has some wheezing in which she was given DuoNeb and solumedrol with great improvement in her symptoms. Taper steroids. Add ISS and accuchecks while on steroids. Will schedule DuoNeb's, when necessary albuterol. On soluMedrol, Rocephin and azithromycin. Continue supplemental oxygen to keep oxygen saturation above 80% . Continue to taper steroids as tolerated. Failed walk test, ordered portable O2 at home, CM ff. -Consult case management to see patient Can get a portable oxygen tank. -Continue to monitor clinically. -Follows with Dr. Amaya as outpatient pulmonary. - Added ISS and accuchecks as patient might require coverage while on steroids. Monitor BS - To f/u as OP with pulm, might need sleep study as patient with morbid obesity BMI of 44. -See treatment as above. MAGALIE: hold bumex start gentle hydration ns at42 cc. 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 Barahona per cardiology's. -Resume home medication. Monitor. Constipation . Add bowel regimen. Morbid obesity BMI of 44.1. Diet and exercise. 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 DVT prophylaxis -Lovenox. Discussed Condition With patient, nurse Discharge plan. Possible discharge tomorrow if kidney function improves. Case management ff for DC plan. Patient needs portable O2 at home, CM ff. Kidney function is worsening today, full. Start gentle IV fluids, monitor kidney indices, possible discharge tomorrow if improves Jossie Berrios MD 22, 2017 10:46
[2017-06-27] MEDS: ENOXAPARIN SODIUM 40 MG/0.4 ML SYRINGE SQ SCH (11:42)
[2017-06-27] MEDS: methylPREDNISolone SOD SUCC 40 MG/1 ML VIAL IV PUSH SCH (21:31)
[2017-06-27] MEDS: MONTELUKAST SODIUM 10 MG TAB PO SCH (21:31)
[2017-06-27] MEDS: PRAVASTATIN SOD 80 MG TAB PO SCH (21:31)
[2017-06-27] MEDS: PRAMIPEXOLE DIHYDROCHLORIDE 0.25 MG TAB PO SCH (21:32)
[2017-06-28] VITALS (8 sets, daily range): BP systolic 141–187; BP diastolic 75–109; PULSE 49–117; RESP 18–20; TEMP 97.5–98.6; O2SAT 95–99
[2017-06-28 06:58] LABS: AUTOMATED NEUTROPHIL # 8.4 TH/MM3 (1.8-7.7); BASOPHIL % 0.1 % (0.0-2.0); HEMATOCRIT 41.5 % (35.0-46.0); HEMO FLAGS DIFF FINAL; LYMPH % 7.6 % (9.0-44.0); LYMPHOCYTE # 0.7 TH/MM3 (1.0-4.8); MEAN CELL VOLUME 90.2 FL (80.0-100.0); MEAN CORPUSCULAR HEMOGLOBIN 29.4 PG (27.0-34.0); MEAN CORPUSCULAR HGB CONC 32.6 % (32.0-36.0); MONO % 4.2 % (0.0-8.0); NEUT % 88.1 % (16.0-70.0); PLATELET COUNT 182 TH/MM3 (150-450); RED BLOOD COUNT 4.61 MIL/MM3 (4.00-5.30); RED CELL DISTRIBUTION WIDTH 15.5 % (11.6-17.2); WHITE BLOOD COUNT 9.6 TH/MM3 (4.0-11.0)
[2017-06-28 07:06] LABS: BICARBONATE 35.2 MEQ/L (21.0-32.0); POTASSIUM 4.8 MEQ/L (3.5-5.1)
[2017-06-28] MEDS ORDERED: BUME1TAB PO (07:26)
[2017-06-28] MEDS: cefTRIAXone INJ 1,000 MG in SODIUM CHLORIDE 0.9% INJ 100 ML IV SCH (08:11)
[2017-06-28] MEDS: INSULIN ASPART SUPPLEMENTAL SCALE SQ SCH ×4 (08:11→20:46)
[2017-06-28] MEDS: methylPREDNISolone SOD SUCC 40 MG/1 ML VIAL IV PUSH SCH ×2 (08:12→20:47)
[2017-06-28] MEDS: buPROPion HCL 150 MG SUSTAINED RELEASE TAB PO SCH ×2 (08:12→20:48)
[2017-06-28] MEDS: BUMETANIDE 1 MG TAB PO SCH (08:12)
[2017-06-28] MEDS: SODIUM CHLORIDE 0.9% FLUSH 10 ML FLUSH IV FLUSH SCH ×2 (08:13→20:48)
[2017-06-28] MEDS: DOCUSATE SODIUM 50 MG/SENNA 8.6 MG TAB PO SCH ×2 (08:13→20:48)
[2017-06-28] MEDS: FLUTICASONE PROPIONATE 50 MCG/ACT 16 GM NASAL SPRAY NASAL SCH (08:22)
[2017-06-28] MEDS: ENOXAPARIN SODIUM 40 MG/0.4 ML SYRINGE SQ SCH (11:53)
--- NOTE | 2017-06-28 12:03 | HHI.PR ---
Subjective Remarks Feels tired. With sob can't do much. Doesn't feel well and is not comfortable to go home. Kidney function is improving. Patient want bumex restarted, will restart at lower dose. No fever or chills. With nonproductive cough. No n/v/d/c. Able to eat. Objective Vitals Vital Signs Date Time Temp Pulse Resp B/P (MAP) Pulse Ox O2 Delivery O2 Flow Rate FiO2 06/28/17 08:00 97.7 95 18 141/97 (112) 99 06/28/17 04:59 97.8 81 18 146/104 (118) 96 06/28/17 00:30 98.3 86 18 156/95 (115) 95 06/27/17 21:00 97.9 73 18 137/79 (98) 95 06/27/17 16:00 97.9 103 18 133/97 (109) 92 I/O 06/27/17 06/27/17 06/27/17 06/28/17 06/28/17 06/28/17 07:00 15:00 23:00 07:00 15:00 23:00 Intake Total 100 ml Balance 100 ml IV Total 100 ml # Voids 4 4 3 # Bowel Movements 2 Result Diagram: 06/28/17 0614 06/28/17 0614 Imaging Last Impressions Chest X-Ray 06/23/17 0510 Signed Impressions: Service Date/Time: Friday, June 23, 2017 05:14 - CONCLUSION: No infiltrate seen. Pablo Lofton MD Lower Extremity Ultrasound 06/23/17 0000 Signed Impressions: Service Date/Time: Friday, June 23, 2017 12:24 - CONCLUSION: Normal examination. Pete Foster MD Objective Remarks GENERAL: This is a 71 yo pleasant AA female, obese, well-nourished, well- developed patient, in no apparent distress. CARDIOVASCULAR: Regular rate and rhythm without murmurs, gallops, or rubs. RESPIRATORY: Clear to auscultation. No accessory muscle use. Breath sounds are decreased. No wheezes, rales, or rhonchi. GASTROINTESTINAL: Abdomen soft, obese, ventral hernia, non-tender, nondistended. No guarding. MUSCULOSKELETAL: Extremities without clubbing, cyanosis, or edema. No joint tenderness, effusion, or edema noted. No calf tenderness. Negative Homans sign bilaterally. NEUROLOGICAL: Awake and alert. Cranial nerves II through XII intact. Motor and sensory grossly within normal limits. Five out of 5 muscle strength in all muscle groups. Normal speech. A/P Assessment and Plan 71-year-old female past medical history of COPD, hypertension, CHF who presented with shortness of breathing Acute on chronic Respiratory failure with hypoxia, now requiring continuous O2 at home. -Chest x-ray negative. Labs relatively stable. Most likely secondary to COPD exacerbation. See treatment as below. COPD exacerbation Chronic hypoxia dependent and oxygen at night, now requiring O2 during the day continuously -Chest x-ray negative. Labs review relatively stable. In emergency department patient has some wheezing in which she was given DuoNeb and solumedrol with great improvement in her symptoms. Taper steroids. Add ISS and accuchecks while on steroids. Will schedule DuoNeb's, when necessary albuterol. On soluMedrol, Rocephin and azithromycin. Continue supplemental oxygen to keep oxygen saturation above 80% . Continue to taper steroids as tolerated. Failed walk test, ordered portable O2 at home, CM ff. -Consult case management to see patient Can get a portable oxygen tank. -Continue to monitor clinically. -Follows with Dr. Amaya as outpatient pulmonary. - Added ISS and accuchecks as patient might require coverage while on steroids. Monitor BS - To f/u as OP with pulm, might need sleep study as patient with morbid obesity BMI of 44. -See treatment as above. MAGALIE on CKD2: bumex 2 mg held, received gentle hydration ns at42 cc, DCd. Kidney function improving, restart bumex at 1 mg daily.Monitor kidney function. 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 Barahona per cardiology's. -Resume home medication. Monitor. Constipation . Add bowel regimen. Morbid obesity BMI of 44.1. Diet and exercise. 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 DVT prophylaxis -Lovenox. Discussed Condition With patient, nurse Discharge plan. Possible discharge tomorrow if kidney function improves. Case management ff for DC plan. Patient needs portable O2 at home, CM ff. Monitor kidney indices, possible discharge tomorrow if improves Jossie Berrios MD Jun 28, 2017 12:02
[2017-06-28] MEDS: hydrALAZINE HCL 10 MG TAB PO PRN (17:06)
[2017-06-28] MEDS: PRAMIPEXOLE DIHYDROCHLORIDE 0.25 MG TAB PO SCH (20:47)
[2017-06-28] MEDS: PRAVASTATIN SOD 80 MG TAB PO SCH (20:48)
[2017-06-28] MEDS: MONTELUKAST SODIUM 10 MG TAB PO SCH (20:48)
[2017-06-29 00:45] VITALS: BP 155/85; PULSE 82; RESP 18; TEMP 98; O2SAT 95
[2017-06-29] MEDS: hydrALAZINE HCL 10 MG TAB PO PRN (05:11)
[2017-06-29 05:41] VITALS: BP 193/98; PULSE 81; RESP 18; TEMP 98; O2SAT 96
[2017-06-29 08:00] VITALS: BP 143/91; PULSE 82; RESP 18; TEMP 97.6; O2SAT 98
[2017-06-29 08:27] LABS: AUTOMATED NEUTROPHIL # 8.9 TH/MM3 (1.8-7.7); HEMATOCRIT 43.4 % (35.0-46.0); HEMO FLAGS DIFF FINAL; LYMPH % 8.3 % (9.0-44.0); LYMPHOCYTE # 0.8 TH/MM3 (1.0-4.8); MEAN CELL VOLUME 90.8 FL (80.0-100.0); MEAN CORPUSCULAR HEMOGLOBIN 29.3 PG (27.0-34.0); MEAN CORPUSCULAR HGB CONC 32.3 % (32.0-36.0); MONO % 4.2 % (0.0-8.0); NEUT % 87.5 % (16.0-70.0); PLATELET COUNT 196 TH/MM3 (150-450); RED BLOOD COUNT 4.78 MIL/MM3 (4.00-5.30); RED CELL DISTRIBUTION WIDTH 15.1 % (11.6-17.2); WHITE BLOOD COUNT 10.2 TH/MM3 (4.0-11.0)
[2017-06-29 08:44] LABS: BICARBONATE 34.4 MEQ/L (21.0-32.0); POTASSIUM 4.5 MEQ/L (3.5-5.1)
[2017-06-29] MEDS: FLUTICASONE PROPIONATE 50 MCG/ACT 16 GM NASAL SPRAY NASAL SCH (09:00)
[2017-06-29] MEDS: SODIUM CHLORIDE 0.9% FLUSH 10 ML FLUSH IV FLUSH SCH ×2 (09:00→21:12)
[2017-06-29] MEDS: buPROPion HCL 150 MG SUSTAINED RELEASE TAB PO SCH ×2 (09:39→21:12)
[2017-06-29] MEDS: cefTRIAXone INJ 1,000 MG in SODIUM CHLORIDE 0.9% INJ 100 ML IV SCH (09:39)
[2017-06-29] MEDS: DOCUSATE SODIUM 50 MG/SENNA 8.6 MG TAB PO SCH ×2 (09:40→21:12)
[2017-06-29] MEDS: methylPREDNISolone SOD SUCC 40 MG/1 ML VIAL IV PUSH SCH (09:41)
[2017-06-29] MEDS: BUMETANIDE 1 MG TAB PO SCH (09:41)
[2017-06-29] MEDS: INSULIN ASPART SUPPLEMENTAL SCALE SQ SCH ×4 (09:42→21:00)
[2017-06-29] MEDS ORDERED: cloNIDine HCL 0.1 MG TAB PO PRN (09:45)
[2017-06-29] MEDS: ENOXAPARIN SODIUM 40 MG/0.4 ML SYRINGE SQ SCH (10:50)
--- NOTE | 2017-06-29 11:24 | HHI.PR ---
Subjective Remarks At the margin of the bed appears anxious. Her BP is elevated. No headache. No n/ v/d/c. Denies chest pain or sob. No fever ro chilsl. No much cough. Thinks her legs are getting swelled up. Feels tired and not comfortable to go home. Objective Vitals Vital Signs Date Time Temp Pulse Resp B/P (MAP) Pulse Ox O2 Delivery O2 Flow Rate FiO2 06/29/17 08:00 97.6 82 18 143/91 (108) 98 06/29/17 05:41 98.0 81 18 193/98 (129) 96 06/29/17 00:45 98.0 82 18 155/85 (108) 95 06/28/17 21:06 97.5 49 20 143/75 (97) 95 06/28/17 21:05 90 06/28/17 16:00 98.6 97 18 177/109 (131) 97 06/28/17 12:00 97.9 117 18 187/102 (130) 95 I/O 06/28/17 06/28/17 06/28/17 06/29/17 06/29/17 06/29/17 07:00 15:00 23:00 07:00 15:00 23:00 Intake Total 580 ml Balance 580 ml Intake Oral 480 ml IV Total 100 ml # Voids 3 4 # Bowel Movements 1 Result Diagram: 06/29/17 0725 06/29/17 0725 Imaging Last Impressions Chest X-Ray 06/23/17 0510 Signed Impressions: Service Date/Time: Friday, June 23, 2017 05:14 - CONCLUSION: No infiltrate seen. Pablo Lofton MD Lower Extremity Ultrasound 06/23/17 0000 Signed Impressions: Service Date/Time: Friday, June 23, 2017 12:24 - CONCLUSION: Normal examination. Pete Foster MD Objective Remarks GENERAL: This is a 71 yo pleasant AA female, obese, well-nourished, well- developed patient, in no apparent distress. CARDIOVASCULAR: Regular rate and rhythm without murmurs, gallops, or rubs. RESPIRATORY: Clear to auscultation. No accessory muscle use. Breath sounds are decreased. No wheezes, rales, or rhonchi. GASTROINTESTINAL: Abdomen soft, obese, ventral hernia, non-tender, nondistended. No guarding. MUSCULOSKELETAL: Extremities without clubbing, cyanosis. 1+ bilateral LE edema. No joint tenderness, effusion, or edema noted. No calf tenderness. Negative Homans sign bilaterally. NEUROLOGICAL: Awake and alert. Cranial nerves II through XII intact. Motor and sensory grossly within normal limits. Five out of 5 muscle strength in all muscle groups. Normal speech. A/P Assessment and Plan 71-year-old female past medical history of COPD, hypertension, CHF who presented with shortness of breathing Acute on chronic Respiratory failure with hypoxia, now requiring continuous O2 at home. -Chest x-ray negative. Labs relatively stable. Most likely secondary to COPD exacerbation. See treatment as below. COPD exacerbation Chronic hypoxia dependent and oxygen at night, now requiring O2 during the day continuously -Chest x-ray negative. Labs review relatively stable. In emergency department patient has some wheezing in which she was given DuoNeb and solumedrol with great improvement in her symptoms. Taper steroids. Add ISS and accuchecks while on steroids. Will schedule DuoNeb's, when necessary albuterol. On soluMedrol, Rocephin and azithromycin. Continue supplemental oxygen to keep oxygen saturation above 80% . Continue to taper steroids as tolerated. Failed walk test, ordered portable O2 at home, CM ff. -Consult case management to see patient Can get a portable oxygen tank. -Continue to monitor clinically. -Follows with Dr. Amaya as outpatient pulmonary. - Added ISS and accuchecks as patient might require coverage while on steroids. Monitor BS - To f/u as OP with pulm, might need sleep study as patient with morbid obesity BMI of 44. -See treatment as above. Hypertension is not controlled at this time. Continue home meds. Add losartan . Add hydralazine and clonidine PRN for pain. No beta rolando as patient with severe COPD. MAGALIE on CKD2: bumex 2 mg held, briefly received gentle hydration ns at42 cc- DCd. Kidney function improving, restart bumex at 1 mg daily.Monitor kidney function. Do kidney US. 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 More anxious will aff prn xanax CHF stable and follows with Dr. Barahoan per cardiology's. -Resume home medication. Monitor. Constipation . Add bowel regimen. Morbid obesity BMI of 44.1. Diet and exercise. 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 DVT prophylaxis -Lovenox. Discussed Condition With patient, nurse Discharge plan. Possible discharge tomorrow if kidney function improves. Case management ff for DC plan. Patient needs portable O2 at home, CM ff and is arranged per case management. Patient has O2 at night at home already. Monitor kidney indices, possible discharge tomorrow if improves and if BP better controlled. Follow up kidney US Jossie Berrios MD Jun 29, 2017 11:24
[2017-06-29] MEDS ORDERED: LOSA25TA PO (11:26)
[2017-06-29] MEDS ORDERED: ALPRAZolam 0.25 MG TAB PO PRN (11:30)
[2017-06-29 12:00] VITALS: BP 148/70; PULSE 81; RESP 18; TEMP 97.9; O2SAT 99
--- NOTE | 2017-06-29 12:01 | RADRPT ---
EXAM DATE/TIME: 06/29/2017 11:31 [facility] COMPARISON: US KIDNEY/RENAL/BLADDER, November 16, 2016, 14:38. INDICATIONS : Increased BUN/creatinine. MEDICAL HISTORY : Congestive heart failure. Hypercholesterolemia. Hernia, hiatal. Cataracts. Migraines. Chest pain. Bee b. HTN. COPD. Asthma. Sleep apnea. Dyspnea. GERD. Arthritis. Diabetes. Depression. Anxiety. SURGICAL HISTORY : Hysterectomy. Cardiac cath. Right foot bunion removed. Blood transfusions. ENCOUNTER: Initial ACUITY: 1 day PAIN SCORE: 0/10 LOCATION: Bilateral flank MEASUREMENTS: RIGHT KIDNEY: 9.1 x 4.5 x 4.7 cm LEFT KIDNEY: 10.0 x 4.4 x 6.3 cm FINDINGS: RIGHT KIDNEY: Renal cortex is normal in thickness and echotexture. No hydronephrosis, stone, or mass. LEFT KIDNEY: Renal cortex is normal in thickness and echotexture. No hydronephrosis, stone, or mass. BLADDER: Within normal limits given the degree of distension. CONCLUSION: Normal examination. Camilo Sims MD on June 29, 2017 at 11:58 Board Certified Radiologist. This report was verified electronically.
[2017-06-29] MEDS: LOSARTAN 25 MG TAB PO SCH (12:43)
[2017-06-29 16:00] VITALS: BP 135/98; PULSE 82; RESP 18; TEMP 97.8; O2SAT 99
[2017-06-29 20:00] VITALS: BP 104/75; PULSE 70; RESP 20; TEMP 97.8; O2SAT 98
[2017-06-29] MEDS: MONTELUKAST SODIUM 10 MG TAB PO SCH (21:12)
[2017-06-29] MEDS: PRAVASTATIN SOD 80 MG TAB PO SCH (21:12)
[2017-06-29] MEDS: PRAMIPEXOLE DIHYDROCHLORIDE 0.25 MG TAB PO SCH (21:13)
[2017-06-30] VITALS: BP 101/55; PULSE 68; RESP 20; TEMP 97.4; O2SAT 94
[2017-06-30 04:00] VITALS: BP 113/67; PULSE 94; RESP 20; TEMP 97.6; O2SAT 98
[2017-06-30] MEDS: INSULIN ASPART SUPPLEMENTAL SCALE SQ SCH ×4 (08:00→21:26)
[2017-06-30] MEDS: SODIUM CHLORIDE 0.9% FLUSH 10 ML FLUSH IV FLUSH SCH ×2 (08:20→21:29)
[2017-06-30] MEDS: LOSARTAN 25 MG TAB PO SCH (08:21)
[2017-06-30] MEDS: DOCUSATE SODIUM 50 MG/SENNA 8.6 MG TAB PO SCH ×2 (08:21→21:25)
[2017-06-30] MEDS: BUMETANIDE 1 MG TAB PO SCH (08:21)
[2017-06-30] MEDS: methylPREDNISolone SOD SUCC 40 MG/1 ML VIAL IV PUSH SCH (08:21)
[2017-06-30] MEDS: buPROPion HCL 150 MG SUSTAINED RELEASE TAB PO SCH ×2 (08:21→21:26)
[2017-06-30] MEDS: FLUTICASONE PROPIONATE 50 MCG/ACT 16 GM NASAL SPRAY NASAL SCH (08:22)
[2017-06-30 08:31] VITALS: BP 146/74; PULSE 76; RESP 20; TEMP 98.1; O2SAT 97
--- NOTE | 2017-06-30 10:21 | HHI.PR ---
Subjective Remarks patient stable not ready to go home until she goes with her Portable Oxygen concentrator, was discussed with nurse and with charge nurse and shoe caser not yet arrangements performed. No nausea, vomit or diarrhea. Objective Vital Signs Date Time Temp Pulse Resp B/P (MAP) Pulse Ox O2 Delivery O2 Flow Rate FiO2 06/30/17 08:31 98.1 76 20 146/74 (98) 97 06/30/17 04:00 97.6 94 20 113/67 (82) 98 06/30/17 00:00 97.4 68 20 101/55 (70) 94 06/29/17 20:00 97.8 70 20 104/75 (85) 98 06/29/17 16:00 97.8 82 18 135/98 (110) 99 06/29/17 12:00 97.9 81 18 148/70 (96) 99 I/O 06/29/17 06/29/17 06/29/17 06/30/17 06/30/17 06/30/17 07:00 15:00 23:00 07:00 15:00 23:00 Intake Total 240 ml Balance 240 ml Intake Oral 240 ml # Voids 1 2 Result Diagram: 06/29/17 0725 06/29/17 0725 Imaging Last Impressions Renal Ultrasound 06/29/17 0000 Signed Impressions: Service Date/Time: Thursday, June 29, 2017 11:31 - CONCLUSION: Normal examination. Camilo Sims MD Chest X-Ray 06/23/17 0510 Signed Impressions: Service Date/Time: Friday, June 23, 2017 05:14 - CONCLUSION: No infiltrate seen. Pablo Lofton MD Lower Extremity Ultrasound 06/23/17 0000 Signed Impressions: Service Date/Time: Friday, June 23, 2017 12:24 - CONCLUSION: Normal examination. Pete Foster MD Procedures None Other Results Laboratory Tests Test 06/23/17 05:15 06/29/17 07:25 Blood Urea Nitrogen 17 MG/DL 42 MG/DL Creatinine 1.08 MG/DL 1.49 MG/DL Random Glucose 128 MG/DL 202 MG/DL Total Protein 8.0 GM/DL Albumin 3.4 GM/DL Calcium Level 9.1 MG/DL 8.6 MG/DL Alkaline Phosphatase 103 U/L Aspartate Amino Transf (AST/SGOT) 15 U/L Alanine Aminotransferase (ALT/SGPT) 19 U/L Total Bilirubin 0.4 MG/DL Sodium Level 139 MEQ/L 135 MEQ/L Potassium Level 4.0 MEQ/L 4.5 MEQ/L Chloride Level 97 MEQ/L 95 MEQ/L Carbon Dioxide Level 36.1 MEQ/L 34.4 MEQ/L Total Creatine Kinase 110 U/L Creatine Kinase MB 1.4 NG/ML Troponin I 0.03 NG/ML B-Type Natriuretic Peptide 276 PG/ML White Blood Count 10.2 TH/MM3 Red Blood Count 4.78 MIL/MM3 Hemoglobin 14.0 GM/DL Hematocrit 43.4 % Mean Corpuscular Volume 90.8 FL Mean Corpuscular Hemoglobin 29.3 PG Mean Corpuscular Hemoglobin Concent 32.3 % Red Cell Distribution Width 15.1 % Platelet Count 196 TH/MM3 Mean Platelet Volume 10.3 FL Neutrophils (%) (Auto) 87.5 % Lymphocytes (%) (Auto) 8.3 % Monocytes (%) (Auto) 4.2 % Eosinophils (%) (Auto) 0.0 % Basophils (%) (Auto) 0.0 % Neutrophils # (Auto) 8.9 TH/MM3 Lymphocytes # (Auto) 0.8 TH/MM3 Monocytes # (Auto) 0.4 TH/MM3 Eosinophils # (Auto) 0.0 TH/MM3 Basophils # (Auto) 0.0 TH/MM3 CBC Comment DIFF FINAL Differential Comment Anion Gap 6 MEQ/L Estimat Glomerular Filtration Rate 42 ML/MIN Objective Remarks GENERAL: This is a 71 yo pleasant AA female, obese, well-nourished, well- developed patient, in no apparent distress. CARDIOVASCULAR: Regular rate and rhythm without murmurs, gallops, or rubs. RESPIRATORY: Clear to auscultation. No accessory muscle use. Breath sounds are decreased. No wheezes, rales, or rhonchi. GASTROINTESTINAL: Abdomen soft, obese, ventral hernia, non-tender, nondistended. No guarding. MUSCULOSKELETAL: Extremities without clubbing, cyanosis. 1+ bilateral LE edema. No joint tenderness, effusion, or edema noted. No calf tenderness. Negative Homans sign bilaterally. NEUROLOGICAL: Awake and alert. Cranial nerves II through XII intact. Motor and sensory grossly within normal limits. Five out of 5 muscle strength in all muscle groups. Normal speech. Medications and IVs Current Medications Medications (Trade) Dose Ordered Sig/[place] Route Start Time Stop Time Status Last Admin (NS Flush) 2 ml BID IV FLUSH 06/23/17 09:00 06/30/17 08:20 (NS Flush) 2 ml UNSCH PRN IV FLUSH 06/23/17 07:30 (Albuterol Neb) 2.5 mg Q2HR NEB PRN INH 06/23/17 07:30 (Norvasc) 10 mg DAILY PO 06/23/17 09:00 06/30/17 08:21 (Singulair) 10 mg HS PO 06/23/17 21:00 06/29/17 21:12 (Mirapex) 0.5 mg HS PO 06/23/17 21:00 06/29/17 21:13 (Pravachol) 80 mg HS PO 06/23/17 21:00 06/29/17 21:12 (Wellbutrin Sr) 150 mg BID PO 06/23/17 10:00 06/30/17 08:21 (Lovenox Inj) 40 mg Q24H SQ 06/23/17 12:00 06/29/17 10:50 (Tylenol) 500 mg Q4H PRN PO 06/23/17 12:15 06/27/17 05:19 (D50w (Vial) Inj) 50 ml UNSCH PRN IV PUSH 06/24/17 13:00 (Glucagon Inj) 1 mg UNSCH PRN OTHER 06/24/17 13:00 (NovoLOG SUPPLEMENTAL SCALE) 1 ACHS SLIDING SCALE SQ 06/24/17 17:00 06/29/17 17:46 (Narcan Inj) 0.4 mg UNSCH PRN IV PUSH 06/25/17 11:45 (Idalmis-Colace) 1 tab BID PO 06/25/17 21:00 06/30/17 08:21 (Milk Of Magnesia Liq) 30 ml Q12H PRN PO 06/25/17 11:45 (Senokot) 17.2 mg Q12H PRN PO 06/25/17 11:45 06/25/17 17:50 (Dulcolax Supp) 10 mg DAILY PRN RECTAL 06/25/17 11:45 (Lactulose Liq) 30 ml DAILY PRN PO 06/25/17 11:45 (Flonase Justen Spr) 2 spray DAILY NASAL 06/26/17 09:00 06/30/17 08:22 ([place] Justen [place]) 2 spray Q4H PRN EACH NARE 06/25/17 12:00 (Bumetanide) 1 mg DAILY PO 06/28/17 09:00 06/30/17 08:21 (Apresoline) 10 mg Q6HR PRN PO 06/28/17 16:45 06/29/17 05:11 (Catapres) 0.1 mg Q6H PRN PO 06/29/17 09:45 (Xanax) 0.25 mg Q8H PRN PO 06/29/17 11:30 (SoluMEDROL INJ) 40 mg DAILY IV PUSH 06/30/17 09:00 06/30/17 08:21 (Cozaar) 25 mg DAILY PO 06/29/17 11:30 06/30/17 08:21 A/P Assessment and Plan 71-year-old female past medical history of COPD, hypertension, CHF who presented with shortness of breathing Acute on chronic Respiratory failure with hypoxia, now requiring continuous O2 at home. -Chest x-ray negative. Labs relatively stable. Most likely secondary to COPD exacerbation. See treatment as below. COPD exacerbation Chronic hypoxia dependent and oxygen at night, now requiring O2 during the day continuously -Chest x-ray negative. Labs review relatively stable. In emergency department patient has some wheezing in which she was given DuoNeb and solumedrol with great improvement in her symptoms. Taper steroids. Add ISS and accuchecks while on steroids. Will schedule DuoNeb's, when necessary albuterol. On soluMedrol, Rocephin and azithromycin. Continue supplemental oxygen to keep oxygen saturation above 80% . Continue to taper steroids as tolerated. Failed walk test, ordered portable O2 at home, CM ff. -Consult case management to see patient Can get a portable oxygen tank. -Continue to monitor clinically. -Follows with Dr. Amaya as outpatient pulmonary. - Added ISS and accuchecks as patient might require coverage while on steroids. Monitor BS - To f/u as OP with pulm, might need sleep study as patient with morbid obesity BMI of 44. -See treatment as above. Hypertension is not controlled at this time. Continue home meds. Add losartan . Add hydralazine and clonidine PRN for pain. No beta rolando as patient with severe COPD. MAGALIE on CKD2: bumex 2 mg held, briefly received gentle hydration ns at42 cc- DCd. Kidney function improving, restart bumex at 1 mg daily.Monitor kidney function. Do kidney US. 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 More anxious will aff prn xanax CHF stable and follows with Dr. Barahona per cardiology's. -Resume home medication. Monitor. Constipation . Add bowel regimen. Morbid obesity BMI of 44.1. Diet and exercise. to f/u as OP with PC{p , account analyst , might consider bariatric surgery. DVT prophylaxis -Lovenox. Discussed Condition With patient, nurse and top case assembler Discharge Planning Discharge plan. will follow renal function again in am tomorrow Case management ff for DC plan. Patient needs portable O2 at home, CM ff and is arranged per case management. Patient has O2 at night at home already. Ac Nichole MD Jun 30, 2017 10:21
[2017-06-30] MEDS: ENOXAPARIN SODIUM 40 MG/0.4 ML SYRINGE SQ SCH (12:11)
[2017-06-30 12:15] VITALS: BP 153/90; PULSE 100; RESP 20; TEMP 97.8; O2SAT 98
[2017-06-30 15:59] VITALS: BP 113/65; PULSE 114; RESP 20; TEMP 97.6; O2SAT 98
[2017-06-30 20:00] VITALS: BP 134/99; PULSE 67; RESP 17; TEMP 97.6; O2SAT 95
[2017-06-30] MEDS: PRAVASTATIN SOD 80 MG TAB PO SCH (21:25)
[2017-06-30] MEDS: MONTELUKAST SODIUM 10 MG TAB PO SCH (21:25)
[2017-06-30] MEDS: PRAMIPEXOLE DIHYDROCHLORIDE 0.25 MG TAB PO SCH (21:26)
[2017-07-01] VITALS: BP 112/77; PULSE 74; RESP 16; TEMP 98.2; O2SAT 98
[2017-07-01 04:00] VITALS: BP 120/80; PULSE 72; RESP 16; TEMP 97.7; O2SAT 92
[2017-07-01] MEDS: INSULIN ASPART SUPPLEMENTAL SCALE SQ SCH ×4 (08:00→22:51)
[2017-07-01 08:08] VITALS: BP 153/65; PULSE 92; RESP 20; TEMP 98.3; O2SAT 94
[2017-07-01] MEDS: FLUTICASONE PROPIONATE 50 MCG/ACT 16 GM NASAL SPRAY NASAL SCH (09:08)
[2017-07-01] MEDS: LOSARTAN 25 MG TAB PO SCH (09:09)
[2017-07-01] MEDS: buPROPion HCL 150 MG SUSTAINED RELEASE TAB PO SCH ×2 (09:09→22:39)
[2017-07-01] MEDS: BUMETANIDE 1 MG TAB PO SCH (09:09)
[2017-07-01] MEDS: methylPREDNISolone SOD SUCC 40 MG/1 ML VIAL IV PUSH SCH (09:09)
[2017-07-01] MEDS: DOCUSATE SODIUM 50 MG/SENNA 8.6 MG TAB PO SCH ×2 (09:10→22:39)
[2017-07-01] MEDS: SODIUM CHLORIDE 0.9% FLUSH 10 ML FLUSH IV FLUSH SCH ×2 (09:10→22:43)
[2017-07-01 11:49] VITALS: BP 122/71; PULSE 101; RESP 20; TEMP 97.6; O2SAT 93
[2017-07-01] MEDS: ENOXAPARIN SODIUM 40 MG/0.4 ML SYRINGE SQ SCH (12:22)
--- NOTE | 2017-07-01 15:38 | HHI.PR ---
Subjective Remarks Patient seen in her bedroom, taken new BMP for today, not improving her renal function on new BMP taken will get evaluation by Nephrology specialist also removed her IV Solu-Medrol and will continue her home dosages of steroids, optimized Insulin management for her Diabetes Mellitus. Objective Vital Signs Date Time Temp Pulse Resp B/P (MAP) Pulse Ox O2 Delivery O2 Flow Rate FiO2 07/01/17 11:49 97.6 101 20 122/71 (88) 93 07/01/17 08:08 98.3 92 20 153/65 (94) 94 07/01/17 04:00 97.7 72 16 120/80 (93) 92 07/01/17 00:00 98.2 74 16 112/77 (89) 98 06/30/17 20:00 97.6 67 17 134/99 (111) 95 06/30/17 15:59 97.6 114 20 113/65 (81) 98 I/O 06/30/17 06/30/17 06/30/17 07/01/17 07/01/17 07/01/17 07:00 15:00 23:00 07:00 15:00 23:00 Intake Total 960 ml 1320 ml Balance 960 ml 1320 ml Intake Oral 960 ml 1320 ml # Voids 2 3 4 Result Diagram: 06/29/17 0725 07/01/17 1057 Imaging Last Impressions Renal Ultrasound 06/29/17 0000 Signed Impressions: Service Date/Time: Thursday, June 29, 2017 11:31 - CONCLUSION: Normal examination. Camilo Sims MD Chest X-Ray 06/23/17 0510 Signed Impressions: Service Date/Time: Friday, June 23, 2017 05:14 - CONCLUSION: No infiltrate seen. Pablo Lofton MD Lower Extremity Ultrasound 06/23/17 0000 Signed Impressions: Service Date/Time: Friday, June 23, 2017 12:24 - CONCLUSION: Normal examination. Pete Foster MD Procedures None Other Results Laboratory Tests Test 06/23/17 05:15 06/29/17 07:25 07/01/17 10:57 Blood Urea Nitrogen 17 MG/DL 40 MG/DL Creatinine 1.08 MG/DL 1.64 MG/DL Random Glucose 128 MG/DL 305 MG/DL Total Protein 8.0 GM/DL Albumin 3.4 GM/DL Calcium Level 9.1 MG/DL 8.0 MG/DL Alkaline Phosphatase 103 U/L Aspartate Amino Transf (AST/SGOT) 15 U/L Alanine Aminotransferase (ALT/SGPT) 19 U/L Total Bilirubin 0.4 MG/DL Sodium Level 139 MEQ/L 137 MEQ/L Potassium Level 4.0 MEQ/L 4.0 MEQ/L Chloride Level 97 MEQ/L 96 MEQ/L Carbon Dioxide Level 36.1 MEQ/L 36.0 MEQ/L Total Creatine Kinase 110 U/L Creatine Kinase MB 1.4 NG/ML Troponin I 0.03 NG/ML B-Type Natriuretic Peptide 276 PG/ML White Blood Count 10.2 TH/MM3 Red Blood Count 4.78 MIL/MM3 Hemoglobin 14.0 GM/DL Hematocrit 43.4 % Mean Corpuscular Volume 90.8 FL Mean Corpuscular Hemoglobin 29.3 PG Mean Corpuscular Hemoglobin Concent 32.3 % Red Cell Distribution Width 15.1 % Platelet Count 196 TH/MM3 Mean Platelet Volume 10.3 FL Neutrophils (%) (Auto) 87.5 % Lymphocytes (%) (Auto) 8.3 % Monocytes (%) (Auto) 4.2 % Eosinophils (%) (Auto) 0.0 % Basophils (%) (Auto) 0.0 % Neutrophils # (Auto) 8.9 TH/MM3 Lymphocytes # (Auto) 0.8 TH/MM3 Monocytes # (Auto) 0.4 TH/MM3 Eosinophils # (Auto) 0.0 TH/MM3 Basophils # (Auto) 0.0 TH/MM3 CBC Comment DIFF FINAL Differential Comment Anion Gap 5 MEQ/L Estimat Glomerular Filtration Rate 37 ML/MIN Objective Remarks GENERAL: This is a 71 yo pleasant AA female, obese, well-nourished, well- developed patient, in no apparent distress. CARDIOVASCULAR: Regular rate and rhythm without murmurs, gallops, or rubs. RESPIRATORY: Clear to auscultation. No accessory muscle use. Breath sounds are decreased. No wheezes, rales, or rhonchi. GASTROINTESTINAL: Abdomen soft, obese, ventral hernia, non-tender, nondistended. No guarding. MUSCULOSKELETAL: Extremities without clubbing, cyanosis. Edema 2+ NEUROLOGICAL: Awake and alert. Cranial nerves II through XII intact. Motor and sensory grossly within normal limits. Five out of 5 muscle strength in all muscle groups. Normal speech. Medications and IVs Current Medications Medications (Trade) Dose Ordered Sig/[place] Route Start Time Stop Time Status Last Admin (NS Flush) 2 ml BID IV FLUSH 06/23/17 09:00 07/01/17 09:10 (NS Flush) 2 ml UNSCH PRN IV FLUSH 06/23/17 07:30 (Albuterol Neb) 2.5 mg Q2HR NEB PRN INH 06/23/17 07:30 (Norvasc) 10 mg DAILY PO 06/23/17 09:00 07/01/17 09:09 (Singulair) 10 mg HS PO 06/23/17 21:00 06/30/17 21:25 (Mirapex) 0.5 mg HS PO 06/23/17 21:00 06/30/17 21:26 (Pravachol) 80 mg HS PO 06/23/17 21:00 06/30/17 21:25 (Wellbutrin Sr) 150 mg BID PO 06/23/17 10:00 07/01/17 09:09 (Lovenox Inj) 40 mg Q24H SQ 06/23/17 12:00 07/01/17 12:22 (Tylenol) 500 mg Q4H PRN PO 06/23/17 12:15 06/27/17 05:19 (D50w (Vial) Inj) 50 ml UNSCH PRN IV PUSH 06/24/17 13:00 (Glucagon Inj) 1 mg UNSCH PRN OTHER 06/24/17 13:00 (NovoLOG SUPPLEMENTAL SCALE) 1 ACHS SLIDING SCALE SQ 06/24/17 17:00 07/01/17 12:23 (Narcan Inj) 0.4 mg UNSCH PRN IV PUSH 06/25/17 11:45 (Idalmis-Colace) 1 tab BID PO 06/25/17 21:00 07/01/17 09:10 (Milk Of Magnesia Liq) 30 ml Q12H PRN PO 06/25/17 11:45 (Senokot) 17.2 mg Q12H PRN PO 06/25/17 11:45 06/25/17 17:50 (Dulcolax Supp) 10 mg DAILY PRN RECTAL 06/25/17 11:45 (Lactulose Liq) 30 ml DAILY PRN PO 06/25/17 11:45 (Flonase Justen Spr) 2 spray DAILY NASAL 06/26/17 09:00 07/01/17 09:08 ([place] Justen [place]) 2 spray Q4H PRN EACH NARE 06/25/17 12:00 (Bumetanide) 1 mg DAILY PO 06/28/17 09:00 07/01/17 09:09 (Apresoline) 10 mg Q6HR PRN PO 06/28/17 16:45 06/29/17 05:11 (Catapres) 0.1 mg Q6H PRN PO 06/29/17 09:45 (Xanax) 0.25 mg Q8H PRN PO 06/29/17 11:30 (SoluMEDROL INJ) 40 mg DAILY IV PUSH 06/30/17 09:00 07/01/17 09:09 (Cozaar) 25 mg DAILY PO 06/29/17 11:30 07/01/17 09:09 A/P Assessment and Plan 71-year-old female past medical history of COPD, hypertension, CHF who presented with shortness of breathing Acute on chronic Respiratory failure with hypoxia, now requiring continuous O2 at home. -Chest x-ray negative. Labs relatively stable. Most likely secondary to COPD exacerbation. COPD exacerbation Chronic hypoxia dependent and oxygen at night, now requiring O2 during the day continuously -Chest x-ray negative. Improving on Steroids, at this time on Solu-Medrol but her -Discussed with manager concrete Oxygen Concentrator ready for the patient. -Continue to monitor clinically. -Follows with Dr. Amaya as outpatient pulmonary. - continue sliding scale while on steroids, also removed IV Solu-Medrol and will continue Prednisone. Morbid Obesity strongly recommended diet and exercise. Hypertension controlled but will need to be off diuretics and ARBs while improve her renal function. 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 More anxious will aff prn xanax CHF stable and follows with Dr. Barahona per cardiology's. -on hold diuretics at this time and following Nephrology recommendations. Constipation . Add bowel regimen. Morbid obesity BMI of 44.1. Diet and exercise. to f/u as OP with PC{p , pedorthist , might consider bariatric surgery. DVT prophylaxis -Lovenox. Discussed Condition With patient, nurse and case operator Discharge Planning patient ready from Anaesthesiologist found for her an oxygen concentrator but her renal function is worsening, on hold again her ARB and diuretics and will follow specialist recommendations. Ac Nichole MD Jul 01, 2017 15:38
[2017-07-01 16:20] VITALS: BP 110/67; PULSE 95; RESP 20; TEMP 97.6; O2SAT 95
--- NOTE | 2017-07-01 16:26 | PD.CONS ---
HPI Service Nephrology Consult Requested By Dr. Reed Reason for Consult CKD/MAGALIE Primary Care Physician Tomy Velazquez MD History of Present Illness Patient is a 71-year-old female who has chronic kidney disease , diabetes, congestive heart failure, morbid obesity, asthma she came in with increasing shortness of breath and peripheral edema, patient states that she was diagnosed with congestive heart failure in November and at that time her kidneys were weak, patient was discharged and came back in with increasing shortness of breath and febrile edema and was placed on Bumex which was stopped today as creatinine is around 1.6, old records showed her creatinine fluctuated between 1.02-1.6 and his creatinine is around her baseline patient has echocardiogram done in November which showed EF of 55% she has a mild mitral regurgitation. Review of Systems Constitutional: COMPLAINS OF: Fatigue Respiratory: COMPLAINS OF: Shortness of breath Cardiovascular: COMPLAINS OF: Dyspnea on Exertion, Lower Extremity Edema Psychiatric: COMPLAINS OF: Anxiety Past Family Social History Allergies: Coded Allergies: aspirin (Verified Allergy, Intermediate, HALLICINATIONS, 06/23/17) lactose (Verified Allergy, Intermediate, 06/23/17) oxycodone (Verified Allergy, Intermediate, HALLICINATIONS, 06/23/17) Past Medical History Diabetes Chronic kidney disease Hypertension Obesity Asthma Peripheral edema Hyperlipidemia GLO Osteoarthritis Past Surgical History Right foot callus removal Bunion surgery Hysterectomy Reported Medications Reported Meds & Active Scripts Active Losartan (Losartan Potassium) 25 Mg Tab 25 Mg PO DAILY Bumetanide 1 Mg Tab 1 Mg PO DAILY Novolog Inj (Insulin Aspart) 1,000 Unit/10 Ml Vial 1-9 Units SQ ACHS Max dose at bedtime:( )units; sugars less than 70,(0)units; sugars 150-199,(1) unit; sugars 200-249,(3) units; sugars 250-299,(5) units; sugars 300-349,(7) units; sugars greater than 349,(9) units Lactinex (Lactobacillus Acidophilus) 1 Chew 1 Tab CHEW DAILY Prednisone (21) 10 mg tab Dose Pack (Prednisone) 10 Mg Pack 10 Mg PO DIRECTED Oxygen (O2) Device Liter LACIE.CANULA CONTINUOUS Oxygen Concentrator Portable Gaseous 2 L/min via Nasal Canula Continuous For 99 months Reported Advair Diskus Inh (Fluticasone-Salmeterol Inh) 500-50 Mcg/Blist Aer 1 Puff INH BID Rinse mouth after use. Singulair (Montelukast Sodium) 10 Mg Tab 10 Mg PO HS Meloxicam 15 Mg Tab 15 Mg PO DAILY Bumetanide 2 Mg Tab 2 Mg PO DAILY Prednisone 10 Mg Tab 10 Mg PO DAILY Tessalon Perles (Benzonatate) 100 Mg Cap 100 Mg PO TID PRN Duoneb (Ipratropium-Albuterol Neb) 0.5-2.5 Mg/3 Ml Neb 1 Nebule INH Q6HR PRN Ventolin Hfa 18 GM Inh (Albuterol Sulfate) 90 Mcg/Act Aer 1 Puff INH Q4H PRN Zocor (Simvastatin) 40 Mg Tab 40 Mg PO HS Pramipexole (Pramipexole Dihydrochloride) 0.5 Mg Tab 0.5 Mg PO HS Wellbutrin Xl 24 HR (Bupropion HCl) 300 Mg Tab 300 Mg PO DAILY Amlodipine (Amlodipine Besylate) 10 Mg Tab 10 Mg PO DAILY Aspirin Adult Low Strength (Aspirin) 81 Mg Tabdr 81 Mg PO DAILY Active Ordered Medications Current Medications Medications (Trade) Dose Ordered Sig/[place] Route Start Time Stop Time Status Last Admin (NS Flush) 2 ml BID IV FLUSH 06/23/17 09:00 07/01/17 09:10 (NS Flush) 2 ml UNSCH PRN IV FLUSH 06/23/17 07:30 (Albuterol Neb) 2.5 mg Q2HR NEB PRN INH 06/23/17 07:30 (Norvasc) 10 mg DAILY PO 06/23/17 09:00 07/01/17 09:09 (Singulair) 10 mg HS PO 06/23/17 21:00 06/30/17 21:25 (Mirapex) 0.5 mg HS PO 06/23/17 21:00 06/30/17 21:26 (Pravachol) 80 mg HS PO 06/23/17 21:00 06/30/17 21:25 (Wellbutrin Sr) 150 mg BID PO 06/23/17 10:00 07/01/17 09:09 (Tylenol) 500 mg Q4H PRN PO 06/23/17 12:15 06/27/17 05:19 (D50w (Vial) Inj) 50 ml UNSCH PRN IV PUSH 06/24/17 13:00 (Glucagon Inj) 1 mg UNSCH PRN OTHER 06/24/17 13:00 (Narcan Inj) 0.4 mg UNSCH PRN IV PUSH 06/25/17 11:45 (Idalmis-Colace) 1 tab BID PO 06/25/17 21:00 07/01/17 09:10 (Milk Of Magnesia Liq) 30 ml Q12H PRN PO 06/25/17 11:45 (Senokot) 17.2 mg Q12H PRN PO 06/25/17 11:45 06/25/17 17:50 (Dulcolax Supp) 10 mg DAILY PRN RECTAL 06/25/17 11:45 (Lactulose Liq) 30 ml DAILY PRN PO 06/25/17 11:45 (Flonase [place] Spr) 2 spray DAILY NASAL 06/26/17 09:00 07/01/17 09:08 ([place]) 2 spray Q4H PRN EACH NARE 06/25/17 12:00 (Apresoline) 10 mg Q6HR PRN PO 06/28/17 16:45 06/29/17 05:11 (Catapres) 0.1 mg Q6H PRN PO 06/29/17 09:45 (Xanax) 0.25 mg Q8H PRN PO 06/29/17 11:30 (NovoLOG SUPPLEMENTAL SCALE) 1 ACHS SLIDING SCALE SQ 07/01/17 17:00 (Lovenox Inj) 30 mg Q24H SQ 07/02/17 12:00 (Deltasone) 30 mg DAILY PO 07/02/17 09:00 (NovoLOG INJ) 3 units TIDAC SQ 07/01/17 17:00 Family History Positive for diabetes in mother's side who from complications Social History Denies smoking or alcohol use Physical Exam Vital Signs Vital Signs Date Time Temp Pulse Resp B/P (MAP) Pulse Ox O2 Delivery O2 Flow Rate FiO2 07/01/17 11:49 97.6 101 20 122/71 (88) 93 07/01/17 08:08 98.3 92 20 153/65 (94) 94 07/01/17 04:00 97.7 72 16 120/80 (93) 92 07/01/17 00:00 98.2 74 16 112/77 (89) 98 06/30/17 20:00 97.6 67 17 134/99 (111 95 Physical Exam GENERAL: Well-nourished, well-developed patient. SKIN: Warm and dry. HEAD: Normocephalic. EYES: No scleral icterus. No injection or drainage. NECK: Supple, trachea midline. No JVD or lymphadenopathy. CARDIOVASCULAR: Regular rate and rhythm 2/6 systolic murmurs, gallops, or rubs. RESPIRATORY: Breath sounds diminished at bases GASTROINTESTINAL: Abdomen soft, non-tender, nondistended. EXTREMITIES: No cyanosis, 1-2+ edema. NEUROLOGICAL: Awake, alert, and oriented x 3. Non-focal. Laboratory Laboratory Tests Test 07/01/17 10:57 Blood Urea Nitrogen 40 Creatinine 1.64 Random Glucose 305 Calcium Level 8.0 Sodium Level 137 Potassium Level 4.0 Chloride Level 96 Carbon Dioxide Level 36.0 Anion Gap 5 Estimat Glomerular Filtration Rate 37 Result Diagram: 06/29/17 0725 07/01/17 1057 Imaging Last Impressions Renal Ultrasound 06/29/17 0000 Signed Impressions: Service Date/Time: Thursday, June 29, 2017 11:31 - CONCLUSION: Normal examination. Camilo Sims MD Chest X-Ray 06/23/17 0510 Signed Impressions: Service Date/Time: Friday, June 23, 2017 05:14 - CONCLUSION: No infiltrate seen. Pablo Lofton MD Lower Extremity Ultrasound 06/23/17 0000 Signed Impressions: Service Date/Time: Friday, June 23, 2017 12:24 - CONCLUSION: Normal examination. Pete Foster MD Assessment and Plan Problem List: (1) MAGALIE (acute kidney injury) ICD Codes: N17.9 - Acute kidney failure, unspecified Status: Resolved Plan: Patient creatinine fluctuated in the overall she is doing well passing urine and I will check a urine sodium and protein and electrophoresis Ultrasound appears normal, looking back at her records this is a normal variation in the creatinine she needs diuretic As she has diastolic dysfunction and goes into congestive heart failure From renal point of view is okay to place her on diuretic (2) CKD (chronic kidney disease) stage 3, GFR 30-59 ml/min ICD Codes: N18.3 - Chronic kidney disease, stage 3 (moderate) Plan: Check protein electrophoresis and [place] (3) COPD exacerbation ICD Codes: J44.1 - Chronic obstructive pulmonary disease with (acute) exacerbation Status: Acute Plan: Continue with current treatment (4) Type 2 diabetes mellitus ICD Codes: E11.9 - Type 2 diabetes mellitus without complications Status: Acute (5) Hypertension ICD Codes: I10 - Essential (primary) hypertension Status: Acute Plan: Continue to monitor blood pressure Grisel Davis MD Jul 01, 2017 16:26
[2017-07-01] MEDS ORDERED: INSULIN ASPART 1,000 UNITS/10 ML VIAL SQ SCH (17:00)
[2017-07-01] MEDS: INSULIN ASPART 1,000 UNITS/10 ML VIAL SQ SCH (17:23)
[2017-07-01 18:39] LABS: BLOOD, URINE NEG (NEG); COMMENT (UR) CULT NOT INDICATED; CULTURE IF INDICATED CULT NOT INDICATED; GLUCOSE,URINE NEG (NEG); KETONE, URINE NEG (NEG); NITRITE,URINE NEG (NEG); PH, URINE 5.5 (5.0-8.5); SQUAMOUS EPITHELIAL CELL URINE 1 /hpf (0-5); URINE COLOR YELLOW (YELLW/STRAW)
[2017-07-01 20:19] VITALS: BP 105/58; PULSE 91; RESP 16; TEMP 97.7; O2SAT 97
[2017-07-01] MEDS ORDERED: INSULIN DETEMIR 100 UNITS/ML VIAL SQ SCH (21:00)
[2017-07-01] MEDS: PRAVASTATIN SOD 80 MG TAB PO SCH (22:39)
[2017-07-01] MEDS: MONTELUKAST SODIUM 10 MG TAB PO SCH (22:39)
[2017-07-01] MEDS: PRAMIPEXOLE DIHYDROCHLORIDE 0.25 MG TAB PO SCH (22:40)
[2017-07-02 00:03] VITALS: BP 105/68; PULSE 76; RESP 17; TEMP 98.4; O2SAT 98
[2017-07-02] MEDS: INSULIN ASPART 1,000 UNITS/10 ML VIAL SQ SCH ×3 (07:44→16:26)
[2017-07-02] MEDS: INSULIN ASPART SUPPLEMENTAL SCALE SQ SCH ×4 (07:44→21:02)
[2017-07-02 07:59] VITALS: BP 131/88; PULSE 91; RESP 20; TEMP 98.2; O2SAT 97
[2017-07-02 08:03] LABS: TOTAL PROTEIN SPE 6.6 GM/DL (6.0-7.6)
[2017-07-02] MEDS: SODIUM CHLORIDE 0.9% FLUSH 10 ML FLUSH IV FLUSH SCH ×2 (08:12→21:01)
[2017-07-02] MEDS: DOCUSATE SODIUM 50 MG/SENNA 8.6 MG TAB PO SCH ×2 (08:13→21:02)
[2017-07-02] MEDS: buPROPion HCL 150 MG SUSTAINED RELEASE TAB PO SCH ×2 (08:13→21:02)
[2017-07-02] MEDS: FLUTICASONE PROPIONATE 50 MCG/ACT 16 GM NASAL SPRAY NASAL SCH (08:13)
[2017-07-02] MEDS: predniSONE 10 MG TAB PO SCH (08:16)
--- NOTE | 2017-07-02 10:06 | HHI.PR ---
Subjective Remarks Patient seen in her bedroom, taken new BMP for today, not improving her renal function on new BMP taken will get evaluation by Nephrology specialist also removed her IV Solu-Medrol and will continue her home dosages of steroids, optimized Insulin management for her Diabetes Mellitus. 07/02: Stable in her bedroom discussed with her and her relative in the room, she states she wants a written notification from her Insurance saying that she will receive her oxygen concentrator before she is leaving the Hospital, was discussed with food operations manager she already received all the information, as per Nephrology specialist okay to discharge she is at baseline as per his notes. Objective Vital Signs Date Time Temp Pulse Resp B/P (MAP) Pulse Ox O2 Delivery O2 Flow Rate FiO2 07/02/17 07:59 98.2 91 20 131/88 (102) 97 07/02/17 00:03 98.4 76 17 105/68 (80) 98 07/01/17 20:19 97.7 91 16 105/58 (74) 97 07/01/17 16:20 97.6 95 20 110/67 (81) 95 07/01/17 11:49 97.6 101 20 122/71 (88) 93 I/O 07/01/17 07/01/17 07/01/17 07/02/17 07/02/17 07/02/17 07:00 15:00 23:00 07:00 15:00 23:00 Intake Total 1320 ml 720 ml Balance 1320 ml 720 ml Intake Oral 1320 ml 720 ml # Voids 4 3 Result Diagram: 06/29/17 0725 07/01/17 1057 Imaging Last Impressions Renal Ultrasound 06/29/17 0000 Signed Impressions: Service Date/Time: Thursday, June 29, 2017 11:31 - CONCLUSION: Normal examination. Camilo Sims MD Chest X-Ray 06/23/17 0510 Signed Impressions: Service Date/Time: Friday, June 23, 2017 05:14 - CONCLUSION: No infiltrate seen. Pablo Lofton MD Lower Extremity Ultrasound 06/23/17 0000 Signed Impressions: Service Date/Time: Friday, June 23, 2017 12:24 - CONCLUSION: Normal examination. Pete Foster MD Procedures None Other Results Laboratory Tests Test 06/23/17 05:15 06/29/17 07:25 07/01/17 10:57 07/01/17 18:20 Blood Urea Nitrogen 17 MG/DL 40 MG/DL Creatinine 1.08 MG/DL 1.64 MG/DL Random Glucose 128 MG/DL 305 MG/DL Total Protein 8.0 GM/DL Albumin 3.4 GM/DL Calcium Level 9.1 MG/DL 8.0 MG/DL Alkaline Phosphatase 103 U/L Aspartate Amino Transf (AST/SGOT) 15 U/L Alanine Aminotransferase (ALT/SGPT) 19 U/L Total Bilirubin 0.4 MG/DL Sodium Level 139 MEQ/L 137 MEQ/L Potassium Level 4.0 MEQ/L 4.0 MEQ/L Chloride Level 97 MEQ/L 96 MEQ/L Carbon Dioxide Level 36.1 MEQ/L 36.0 MEQ/L Total Creatine Kinase 110 U/L Creatine Kinase MB 1.4 NG/ML Troponin I 0.03 NG/ML B-Type Natriuretic Peptide 276 PG/ML White Blood Count 10.2 TH/MM3 Red Blood Count 4.78 MIL/MM3 Hemoglobin 14.0 GM/DL Hematocrit 43.4 % Mean Corpuscular Volume 90.8 FL Mean Corpuscular Hemoglobin 29.3 PG Mean Corpuscular Hemoglobin Concent 32.3 % Red Cell Distribution Width 15.1 % Platelet Count 196 TH/MM3 Mean Platelet Volume 10.3 FL Neutrophils (%) (Auto) 87.5 % Lymphocytes (%) (Auto) 8.3 % Monocytes (%) (Auto) 4.2 % Eosinophils (%) (Auto) 0.0 % Basophils (%) (Auto) 0.0 % Neutrophils # (Auto) 8.9 TH/MM3 Lymphocytes # (Auto) 0.8 TH/MM3 Monocytes # (Auto) 0.4 TH/MM3 Eosinophils # (Auto) 0.0 TH/MM3 Basophils # (Auto) 0.0 TH/MM3 CBC Comment DIFF FINAL Differential Comment Anion Gap 5 MEQ/L Estimat Glomerular Filtration Rate 37 ML/MIN Urine Color YELLOW Urine Turbidity CLEAR Urine pH 5.5 Urine Specific [place] 1.014 Urine Protein NEG mg/dL Urine Glucose (UA) NEG mg/dL Urine Ketones NEG mg/dL Urine Occult Blood NEG Urine Nitrite NEG Urine Bilirubin NEG Urine Urobilinogen LESS THAN 2.0 MG/DL Urine Leukocyte Esterase NEG Urine RBC LESS THAN 1 /hpf Urine WBC LESS THAN 1 /hpf Urine Squamous Epithelial Cells 1 /hpf Urine Amorphous Sediment RARE Microscopic Urinalysis Comment CULT NOT INDICATED Urine Eosinophils NONE SEEN /HPF Urine Random Creatinine 90 MG/DL Urine Random Total Protein 12 MG/DL Urine Protein/Creatinine Ratio 0.13 Test 07/02/17 06:45 Total Protein 6.6 GM/DL Objective Remarks GENERAL: This is a 71 yo pleasant AA female, obese, well-nourished, well- developed patient, in no apparent distress. CARDIOVASCULAR: Regular rate and rhythm without murmurs, gallops, or rubs. RESPIRATORY: Clear to auscultation. No accessory muscle use. Breath sounds are decreased. No wheezes, rales, or rhonchi. GASTROINTESTINAL: Abdomen soft, obese, ventral hernia, non-tender, nondistended. No guarding. MUSCULOSKELETAL: Extremities without clubbing, cyanosis. Edema 2+ NEUROLOGICAL: Awake and alert. Cranial nerves II through XII intact. Motor and sensory grossly within normal limits. Five out of 5 muscle strength in all muscle groups. Normal speech. Medications and IVs Current Medications Medications (Trade) Dose Ordered Sig/[place] Route Start Time Stop Time Status Last Admin (NS Flush) 2 ml BID IV FLUSH 06/23/17 09:00 07/02/17 08:12 (NS Flush) 2 ml UNSCH PRN IV FLUSH 06/23/17 07:30 (Albuterol Neb) 2.5 mg Q2HR NEB PRN INH 06/23/17 07:30 (Norvasc) 10 mg DAILY PO 06/23/17 09:00 07/02/17 08:13 (Singulair) 10 mg HS PO 06/23/17 21:00 07/01/17 22:39 (Mirapex) 0.5 mg HS PO 06/23/17 21:00 07/01/17 22:40 (Pravachol) 80 mg HS PO 06/23/17 21:00 07/01/17 22:39 (Wellbutrin Sr) 150 mg BID PO 06/23/17 10:00 07/02/17 08:13 (Tylenol) 500 mg Q4H PRN PO 06/23/17 12:15 06/27/17 05:19 (D50w (Vial) Inj) 50 ml UNSCH PRN IV PUSH 06/24/17 13:00 (Glucagon Inj) 1 mg UNSCH PRN OTHER 06/24/17 13:00 (Narcan Inj) 0.4 mg UNSCH PRN IV PUSH 06/25/17 11:45 (Idalmis-Colace) 1 tab BID PO 06/25/17 21:00 07/02/17 08:13 (Milk Of Magnesia Liq) 30 ml Q12H PRN PO 06/25/17 11:45 (Senokot) 17.2 mg Q12H PRN PO 06/25/17 11:45 06/25/17 17:50 (Dulcolax Supp) 10 mg DAILY PRN RECTAL 06/25/17 11:45 (Lactulose Liq) 30 ml DAILY PRN PO 06/25/17 11:45 (Flonase Justen Spr) 2 spray DAILY NASAL 06/26/17 09:00 07/02/17 08:13 ([place] Justen [place]) 2 spray Q4H PRN EACH NARE 06/25/17 12:00 (Apresoline) 10 mg Q6HR PRN PO 06/28/17 16:45 06/29/17 05:11 (Catapres) 0.1 mg Q6H PRN PO 06/29/17 09:45 (Xanax) 0.25 mg Q8H PRN PO 06/29/17 11:30 (NovoLOG SUPPLEMENTAL SCALE) 1 ACHS SLIDING SCALE SQ 07/01/17 17:00 07/01/17 22:51 (Lovenox Inj) 30 mg Q24H SQ 07/02/17 12:00 (Deltasone) 30 mg DAILY PO 07/02/17 09:00 07/02/17 08:16 (NovoLOG INJ) 3 units TIDAC SQ 07/01/17 17:00 07/01/17 17:23 A/P Assessment and Plan 71-year-old female past medical history of COPD, hypertension, CHF who presented with shortness of breathing Acute on chronic Respiratory failure with hypoxia, now requiring continuous O2 at home. -Chest x-ray negative. Labs relatively stable. Most likely secondary to COPD exacerbation. COPD exacerbation Chronic hypoxia dependent and oxygen at night, now requiring O2 during the day continuously -Chest x-ray negative. Improving on Steroids, at this time on Solu-Medrol but her -Discussed with food operations manager Oxygen Concentrator ready for the patient. -Continue to monitor clinically. -Follows with Dr. Amaya as outpatient pulmonary. - continue sliding scale while on steroids, also removed IV Solu-Medrol and will continue Prednisone. Morbid Obesity strongly recommended diet and exercise. Hypertension controlled re started home medicines MAGALIE on CKD2: bumex 2 mg held, briefly received gentle hydration ns at42 cc- seen by Nephrology specialist okay to discharge and follow as outpatient recommended to continue Her diuretics will continue. also her ARBs. 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 stable at this time. CHF stable and follows with Dr. Barahona per cardiology's. -on hold diuretics at this time and following Nephrology recommendations. Constipation . Add bowel regimen. Morbid obesity BMI of 44.1. Diet and exercise. to f/u as OP with PC{p , vocational psychologist , might consider bariatric surgery. DVT prophylaxis -Lovenox. Discussed Condition With patient, nurse and rehabilitation caseworker Discharge Planning Discharge Home. Ac Nichole MD Jul 02, 2017 10:06 am
[2017-07-02] MEDS: ENOXAPARIN SODIUM 30 MG/0.3 ML SYRINGE SQ SCH (11:42)
[2017-07-02 12:34] VITALS: BP 139/87; PULSE 93; RESP 20; TEMP 98; O2SAT 98
[2017-07-02 16:06] VITALS: BP 150/82; PULSE 88; RESP 20; TEMP 98.3; O2SAT 96
--- NOTE | 2017-07-02 17:01 | HHI.NPPN ---
Subjective History of Present Illness Patient is a 71-year-old with peripheral edema, chronic kidney disease Review of Systems General Constitutional: Fatigue Cardiovascular Cardiac: Edema Objective Data Data 07/02/17 07/03/17 18:59 06:59 Intake Total 1880 ml Balance 1880 ml Intake Oral 1880 ml # Voids 8 # Bowel Movements 0 Vital Signs Date Time Temp Pulse Resp B/P (MAP) Pulse Ox O2 Delivery O2 Flow Rate FiO2 07/02/17 16:06 98.3 88 20 150/82 (104) 96 07/02/17 12:34 98.0 93 20 139/87 (104) 98 07/02/17 07:59 98.2 91 20 131/88 (102) 97 07/02/17 00:03 98.4 76 17 105/68 (80) 98 07/01/17 20:19 97.7 91 16 105/58 (74) 97 -: 06/29/17 0725 07/01/17 1057 Physical Exam General Appearance: Well Developed, Well Nourished Throat Throat Exam: Oral Mucosa [place] & Moist Neck Neck Exam: Neck Supple Pulmonary Resp Exam: Clear Bilaterally, Breath Sounds Equal Cardiology CV Exam: Regular, Normal Sinus Rhythm Gastrointestinal/Abdomen GI Exam: Soft, Non-Tender, Bowel Sounds Present Extremeties Extremities Exam: Trace Edema Assessment/Plan Problem List: (1) MAGALIE (acute kidney injury) ICD Codes: N17.9 - Acute kidney failure, unspecified Status: Resolved Plan: Patient creatinine fluctuated in the overall she is doing well passing urine Monitor BMP On diuretic Protein electrophoresis pending (2) CKD (chronic kidney disease) stage 3, GFR 30-59 ml/min ICD Codes: N18.3 - Chronic kidney disease, stage 3 (moderate) Plan: Check protein electrophoresis and [place] (3) COPD exacerbation ICD Codes: J44.1 - Chronic obstructive pulmonary disease with (acute) exacerbation Status: Acute Plan: Continue with current treatment (4) Type 2 diabetes mellitus ICD Codes: E11.9 - Type 2 diabetes mellitus without complications Status: Acute (5) Hypertension ICD Codes: I10 - Essential (primary) hypertension Status: Acute Plan: Continue to monitor blood pressure Grisel Davis MD Jul 02, 2017 17:01
[2017-07-02] MEDS: MONTELUKAST SODIUM 10 MG TAB PO SCH (21:02)
[2017-07-02] MEDS: PRAMIPEXOLE DIHYDROCHLORIDE 0.25 MG TAB PO SCH (21:03)
[2017-07-02] MEDS: PRAVASTATIN SOD 80 MG TAB PO SCH (21:03)
[2017-07-02 21:15] VITALS: BP 109/68; PULSE 62; RESP 19; TEMP 98.4; O2SAT 98
[2017-07-03] VITALS: BP 110/70; PULSE 68; RESP 20; TEMP 98.1; O2SAT 97
[2017-07-03 04:30] VITALS: BP 120/69; PULSE 72; RESP 20; TEMP 97.7; O2SAT 97
[2017-07-03] MEDS: INSULIN ASPART SUPPLEMENTAL SCALE SQ SCH ×2 (07:54→11:52)
[2017-07-03] MEDS: INSULIN ASPART 1,000 UNITS/10 ML VIAL SQ SCH ×2 (07:54→11:47)
[2017-07-03] MEDS: predniSONE 10 MG TAB PO SCH (08:25)
[2017-07-03] MEDS: SODIUM CHLORIDE 0.9% FLUSH 10 ML FLUSH IV FLUSH SCH (08:25)
[2017-07-03] MEDS: FLUTICASONE PROPIONATE 50 MCG/ACT 16 GM NASAL SPRAY NASAL SCH (08:25)
[2017-07-03] MEDS: buPROPion HCL 150 MG SUSTAINED RELEASE TAB PO SCH (08:25)
[2017-07-03] MEDS: DOCUSATE SODIUM 50 MG/SENNA 8.6 MG TAB PO SCH (08:25)
[2017-07-03 08:31] VITALS: BP 125/86; PULSE 82; RESP 18; TEMP 97.6; O2SAT 97
[2017-07-03 09:00] LABS: BICARBONATE 34.9 MEQ/L (21.0-32.0); POTASSIUM 4.3 MEQ/L (3.5-5.1)
[2017-07-03 11:47] VITALS: BP 157/74; PULSE 75; RESP 18; TEMP 97.8; O2SAT 96
[2017-07-03] MEDS: ENOXAPARIN SODIUM 30 MG/0.3 ML SYRINGE SQ SCH (11:52)
[2017-07-03] MEDS ORDERED: PRED10 PO (12:46)
--- NOTE | 2017-07-03 12:47 | HHI.PR ---
Subjective Remarks Patient seen in her bedroom, taken new BMP for today, not improving her renal function on new BMP taken will get evaluation by Nephrology specialist also removed her IV Solu-Medrol and will continue her home dosages of steroids, optimized Insulin management for her Diabetes Mellitus. 07/02: Stable in her bedroom discussed with her and her relative in the room, she states she wants a written notification from her Insurance saying that she will receive her oxygen concentrator before she is leaving the Hospital, was discussed with assistant restaurant general manager she already received all the information, as per Nephrology specialist okay to discharge she is at baseline as per his notes. 07/03: Seen in her bedroom and discussed with nurse Miss Vivar, no new issues, okay to discharge, no nausea, vomit or diarrhea. discussed with Quarter Section Ironer the patient states to me she is waiting for her Oxygen concentrator and appeal the discharge until she is not able to get the equipment she has, medically clear for discharge. Objective Vital Signs Date Time Temp Pulse Resp B/P (MAP) Pulse Ox O2 Delivery O2 Flow Rate FiO2 07/03/17 11:47 97.8 75 18 157/74 (101) 96 07/03/17 08:31 97.6 82 18 125/86 (99) 97 07/03/17 04:30 97.7 72 20 120/69 (86) 97 07/03/17 00:00 98.1 68 20 110/70 (83) 97 07/02/17 21:15 98.4 62 19 109/68 (82) 98 07/02/17 16:06 98.3 88 20 150/82 (104) 96 I/O 07/02/17 07/02/17 07/02/17 07/03/17 07/03/17 07/03/17 07:00 15:00 23:00 07:00 15:00 23:00 Intake Total 1880 ml 850 ml 800 ml Output Total 600 ml Balance 1880 ml 850 ml 800 ml -600 ml Intake Oral 1880 ml 850 ml 800 ml Output Urine Total 600 ml # Voids 8 1 3 # Bowel Movements 0 0 0 Result Diagram: 06/29/17 0725 07/03/17 0753 Imaging Last Impressions Renal Ultrasound 06/29/17 0000 Signed Impressions: Service Date/Time: Thursday, June 29, 2017 11:31 - CONCLUSION: Normal examination. Camilo iSms MD Chest X-Ray 06/23/17 0510 Signed Impressions: Service Date/Time: Friday, June 23, 2017 05:14 - CONCLUSION: No infiltrate seen. Pablo Lofton MD Lower Extremity Ultrasound 06/23/17 0000 Signed Impressions: Service Date/Time: Friday, June 23, 2017 12:24 - CONCLUSION: Normal examination. Pete Foster MD Procedures None Other Results Laboratory Tests Test 06/23/17 05:15 06/29/17 07:25 07/01/17 18:20 07/02/17 06:45 Blood Urea Nitrogen 17 MG/DL Creatinine 1.08 MG/DL Random Glucose 128 MG/DL Total Protein 8.0 GM/DL 6.6 GM/DL Albumin 3.4 GM/DL Calcium Level 9.1 MG/DL Alkaline Phosphatase 103 U/L Aspartate Amino Transf (AST/SGOT) 15 U/L Alanine Aminotransferase (ALT/SGPT) 19 U/L Total Bilirubin 0.4 MG/DL Sodium Level 139 MEQ/L Potassium Level 4.0 MEQ/L Chloride Level 97 MEQ/L Carbon Dioxide Level 36.1 MEQ/L Total Creatine Kinase 110 U/L Creatine Kinase MB 1.4 NG/ML Troponin I 0.03 NG/ML B-Type Natriuretic Peptide 276 PG/ML White Blood Count 10.2 TH/MM3 Red Blood Count 4.78 MIL/MM3 Hemoglobin 14.0 GM/DL Hematocrit 43.4 % Mean Corpuscular Volume 90.8 FL Mean Corpuscular Hemoglobin 29.3 PG Mean Corpuscular Hemoglobin Concent 32.3 % Red Cell Distribution Width 15.1 % Platelet Count 196 TH/MM3 Mean Platelet Volume 10.3 FL Neutrophils (%) (Auto) 87.5 % Lymphocytes (%) (Auto) 8.3 % Monocytes (%) (Auto) 4.2 % Eosinophils (%) (Auto) 0.0 % Basophils (%) (Auto) 0.0 % Neutrophils # (Auto) 8.9 TH/MM3 Lymphocytes # (Auto) 0.8 TH/MM3 Monocytes # (Auto) 0.4 TH/MM3 Eosinophils # (Auto) 0.0 TH/MM3 Basophils # (Auto) 0.0 TH/MM3 CBC Comment DIFF FINAL Differential Comment Urine Color YELLOW Urine Turbidity CLEAR Urine pH 5.5 Urine Specific [place] 1.014 Urine Protein NEG mg/dL Urine Glucose (UA) NEG mg/dL Urine Ketones NEG mg/dL Urine Occult Blood NEG Urine Nitrite NEG Urine Bilirubin NEG Urine Urobilinogen LESS THAN 2.0 MG/DL Urine Leukocyte Esterase NEG Urine RBC LESS THAN 1 /hpf Urine WBC LESS THAN 1 /hpf Urine Squamous Epithelial Cells 1 /hpf Urine Amorphous Sediment RARE Microscopic Urinalysis Comment CULT NOT INDICATED Urine Eosinophils NONE SEEN /HPF Urine Random Creatinine 90 MG/DL Urine Random Total Protein 12 MG/DL Urine Protein/Creatinine Ratio 0.13 Anti-Nuclear Antibody Screen NEG Test 07/03/17 07:53 Blood Urea Nitrogen 26 MG/DL Creatinine 1.13 MG/DL Random Glucose 81 MG/DL Calcium Level 8.4 MG/DL Sodium Level 138 MEQ/L Potassium Level 4.3 MEQ/L Chloride Level 99 MEQ/L Carbon Dioxide Level 34.9 MEQ/L Anion Gap 4 MEQ/L Estimat Glomerular Filtration Rate 57 ML/MIN Objective Remarks GENERAL: This is a 71 yo pleasant AA female, obese, well-nourished, well- developed patient, in no apparent distress. CARDIOVASCULAR: Regular rate and rhythm without murmurs, gallops, or rubs. RESPIRATORY: Clear to auscultation. No accessory muscle use. Breath sounds are decreased. No wheezes, rales, or rhonchi. GASTROINTESTINAL: Abdomen soft, obese, ventral hernia, non-tender, nondistended. No guarding. MUSCULOSKELETAL: Extremities without clubbing, cyanosis. Edema 2+ NEUROLOGICAL: Awake and alert. Cranial nerves II through XII intact. Motor and sensory grossly within normal limits. Five out of 5 muscle strength in all muscle groups. Normal speech. Medications and IVs Current Medications Medications (Trade) Dose Ordered Sig/[place] Route Start Time Stop Time Status Last Admin (NS Flush) 2 ml BID IV FLUSH 06/23/17 09:00 07/03/17 08:25 (NS Flush) 2 ml UNSCH PRN IV FLUSH 06/23/17 07:30 (Albuterol Neb) 2.5 mg Q2HR NEB PRN INH 06/23/17 07:30 (Norvasc) 10 mg DAILY PO 06/23/17 09:00 07/03/17 08:25 (Singulair) 10 mg HS PO 06/23/17 21:00 07/02/17 21:02 (Mirapex) 0.5 mg HS PO 06/23/17 21:00 07/02/17 21:03 (Pravachol) 80 mg HS PO 06/23/17 21:00 07/02/17 21:03 (Wellbutrin Sr) 150 mg BID PO 06/23/17 10:00 07/03/17 08:25 (Tylenol) 500 mg Q4H PRN PO 06/23/17 12:15 06/27/17 05:19 (D50w (Vial) Inj) 50 ml UNSCH PRN IV PUSH 06/24/17 13:00 (Glucagon Inj) 1 mg UNSCH PRN OTHER 06/24/17 13:00 (Narcan Inj) 0.4 mg UNSCH PRN IV PUSH 06/25/17 11:45 (Idalmis-Colace) 1 tab BID PO 06/25/17 21:00 07/03/17 08:25 (Milk Of Magnesia Liq) 30 ml Q12H PRN PO 06/25/17 11:45 (Senokot) 17.2 mg Q12H PRN PO 06/25/17 11:45 06/25/17 17:50 (Dulcolax Supp) 10 mg DAILY PRN RECTAL 06/25/17 11:45 (Lactulose Liq) 30 ml DAILY PRN PO 06/25/17 11:45 (Flonase Justen Spr) 2 spray DAILY NASAL 06/26/17 09:00 07/03/17 08:25 ([place] Justen [place]) 2 spray Q4H PRN EACH NARE 06/25/17 12:00 (Apresoline) 10 mg Q6HR PRN PO 06/28/17 16:45 06/29/17 05:11 (Catapres) 0.1 mg Q6H PRN PO 06/29/17 09:45 (Xanax) 0.25 mg Q8H PRN PO 06/29/17 11:30 (NovoLOG SUPPLEMENTAL SCALE) 1 ACHS SLIDING SCALE SQ 07/01/17 17:00 07/03/17 11:52 (Lovenox Inj) 30 mg Q24H SQ 07/02/17 12:00 07/03/17 11:52 (Deltasone) 30 mg DAILY PO 07/02/17 09:00 11/28/17 08:25 (NovoLOG INJ) 3 units TIDAC SQ 07/01/17 17:00 07/01/17 17:23 A/P Assessment and Plan 71-year-old female past medical history of COPD, hypertension, CHF who presented with shortness of breathing Acute on chronic Respiratory failure with hypoxia, now requiring continuous O2 at home. -Chest x-ray negative. Labs relatively stable. Most likely secondary to COPD exacerbation. COPD exacerbation Chronic hypoxia dependent and oxygen at night, now requiring O2 during the day continuously -Chest x-ray negative. Improving on Steroids, at this time on Solu-Medrol but her -Discussed with assistant restaurant general manager Oxygen Concentrator ready for the patient. -Continue to monitor clinically. -Follows with Dr. Amaya as outpatient pulmonary. - continue sliding scale while on steroids, also removed IV Solu-Medrol and will continue Prednisone. Morbid Obesity strongly recommended diet and exercise. Hypertension controlled re started home medicines MAGALIE on CKD2: bumex 2 mg held, briefly received gentle hydration ns at42 cc- seen by Nephrology specialist okay to discharge and follow as outpatient recommended to continue Her diuretics will continue. also her ARBs. today improved to baseline. 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 stable at this time. CHF stable and follows with Dr. Barahona per cardiology's. -on hold diuretics at this time and following Nephrology recommendations. Constipation . Add bowel regimen. Morbid obesity BMI of 44.1. Diet and exercise. to f/u as OP with PC{p , composing machine operator , might consider bariatric surgery. DVT prophylaxis -Lovenox. Discussed Condition With patient, nurse and rehabilitation caseworker Discharge Planning Discharge Home. Ac Nichole MD Jul 03, 2017 12:47
--- NOTE | 2017-07-03 14:48 | HHI.NPPN ---
Subjective History of Present Illness Patient is a 71-year-old with peripheral edema, chronic kidney disease Review of Systems General Constitutional: Fatigue Cardiovascular Cardiac: Edema Objective Data Data 07/03/17 07/04/17 19:00 07:00 Output Total 600 ml Balance -600 ml Output Urine Total 600 ml Vital Signs Date Time Temp Pulse Resp B/P (MAP) Pulse Ox O2 Delivery O2 Flow Rate FiO2 07/03/17 11:47 97.8 75 18 157/74 (101) 96 07/03/17 08:31 97.6 82 18 125/86 (99) 97 07/03/17 04:30 97.7 72 20 120/69 (86) 97 07/03/17 00:00 98.1 68 20 110/70 (83) 97 07/02/17 21:15 98.4 62 19 109/68 (82) 98 07/02/17 16:06 98.3 88 20 150/82 (104) 96 -: 06/29/17 0725 07/03/17 0753 Physical Exam General Appearance: Well Developed, Well Nourished Throat Throat Exam: Oral Mucosa [place] & Moist Neck Neck Exam: Neck Supple Pulmonary Resp Exam: Clear Bilaterally, Breath Sounds Equal Cardiology CV Exam: Regular, Normal Sinus Rhythm Gastrointestinal/Abdomen GI Exam: Soft, Non-Tender, Bowel Sounds Present Extremeties Extremities Exam: Trace Edema Assessment/Plan Problem List: (1) MAGALIE (acute kidney injury) ICD Codes: N17.9 - Acute kidney failure, unspecified Status: Resolved Plan: Patient creatinine fluctuated in the overall she is doing well passing urine Creatinine has declined 1.13 On diuretic Protein electrophoresis pending She can be followed as outpatient (2) CKD (chronic kidney disease) stage 3, GFR 30-59 ml/min ICD Codes: N18.3 - Chronic kidney disease, stage 3 (moderate) Plan: Check protein electrophoresis and [place] (3) COPD exacerbation ICD Codes: J44.1 - Chronic obstructive pulmonary disease with (acute) exacerbation Status: Acute Plan: Continue with current treatment (4) Type 2 diabetes mellitus ICD Codes: E11.9 - Type 2 diabetes mellitus without complications Status: Acute (5) Hypertension ICD Codes: I10 - Essential (primary) hypertension Status: Acute Plan: Continue to monitor blood pressure Grisel Davis MD Jul 03, 2017 14:48
[2017-07-03 16:40] VITALS: BP 138/80; PULSE 82; RESP 18; TEMP 97.9; O2SAT 100
[2017-07-03 18:01] LABS: ALBUMIN SPE 3.77 GM/DL (3.50-5.00); ALPHA 1 GLOBULIN 0.16 GM/DL (0.11-0.29); ALPHA 2 GLOBULIN 0.81 GM/DL (0.22-1.00); BETA GLOBULINS (SPE) 0.81 GM/DL (0.53-1.03)
[2017-07-04] MEDS ORDERED: ENOXAPARIN SODIUM 40 MG/0.4 ML SYRINGE SQ SCH (12:00)
== END 2017-07-03 16:43 | disposition home or self-care (01) | DRG 189 ==
LOC: NEPE 04:48 → NEDA 07:29 → N05B 08:39
PROVIDERS: ADMIT Internal Medicine; ATTEND Internal Medicine
DX: J96.21 Acute and chronic respiratory failure with hypoxia (principal); N17.9 Acute kidney failure, unspecified; E11.22 Type 2 diabetes mellitus with diabetic chronic kidney disease; I13.0 Hypertensive heart and chronic kidney disease with heart failure and stage 1 through stage 4 chronic kidney disease, or unspecified chronic kidney disease; I50.30 Unspecified diastolic (congestive) heart failure; I48.91 Unspecified atrial fibrillation; Z99.81 Dependence on supplemental oxygen; J44.1 Chronic obstructive pulmonary disease with (acute) exacerbation; G25.81 Restless legs syndrome; Z68.41 Body mass index [BMI] 40.0-44.9, adult; N18.3 Chronic kidney disease, stage 3 (moderate); E09.9 Drug or chemical induced diabetes mellitus without complications; E78.5 Hyperlipidemia, unspecified; G47.33 Obstructive sleep apnea (adult) (pediatric); T38.0X5A Adverse effect of glucocorticoids and synthetic analogues, initial encounter; I34.0 Nonrheumatic mitral (valve) insufficiency; K21.9 Gastro-esophageal reflux disease without esophagitis; K59.00 Constipation, unspecified; E66.01 Morbid (severe) obesity due to excess calories; Z77.22 Contact with and (suspected) exposure to environmental tobacco smoke (acute) (chronic); Z79.4 Long term (current) use of insulin; Z79.52 Long term (current) use of systemic steroids; M19.90 Unspecified osteoarthritis, unspecified site; F41.8 Other specified anxiety disorders; K44.9 Diaphragmatic hernia without obstruction or gangrene; G43.909 Migraine, unspecified, not intractable, without status migrainosus; Z90.710 Acquired absence of both cervix and uterus
CPT/HCPCS: 71010; 76775; 76937; 80048; 80053; 81001; 82550; 82552; 82570; 82948; 83880; 84156; 84165; 84484; 85025; 86038; 87205; 93005; 93971; 94620; 94640; 94664; J0696; J1650; J1815; J2920; J2930; J7030; J7512